=== PATIENT | male | born 1935 | race Caucasian/White ===

== ENCOUNTER 2018-04-25 16:15 | Inpatient (IN) | payer MEDICARE ==
--- NOTE | 2018-04-25 16:23 | C.PDOC ---
History Of Present Illness Patient is an 82 y/o male with unknown PMHx, who presents to the ED via EMS. As per EMS patient was found in a parking lot, minimally responsive, unknown down time. He was noted to have right side deficit, and brought to the ED for further evaluation. Finger stick was wnl. No family available at this time. Attempted to reach family via phone call, however no one picked up. Limited history provided secondary to patients clinical condition. Code Stroke called upon arrival. Time Seen by Provider: 04/25/18 16:19 Chief Complaint (Nursing): Weakness/Neurological Deficit History Per: Patient History/Exam Limitations: clinical condition Onset/Duration Of Symptoms: Unknown Current Symptoms Are (Timing): Still Present Additional History Per: EMS Past Medical History Reviewed: Historical Data, Nursing Documentation, Vital Signs Family History: States: No Known Family Hx Review Of Systems Review Of Systems: ROS cannot be obtained secondary to pt's inabilty to answer questions. ED Course And Treatment - Laboratory Results Result Diagrams: 04/27/18 05:59 04/27/18 12:55 O2 Sat by Pulse Oximetry: 98 (NC) Pulse Ox Interpretation: Normal - CT Scan/US CT Head Other Rad Studies (CT/US): Read By Radiologist CT/US Interpretation: Accession No. : [id number]. Patient Name / ID : DANIELA FLOYD / [id number]. Exam Date : 04/25/2018 16:29:33 ( Approved ). Study Comment : Sex / Age : M / 82Y. Creator : Izabel Mitchell. Dictator : Mitesh Aparicio MD. Resident Director : Nut Former : Mitesh Aparicio MD. Approver2 : Report Date : 04/25/2018 16:31:43. My Comment : . Date of service: 04/25/2018. PROCEDURE: CT HEAD WITHOUT CONTRAST. HISTORY: Code Stroke. COMPARISON: The. TECHNIQUE: Axial computed tomography images were obtained through the head/brain without intravenous contrast. Radiation dose: Total exam DLP = 1247.27 mGy-cm. This CT exam was performed using one or more of the following dose reduction techniques: Automated exposure control, adjustment of the mA and/or kV according to patient size, and/or use of iterative reconstruction technique. FINDINGS: HEMORRHAGE: No acute parenchymal, subarachnoid nor extra-axial hemorrhage.. BRAIN: Apparent hyperdense distal left MCA sign. 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 Minor diffuse/confluent chronic periventricular white matter ischemic changes seen extending peripherally into the deep and subcortical white matter both cerebral of hemispheres.. Note that the possibility of a small hyperacute infarct not excluded. No obvious parenchymal nor extra-axial mass or collection seen on this noncontrast study. Moderate volume loss slightly more central evidenced by slight disproportionate enlargement of the ventricles compared the sulci. Vascular calcifications both carotid siphons. VENTRICLES: No obstructive hydrocephalus. CALVARIUM: There are no acute calvarial fractures. PARANASAL SINUSES: Unremarkable as visualized. No significant inflammatory changes. MASTOID AIR CELLS: Unremarkable as visualized. No inflammatory changes. OTHER FINDINGS: Changes of bilateral cataract surgery. IMPRESSION: Apparent hyperdense distal left MCA sign. No acute intracranial hemorrhage. 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 Minor chronic periventricular white matter ischemic changes. NIHSS Stroke Scale 2 - Date/Time Evaluation Performed Date Performed: 04/25/18 Time Performed: 16:18 When Was NIHSS Performed: Code Stroke - How Severe is the Stroke Level of Consciousness: 2=Obtunded LOC to Questions: 2=Neither correct LOC to commands: 2=Neither correct Best Gaze: 1=Partial gaze palsy Visual: 0=No visual loss Facial: 1=Minor asymmetry Motor Arm - Left: 0=No drift Motor Arm - Right: 4=No movement Motor Leg - Left: 0=No drift Motor Leg - Right: 4=No movement Limb Ataxia: 2=Present both Sensory: 2=Severe to total loss Best Language: 3=Mute Dysarthia: 2=Severe, near unintelligible or worse Extinction & Inattention (Neglect): 0=Normal, no object Score: 25 Severity Of Stroke: 21-42 = Severe Stroke rTPA Inclusion/Exclusion - Inclusion Criteria for Altepase Patient is 18 years or Older: Yes The Clinical Diagnosis of Ischemic Stroke That is Causing a Potentially Disabling Neurological Deficit: Yes Time of Onset is Well Established to be Less Than 270 Minute Before Treatment Would Begin: No Risk/Benefit Discussed With Patient/Family Member Present: No Medical Decision Making Medical Decision Makin:18 Patient immediately seen upon arrival, Code Stroke initiated. Initial orders placed: --CT Head --CTA Head/Neck --CMP --Hb A1c --Lipid panel --Troponin I --CBC --PTT/PT --Chest x-ray --VBG panel --Blood type/screen --IVF hydration --Stroke Team Consult 16:[address] and CTA reviewed, + large vessel occlusion. Dr. Cheung and Dr. Anders notified via [facility] and are at bedside in the ED. Discussed case, patient to be taken immediately to the label paster. 16:[address] Brunner, patient accepted and is currently en route to label paster. 16:53 Discussed case with athletic turf worker, Dr. Pavithra Sykes, patient accepted to ICU. Disposition - Disposition Disposition: HOSPITALIZED Disposition Time: 16:49 Condition: SERIOUS - POA Core Measure Indicators: Code Stroke - Clinical Impression Clinical Impression: Stroke - Scribe Statement The provider has reviewed the documentation as recorded by the Scribe (Chastity Jean Baptiste) Provider Attestation: All medical record entries made by the Scribe were at my direction and personally dictated by me. I have reviewed the chart and agree that the record accurately reflects my personal performance of the history, physical exam, medical decision making, and the department course for this patient. I have also personally directed, reviewed, and agree with the discharge instructions and disposition. Decision To Admit - Pt Status Changed To: Hospital Disposition Of: Inpatient - Admit Certification Admit to Inpatient:: After my assessment, the patient will require hospitalization for at least two midnights. This is because of the severity of symptoms shown, intensity of services needed, and/or the medical risk in this patient being treated as an outpatient. - InPatient: Physician Admission Certification: I certify that this patient requires 2 or more midnights of care for the following reason:: Stroke - . Bed Request Type: ICU Admitting Physician: Harinder Brunner Patient Diagnosis: Stroke
[2018-04-25 16:24] VITALS: BMI 30.1
[2018-04-25] MEDS ORDERED: Iodixanol 320 MG/ML 100 ML BOTTLE IV ONE (16:26)
[2018-04-25 16:36] LABS: BASO # 0.1 K/uL (0.0-0.2); BASO % 0.8 % (0.0-2.0); EOS # 0.3 K/uL (0.0-0.7); EOS % 2.7 % (0.0-4.0); HEMOGLOBIN 14.4 g/dL (12.0-18.0); LYMPH # 4.2 K/uL (1.0-4.3); LYMPH % 43.1 % (20.0-40.0); MEAN CELL VOLUME 77.5 fL (80.0-94.0); MEAN CORPUSCULAR HEMOGLOBIN 26.3 pg (27.0-31.0); MEAN PLATELET VOLUME 9.1 fL (7.2-11.7); MONO # 0.7 K/uL (0.0-0.8); MONO % 6.9 % (0.0-10.0); NEUT # 4.5 K/uL (1.8-7.0); NEUT % 46.5 % (50.0-75.0); NRBC % 0.1 % (0.0-2.0); RBC 5.49 Mil/uL (4.40-5.90); RED CELL DISTRIBUTION WIDTH 18.3 % (11.5-14.5); WHITE BLOOD COUNT 9.7 K/uL (4.8-10.8)
[2018-04-25 16:44] LABS: INR 1.3; PROTHROMBIN TIME 13.8 SECONDS (9.7-12.2)
[2018-04-25] MEDS ORDERED: Sodium Chloride 0.9% 1,000 ML IV ONE ×2 (16:46→20:48)
[2018-04-25 16:52] LABS: ALB/GLOB RATIO 1.2 (1.0-2.1); ALBUMIN 4.4 g/dL (3.5-5.0); ALT/SGPT 29 U/L (21-72); AST/SGOT 25 U/L (17-59); BLOOD UREA NITROGEN 22 mg/dL (9-20); CALCIUM 9.5 mg/dl (8.6-10.4); GFR NON-AFRICAN AMERICAN > 60; HDL CHOLESTEROL 40 mg/dL (30-70)
[2018-04-25 16:59] LABS: VENOUS BLOOD GAS BASE EXCESS -1.4 mmol/L (0.0-2.0); VENOUS BLOOD GAS PCO2 49 mmHg (40-60); VENOUS BLOOD GAS PO2 23 mm/Hg (30-55); VENOUS BLOOD PH 7.32 (7.32-7.43)
[2018-04-25] MEDS ORDERED: Propofol 10 mg/ml Inj (20 ML) ONE (16:59)
[2018-04-25] MEDS ORDERED: Rocuronium 10 mg/ml (5 ml) ONE ×2 (17:00→18:25)
--- NOTE | 2018-04-25 17:00 | CT ---
Date of service: 04/25/2018 PROCEDURE: CT HEAD WITHOUT CONTRAST. HISTORY: Code Stroke COMPARISON: The TECHNIQUE: Axial computed tomography images were obtained through the head/brain without intravenous contrast. Radiation dose: Total exam DLP = 1247.27 mGy-cm. This CT exam was performed using one or more of the following dose reduction techniques: Automated exposure control, adjustment of the mA and/or kV according to patient size, and/or use of iterative reconstruction technique. FINDINGS: HEMORRHAGE: No acute parenchymal, subarachnoid nor extra-axial hemorrhage.. BRAIN: Apparent hyperdense distal left MCA sign. 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 Minor diffuse/confluent chronic periventricular white matter ischemic changes seen extending peripherally into the deep and subcortical white matter both cerebral of hemispheres.. Note that the possibility of a small hyperacute infarct not excluded. No obvious parenchymal nor extra-axial mass or collection seen on this noncontrast study. Moderate volume loss slightly more central evidenced by slight disproportionate enlargement of the ventricles compared the sulci. Vascular calcifications both carotid siphons. VENTRICLES: No obstructive hydrocephalus. CALVARIUM: There are no acute calvarial fractures. PARANASAL SINUSES: Unremarkable as visualized. No significant inflammatory changes. MASTOID AIR CELLS: Unremarkable as visualized. No inflammatory changes. OTHER FINDINGS: Changes of bilateral cataract surgery IMPRESSION: Apparent hyperdense distal left MCA sign. No acute intracranial hemorrhage. 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 Minor chronic periventricular white matter ischemic changes. Note these findings were discussed with Dr. Cheung at approximately 4:50 p.m. with written down and read back verification.
[2018-04-25 17:02] LABS: LDL CHOLESTEROL 118 mg/dL (0-129)
--- NOTE | 2018-04-25 17:13 | CP.PCM.CON ---
History of Present Illness - History of Present Illness History of Present Illness: Chief Concern: Obtunded with left sided weakness Buddy Hernandez is an 82 yo M with unknown past medical history who was found down earlier today. EMS was called and the patient was brought to the ED. On arrival patient was noted to be very drowsy and was oving only his left side spontaneously. A stroke was suspected and a CT and CTA was obtained and the stroke team was activated. All: Unknown Meds: Unknown PMH/PSH: Unknown FH/SH: Unknown On exam: Vitals: 194/114 tachycardic breathing spontaneously MSE: Drowsy, grimaces to noxious stimuli on left side, mute CN: left gaze preference, unable to test BTT, right facial droop, tongue midline Motor: moves left side spontaneously, right hemiplegia Sensory: grimaces to pain on left side Coord: No dysmetria Gait: Deferred CT head: No acute infarct or hemorrhage CTA: left MCA M1 occlusion with very very poor perfusion to the left hemisphere Imp: 1) Acute ischemic stroke with high severity on stroke scale Recs: 1) After a detailed discussion with the ED attending and the stroke team it was decided that the patient would need rapid recanalization of his MCA as his collateral status is very poor. A decision was made to transfer the patient to the laboratory veterinarian for endovascular mechanical thrombectomy 2) Attempts are being made to reach the family. In the interim there is cons ensus and consent between the ED physician, the neurology attending and the interventional team that the best treatment would be to rapid transfer to the laboratory veterinarian and attempt rapid recanalization given his poor left hemispheric collateral status 3) further management based on the results of the angiogram Past Patient History - Past Social History Smoking Status: unknown - PSYCHIATRIC Hx Substance Use: No (unknown) Meds Allergies/Adverse Reactions: Allergies Allergy/AdvReac Type Severity Reaction Status Date / Time No Known Allergies Allergy Unverified 04/25/18 16:19 - Medications Medications: Current Medications Sodium Chloride (Sodium Chloride 0.9%) 1,000 mls @ 100 mls/hr IV .Q10H DANIEL Sodium Chloride (Sodium Chloride 0.9%) 1,000 mls @ 1,000 mls/hr IV .Q1H ONE Stop: 04/25/18 17:45 Results - Vital Signs Recent Vital Signs: Last Vital Signs Temp Pulse 118 H 04/25/18 16:20 Resp 16 04/25/18 16:20 BP 194/114 H 04/25/18 16:20 Pulse Ox 98 04/25/18 16:20 - Labs Result Diagrams: 04/25/18 16:31 04/25/18 16:31 Labs: Laboratory Results - last 24 hr 04/25/18 04/25/18 04/25/18 16:17 16:31 16:31 WBC 9.7 RBC 5.49 Hgb 14.4 Hct 42.5 MCV 77.5 L MCH 26.3 L MCHC 34.0 RDW 18.3 H Plt Count 233 MPV 9.1 Neut % (Auto) 46.5 L Lymph % (Auto) 43.1 H [place] % (Auto) 6.9 Eos % (Auto) 2.7 Baso % (Auto) 0.8 Neut # (Auto) 4.5 Lymph # (Auto) 4.2 [place] # (Auto) 0.7 Eos # (Auto) 0.3 Baso # (Auto) 0.1 PT 13.8 H INR 1.3 APTT 33 pO2 VBG pH VBG pCO2 VBG HCO3 VBG Total CO2 VBG O2 Sat (Calc) VBG Base Excess VBG Potassium Glucose Lactate Crit Value Called To Crit Value Called By Crit Value Read Back Blood Gas Notified Time Sodium Potassium Chloride Carbon Dioxide Anion Gap BUN Creatinine Est GFR ( Amer) Est GFR (Non-Af Amer) POC Glucose (mg/dL) 121 H Random Glucose Hemoglobin A1c Calcium Total Bilirubin AST ALT Alkaline Phosphatase Troponin I Total Protein Albumin Globulin Albumin/Globulin Ratio Triglycerides Cholesterol LDL Cholesterol Direct HDL Cholesterol Venous Blood Potassium 04/25/18 04/25/18 04/25/18 16:31 16:31 16:55 WBC RBC Hgb Hct MCV MCH MCHC RDW Plt Count MPV Neut % (Auto) Lymph % (Auto) [place] % (Auto) Eos % (Auto) Baso % (Auto) Neut # (Auto) Lymph # (Auto) [place] # (Auto) Eos # (Auto) Baso # (Auto) PT INR APTT pO2 23 L VBG pH 7.32 VBG pCO2 49 VBG HCO3 22.1 VBG Total CO2 26.7 VBG O2 Sat (Calc) 42.5 VBG Base Excess -1.4 L VBG Potassium 2.5 L* Glucose 110 Lactate 1.3 Crit Value Called To do Mariela Crit Value Called By Phyllis rt Crit Value Read Back Y Blood Gas Notified Time 1659 Sodium 140 142.0 Potassium 3.6 Chloride 103 108.0 H Carbon Dioxide 30 Anion Gap 12 BUN 22 H Creatinine 1.1 Est GFR ( Amer) > 60 Est GFR (Non-Af Amer) > 60 POC Glucose (mg/dL) Random Glucose 139 H Hemoglobin A1c 5.9 Calcium 9.5 Total Bilirubin 0.7 AST 25 ALT 29 Alkaline Phosphatase 81 Troponin I 0.0200 Total Protein 8.2 Albumin 4.4 Globulin 3.8 Albumin/Globulin Ratio 1.2 Triglycerides 120 Cholesterol 181 LDL Cholesterol Direct 118 HDL Cholesterol 40 Venous Blood Potassium 2.5 L* Assessment & Plan - Assessment and Plan (Free Text) Assessment: acute ischemic stroke Plan: Imp: 1) Acute ischemic stroke with high severity on stroke scale Recs: 1) After a detailed discussion with the ED attending and the stroke team it was decided that the patient would need rapid recanalization of his MCA as his collateral status is very poor. A decision was made to transfer the patient to the laboratory veterinarian for endovascular mechanical thrombectomy 2) Attempts are being made to reach the family. In the interim there is consensus and consent between the ED physician, the neurology attending and the interventional team that the best treatment would be to rapid transfer to the laboratory veterinarian and attempt rapid recanalization given his poor left hemispheric collateral status 3) further management based on the results of the angiogram 4) Approximately 45 minutes of critical care time was spent in evaluation and management and documentation and coordination of care of this patient with acute ischemic stroke - Date & Time Date: 04/25/18 Time: 17:28
--- NOTE | 2018-04-25 17:13 | CT ---
Date of service: 2018-04-25 16:33:53 PROCEDURE: CT Angiography of the neck and brain. HISTORY: Code stroke. COMPARISON: None. TECHNIQUE: Contiguous axial images of the neck were obtained from the level of the vertex of skull to the superior mediastinum in the arteriographic phase of enhancement. Coronal and sagittal reformats or also generated. IV contrast dose: 100 cc Visipaque 320 Radiation dose: Total exam DLP = 662.55 mGy-cm. This CT exam was performed using one or more of the following dose reduction techniques: Automated exposure control, adjustment of the mA and/or kV according to patient size, and/or use of iterative reconstruction technique.. FINDINGS: The aortic arch is patent however there are mild partially calcified atherosclerotic plaque changes present with some extension into the origins of the great vessels. There is occlusion of the proximal left common carotid artery extending distally into the carotid bifurcation and left internal carotid artery including the left petrous and cavernous as well as supraclinoid segment.. There is also occlusion of the left distal middle cerebral artery and distal branches. There is also the right common carotid artery is patent with calcified plaque changes seen distally at the distal margin of the common carotid artery involving the carotid bifurcation and proximal internal carotid artery. There appears to be resulting in narrowing of the proximal internal carotid artery estimated at approximately % or so. There is some minor calcified plaque along the proximal and mid petrous segment with a calcified plaque right carotid siphon extending into the supraclinoid carotid artery. There is opacification of the right A1 as well and right A2 segments. There is also opacification of the left A1 and left A2 segment of secondary to cross filling predominately presumably across the posterior communicating artery and possibly some contribution across the anterior communicator. The middle cerebral artery is patent. Both vertebral arteries are patent right-sided which is slightly larger in caliber/more dominant than the left. Small calcified plaque seen along the distal of vertebral artery (proximal intradural segment). Basilar artery is patent. No definitive evidence of large aneurysm nor vascular malformation. 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 There is opacification of the left A1 and A2 segments which appears to be predominantly fed from the left posterior communicating artery and possibly some contribution via the the anterior communicator. Calcified atherosclerotic plaque seen along the distal right common carotid artery and carotid bifurcation extending into the proximal internal carotid artery. Note these findings discussed with Dr. Sierra at 4:50 p.m. with written down and read back verification.
[2018-04-25] MEDS ORDERED: Iodixanol 320 MG/ML 200 ML BOTTLE IV ONE ×2 (17:19→19:13)
--- NOTE | 2018-04-25 17:34 | CP.PCM.CON ---
<Wilma Oviedoandra - Last Filed: 04/25/18 20:20> History of Present Illness - History of Present Illness History of Present Illness: Patient is an 82 yo male who was found minimally responsive in a parking lot and brought to ED by EMS. He had R-sided deficit and code stroke was called. CT and CTA showed large ischemic CVA. Patient underwent mechanical thrombectomy. He remains intubated and sedated after the procedure. PMH, FH, SH: unknown Review of Systems - Review of Systems Systems not reviewed;Unavailable: Intubated Past Patient History - Past Social History Smoking Status: unknown - PSYCHIATRIC Hx Substance Use: No (unknown) Meds Allergies/Adverse Reactions: Allergies Allergy/AdvReac Type Severity Reaction Status Date / Time No Known Allergies Allergy Unverified 04/25/18 16:19 - Medications Medications: Current Medications Sodium Chloride (Sodium Chloride 0.9%) 1,000 mls @ 100 mls/hr IV .Q10H DANIEL Sodium Chloride (Sodium Chloride 0.9%) 1,000 mls @ 1,000 mls/hr IV .Q1H ONE Stop: 04/25/18 17:45 Nicardipine HCl 25 mg/ Sodium (Chloride) 250 mls @ 50 mls/hr IV .Q5H DANIEL Stop: 04/25/18 22:44 Physical Exam - Constitutional Additional comments: sedated, intubated - Head Exam Head Exam: ATRAUMATIC - Eye Exam Eye Exam: PERRL - ENT Exam ENT Exam: Mucous Membranes Moist - Respiratory Exam Additional comments: vent - Cardiovascular Exam Cardiovascular Exam: REGULAR RHYTHM - GI/Abdominal Exam GI & Abdominal Exam: Soft - Rectal Exam Rectal Exam: Deferred - Extremities Exam Extremities exam: Positive for: normal inspection - Psychiatric Exam Additional comments: sedated - Skin Skin Exam: Dry, Normal Color, Warm Results - Vital Signs Recent Vital Signs: Last Vital Signs Temp 97.9 F 04/25/18 16:20 Pulse 118 H 04/25/18 16:20 Resp 16 04/25/18 16:20 BP 194/114 H 04/25/18 16:20 Pulse Ox 98 04/25/18 16:20 - Labs Result Diagrams: 04/25/18 16:31 04/25/18 16:31 Labs: Laboratory Results - last 24 hr 04/25/18 04/25/18 04/25/18 16:17 16:31 16:31 WBC 9.7 RBC 5.49 Hgb 14.4 Hct 42.5 MCV 77.5 L MCH 26.3 L MCHC 34.0 RDW 18.3 H Plt Count 233 MPV 9.1 Neut % (Auto) 46.5 L Lymph % (Auto) 43.1 H Ada % (Auto) 6.9 Eos % (Auto) 2.7 Baso % (Auto) 0.8 Neut # (Auto) 4.5 Lymph # (Auto) 4.2 Ada # (Auto) 0.7 Eos # (Auto) 0.3 Baso # (Auto) 0.1 PT 13.8 H INR 1.3 APTT 33 pO2 VBG pH VBG pCO2 VBG HCO3 VBG Total CO2 VBG O2 Sat (Calc) VBG Base Excess VBG Potassium Glucose Lactate Crit Value Called To Crit Value Called By Crit Value Read Back Blood Gas Notified Time Sodium Potassium Chloride Carbon Dioxide Anion Gap BUN Creatinine Est GFR ( Amer) Est GFR (Non-Af Amer) POC Glucose (mg/dL) 121 H Random Glucose Hemoglobin A1c Calcium Total Bilirubin AST ALT Alkaline Phosphatase Troponin I Total Protein Albumin Globulin Albumin/Globulin Ratio Triglycerides Cholesterol LDL Cholesterol Direct HDL Cholesterol Venous Blood Potassium Blood Type Antibody Screen 04/25/18 04/25/18 04/25/18 16:31 16:31 16:31 WBC RBC Hgb Hct MCV MCH MCHC RDW Plt Count MPV Neut % (Auto) Lymph % (Auto) Ada % (Auto) Eos % (Auto) Baso % (Auto) Neut # (Auto) Lymph # (Auto) Ada # (Auto) Eos # (Auto) Baso # (Auto) PT INR APTT pO2 VBG pH VBG pCO2 VBG HCO3 VBG Total CO2 VBG O2 Sat (Calc) VBG Base Excess VBG Potassium Glucose Lactate Crit Value Called To Crit Value Called By Crit Value Read Back Blood Gas Notified Time Sodium 140 Potassium 3.6 Chloride 103 Carbon Dioxide 30 Anion Gap 12 BUN 22 H Creatinine 1.1 Est GFR ( Amer) > 60 Est GFR (Non-Af Amer) > 60 POC Glucose (mg/dL) Random Glucose 139 H Hemoglobin A1c 5.9 Calcium 9.5 Total Bilirubin 0.7 AST 25 ALT 29 Alkaline Phosphatase 81 Troponin I 0.0200 Total Protein 8.2 Albumin 4.4 Globulin 3.8 Albumin/Globulin Ratio 1.2 Triglycerides 120 Cholesterol 181 LDL Cholesterol Direct 118 HDL Cholesterol 40 Venous Blood Potassium Blood Type A POSITIVE Antibody Screen Negative 04/25/18 16:55 WBC RBC Hgb Hct MCV MCH MCHC RDW Plt Count MPV Neut % (Auto) Lymph % (Auto) Ada % (Auto) Eos % (Auto) Baso % (Auto) Neut # (Auto) Lymph # (Auto) Ada # (Auto) Eos # (Auto) Baso # (Auto) PT INR APTT pO2 23 L VBG pH 7.32 VBG pCO2 49 VBG HCO3 22.1 VBG Total CO2 26.7 VBG O2 Sat (Calc) 42.5 VBG Base Excess -1.4 L VBG Potassium 2.5 L* Glucose 110 Lactate 1.3 Crit Value Called To Mariela, do Crit Value Called By Phyllis rt Crit Value Read Back Y Blood Gas Notified Time 1659 Sodium 142.0 Potassium Chloride 108.0 H Carbon Dioxide Anion Gap BUN Creatinine Est GFR ( Amer) Est GFR (Non-Af Amer) POC Glucose (mg/dL) Random Glucose Hemoglobin A1c Calcium Total Bilirubin AST ALT Alkaline Phosphatase Troponin I Total Protein Albumin Globulin Albumin/Globulin Ratio Triglycerides Cholesterol LDL Cholesterol Direct HDL Cholesterol Venous Blood Potassium 2.5 L* Blood Type Antibody Screen Assessment & Plan - Assessment and Plan (Free Text) Assessment: Patient is 82 yo male who underwent 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 He remains intubated and sedated. 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, occlusion of L MCA - Neurovascular checks Q1H- if any changes, repeat CT head STAT - Propofol drip- maintain RASS -2 - Neurology consulted (Ann) - Neurointervention consulted (Arcot) CV: - Mechanical thrombectomy today 04/25 - Lipid panel wnl - Stop Integrilin - ASA 325 mg PO loading dose then ASA 81 mg PO daily - Plavix 300 mg PO loading dose then Plavix 75 mg PO daily - NS @ 100 mL/hr - Monitor vitals- maintain SBP Pulm: - ETT- titrate vent to maintain spO2>92% - CXR pending - ABG pending GI: - NGT - NPO : - I's & O's- Bhatt - Replete electrolytes PRN - UA pending Endo: - A1c 5.9 - Maintain euglycemia - Hypoglycemia protocol - Accuchecks Q6H with ISS Heme: - Monitor H&H - Monitor coags ID: - Afebrile - No leukocytosis - Lactate pending PPx: VTE: heparin 5000 units SC Q8H GI: Pepcid 20 mg IV daily Code status: full code Case discussed with attending, Dr. Shannon Sykes. PGY-1 Katelyn Oviedo D.O. <Román Sykes - Last Filed: 04/26/18 19:14> Meds - Medications Medications: Current Medications Albuterol/Ipratropium (Duoneb 3 Mg/0.5 Mg (3 Ml) Ud) 3 ml INH RQ4 [facility] Last Admin: 04/26/18 16:39 Dose: 3 ml Aspirin (Ecotrin) 81 mg PO DAILY DANIEL Last Admin: 04/26/18 09:14 Dose: 81 mg Clopidogrel Bisulfate (Plavix) 75 mg PO DAILY [facility] Last Admin: 04/26/18 09:14 Dose: 75 mg Famotidine (Pepcid) 20 mg IVP DAILY [facility] Last Admin: 04/26/18 09:14 Dose: 20 mg Heparin Sodium (Porcine) (Heparin) 5,000 units SC Q8 DANIEL Last Admin: 04/26/18 15:00 Dose: 5,000 units Propofol (Diprivan) 1,000 mg in 100 mls @ 2.773 mls/hr IV .Q24H PRN; Protocol PRN Reason: TITRATE PER MD ORDER Last Titration: 04/26/18 17:15 Dose: 24.88 mcg/kg/min, 13.8 mls/hr Piperacillin Sod/Tazobactam (Sod 3.375 gm/ Sodium Chloride) 100 mls @ 200 mls/hr IVPB Q6H DANIEL; Protocol Last Admin: 04/26/18 15:23 Dose: 200 mls/hr Vancomycin/Sodium Chloride (Vancomycin 1 Gm/Ns 200 Ml) 1 gm in 200 mls @ 133.333 mls/hr IVPB Q24H DANIEL; Protocol Stop: 05/01/18 09:16 Last Admin: 04/26/18 11:14 Dose: 133.333 mls/hr Nicardipine HCl 25 mg/ Sodium (Chloride) 250 mls @ 50 mls/hr IV .Q5H DANIEL; Protocol Last Titration: 04/26/18 18:26 Dose: 0 mg/hr, 0 mls/hr Sodium Chloride (Sodium Chloride 0.9%) 1,000 mls @ 42 mls/hr IV .[id number] DANIEL Insulin Aspart (Novolog) 0 unit SC Q6H DANIEL; Protocol Last Admin: 04/26/18 17:46 Dose: Not Given Propofol (Diprivan) 100 mg IV TITR DANIEL Rosuvastatin Calcium (Crestor) 10 mg PO HS DANIEL Results - Vital Signs Recent Vital Signs: Last Vital Signs Temp 99 F 04/26/18 16:00 Pulse 69 04/26/18 19:00 Resp 22 04/26/18 19:00 BP 117/37 L 04/26/18 19:00 Pulse Ox 100 04/26/18 19:00 - Labs Result Diagrams: 04/26/18 06:09 04/26/18 06:09 Labs: Laboratory Results - last 24 hr 04/25/18 04/25/18 04/25/18 21:44 21:47 21:47 WBC 9.3 RBC 4.10 L Hgb 10.8 L D Hct 32.1 L MCV 78.2 L MCH 26.4 L MCHC 33.7 RDW 18.2 H Plt Count 180 MPV 8.7 Neut % (Auto) 80.4 H Lymph % (Auto) 14.8 L Ada % (Auto) 4.1 Eos % (Auto) 0.2 Baso % (Auto) 0.5 Neut # (Auto) 7.5 H Lymph # (Auto) 1.4 Ada # (Auto) 0.4 Eos # (Auto) 0.0 Baso # (Auto) 0.1 Puncture Site [place] pCO2 43 pO2 126 H HCO3 22.5 ABG pH 7.33 L ABG Total CO2 24.0 ABG O2 Saturation 98.5 H ABG Base Excess -3.2 L ABG Hemoglobin ABG Carboxyhemoglobin POC ABG HHb (Measured) ABG Methemoglobin Jose D Test Na ABG Potassium 3.7 A-a O2 Difference 177.0 Respiratory Index 1.4 Hgb O2 Saturation Sodium 139.0 138 Chloride 114.0 H 109 H Glucose 134 H Lactate 0.8 Vent Mode Prvc Mechanical Rate 20 FiO2 50.0 Tidal Volume 450 PEEP 5 Potassium 4.1 Carbon Dioxide 22 Anion Gap 12 BUN 21 H Creatinine 0.9 Est GFR ( Amer) > 60 Est GFR (Non-Af Amer) > 60 POC Glucose (mg/dL) Random Glucose 138 H Lactic Acid Calcium 7.5 L Phosphorus 3.0 Magnesium 1.8 Total Bilirubin 0.6 AST 18 ALT 33 Alkaline Phosphatase 48 Total Creatine Kinase CK-MB (Mass) Troponin I NT-Pro-B Natriuret Pep Total Protein 5.6 L Albumin 2.7 L D Globulin 2.8 Albumin/Globulin Ratio 1.0 Arterial Blood Potassium 3.7 Urine Color Urine Clarity Urine pH Ur Specific Cameron Urine Protein Urine Glucose (UA) Urine Ketones Urine Blood Urine Nitrate Urine Bilirubin Urine Urobilinogen Ur Leukocyte Esterase Urine WBC (Auto) Urine RBC (Auto) Ur Squamous Epith Cells Urine Bacteria 04/25/18 04/25/18 04/25/18 21:47 22:33 23:54 WBC RBC Hgb Hct MCV MCH MCHC RDW Plt Count MPV Neut % (Auto) Lymph % (Auto) Ada % (Auto) Eos % (Auto) Baso % (Auto) Neut # (Auto) Lymph # (Auto) Ada # (Auto) Eos # (Auto) Baso # (Auto) Puncture Site pCO2 pO2 HCO3 ABG pH ABG Total CO2 ABG O2 Saturation ABG Base Excess ABG Hemoglobin ABG Carboxyhemoglobin POC ABG HHb (Measured) ABG Methemoglobin Jose D Test ABG Potassium A-a O2 Difference Respiratory Index Hgb O2 Saturation Sodium Chloride Glucose Lactate Vent Mode Mechanical Rate FiO2 Tidal Volume PEEP Potassium Carbon Dioxide Anion Gap BUN Creatinine Est GFR ( Amer) Est GFR (Non-Af Amer) POC Glucose (mg/dL) 119 H 117 H Random Glucose Lactic Acid 0.8 Calcium Phosphorus Magnesium Total Bilirubin AST ALT Alkaline Phosphatase Total Creatine Kinase CK-MB (Mass) Troponin I NT-Pro-B Natriuret Pep Total Protein Albumin Globulin Albumin/Globulin Ratio Arterial Blood Potassium Urine Color Urine Clarity Urine pH Ur Specific Cameron Urine Protein Urine Glucose (UA) Urine Ketones Urine Blood Urine Nitrate Urine Bilirubin Urine Urobilinogen Ur Leukocyte Esterase Urine WBC (Auto) Urine RBC (Auto) Ur Squamous Epith Cells Urine Bacteria 11/09/18 11/09/18 11/09/18 00:24 05:16 05:43 WBC RBC Hgb Hct MCV MCH MCHC RDW Plt Count MPV Neut % (Auto) Lymph % (Auto) Ada % (Auto) Eos % (Auto) Baso % (Auto) Neut # (Auto) Lymph # (Auto) Ada # (Auto) Eos # (Auto) Baso # (Auto) Puncture Site A-line pCO2 36 pO2 139 H HCO3 21.8 ABG pH 7.37 ABG Total CO2 21.9 L ABG O2 Saturation 98.6 H ABG Base Excess -4.0 L ABG Hemoglobin 9.2 L ABG Carboxyhemoglobin 1.2 POC ABG HHb (Measured) 1.4 ABG Methemoglobin 0.9 Jose D Test Na ABG Potassium A-a O2 Difference 173.0 Respiratory Index 1.2 Hgb O2 Saturation 96.4 Sodium Chloride Glucose Lactate Vent Mode Prvc Mechanical Rate 20 FiO2 50.0 Tidal Volume 450 PEEP 5 Potassium Carbon Dioxide Anion Gap BUN Creatinine Est GFR ( Amer) Est GFR (Non-Af Amer) POC Glucose (mg/dL) 101 Random Glucose Lactic Acid Calcium Phosphorus Magnesium Total Bilirubin AST ALT Alkaline Phosphatase Total Creatine Kinase CK-MB (Mass) Troponin I NT-Pro-B Natriuret Pep Total Protein Albumin Globulin Albumin/Globulin Ratio Arterial Blood Potassium Urine Color Yellow Urine Clarity Clear Urine pH 7.0 Ur Specific Cameron > 1.060 H Urine Protein 1+ H Urine Glucose (UA) Normal Urine Ketones Negative Urine Blood Negative Urine Nitrate Negative Urine Bilirubin Negative Urine Urobilinogen Normal Ur Leukocyte Esterase Neg Urine WBC (Auto) 2 Urine RBC (Auto) 4 H Ur Squamous Epith Cells < 1 Urine Bacteria Rare 04/26/18 04/26/18 04/26/18 06:09 06:09 06:09 WBC 7.5 RBC 3.49 L Hgb 9.0 L Hct 27.3 L MCV 78.3 L MCH 25.9 L MCHC 33.1 RDW 17.4 H Plt Count 152 MPV 9.3 Neut % (Auto) 77.8 H Lymph % (Auto) 14.6 L Ada % (Auto) 6.5 Eos % (Auto) 0.3 Baso % (Auto) 0.8 Neut # (Auto) 5.9 Lymph # (Auto) 1.1 Ada # (Auto) 0.5 Eos # (Auto) 0.0 Baso # (Auto) 0.1 Puncture Site pCO2 pO2 HCO3 ABG pH ABG Total CO2 ABG O2 Saturation ABG Base Excess ABG Hemoglobin ABG Carboxyhemoglobin POC ABG HHb (Measured) ABG Methemoglobin Jose D Test ABG Potassium A-a O2 Difference Respiratory Index Hgb O2 Saturation Sodium 140 Chloride 115 H Glucose Lactate Vent Mode Mechanical Rate FiO2 Tidal Volume PEEP Potassium 4.0 Carbon Dioxide 21 L Anion Gap 8 L BUN 18 Creatinine 0.8 Est GFR ( Amer) > 60 Est GFR (Non-Af Amer) > 60 POC Glucose (mg/dL) Random Glucose 100 Lactic Acid 0.8 Calcium 6.7 L Phosphorus 2.3 L Magnesium 1.7 Total Bilirubin 0.4 AST 18 ALT 27 Alkaline Phosphatase 52 Total Creatine Kinase CK-MB (Mass) Troponin I NT-Pro-B Natriuret Pep Total Protein 4.9 L Albumin 2.4 L Globulin 2.5 Albumin/Globulin Ratio 1.0 Arterial Blood Potassium Urine Color Urine Clarity Urine pH Ur Specific Cameron Urine Protein Urine Glucose (UA) Urine Ketones Urine Blood Urine Nitrate Urine Bilirubin Urine Urobilinogen Ur Leukocyte Esterase Urine WBC (Auto) Urine RBC (Auto) Ur Squamous Epith Cells Urine Bacteria 04/26/18 04/26/18 04/26/18 09:24 11:43 17:45 WBC RBC Hgb Hct MCV MCH MCHC RDW Plt Count MPV Neut % (Auto) Lymph % (Auto) Ada % (Auto) Eos % (Auto) Baso % (Auto) Neut # (Auto) Lymph # (Auto) Ada # (Auto) Eos # (Auto) Baso # (Auto) Puncture Site pCO2 pO2 HCO3 ABG pH ABG Total CO2 ABG O2 Saturation ABG Base Excess ABG Hemoglobin ABG Carboxyhemoglobin POC ABG HHb (Measured) ABG Methemoglobin Jose D Test ABG Potassium A-a O2 Difference Respiratory Index Hgb O2 Saturation Sodium Chloride Glucose Lactate Vent Mode Mechanical Rate FiO2 Tidal Volume PEEP Potassium Carbon Dioxide Anion Gap BUN Creatinine Est GFR ( Amer) Est GFR (Non-Af Amer) POC Glucose (mg/dL) 122 H 114 H Random Glucose Lactic Acid Calcium Phosphorus Magnesium Total Bilirubin AST ALT Alkaline Phosphatase Total Creatine Kinase 61 CK-MB (Mass) 1.16 Troponin I 0.0380 NT-Pro-B Natriuret Pep 1790 H Total Protein Albumin Globulin Albumin/Globulin Ratio Arterial Blood Potassium Urine Color Urine Clarity Urine pH Ur Specific Cameron Urine Protein Urine Glucose (UA) Urine Ketones Urine Blood Urine Nitrate Urine Bilirubin Urine Urobilinogen Ur Leukocyte Esterase Urine WBC (Auto) Urine RBC (Auto) Ur Squamous Epith Cells Urine Bacteria Assessment & Plan - Assessment and Plan (Free Text) Plan: Patient seen and examined at bedside. Patient with h/o A-fib presents to [facility] with stuperous and right sided motor weakenss. Patient immediately taken to neuro interventional -Acute MCA stroke:L suspect 2nd A-fib not on anticoagulation, s/p neurointernventional -neuro/vascular exam q1hrs -intubated for airway protection -RLL aspiration PNA: palacios culture, sputum culture, serial lactic, start broad spectrum abx, vanco/zosyn -Heart failure: obtain echo, bnp and trops -continue antiplatelets as per neurointernventional -patient was on integrilin post procedure - stopped -Repeat CT ehad at 7AM -f/u post intubation, AbG and CXR -continue dvt/pud ppx -avoid hypotonic fluids -BGM q6hrs, ISS aspart -post procedure, continue ventilation, BP measurement and serial neruro exam -if change in neuro exam obtain CT head prognosis guarded cc time 45 minutes - Date & Time Date: 04/25/18 Time: 22:30
[2018-04-25] MEDS ORDERED: Eptifibatide 0.75 mg/ml 75 MG/100 ML BOTTLE IV ONE (17:41)
[2018-04-25] MEDS ORDERED: niCARdipine IV 25 MG in Sodium Chloride 0.9% 240 ML IV SCH (17:45)
[2018-04-25] MEDS ORDERED: Eptifibatide 20 mg/10mL Inj IVP ONE (17:52)
--- NOTE | 2018-04-25 17:54 | CP.PCM.CON ---
History of Present Illness - History of Present Illness History of Present Illness: 82 yr old male who was found down on the ground in front of a restaurant an unknown time ago, not a TPA candidate due to the uncertain time of fall. Patient's history is not known. I examined the patient and he is plegic right arm and right leg, with aphasia, and right facial droop. There was no seizure at onset of event, and patient has stable vital signs. His NIH stroke scale is more than 20. There is no history of stroke, afib. ROS: not able to obtain from patient. PMH/PSH: not known Fh/SH: not known All: nkda On exam: Lethargic, not arouseable. Pupils 4mm-3mm with light bl. Patient appears to have a gaze preference. Right facial droop. Not withdrawing to painful stimuli, no grimace. +corneals, no dolls eyes, weak gag. Rigth side strength is 0/0 upper and lower limb Sensory: not able to determine due to patients mental status. +3 dtr ul and ll bl. Toes upgoing bl. No clonus Past Patient History - Past Social History Smoking Status: unknown - PSYCHIATRIC Hx Substance Use: No (unknown) Meds Allergies/Adverse Reactions: Allergies Allergy/AdvReac Type Severity Reaction Status Date / Time No Known Allergies Allergy Unverified 04/25/18 16:19 - Medications Medications: Current Medications Sodium Chloride (Sodium Chloride 0.9%) 1,000 mls @ 100 mls/hr IV .Q10H DANIEL Sodium Chloride (Sodium Chloride 0.9%) 1,000 mls @ 1,000 mls/hr IV .Q1H ONE Stop: 04/25/18 17:45 Nicardipine HCl 25 mg/ Sodium (Chloride) 250 mls @ 50 mls/hr IV .Q5H DANIEL Stop: 04/25/18 22:44 Results - Vital Signs Recent Vital Signs: Last Vital Signs Temp 97.9 F 04/25/18 16:20 Pulse 118 H 04/25/18 16:20 Resp 16 04/25/18 16:20 BP 194/114 H 04/25/18 16:20 Pulse Ox 98 04/25/18 16:20 - Labs Result Diagrams: 04/25/18 16:31 04/25/18 16:31 Labs: Laboratory Results - last 24 hr 04/25/18 04/25/18 04/25/18 16:17 16:31 16:31 WBC 9.7 RBC 5.49 Hgb 14.4 Hct 42.5 MCV 77.5 L MCH 26.3 L MCHC 34.0 RDW 18.3 H Plt Count 233 MPV 9.1 Neut % (Auto) 46.5 L Lymph % (Auto) 43.1 H [place] % (Auto) 6.9 Eos % (Auto) 2.7 Baso % (Auto) 0.8 Neut # (Auto) 4.5 Lymph # (Auto) 4.2 [place] # (Auto) 0.7 Eos # (Auto) 0.3 Baso # (Auto) 0.1 PT 13.8 H INR 1.3 APTT 33 pO2 VBG pH VBG pCO2 VBG HCO3 VBG Total CO2 VBG O2 Sat (Calc) VBG Base Excess VBG Potassium Glucose Lactate Crit Value Called To Crit Value Called By Crit Value Read Back Blood Gas Notified Time Sodium Potassium Chloride Carbon Dioxide Anion Gap BUN Creatinine Est GFR ( Amer) Est GFR (Non-Af Amer) POC Glucose (mg/dL) 121 H Random Glucose Hemoglobin A1c Calcium Total Bilirubin AST ALT Alkaline Phosphatase Troponin I Total Protein Albumin Globulin Albumin/Globulin Ratio Triglycerides Cholesterol LDL Cholesterol Direct HDL Cholesterol Venous Blood Potassium Blood Type Antibody Screen 04/25/18 04/25/18 04/25/18 16:31 16:31 16:31 WBC RBC Hgb Hct MCV MCH MCHC RDW Plt Count MPV Neut % (Auto) Lymph % (Auto) [place] % (Auto) Eos % (Auto) Baso % (Auto) Neut # (Auto) Lymph # (Auto) [place] # (Auto) Eos # (Auto) Baso # (Auto) PT INR APTT pO2 VBG pH VBG pCO2 VBG HCO3 VBG Total CO2 VBG O2 Sat (Calc) VBG Base Excess VBG Potassium Glucose Lactate Crit Value Called To Crit Value Called By Crit Value Read Back Blood Gas Notified Time Sodium 140 Potassium 3.6 Chloride 103 Carbon Dioxide 30 Anion Gap 12 BUN 22 H Creatinine 1.1 Est GFR ( Amer) > 60 Est GFR (Non-Af Amer) > 60 POC Glucose (mg/dL) Random Glucose 139 H Hemoglobin A1c 5.9 Calcium 9.5 Total Bilirubin 0.7 AST 25 ALT 29 Alkaline Phosphatase 81 Troponin I 0.0200 Total Protein 8.2 Albumin 4.4 Globulin 3.8 Albumin/Globulin Ratio 1.2 Triglycerides 120 Cholesterol 181 LDL Cholesterol Direct 118 HDL Cholesterol 40 Venous Blood Potassium Blood Type A POSITIVE Antibody Screen Negative 04/25/18 16:55 WBC RBC Hgb Hct MCV MCH MCHC RDW Plt Count MPV Neut % (Auto) Lymph % (Auto) [place] % (Auto) Eos % (Auto) Baso % (Auto) Neut # (Auto) Lymph # (Auto) [place] # (Auto) Eos # (Auto) Baso # (Auto) PT INR APTT pO2 23 L VBG pH 7.32 VBG pCO2 49 VBG HCO3 22.1 VBG Total CO2 26.7 VBG O2 Sat (Calc) 42.5 VBG Base Excess -1.4 L VBG Potassium 2.5 L* Glucose 110 Lactate 1.3 Crit Value Called To Mariela, do Crit Value Called By Phyllis rt Crit Value Read Back Y Blood Gas Notified Time 1659 Sodium 142.0 Potassium Chloride 108.0 H Carbon Dioxide Anion Gap BUN Creatinine Est GFR ( Amer) Est GFR (Non-Af Amer) POC Glucose (mg/dL) Random Glucose Hemoglobin A1c Calcium Total Bilirubin AST ALT Alkaline Phosphatase Troponin I Total Protein Albumin Globulin Albumin/Globulin Ratio Triglycerides Cholesterol LDL Cholesterol Direct HDL Cholesterol Venous Blood Potassium 2.5 L* Blood Type Antibody Screen Assessment & Plan - Assessment and Plan (Free Text) Assessment: CTA head and neck: shows completed occluded left ICA throughout its course to the Left MCA and through the supraclinoid segment. Right ICA and vasculature appears patent. MRI Brain: pending. A/P: 82 yr old male who was found down for unknown period of time, not a TPA candidate due to unclear time of onset, and now with completed occluded Left ICA to LEft MCA thrombus. Neurointerventional team in garden labou[employer] now to perform thrombectomy. Plan: 1. Thrombectomy 2. Transfer to ICU post op 3. DVT prophylaxis with venodynes. 4. ECHO 5. PT ST OT 6. Lipid profile. 7. please allow permissive htn for 24 hours after surgery. 8. Repeat CT head in am. Thank you Dr. Ann Neurology
[2018-04-25] MEDS ORDERED: VERAPAMIL ONE (18:30)
--- NOTE | 2018-04-25 20:03 | PCM.SURG1 ---
Surgeon's Initial Post Op Note - Surgeon's Notes Surgeon: Dr. Cheung Server Assistant: Mr. Santos Almanza Type of Anesthesia: General Endo Pre-Operative Diagnosis: Acute ischemic stroke with high severity on the stroke scale with Left ICA occlusion and left mca occlusion Operative Findings: Left ICA and Left MCA occlusion Post-Operative Diagnosis: Successful endovascular mechanical thrombectomy with recanalization of the left ica and left MCA from tici 0 to tici 3 with stenting and angioplasty of the left cervical ica Operation Performed: Successful endovascular mechanical thrombectomy with recanalization of the left ica and left MCA from tici 0 to tici 3 with stenting and angioplasty of the left cervical ica Specimen/Specimens Removed: None Estimated Blood Loss: EBL {In ML}: 400 Blood Products Given: N/A Drains Used: No Drains Post-Op Condition: Critical Date of Surgery/Procedure: 04/25/18 Time of Surgery/Procedure: 20:07
[2018-04-25] MEDS ORDERED: Aspirin 325 mg EC Tablets PO STA ×2 (20:10→21:56)
--- NOTE | 2018-04-25 20:12 | CP.PCM.PN ---
Subjective - Date & Time of Evaluation Date of Evaluation: 04/25/18 Time of Evaluation: 20:09 - Subjective Subjective: Pt is post procedure Objective - Vital Signs/Intake and Output Vital Signs (last 24 hours): Temp Pulse Resp BP Pulse Ox 97.9 F 118 H 16 194/114 H 98 04/25/18 16:20 04/25/18 16:20 04/25/18 16:20 04/25/18 16:20 04/25/18 17:50 - Medications Medications: Current Medications Sodium Chloride (Sodium Chloride 0.9%) 1,000 mls @ 100 mls/hr IV .Q10H DANIEL Nicardipine HCl 25 mg/ Sodium (Chloride) 250 mls @ 50 mls/hr IV .Q5H DANIEL Stop: 04/25/18 22:44 - Labs Labs: 04/25/18 16:31 04/25/18 16:31 PT 13.8 SECONDS (9.7-12.2) H 04/25/18 16:31 INR 1.3 04/25/18 16:31 APTT 33 SECONDS (21-34) 04/25/18 16:31 Assessment and Plan - Assessment and Plan (Free Text) Assessment: Acute ischemic stroke Plan: Post Op recommendations: 1) NG or OG tube placement 2) Discontinue Integrilin 3) Start Asa 325 and Plavix 300 mg immediately after stopping integrilin 4) Target SBP 100 to 140 mm HG 5) Please do not hesitate to contact me for any further questions or clarifications 6) Discussed with critical care team
[2018-04-25] MEDS ORDERED: Propofol 10 mg/ml Inj (100 ml) IV SCH ×2 (20:15→20:19)
[2018-04-25] MEDS ORDERED: Glucagon Recombinant 1 mg Inj IM PRN (20:17)
[2018-04-25] MEDS ORDERED: Dextrose 50% SYRINGE Inj (50 ml) IV PRN (20:17)
--- NOTE | 2018-04-25 20:43 | CP.PCM.HP ---
History of Present Illness - History of Present Illness History of Present Illness: H&P dictated # [id number] Past Patient History - Past Social History Smoking Status: unknown - PSYCHIATRIC Hx Substance Use: No (unknown) Meds Allergies/Adverse Reactions: Allergies Allergy/AdvReac Type Severity Reaction Status Date / Time No Known Allergies Allergy Unverified 04/25/18 16:19 Results - Vital Signs Recent Vital Signs: Last Vital Signs Temp 97.9 F 04/25/18 16:20 Pulse 118 H 04/25/18 16:20 Resp 16 04/25/18 16:20 BP 194/114 H 04/25/18 16:20 Pulse Ox 98 04/25/18 17:50 - Labs Result Diagrams: 04/25/18 21:47 04/25/18 21:47 Labs: Laboratory Results - last 24 hr 04/25/18 04/25/18 04/25/18 16:17 16:31 16:31 WBC 9.7 RBC 5.49 Hgb 14.4 Hct 42.5 MCV 77.5 L MCH 26.3 L MCHC 34.0 RDW 18.3 H Plt Count 233 MPV 9.1 Neut % (Auto) 46.5 L Lymph % (Auto) 43.1 H Floyd % (Auto) 6.9 Eos % (Auto) 2.7 Baso % (Auto) 0.8 Neut # (Auto) 4.5 Lymph # (Auto) 4.2 Floyd # (Auto) 0.7 Eos # (Auto) 0.3 Baso # (Auto) 0.1 PT 13.8 H INR 1.3 APTT 33 pO2 VBG pH VBG pCO2 VBG HCO3 VBG Total CO2 VBG O2 Sat (Calc) VBG Base Excess VBG Potassium Glucose Lactate Crit Value Called To Crit Value Called By Crit Value Read Back Blood Gas Notified Time Sodium Potassium Chloride Carbon Dioxide Anion Gap BUN Creatinine Est GFR ( Amer) Est GFR (Non-Af Amer) POC Glucose (mg/dL) 121 H Random Glucose Hemoglobin A1c Calcium Total Bilirubin AST ALT Alkaline Phosphatase Troponin I Total Protein Albumin Globulin Albumin/Globulin Ratio Triglycerides Cholesterol LDL Cholesterol Direct HDL Cholesterol Venous Blood Potassium Blood Type Antibody Screen 04/25/18 04/25/18 04/25/18 16:31 16:31 16:31 WBC RBC Hgb Hct MCV MCH MCHC RDW Plt Count MPV Neut % (Auto) Lymph % (Auto) Floyd % (Auto) Eos % (Auto) Baso % (Auto) Neut # (Auto) Lymph # (Auto) Floyd # (Auto) Eos # (Auto) Baso # (Auto) PT INR APTT pO2 VBG pH VBG pCO2 VBG HCO3 VBG Total CO2 VBG O2 Sat (Calc) VBG Base Excess VBG Potassium Glucose Lactate Crit Value Called To Crit Value Called By Crit Value Read Back Blood Gas Notified Time Sodium 140 Potassium 3.6 Chloride 103 Carbon Dioxide 30 Anion Gap 12 BUN 22 H Creatinine 1.1 Est GFR ( Amer) > 60 Est GFR (Non-Af Amer) > 60 POC Glucose (mg/dL) Random Glucose 139 H Hemoglobin A1c 5.9 Calcium 9.5 Total Bilirubin 0.7 AST 25 ALT 29 Alkaline Phosphatase 81 Troponin I 0.0200 Total Protein 8.2 Albumin 4.4 Globulin 3.8 Albumin/Globulin Ratio 1.2 Triglycerides 120 Cholesterol 181 LDL Cholesterol Direct 118 HDL Cholesterol 40 Venous Blood Potassium Blood Type A POSITIVE Antibody Screen Negative 04/25/18 16:55 WBC RBC Hgb Hct MCV MCH MCHC RDW Plt Count MPV Neut % (Auto) Lymph % (Auto) Floyd % (Auto) Eos % (Auto) Baso % (Auto) Neut # (Auto) Lymph # (Auto) Floyd # (Auto) Eos # (Auto) Baso # (Auto) PT INR APTT pO2 23 L VBG pH 7.32 VBG pCO2 49 VBG HCO3 22.1 VBG Total CO2 26.7 VBG O2 Sat (Calc) 42.5 VBG Base Excess -1.4 L VBG Potassium 2.5 L* Glucose 110 Lactate 1.3 Crit Value Called To do Mariela Crit Value Called By Phyllis rodriguez Crit Value Read Back Y Blood Gas Notified Time 1659 Sodium 142.0 Potassium Chloride 108.0 H Carbon Dioxide Anion Gap BUN Creatinine Est GFR ( Amer) Est GFR (Non-Af Amer) POC Glucose (mg/dL) Random Glucose Hemoglobin A1c Calcium Total Bilirubin AST ALT Alkaline Phosphatase Troponin I Total Protein Albumin Globulin Albumin/Globulin Ratio Triglycerides Cholesterol LDL Cholesterol Direct HDL Cholesterol Venous Blood Potassium 2.5 L* Blood Type Antibody Screen
[2018-04-25 21:47] LABS: ARTERIAL BLOOD GAS HCO3 22.5 mmol/L (21-28); ARTERIAL BLOOD GAS O2 SAT 98.5 % (95-98); ARTERIAL BLOOD GAS PCO2 43 mm/Hg (35-45); ARTERIAL BLOOD GAS PH 7.33 (7.35-7.45); ARTERIAL BLOOD GAS PO2 126 mm/Hg (80-100)
[2018-04-25] MEDS: Piperacillin/Tazobact 3.375 GM in Sodium Chloride 100 ML IVPB SCH (21:50)
[2018-04-25 21:51] LABS: BASO # 0.1 K/uL (0.0-0.2); BASO % 0.5 % (0.0-2.0); EOS % 0.2 % (0.0-4.0); HEMOGLOBIN 10.8 g/dL (12.0-18.0); LYMPH # 1.4 K/uL (1.0-4.3); LYMPH % 14.8 % (20.0-40.0); MEAN CELL VOLUME 78.2 fL (80.0-94.0); MEAN CORPUSCULAR HEMOGLOBIN 26.4 pg (27.0-31.0); MEAN CORPUSCULAR HGB CONC 33.7 g/dL (33.0-37.0); MEAN PLATELET VOLUME 8.7 fL (7.2-11.7); MONO # 0.4 K/uL (0.0-0.8); MONO % 4.1 % (0.0-10.0); NEUT # 7.5 K/uL (1.8-7.0); NEUT % 80.4 % (50.0-75.0); RBC 4.1 Mil/uL (4.40-5.90); RED CELL DISTRIBUTION WIDTH 18.2 % (11.5-14.5); WHITE BLOOD COUNT 9.3 K/uL (4.8-10.8)
[2018-04-25] MEDS: Sodium Chloride 0.9% 1,000 ML IV SCH (21:52)
[2018-04-25] MEDS: Propofol 10 mg/ml 1,000 MG/100 ML VIAL IV PRN (21:53)
[2018-04-25 22:05] LABS: ALBUMIN 2.7 g/dL (3.5-5.0); ALT/SGPT 33 U/L (21-72); AST/SGOT 18 U/L (17-59); BLOOD UREA NITROGEN 21 mg/dL (9-20); CALCIUM 7.5 mg/dl (8.6-10.4); GFR NON-AFRICAN AMERICAN > 60
[2018-04-26 00:41] LABS: SQUAMOUS EPITHIAL < 1 /hpf (0-5); URINE BACTERIA RARE (<OCC); URINE BILIRUBIN NEGATIVE (NEGATIVE); URINE BLOOD NEGATIVE (NEGATIVE); URINE CLARITY Clear (Clear); URINE COLOR Yellow (YELLOW); URINE GLUCOSE (UA) NORMAL (Normal); URINE LEUKOCYTE ESTERASE NEG Leu/uL (Negative); URINE PROTEIN 1+ mg/dL (NEGATIVE); URINE UROBILINOGEN NORMAL mg/dL (0.2-1.0)
[2018-04-26] MEDS: Sodium Chloride 0.9% 1,000 ML IV SCH ×2 (02:30→18:50)
[2018-04-26] MEDS: Propofol 10 mg/ml 1,000 MG/100 ML VIAL IV PRN ×3 (03:52→21:55)
--- NOTE | 2018-04-26 05:13 | HP ---
CHIEF COMPLAINT: The patient was found minimally responsive in the parking lot for unknown length of time. HISTORY OF PRESENT ILLNESS: Mr. Goodwin is an 82-year-old male with unknown past medical history, who was found in the parking lot, in front of a restaurant, for unknown length of time. He was brought in by the EMS. All the history obtained only by view of ER physician and other consultants' notes. As no family member is available, I tried contacting the telephone numbers available in the chart, left message, awaiting for them to call back. With the limited information available, the patient was found minimally responsive in the parking lot in front of a restaurant, and the patient was brought by EMS. Code stroke was called. The patient underwent a CT angiogram which showed large ischemic stroke, and the patient was evaluated by Neurology and Neurointerventional Radiology. Emergent procedure was done. The patient underwent emergent endovascular mechanical thrombectomy with recanalization of the left ICA and left MCA with stenting and angioplasty of the left cervical ICA, and the patient is being brought to ICU. The patient remains intubated, moving right upper extremity less than the other extremity, remains sedated, unable to obtain any further detailed history. PAST MEDICAL HISTORY: Unknown at this time. FAMILY HISTORY: Unknown. SURGICAL HISTORY: Unknown. PERSONAL HISTORY: Unknown. SOCIAL HISTORY: Unknown. ALLERGIES: DOCUMENTED. NO KNOWN DRUG ALLERGIES. MEDICATIONS: Unable to obtain medication list. REVIEW OF SYSTEMS: Unobtainable. PHYSICAL EXAMINATION: GENERAL: An elderly male, lying in bed, intubated, sedated. VITAL SIGNS: Blood pressure 194/114, pulse 118, respirations 16, temperature 97.9 degrees Fahrenheit, and O2 saturations 98% on 50% FiO2. HEENT: Pupils reacting to light. No icterus. No pallor. NECK: Supple. LUNGS: Bilateral fair air entry. No wheezing. No rhonchi. CARDIOVASCULAR SYSTEM: S1 and S2 present, regular. ABDOMEN: Soft. Bowel sounds present. No guarding. No rigidity. CENTRAL NERVOUS SYSTEM: Sedated, intubated. Decreased right-sided movement. EXTREMITIES: No edema. LABORATORY DATA: Labs done from the emergency room: WBC 9.7, hemoglobin 14.4, hematocrit 42.5, platelets 233. Repeat hemoglobin 10.8, hematocrit 32.1, platelets 180. INR 1.3, PTT 33, PT 13.8. ABG on 50% FiO2, tidal volume 450, PEEP 5, respiratory rate 20, pH is 7.32, pCO2 49. Sodium 140, potassium 3.6, chloride 103, bicarbonate 30, BUN 22, creatinine 1.1, glucose 121, hemoglobin A1c 5.9, calcium 9.5. Total bilirubin 0.7, AST 25, ALT 29, alkaline phosphatase 81, , total protein 8.2, albumin 4.4, triglycerides 120, cholesterol 181, LDL 118, HDL 40, arterial potassium 3.7. 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 There is occlusion of the left middle cerebral artery. Opacification of the left A1 and A2 segments which appear to be predominantly from the left posterior communicating artery. Calcified atherosclerotic plaque, senile on the distal right common carotid artery, carotid bifurcation extending into the proximal carotid artery. 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 The patient underwent successful thrombectomy and stenting done by Neurointerventional Radiology team, and the patient is being admitted to intensive care unit. PLAN: The patient is being monitored in the ICU, status post intubation. We will continue with vent support. Watch neurological status. We will keep the SBP below 140 as recommended. We will give aspirin. Repeat labs in a.m. Repeat chest x-ray. We will continue with DVT and GI prophylaxis. The patient received Zosyn and vancomycin. We will follow up with blood cultures and sputum cultures. Monitor H and H. Follow up with Neurology. We will try to contact the patient's family for further information. We will add further recommendation as his clinical course progresses. His prognosis is guarded. Harinder Brunner MD JOHAN
[2018-04-26] MEDS: Piperacillin/Tazobact 3.375 GM in Sodium Chloride 100 ML IVPB SCH ×4 (05:22→21:50)
[2018-04-26 05:55] LABS: ARTERIAL BLOOD GAS HCO3 21.8 mmol/L (21-28); ARTERIAL BLOOD GAS HEMOGLOBIN 9.2 g/dL (11.7-17.4); ARTERIAL BLOOD GAS O2 SAT 98.6 % (95-98); ARTERIAL BLOOD GAS PCO2 36 mm/Hg (35-45); ARTERIAL BLOOD GAS PH 7.37 (7.35-7.45); ARTERIAL BLOOD GAS PO2 139 mm/Hg (80-100); ARTERIAL BLOOD GAS TCO2 21.9 mmol/L (22-28)
[2018-04-26 06:33] LABS: ALBUMIN 2.4 g/dL (3.5-5.0); ALT/SGPT 27 U/L (21-72); AST/SGOT 18 U/L (17-59); BLOOD UREA NITROGEN 18 mg/dL (9-20); CALCIUM 6.7 mg/dl (8.6-10.4); GFR NON-AFRICAN AMERICAN > 60
[2018-04-26 06:37] LABS: BASO # 0.1 K/uL (0.0-0.2); BASO % 0.8 % (0.0-2.0); EOS % 0.3 % (0.0-4.0); LYMPH # 1.1 K/uL (1.0-4.3); LYMPH % 14.6 % (20.0-40.0); MEAN CELL VOLUME 78.3 fL (80.0-94.0); MEAN CORPUSCULAR HEMOGLOBIN 25.9 pg (27.0-31.0); MEAN CORPUSCULAR HGB CONC 33.1 g/dL (33.0-37.0); MEAN PLATELET VOLUME 9.3 fL (7.2-11.7); MONO # 0.5 K/uL (0.0-0.8); MONO % 6.5 % (0.0-10.0); NEUT # 5.9 K/uL (1.8-7.0); NEUT % 77.8 % (50.0-75.0); NRBC % 0.1 % (0.0-2.0); RBC 3.49 Mil/uL (4.40-5.90); RED CELL DISTRIBUTION WIDTH 17.4 % (11.5-14.5); WHITE BLOOD COUNT 7.5 K/uL (4.8-10.8)
--- NOTE | 2018-04-26 07:01 | OP ---
PROCEDURE DATE: 04/25/2018 PREPROCEDURE DIAGNOSIS: Left middle cerebral artery stroke. 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 PROCEDURES: Cerebral angiogram, mechanical thrombectomy of left internal carotid artery and middle cerebral artery and stent placement with embolic protection of left internal carotid artery. SURGEON: Alonzo Cheung MD ANESTHESIA: General with radial arterial line. CLINICAL HISTORY: This is an 82-year-old man who presented to the emergency room with acute ischemic stroke symptoms, underwent stroke code evaluation including CT and CT angiogram. The CT angiogram demonstrates the left ICA and middle cerebral artery occlusion with collaterals; however, the CT did not show any definitive changes with ischemia at that time. The patient had an NIH stroke score of over 22 with right hemiplegia, left gaze preference and aphasia. Decision was made to perform thrombectomy rather than transfer the patient because of time considerations. At the time of the initial part of the procedure, there was no family available, and the decision was made to provide the patient in the ED by himself that this is a critical standard of care and need to be provided in this patient in order to try to obtain the best possible outcome based on the available literature and data. After getting the patient upstairs and the family did arrive, I had discussion with the family and got consent from them as well. The patient was brought to the interventional suite, placed on the table in supine position. General anesthesia was induced by pantry steward/stewardess with careful attention with blood pressure maintained in the elevated 180 to 200 range. After the patient was under general anesthesia, both groins were prepped and draped in the usual sterile fashion. Time-out procedure was called documenting the procedures to be performed and after everyone in the room agreed, the procedure continued. The right common femoral artery was punctured using micropuncture system and then subsequently advanced to a 6-Grenadian sheath. Via the sheath, the diagnostic catheter was advanced into the abdominal aorta, and subsequently the left common carotid artery was selected. Injection of the left common carotid artery with cervical and intracranial views demonstrates complete occlusion with no antegrade flow in the distal left common carotid artery. The external and internal carotid arteries were not visualized. Based on the previous CTA, we note that there was a collateral flow from other sources, so rather than waste time, the decision was made to intervene. The patient was started on Integrilin drip assuming that this was going to be an atherosclerotic occlusion. The initial dose of Integrilin was 90 mcg/kg bolus followed by 0.5 mcg/kg infusion which was then increased to 1 mcg/kg infusion during the initial portions of the procedure. Once the patient was heparinized with approximately 2000 units of intravenous heparin, the diagnostic catheter with the wire was advanced into the internal carotid artery through this stenosis. Once in the internal carotid artery aspiration of the internal carotid artery, the diagnostic catheters demonstrated multiple clots within the internal carotid artery. Gentle injection of the internal carotid artery was performed demonstrating thrombus within the internal carotid artery. At this point, the decision was made to switch diagnostic catheter as per the interventional sheath. A Murphy wire was in the internal carotid artery, and the diagnostic catheter was backed out. Subsequently, the Neuron max 0.88 was advanced into distal common carotid artery but would not in spite the fact that the sheath was able to go into the internal carotid artery, the actual catheter was not going into the internal carotid artery probably because of a high-grade stenosis. At this point, the only option was to perform angioplasty. A 5 x 30 angioplasty balloon was advanced through the sheath into the internal carotid artery, and angioplasty of the internal carotid artery and common carotid artery were performed. Actually, that was a 5 x 40 angioplasty balloon with atmospheres of 8. At this point during the portion of the placement of balloon, the sheath was advanced into the internal carotid artery as the stenosis that was angioplastied at this point with a catheter. Attention was made to reopen the distal vasculature. Aspiration of the internal carotid artery contents using the sheath was performed, and no significant thrombus was obtained. Gentle injection of the internal carotid artery with intracranial views demonstrates absence of flow beyond the petrous portion of the internal carotid artery. A 0.068 aspiration catheter together with a velocity microcatheter and single tooth standard wire was advanced into the internal carotid artery and then subsequently manipulated into the middle cerebral artery and 1 and 2 bifurcations at this point through the velocity microcatheter, a 6 x 30 stent retriever/solitary device was advanced into the middle cerebral and internal carotid artery. The 0.068 aspiration catheter was then brought up into the petrous and then subsequently into the proximal M1 segment of the middle cerebral artery using aspiration thrombectomy. At this point, the solitary device was pulled back into the aspiration catheter, and then subsequently the aspiration catheter was pulled back. Repeat angiogram now demonstrates flow up to the level of the ophthalmic segment. The ophthalmic is now antegrade in flow but distal to the ophthalmic with still residual thrombus. The entire system was re-repaired and re-advanced back into the middle cerebral artery. Again, aspiration thrombectomy and solitary retrieval of the thrombus in the supraclinoid and middle cerebral artery was performed. Repeat angiogram after the second performance of thrombectomy demonstrates slight improvement without visualization of the proximal posterior communicating artery, significant amount of thrombus in the supraclinoid internal carotid. The entire system was re-prepared and re-advanced back into the middle cerebral artery. At this point, a 4 x 40 mm solitary device was used. The aspiration catheter was then brought up into the middle cerebral artery. The entire system was removed as a unit. Repeat angiogram now demonstrates that there is no significant interval change and there is no residual occlusion of the middle cerebral artery and its branches. There is also noted that the device/aspiration catheter was torn, but was completely removed from the system and could not be utilized again at this point. A 0.064 aspiration catheter together with a 4 x 40 and the velocity microcatheter were re-advanced into the middle cerebral artery. At this point, direct aspiration of the middle cerebral artery and supraclinoid internal carotid artery was performed. At this point, the entire system was removed. This was used the Adapt technique. Repeat angiogram now demonstrates antegrade flow with filling of the supraclinoid internal carotid artery and middle cerebral artery and its branches and the anterior cerebral artery; however, there is severe stagnation of contrast in the left middle cerebral artery due to lack of the inflow from the internal carotid artery. At this point, 0.14 wire was advanced into the internal carotid artery, and the sheath was then backed out into the common carotid artery. Repeat angiogram at this point demonstrates that there is slow antegrade flow, but there is a lot of residual thrombus in the common carotid artery and proximal internal carotid artery occluding significant portion of the internal carotid artery lumen. At this point, the Integrilin was increased to 1 mcg/kg/minute. A decision was made to perform stenting of the internal carotid artery and hopefully trapped the clot against the sidewall of the common and internal carotid. The 0.14 wire was exchanged for a spider embolic protection device which was placed in the distal internal carotid artery. At this point, the spider was now deployed successfully distal to the occlusion/stenosis. A 6 x 40 Cordis RX stent was brought up into the internal carotid artery and deployed. After deployment, still a significant stenosis within the cervical internal carotid artery origin as seen by the stent. A 6 x 30 balloon was brought up into the stent and inflated to 8 atmospheres gently opening the stent. The balloon was then removed, and then the embolic protection device was successfully re-captured. Repeat angiogram after capturing the embolic protection device now demonstrates that there is almost complete occlusion of the internal carotid artery due to what looks like thrombus which must have moved from the common carotid artery into the internal carotid artery into the stent. At this point, aspiration using the Neuron max 0.088 was tried, but this did not re-open the stent. An 0.064 catheter was then advanced over the velocity microcatheter back into the stent, and aspiration of the stent contents was then performed. Repeat angiogram now demonstrates that there is flow within the stent but occlusion at the petrous internal carotid artery. This clot must be migrated. At this point, velocity microcatheter was re-repaired and re-advanced over the central wire. The central wire was then positioned back into the middle cerebral artery. The velocity microcatheter was then re-advanced into the middle cerebral artery. The wire was removed and injection of the intracranial contents with the intracranial views demonstrates the stagnation of the M2 branches of the internal cerebral artery. At this point, the 4 x 40 solitary device was placed in the M1 segment of the internal carotid artery into the supraclinoid portion of the internal carotid. At this point, the ASHISH 0.064 was then brought up into the supraclinoid and aspiration of the distal supraclinoid internal carotid artery and middle cerebral artery was performed. Prior to performing stent retriever, the Neuron max was brought through the stent into the internal carotid artery distally to ensure that we had access to the distal internal carotid artery. At this point, the stent retriever was removed fully, but there was still occlusion of the ASHISH device. As pulling back the ASHISH device, we got some clots to be pulled back but seemed to be still residual. So, ASHISH was then re-advanced used Adapt technique into the MCA. At this point, the entire ASHISH was removed. A nice firm clot was identified at the tip of the ASHISH and successful retrieval of clot was identified. Repeat angiogram at this point now demonstrates excellent antegrade flow to the left middle cerebral and anterior cerebral artery. of vessels. The superior portion of the posterior cerebral artery was characterized by branch, which may be secondary to slow flow and/or distal embolic debris. In order to ensure there are no other embolic phenomena, the carotid catheter was then brought back. Angiography of the stent and the common carotid artery then demonstrates no significant residual stenosis or thrombus formation. The Neuron Max was removed from the body. Diagnostic catheter was then advanced over an 0.035 guidewire into the aorta and then subsequently the following vessels were selected and injected with cervical and intracranial views. The right common carotid artery was selected. The cervical and intracranial views demonstrate antegrade flow with filling of the intracranial circulation. There is a moderate stenosis to the cavernous internal carotid artery with no significant hemodynamic visualized effects, the filling of the JENNIFER and MCA territory. Injection of the right vertebral artery with cervical views demonstrate that there is a small right vertebral artery which is patent and the basilar arteries filling up to the level of the superior cerebellar. Both posterior cerebral arteries appeared to be filling antegrade from the anterior circulation. At this point, the catheter was removed. The angiography in the right external iliac was performed demonstrating moderate atherosclerosis, but due to the nature of the procedure, an 8-Grenadian AngioSeal was used to obtain hemostasis. The patient remained intubated throughout the procedure. was not identifiable at the time because of the general anesthesia. IMPRESSION: Successful thrombectomy and stenting of the left internal carotid and middle cerebral artery with re-perfusion thrombolysis in cerebral infarction 3 grade. If you have any questions regarding this patient, please do not hesitate to call at [phone]. Alonzo Cheung MD
[2018-04-26] MEDS ORDERED: Magnesium Sulfate 1 gm in D5W 1 GM/100 ML BAG IVPB ONE (08:18)
--- NOTE | 2018-04-26 08:23 | RAD ---
Date of service: 04/25/2018 HISTORY: Evaluate COMPARISON: None. FINDINGS: Endotracheal tube terminates 1.5 cm proximal to the pro. The nasogastric tube terminates in the stomach. LUNGS: The lungs are well inflated. There is airspace disease in both lower lobes. There is mild pulmonary venous congestion. PLEURA: Suspect small effusions. No pneumothorax. CARDIOVASCULAR: There is moderate cardiomegaly. Atherosclerotic aortic arch calcifications are present. Status post CABG. OSSEOUS STRUCTURES: Within normal limits for the patient's age. VISUALIZED UPPER ABDOMEN: Normal. OTHER FINDINGS: None. IMPRESSION: Endotracheal tube terminates 1.5 cm proximal to the pro. Airspace disease in the lower lobes may represent compressive atelectasis or pneumonia. Suspect small effusions.
--- NOTE | 2018-04-26 08:27 | RAD ---
Date of service: 04/26/2018 HISTORY: ETT COMPARISON: 04/25/2018. FINDINGS: Endotracheal tube terminates at the pro. LUNGS: There are low lung volumes. There is moderate pulmonary venous congestion. There is airspace disease in both lower lobes. PLEURA: No pleural effusions or pneumothorax. CARDIOVASCULAR: There is severe cardiomegaly. Atherosclerotic aortic arch calcifications are present. Status post CABG. OSSEOUS STRUCTURES: Within normal limits for the patient's age. VISUALIZED UPPER ABDOMEN: Normal. OTHER FINDINGS: None. IMPRESSION: Endotracheal tube terminates at the pro. Low lung volumes. Severe cardiomegaly and moderate pulmonary venous congestion. Airspace disease in both lower lobes which may represent atelectasis/pneumonia. Follow-up is advised.
[2018-04-26] MEDS ORDERED: Vancomycin 1 gm/NS 200 ml 1 GM/200 ML BAG IVPB SCH (09:15)
[2018-04-26] MEDS ORDERED: (Novolog) Insulin Aspart, Recombinant 100 u/ml 10 ml vial SC SCH (09:15)
[2018-04-26] MEDS ORDERED: Iodixanol 320 MG/ML 100 ML BOTTLE IV ONE (09:59)
[2018-04-26 10:00] LABS: CK-MB 1.16 ng/mL (0.0-3.38); TROPONIN I 0.038 ng/mL (0.00-0.120)
--- NOTE | 2018-04-26 10:30 | CP.CCUPN ---
<Katelyn Oviedo - Last Filed: 04/26/18 18:04> CCU Subjective - Physician Review Events Since Last Encounter (Free Text): 04/26/18 12:54 no over night events Subjective (Free Text): 04/26/18 12:54 Patient was seen and examined this morning. He is intubated on a vent. Sedated on propofol drip. Critical Care Time Spent (in minutes): 35 CCU Objective - Vital Signs / Intake & Output Vital Signs (Last 4 hours): Vital Signs Temp Pulse Resp BP Pulse Ox 04/26/18 09:00 76 20 108/4 L 99 04/26/18 08:00 99.9 F H 79 21 101/36 L 99 04/26/18 07:00 83 21 112/45 L 99 Intake and Output (Last 8hrs): Intake & Output 04/25/18 04/26/18 04/26/18 22:59 06:59 14:59 Intake Total 776.4 1219.5 420.4 Output Total 275 435 95 Balance 501.4 784.5 325.4 Weight 203 lb 182 lb 2 oz Intake: IV 25 20 Intake, IV Amount 701.4 1199.5 420.4 Left Forearm 10 Right Forearm 141.4 199.5 120.4 right arm piggyback 550 1000 300 Other 50 Output: Urine 275 435 95 Urethral (Bhatt) 275 435 95 Other: # Bowel Movements 0 0 - Physical Exam Head: Positive for: Atraumatic, Normocephalic Pupils: Positive for: PERRL, Sluggish Mouth: Positive for: Dry Respiratory/Chest: Positive for: Rhonchi, Other (vent) Cardiovascular: Positive for: Regular Rate and Rhythm, Normal S1, S2. Negative for: Murmurs Abdomen: Negative for: Distention Upper Extremity: Positive for: Normal Inspection Lower Extremity: Positive for: Normal Inspection Neurological: Positive for: Other (intubated, sedated, responsive to pain, gag relfex intact) Skin: Positive for: Warm, Dry Psychiatric: Negative for: Alert - Medications Active Medications: Active Medications Generic Name Dose Route Start Last Admin Trade Name Freq PRN Reason Stop Dose Admin Albuterol/Ipratropium 3 ml 04/26/18 12:00 Duoneb 3 Mg/0.5 Mg (3 Ml) Ud INH RQ4 DANIEL Aspirin 81 mg 04/26/18 10:00 04/26/18 09:14 Ecotrin PO 81 mg DAILY DANIEL Administration Clopidogrel Bisulfate 75 mg 04/26/18 10:00 04/26/18 09:14 Plavix PO 75 mg DAILY DANIEL Administration Dextrose 0 ml 04/25/18 20:17 Dextrose 50% Inj IV STAT PRN Hypoglycemia Protocol Protocol Dextrose 0 gm 04/25/18 20:17 Glutose 15 PO ONCE PRN Hypoglycemia Protocol Protocol Famotidine 20 mg 04/26/18 10:00 04/26/18 09:14 Pepcid IVP 20 mg DAILY DANIEL Administration Glucagon 0 mg 04/25/18 20:17 Glucagen Diagnostic Kit IM STAT PRN Hypoglycemia Protocol Protocol Heparin Sodium (Porcine) 5,000 units 04/25/18 22:00 04/26/18 05:21 Heparin SC 5,000 units Q8 DANIEL Administration Dextrose 1,000 mls @ 0 mls/hr 04/25/18 20:17 Dextrose 5% In Water 1000 Ml IV .Q0M PRN Hypoglycemia Protocol Protocol Per Protocol Propofol 1,000 mg in 100 mls @ 2.773 mls/hr 04/25/18 21:29 04/26/18 06:00 Diprivan IV 14.96 mcg/kg/min .Q24H PRN 8.3 mls/hr TITRATE PER MD ORDER Titration Protocol 5 MCG/KG/MIN Piperacillin Sod/Tazobactam 100 mls @ 200 mls/hr 04/26/18 09:15 Sod 3.375 gm/ Sodium Chloride IVPB Q6H DANIEL Protocol Vancomycin/Sodium Chloride 1 gm in 200 mls @ 133.333 mls/hr 04/26/18 09:15 Vancomycin 1 Gm/Ns 200 Ml IVPB 05/01/18 09:16 Q24H DANIEL Protocol Insulin Aspart 0 unit 04/26/18 09:15 Novolog SC Q6H DANIEL Protocol Propofol 100 mg 04/25/18 20:19 Diprivan IV TITR DANIEL Rosuvastatin Calcium 10 mg 04/26/18 22:00 Crestor PO HS [facility] - Patient Studies Lab Studies: Lab Studies 04/26/18 04/26/18 04/26/18 Range/Units 09:24 06:09 06:09 WBC (4.8-10.8) K/uL RBC (4.40-5.90) Mil/uL Hgb (12.0-18.0) g/dL Hct (35.0-51.0) % MCV (80.0-94.0) fL MCH (27.0-31.0) pg MCHC (33.0-37.0) g/dL RDW (11.5-14.5) % Plt Count (130-400) K/uL MPV (7.2-11.7) fL Neut % (Auto) (50.0-75.0) % Lymph % (Auto) (20.0-40.0) % [place] % (Auto) (0.0-10.0) % Eos % (Auto) (0.0-4.0) % Baso % (Auto) (0.0-2.0) % Neut # (Auto) (1.8-7.0) K/uL Lymph # (Auto) (1.0-4.3) K/uL [place] # (Auto) (0.0-0.8) K/uL Eos # (Auto) (0.0-0.7) K/uL Baso # (Auto) (0.0-0.2) K/uL PT (9.7-12.2) SECONDS INR APTT (21-34) SECONDS Puncture Site pCO2 (35-45) mm/Hg pO2 (30-55) mm/Hg HCO3 (21-28) mmol/L ABG pH (7.35-7.45) ABG Total CO2 (22-28) mmol/L ABG O2 Saturation (95-98) % ABG Base Excess (-2.0-3.0) mmol/L ABG Hemoglobin (11.7-17.4) g/dL ABG Carboxyhemoglobin (0.5-1.5) % POC ABG HHb (Measured) (0.0-5.0) % ABG Methemoglobin (0.0-3.0) % Jose D Test ABG Potassium (3.6-5.2) mmol/L VBG pH (7.32-7.43) VBG pCO2 (40-60) mmHg VBG HCO3 mmol/L VBG Total CO2 (22-28) mmol/L VBG O2 Sat (Calc) (40-65) % VBG Base Excess (0.0-2.0) mmol/L VBG Potassium (3.6-5.2) mmol/L A-a O2 Difference mm/Hg Respiratory Index Hgb O2 Saturation (95.0-98.0) % Glucose (75-110) mg/dl Lactate (0.7-2.1) mmol/L Vent Mode Mechanical Rate FiO2 % Tidal Volume PEEP Crit Value Called To Crit Value Called By Crit Value Read Back Blood Gas Notified Time Sodium 140 (132-148) mmol/L Potassium 4.0 (3.6-5.2) mmol/L Chloride 115 H (98-107) mmol/L Carbon Dioxide 21 L (22-30) mmol/L Anion Gap 8 L (10-20) BUN 18 (9-20) mg/dL Creatinine 0.8 (0.8-1.5) mg/dL Est GFR ( Amer) > 60 Est GFR (Non-Af Amer) > 60 POC Glucose (mg/dL) (65-110) mg/dL Random Glucose 100 (75-110) mg/dL Hemoglobin A1c (4.2-6.5) % Lactic Acid 0.8 (0.7-2.1) mmol/L Calcium 6.7 L (8.6-10.4) mg/dl Phosphorus 2.3 L (2.5-4.5) mg/dL Magnesium 1.7 (1.6-2.3) mg/dL Total Bilirubin 0.4 (0.2-1.3) mg/dL AST 18 (17-59) U/L ALT 27 (21-72) U/L Alkaline Phosphatase 52 (38-126) U/L Total Creatine Kinase 61 (55-170) U/L CK-MB (Mass) 1.16 (0.0-3.38) ng/mL Troponin I 0.0380 (0.00-0.120) ng/mL NT-Pro-B Natriuret Pep 1790 H (0-900) pg/mL Total Protein 4.9 L (6.3-8.3) g/dL Albumin 2.4 L (3.5-5.0) g/dL Globulin 2.5 (2.2-3.9) gm/dL Albumin/Globulin Ratio 1.0 (1.0-2.1) Triglycerides (0-149) mg/dL Cholesterol (0-199) mg/dL LDL Cholesterol Direct (0-129) mg/dL HDL Cholesterol (30-70) mg/dL Arterial Blood Potassium (3.6-5.2) mmol/L Venous Blood Potassium (3.6-5.2) mmol/L Urine Color (YELLOW) Urine Clarity (Clear) Urine pH (5.0-8.0) Ur Specific [place] (1.003-1.030) Urine Protein (NEGATIVE) mg/dL Urine Glucose (UA) (Normal) mg/dL Urine Ketones (NEGATIVE) mg/dL Urine Blood (NEGATIVE) Urine Nitrate (NEGATIVE) Urine Bilirubin (NEGATIVE) Urine Urobilinogen (0.2-1.0) mg/dL Ur Leukocyte Esterase (Negative) Brooke/uL Urine WBC (Auto) (0-5) /hpf Urine RBC (Auto) (0-3) /hpf Ur Squamous Epith Cells (0-5) /hpf Urine Bacteria (<OCC) Blood Type Antibody Screen 04/26/18 04/26/18 04/26/18 Range/Units 06:09 05:43 05:16 WBC 7.5 (4.8-10.8) K/uL RBC 3.49 L (4.40-5.90) Mil/uL Hgb 9.0 L (12.0-18.0) g/dL Hct 27.3 L (35.0-51.0) % MCV 78.3 L (80.0-94.0) fL MCH 25.9 L (27.0-31.0) pg MCHC 33.1 (33.0-37.0) g/dL RDW 17.4 H (11.5-14.5) % Plt Count 152 (130-400) K/uL MPV 9.3 (7.2-11.7) fL Neut % (Auto) 77.8 H (50.0-75.0) % Lymph % (Auto) 14.6 L (20.0-40.0) % [place] % (Auto) 6.5 (0.0-10.0) % Eos % (Auto) 0.3 (0.0-4.0) % Baso % (Auto) 0.8 (0.0-2.0) % Neut # (Auto) 5.9 (1.8-7.0) K/uL Lymph # (Auto) 1.1 (1.0-4.3) K/uL [place] # (Auto) 0.5 (0.0-0.8) K/uL Eos # (Auto) 0.0 (0.0-0.7) K/uL Baso # (Auto) 0.1 (0.0-0.2) K/uL PT (9.7-12.2) SECONDS INR APTT (21-34) SECONDS Puncture Site A-line pCO2 36 (35-45) mm/Hg pO2 139 H (30-55) mm/Hg HCO3 21.8 (21-28) mmol/L ABG pH 7.37 (7.35-7.45) ABG Total CO2 21.9 L (22-28) mmol/L ABG O2 Saturation 98.6 H (95-98) % ABG Base Excess -4.0 L (-2.0-3.0) mmol/L ABG Hemoglobin 9.2 L (11.7-17.4) g/dL ABG Carboxyhemoglobin 1.2 (0.5-1.5) % POC ABG HHb (Measured) 1.4 (0.0-5.0) % ABG Methemoglobin 0.9 (0.0-3.0) % Jose D Test Na ABG Potassium (3.6-5.2) mmol/L VBG pH (7.32-7.43) VBG pCO2 (40-60) mmHg VBG HCO3 mmol/L VBG Total CO2 (22-28) mmol/L VBG O2 Sat (Calc) (40-65) % VBG Base Excess (0.0-2.0) mmol/L VBG Potassium (3.6-5.2) mmol/L A-a O2 Difference 173.0 mm/Hg Respiratory Index 1.2 Hgb O2 Saturation 96.4 (95.0-98.0) % Glucose (75-110) mg/dl Lactate (0.7-2.1) mmol/L Vent Mode Prvc Mechanical Rate 20 FiO2 50.0 % Tidal Volume 450 PEEP 5 Crit Value Called To Crit Value Called By Crit Value Read Back Blood Gas Notified Time Sodium (132-148) mmol/L Potassium (3.6-5.2) mmol/L Chloride (98-107) mmol/L Carbon Dioxide (22-30) mmol/L Anion Gap (10-20) BUN (9-20) mg/dL Creatinine (0.8-1.5) mg/dL Est GFR ( Amer) Est GFR (Non-Af Amer) POC Glucose (mg/dL) 101 (65-110) mg/dL Random Glucose (75-110) mg/dL Hemoglobin A1c (4.2-6.5) % Lactic Acid (0.7-2.1) mmol/L Calcium (8.6-10.4) mg/dl Phosphorus (2.5-4.5) mg/dL Magnesium (1.6-2.3) mg/dL Total Bilirubin (0.2-1.3) mg/dL AST (17-59) U/L ALT (21-72) U/L Alkaline Phosphatase (38-126) U/L Total Creatine Kinase (55-170) U/L CK-MB (Mass) (0.0-3.38) ng/mL Troponin I (0.00-0.120) ng/mL NT-Pro-B Natriuret Pep (0-900) pg/mL Total Protein (6.3-8.3) g/dL Albumin (3.5-5.0) g/dL Globulin (2.2-3.9) gm/dL Albumin/Globulin Ratio (1.0-2.1) Triglycerides (0-149) mg/dL Cholesterol (0-199) mg/dL LDL Cholesterol Direct (0-129) mg/dL HDL Cholesterol (30-70) mg/dL Arterial Blood Potassium (3.6-5.2) mmol/L Venous Blood Potassium (3.6-5.2) mmol/L Urine Color (YELLOW) Urine Clarity (Clear) Urine pH (5.0-8.0) Ur Specific [place] (1.003-1.030) Urine Protein (NEGATIVE) mg/dL Urine Glucose (UA) (Normal) mg/dL Urine Ketones (NEGATIVE) mg/dL Urine Blood (NEGATIVE) Urine Nitrate (NEGATIVE) Urine Bilirubin (NEGATIVE) Urine Urobilinogen (0.2-1.0) mg/dL Ur Leukocyte Esterase (Negative) Brooke/uL Urine WBC (Auto) (0-5) /hpf Urine RBC (Auto) (0-3) /hpf Ur Squamous Epith Cells (0-5) /hpf Urine Bacteria (<OCC) Blood Type Antibody Screen 04/26/18 04/25/18 04/25/18 Range/Units 00:24 23:54 22:33 WBC (4.8-10.8) K/uL RBC (4.40-5.90) Mil/uL Hgb (12.0-18.0) g/dL Hct (35.0-51.0) % MCV (80.0-94.0) fL MCH (27.0-31.0) pg MCHC (33.0-37.0) g/dL RDW (11.5-14.5) % Plt Count (130-400) K/uL MPV (7.2-11.7) fL Neut % (Auto) (50.0-75.0) % Lymph % (Auto) (20.0-40.0) % [place] % (Auto) (0.0-10.0) % Eos % (Auto) (0.0-4.0) % Baso % (Auto) (0.0-2.0) % Neut # (Auto) (1.8-7.0) K/uL Lymph # (Auto) (1.0-4.3) K/uL [place] # (Auto) (0.0-0.8) K/uL Eos # (Auto) (0.0-0.7) K/uL Baso # (Auto) (0.0-0.2) K/uL PT (9.7-12.2) SECONDS INR APTT (21-34) SECONDS Puncture Site pCO2 (35-45) mm/Hg pO2 (30-55) mm/Hg HCO3 (21-28) mmol/L ABG pH (7.35-7.45) ABG Total CO2 (22-28) mmol/L ABG O2 Saturation (95-98) % ABG Base Excess (-2.0-3.0) mmol/L ABG Hemoglobin (11.7-17.4) g/dL ABG Carboxyhemoglobin (0.5-1.5) % POC ABG HHb (Measured) (0.0-5.0) % ABG Methemoglobin (0.0-3.0) % Jose D Test ABG Potassium (3.6-5.2) mmol/L VBG pH (7.32-7.43) VBG pCO2 (40-60) mmHg VBG HCO3 mmol/L VBG Total CO2 (22-28) mmol/L VBG O2 Sat (Calc) (40-65) % VBG Base Excess (0.0-2.0) mmol/L VBG Potassium (3.6-5.2) mmol/L A-a O2 Difference mm/Hg Respiratory Index Hgb O2 Saturation (95.0-98.0) % Glucose (75-110) mg/dl Lactate (0.7-2.1) mmol/L Vent Mode Mechanical Rate FiO2 % Tidal Volume PEEP Crit Value Called To Crit Value Called By Crit Value Read Back Blood Gas Notified Time Sodium (132-148) mmol/L Potassium (3.6-5.2) mmol/L Chloride (98-107) mmol/L Carbon Dioxide (22-30) mmol/L Anion Gap (10-20) BUN (9-20) mg/dL Creatinine (0.8-1.5) mg/dL Est GFR ( Amer) Est GFR (Non-Af Amer) POC Glucose (mg/dL) 117 H 119 H (65-110) mg/dL Random Glucose (75-110) mg/dL Hemoglobin A1c (4.2-6.5) % Lactic Acid (0.7-2.1) mmol/L Calcium (8.6-10.4) mg/dl Phosphorus (2.5-4.5) mg/dL Magnesium (1.6-2.3) mg/dL Total Bilirubin (0.2-1.3) mg/dL AST (17-59) U/L ALT (21-72) U/L Alkaline Phosphatase (38-126) U/L Total Creatine Kinase (55-170) U/L CK-MB (Mass) (0.0-3.38) ng/mL Troponin I (0.00-0.120) ng/mL NT-Pro-B Natriuret Pep (0-900) pg/mL Total Protein (6.3-8.3) g/dL Albumin (3.5-5.0) g/dL Globulin (2.2-3.9) gm/dL Albumin/Globulin Ratio (1.0-2.1) Triglycerides (0-149) mg/dL Cholesterol (0-199) mg/dL LDL Cholesterol Direct (0-129) mg/dL HDL Cholesterol (30-70) mg/dL Arterial Blood Potassium (3.6-5.2) mmol/L Venous Blood Potassium (3.6-5.2) mmol/L Urine Color Yellow (YELLOW) Urine Clarity Clear (Clear) Urine pH 7.0 (5.0-8.0) Ur Specific [place] > 1.060 H (1.003-1.030) Urine Protein 1+ H (NEGATIVE) mg/dL Urine Glucose (UA) Normal (Normal) mg/dL Urine Ketones Negative (NEGATIVE) mg/dL Urine Blood Negative (NEGATIVE) Urine Nitrate Negative (NEGATIVE) Urine Bilirubin Negative (NEGATIVE) Urine Urobilinogen Normal (0.2-1.0) mg/dL Ur Leukocyte Esterase Neg (Negative) Brooke/uL Urine WBC (Auto) 2 (0-5) /hpf Urine RBC (Auto) 4 H (0-3) /hpf Ur Squamous Epith Cells < 1 (0-5) /hpf Urine Bacteria Rare (<OCC) Blood Type Antibody Screen 04/25/18 04/25/18 04/25/18 Range/Units 21:47 21:47 21:47 WBC 9.3 (4.8-10.8) K/uL RBC 4.10 L (4.40-5.90) Mil/uL Hgb 10.8 L D (12.0-18.0) g/dL Hct 32.1 L (35.0-51.0) % MCV 78.2 L (80.0-94.0) fL MCH 26.4 L (27.0-31.0) pg MCHC 33.7 (33.0-37.0) g/dL RDW 18.2 H (11.5-14.5) % Plt Count 180 (130-400) K/uL MPV 8.7 (7.2-11.7) fL Neut % (Auto) 80.4 H (50.0-75.0) % Lymph % (Auto) 14.8 L (20.0-40.0) % [place] % (Auto) 4.1 (0.0-10.0) % Eos % (Auto) 0.2 (0.0-4.0) % Baso % (Auto) 0.5 (0.0-2.0) % Neut # (Auto) 7.5 H (1.8-7.0) K/uL Lymph # (Auto) 1.4 (1.0-4.3) K/uL [place] # (Auto) 0.4 (0.0-0.8) K/uL Eos # (Auto) 0.0 (0.0-0.7) K/uL Baso # (Auto) 0.1 (0.0-0.2) K/uL PT (9.7-12.2) SECONDS INR APTT (21-34) SECONDS Puncture Site pCO2 (35-45) mm/Hg pO2 (30-55) mm/Hg HCO3 (21-28) mmol/L ABG pH (7.35-7.45) ABG Total CO2 (22-28) mmol/L ABG O2 Saturation (95-98) % ABG Base Excess (-2.0-3.0) mmol/L ABG Hemoglobin (11.7-17.4) g/dL ABG Carboxyhemoglobin (0.5-1.5) % POC ABG HHb (Measured) (0.0-5.0) % ABG Methemoglobin (0.0-3.0) % Jose D Test ABG Potassium (3.6-5.2) mmol/L VBG pH (7.32-7.43) VBG pCO2 (40-60) mmHg VBG HCO3 mmol/L VBG Total CO2 (22-28) mmol/L VBG O2 Sat (Calc) (40-65) % VBG Base Excess (0.0-2.0) mmol/L VBG Potassium (3.6-5.2) mmol/L A-a O2 Difference mm/Hg Respiratory Index Hgb O2 Saturation (95.0-98.0) % Glucose (75-110) mg/dl Lactate (0.7-2.1) mmol/L Vent Mode Mechanical Rate FiO2 % Tidal Volume PEEP Crit Value Called To Crit Value Called By Crit Value Read Back Blood Gas Notified Time Sodium 138 (132-148) mmol/L Potassium 4.1 (3.6-5.2) mmol/L Chloride 109 H (98-107) mmol/L Carbon Dioxide 22 (22-30) mmol/L Anion Gap 12 (10-20) BUN 21 H (9-20) mg/dL Creatinine 0.9 (0.8-1.5) mg/dL Est GFR ( Amer) > 60 Est GFR (Non-Af Amer) > 60 POC Glucose (mg/dL) (65-110) mg/dL Random Glucose 138 H (75-110) mg/dL Hemoglobin A1c (4.2-6.5) % Lactic Acid 0.8 (0.7-2.1) mmol/L Calcium 7.5 L (8.6-10.4) mg/dl Phosphorus 3.0 (2.5-4.5) mg/dL Magnesium 1.8 (1.6-2.3) mg/dL Total Bilirubin 0.6 (0.2-1.3) mg/dL AST 18 (17-59) U/L ALT 33 (21-72) U/L Alkaline Phosphatase 48 (38-126) U/L Total Creatine Kinase (55-170) U/L CK-MB (Mass) (0.0-3.38) ng/mL Troponin I (0.00-0.120) ng/mL NT-Pro-B Natriuret Pep (0-900) pg/mL Total Protein 5.6 L (6.3-8.3) g/dL Albumin 2.7 L D (3.5-5.0) g/dL Globulin 2.8 (2.2-3.9) gm/dL Albumin/Globulin Ratio 1.0 (1.0-2.1) Triglycerides (0-149) mg/dL Cholesterol (0-199) mg/dL LDL Cholesterol Direct (0-129) mg/dL HDL Cholesterol (30-70) mg/dL Arterial Blood Potassium (3.6-5.2) mmol/L Venous Blood Potassium (3.6-5.2) mmol/L Urine Color (YELLOW) Urine Clarity (Clear) Urine pH (5.0-8.0) Ur Specific [place] (1.003-1.030) Urine Protein (NEGATIVE) mg/dL Urine Glucose (UA) (Normal) mg/dL Urine Ketones (NEGATIVE) mg/dL Urine Blood (NEGATIVE) Urine Nitrate (NEGATIVE) Urine Bilirubin (NEGATIVE) Urine Urobilinogen (0.2-1.0) mg/dL Ur Leukocyte Esterase (Negative) Brooke/uL Urine WBC (Auto) (0-5) /hpf Urine RBC (Auto) (0-3) /hpf Ur Squamous Epith Cells (0-5) /hpf Urine Bacteria (<OCC) Blood Type Antibody Screen 04/25/18 04/25/18 04/25/18 Range/Units 21:44 16:55 16:31 WBC (4.8-10.8) K/uL RBC (4.40-5.90) Mil/uL Hgb (12.0-18.0) g/dL Hct (35.0-51.0) % MCV (80.0-94.0) fL MCH (27.0-31.0) pg MCHC (33.0-37.0) g/dL RDW (11.5-14.5) % Plt Count (130-400) K/uL MPV (7.2-11.7) fL Neut % (Auto) (50.0-75.0) % Lymph % (Auto) (20.0-40.0) % [place] % (Auto) (0.0-10.0) % Eos % (Auto) (0.0-4.0) % Baso % (Auto) (0.0-2.0) % Neut # (Auto) (1.8-7.0) K/uL Lymph # (Auto) (1.0-4.3) K/uL [place] # (Auto) (0.0-0.8) K/uL Eos # (Auto) (0.0-0.7) K/uL Baso # (Auto) (0.0-0.2) K/uL PT (9.7-12.2) SECONDS INR APTT (21-34) SECONDS Puncture Site [place] pCO2 43 (35-45) mm/Hg pO2 126 H 23 L (30-55) mm/Hg HCO3 22.5 (21-28) mmol/L ABG pH 7.33 L (7.35-7.45) ABG Total CO2 24.0 (22-28) mmol/L ABG O2 Saturation 98.5 H (95-98) % ABG Base Excess -3.2 L (-2.0-3.0) mmol/L ABG Hemoglobin (11.7-17.4) g/dL ABG Carboxyhemoglobin (0.5-1.5) % POC ABG HHb (Measured) (0.0-5.0) % ABG Methemoglobin (0.0-3.0) % Jose D Test Na ABG Potassium 3.7 (3.6-5.2) mmol/L VBG pH 7.32 (7.32-7.43) VBG pCO2 49 (40-60) mmHg VBG HCO3 22.1 mmol/L VBG Total CO2 26.7 (22-28) mmol/L VBG O2 Sat (Calc) 42.5 (40-65) % VBG Base Excess -1.4 L (0.0-2.0) mmol/L VBG Potassium 2.5 L* (3.6-5.2) mmol/L A-a O2 Difference 177.0 mm/Hg Respiratory Index 1.4 Hgb O2 Saturation (95.0-98.0) % Glucose 134 H 110 (75-110) mg/dl Lactate 0.8 1.3 (0.7-2.1) mmol/L Vent Mode Prvc Mechanical Rate 20 FiO2 50.0 % Tidal Volume 450 PEEP 5 Crit Value Called To do Mariela Crit Value Called By Phyllis rt Crit Value Read Back Y Blood Gas Notified Time 1657 Sodium 139.0 142.0 (132-148) mmol/L Potassium (3.6-5.2) mmol/L Chloride 114.0 H 108.0 H (98-107) mmol/L Carbon Dioxide (22-30) mmol/L Anion Gap (10-20) BUN (9-20) mg/dL Creatinine (0.8-1.5) mg/dL Est GFR ( Amer) Est GFR (Non-Af Amer) POC Glucose (mg/dL) (65-110) mg/dL Random Glucose (75-110) mg/dL Hemoglobin A1c (4.2-6.5) % Lactic Acid (0.7-2.1) mmol/L Calcium (8.6-10.4) mg/dl Phosphorus (2.5-4.5) mg/dL Magnesium (1.6-2.3) mg/dL Total Bilirubin (0.2-1.3) mg/dL AST (17-59) U/L ALT (21-72) U/L Alkaline Phosphatase (38-126) U/L Total Creatine Kinase (55-170) U/L CK-MB (Mass) (0.0-3.38) ng/mL Troponin I (0.00-0.120) ng/mL NT-Pro-B Natriuret Pep (0-900) pg/mL Total Protein (6.3-8.3) g/dL Albumin (3.5-5.0) g/dL Globulin (2.2-3.9) gm/dL Albumin/Globulin Ratio (1.0-2.1) Triglycerides (0-149) mg/dL Cholesterol (0-199) mg/dL LDL Cholesterol Direct (0-129) mg/dL HDL Cholesterol (30-70) mg/dL Arterial Blood Potassium 3.7 (3.6-5.2) mmol/L Venous Blood Potassium 2.5 L* (3.6-5.2) mmol/L Urine Color (YELLOW) Urine Clarity (Clear) Urine pH (5.0-8.0) Ur Specific [place] (1.003-1.030) Urine Protein (NEGATIVE) mg/dL Urine Glucose (UA) (Normal) mg/dL Urine Ketones (NEGATIVE) mg/dL Urine Blood (NEGATIVE) Urine Nitrate (NEGATIVE) Urine Bilirubin (NEGATIVE) Urine Urobilinogen (0.2-1.0) mg/dL Ur Leukocyte Esterase (Negative) Brooke/uL Urine WBC (Auto) (0-5) /hpf Urine RBC (Auto) (0-3) /hpf Ur Squamous Epith Cells (0-5) /hpf Urine Bacteria (<OCC) Blood Type A POSITIVE Antibody Screen Negative 04/25/18 04/25/18 04/25/18 Range/Units 16:31 16:31 16:31 WBC (4.8-10.8) K/uL RBC (4.40-5.90) Mil/uL Hgb (12.0-18.0) g/dL Hct (35.0-51.0) % MCV (80.0-94.0) fL MCH (27.0-31.0) pg MCHC (33.0-37.0) g/dL RDW (11.5-14.5) % Plt Count (130-400) K/uL MPV (7.2-11.7) fL Neut % (Auto) (50.0-75.0) % Lymph % (Auto) (20.0-40.0) % [place] % (Auto) (0.0-10.0) % Eos % (Auto) (0.0-4.0) % Baso % (Auto) (0.0-2.0) % Neut # (Auto) (1.8-7.0) K/uL Lymph # (Auto) (1.0-4.3) K/uL [place] # (Auto) (0.0-0.8) K/uL Eos # (Auto) (0.0-0.7) K/uL Baso # (Auto) (0.0-0.2) K/uL PT 13.8 H (9.7-12.2) SECONDS INR 1.3 APTT 33 (21-34) SECONDS Puncture Site pCO2 (35-45) mm/Hg pO2 (30-55) mm/Hg HCO3 (21-28) mmol/L ABG pH (7.35-7.45) ABG Total CO2 (22-28) mmol/L ABG O2 Saturation (95-98) % ABG Base Excess (-2.0-3.0) mmol/L ABG Hemoglobin (11.7-17.4) g/dL ABG Carboxyhemoglobin (0.5-1.5) % POC ABG HHb (Measured) (0.0-5.0) % ABG Methemoglobin (0.0-3.0) % Jose D Test ABG Potassium (3.6-5.2) mmol/L VBG pH (7.32-7.43) VBG pCO2 (40-60) mmHg VBG HCO3 mmol/L VBG Total CO2 (22-28) mmol/L VBG O2 Sat (Calc) (40-65) % VBG Base Excess (0.0-2.0) mmol/L VBG Potassium (3.6-5.2) mmol/L A-a O2 Difference mm/Hg Respiratory Index Hgb O2 Saturation (95.0-98.0) % Glucose (75-110) mg/dl Lactate (0.7-2.1) mmol/L Vent Mode Mechanical Rate FiO2 % Tidal Volume PEEP Crit Value Called To Crit Value Called By Crit Value Read Back Blood Gas Notified Time Sodium 140 (132-148) mmol/L Potassium 3.6 (3.6-5.2) mmol/L Chloride 103 (98-107) mmol/L Carbon Dioxide 30 (22-30) mmol/L Anion Gap 12 (10-20) BUN 22 H (9-20) mg/dL Creatinine 1.1 (0.8-1.5) mg/dL Est GFR ( Amer) > 60 Est GFR (Non-Af Amer) > 60 POC Glucose (mg/dL) (65-110) mg/dL Random Glucose 139 H (75-110) mg/dL Hemoglobin A1c 5.9 (4.2-6.5) % Lactic Acid (0.7-2.1) mmol/L Calcium 9.5 (8.6-10.4) mg/dl Phosphorus (2.5-4.5) mg/dL Magnesium (1.6-2.3) mg/dL Total Bilirubin 0.7 (0.2-1.3) mg/dL AST 25 (17-59) U/L ALT 29 (21-72) U/L Alkaline Phosphatase 81 (38-126) U/L Total Creatine Kinase (55-170) U/L CK-MB (Mass) (0.0-3.38) ng/mL Troponin I 0.0200 (0.00-0.120) ng/mL NT-Pro-B Natriuret Pep (0-900) pg/mL Total Protein 8.2 (6.3-8.3) g/dL Albumin 4.4 (3.5-5.0) g/dL Globulin 3.8 (2.2-3.9) gm/dL Albumin/Globulin Ratio 1.2 (1.0-2.1) Triglycerides 120 (0-149) mg/dL Cholesterol 181 (0-199) mg/dL LDL Cholesterol Direct 118 (0-129) mg/dL HDL Cholesterol 40 (30-70) mg/dL Arterial Blood Potassium (3.6-5.2) mmol/L Venous Blood Potassium (3.6-5.2) mmol/L Urine Color (YELLOW) Urine Clarity (Clear) Urine pH (5.0-8.0) Ur Specific [place] (1.003-1.030) Urine Protein (NEGATIVE) mg/dL Urine Glucose (UA) (Normal) mg/dL Urine Ketones (NEGATIVE) mg/dL Urine Blood (NEGATIVE) Urine Nitrate (NEGATIVE) Urine Bilirubin (NEGATIVE) Urine Urobilinogen (0.2-1.0) mg/dL Ur Leukocyte Esterase (Negative) Brooke/uL Urine WBC (Auto) (0-5) /hpf Urine RBC (Auto) (0-3) /hpf Ur Squamous Epith Cells (0-5) /hpf Urine Bacteria (<OCC) Blood Type Antibody Screen 04/25/18 04/25/18 Range/Units 16:31 16:17 WBC 9.7 (4.8-10.8) K/uL RBC 5.49 (4.40-5.90) Mil/uL Hgb 14.4 (12.0-18.0) g/dL Hct 42.5 (35.0-51.0) % MCV 77.5 L (80.0-94.0) fL MCH 26.3 L (27.0-31.0) pg MCHC 34.0 (33.0-37.0) g/dL RDW 18.3 H (11.5-14.5) % Plt Count 233 (130-400) K/uL MPV 9.1 (7.2-11.7) fL Neut % (Auto) 46.5 L (50.0-75.0) % Lymph % (Auto) 43.1 H (20.0-40.0) % [place] % (Auto) 6.9 (0.0-10.0) % Eos % (Auto) 2.7 (0.0-4.0) % Baso % (Auto) 0.8 (0.0-2.0) % Neut # (Auto) 4.5 (1.8-7.0) K/uL Lymph # (Auto) 4.2 (1.0-4.3) K/uL [place] # (Auto) 0.7 (0.0-0.8) K/uL Eos # (Auto) 0.3 (0.0-0.7) K/uL Baso # (Auto) 0.1 (0.0-0.2) K/uL PT (9.7-12.2) SECONDS INR APTT (21-34) SECONDS Puncture Site pCO2 (35-45) mm/Hg pO2 (30-55) mm/Hg HCO3 (21-28) mmol/L ABG pH (7.35-7.45) ABG Total CO2 (22-28) mmol/L ABG O2 Saturation (95-98) % ABG Base Excess (-2.0-3.0) mmol/L ABG Hemoglobin (11.7-17.4) g/dL ABG Carboxyhemoglobin (0.5-1.5) % POC ABG HHb (Measured) (0.0-5.0) % ABG Methemoglobin (0.0-3.0) % Jose D Test ABG Potassium (3.6-5.2) mmol/L VBG pH (7.32-7.43) VBG pCO2 (40-60) mmHg VBG HCO3 mmol/L VBG Total CO2 (22-28) mmol/L VBG O2 Sat (Calc) (40-65) % VBG Base Excess (0.0-2.0) mmol/L VBG Potassium (3.6-5.2) mmol/L A-a O2 Difference mm/Hg Respiratory Index Hgb O2 Saturation (95.0-98.0) % Glucose (75-110) mg/dl Lactate (0.7-2.1) mmol/L Vent Mode Mechanical Rate FiO2 % Tidal Volume PEEP Crit Value Called To Crit Value Called By Crit Value Read Back Blood Gas Notified Time Sodium (132-148) mmol/L Potassium (3.6-5.2) mmol/L Chloride (98-107) mmol/L Carbon Dioxide (22-30) mmol/L Anion Gap (10-20) BUN (9-20) mg/dL Creatinine (0.8-1.5) mg/dL Est GFR ( Amer) Est GFR (Non-Af Amer) POC Glucose (mg/dL) 121 H (65-110) mg/dL Random Glucose (75-110) mg/dL Hemoglobin A1c (4.2-6.5) % Lactic Acid (0.7-2.1) mmol/L Calcium (8.6-10.4) mg/dl Phosphorus (2.5-4.5) mg/dL Magnesium (1.6-2.3) mg/dL Total Bilirubin (0.2-1.3) mg/dL AST (17-59) U/L ALT (21-72) U/L Alkaline Phosphatase (38-126) U/L Total Creatine Kinase (55-170) U/L CK-MB (Mass) (0.0-3.38) ng/mL Troponin I (0.00-0.120) ng/mL NT-Pro-B Natriuret Pep (0-900) pg/mL Total Protein (6.3-8.3) g/dL Albumin (3.5-5.0) g/dL Globulin (2.2-3.9) gm/dL Albumin/Globulin Ratio (1.0-2.1) Triglycerides (0-149) mg/dL Cholesterol (0-199) mg/dL LDL Cholesterol Direct (0-129) mg/dL HDL Cholesterol (30-70) mg/dL Arterial Blood Potassium (3.6-5.2) mmol/L Venous Blood Potassium (3.6-5.2) mmol/L Urine Color (YELLOW) Urine Clarity (Clear) Urine pH (5.0-8.0) Ur Specific [place] (1.003-1.030) Urine Protein (NEGATIVE) mg/dL Urine Glucose (UA) (Normal) mg/dL Urine Ketones (NEGATIVE) mg/dL Urine Blood (NEGATIVE) Urine Nitrate (NEGATIVE) Urine Bilirubin (NEGATIVE) Urine Urobilinogen (0.2-1.0) mg/dL Ur Leukocyte Esterase (Negative) [place]/uL Urine WBC (Auto) (0-5) /hpf Urine RBC (Auto) (0-3) /hpf Ur Squamous Epith Cells (0-5) /hpf Urine Bacteria (<OCC) Blood Type Antibody Screen Laboratory Results - last 24 hr 04/25/18 04/25/18 04/25/18 16:17 16:31 16:31 WBC 9.7 RBC 5.49 Hgb 14.4 Hct 42.5 MCV 77.5 L MCH 26.3 L MCHC 34.0 RDW 18.3 H Plt Count 233 MPV 9.1 Neut % (Auto) 46.5 L Lymph % (Auto) 43.1 H [place] % (Auto) 6.9 Eos % (Auto) 2.7 Baso % (Auto) 0.8 Neut # (Auto) 4.5 Lymph # (Auto) 4.2 [place]kin # (Auto) 0.7 Eos # (Auto) 0.3 Baso # (Auto) 0.1 PT 13.8 H INR 1.3 APTT 33 Puncture Site pCO2 pO2 HCO3 ABG pH ABG Total CO2 ABG O2 Saturation ABG Base Excess ABG Hemoglobin ABG Carboxyhemoglobin POC ABG HHb (Measured) ABG Methemoglobin Jose D Test ABG Potassium VBG pH VBG pCO2 VBG HCO3 VBG Total CO2 VBG O2 Sat (Calc) VBG Base Excess VBG Potassium A-a O2 Difference Respiratory Index Hgb O2 Saturation Glucose Lactate Vent Mode Mechanical Rate FiO2 Tidal Volume PEEP Crit Value Called To Crit Value Called By Crit Value Read Back Blood Gas Notified Time Sodium Potassium Chloride Carbon Dioxide Anion Gap BUN Creatinine Est GFR ( Amer) Est GFR (Non-Af Amer) POC Glucose (mg/dL) 121 H Random Glucose Hemoglobin A1c Lactic Acid Calcium Phosphorus Magnesium Total Bilirubin AST ALT Alkaline Phosphatase Total Creatine Kinase CK-MB (Mass) Troponin I NT-Pro-B Natriuret Pep Total Protein Albumin Globulin Albumin/Globulin Ratio Triglycerides Cholesterol LDL Cholesterol Direct HDL Cholesterol Arterial Blood Potassium Venous Blood Potassium Urine Color Urine Clarity Urine pH Ur Specific [place] Urine Protein Urine Glucose (UA) Urine Ketones Urine Blood Urine Nitrate Urine Bilirubin Urine Urobilinogen Ur Leukocyte Esterase Urine WBC (Auto) Urine RBC (Auto) Ur Squamous Epith Cells Urine Bacteria Blood Type Antibody Screen 04/25/18 04/25/18 04/25/18 16:31 16:31 16:31 WBC RBC Hgb Hct MCV MCH MCHC RDW Plt Count MPV Neut % (Auto) Lymph % (Auto) [place] % (Auto) Eos % (Auto) Baso % (Auto) Neut # (Auto) Lymph # (Auto) [place] # (Auto) Eos # (Auto) Baso # (Auto) PT INR APTT Puncture Site pCO2 pO2 HCO3 ABG pH ABG Total CO2 ABG O2 Saturation ABG Base Excess ABG Hemoglobin ABG Carboxyhemoglobin POC ABG HHb (Measured) ABG Methemoglobin Jose D Test ABG Potassium VBG pH VBG pCO2 VBG HCO3 VBG Total CO2 VBG O2 Sat (Calc) VBG Base Excess VBG Potassium A-a O2 Difference Respiratory Index Hgb O2 Saturation Glucose Lactate Vent Mode Mechanical Rate FiO2 Tidal Volume PEEP Crit Value Called To Crit Value Called By Crit Value Read Back Blood Gas Notified Time Sodium 140 Potassium 3.6 Chloride 103 Carbon Dioxide 30 Anion Gap 12 BUN 22 H Creatinine 1.1 Est GFR ( Amer) > 60 Est GFR (Non-Af Amer) > 60 POC Glucose (mg/dL) Random Glucose 139 H Hemoglobin A1c 5.9 Lactic Acid Calcium 9.5 Phosphorus Magnesium Total Bilirubin 0.7 AST 25 ALT 29 Alkaline Phosphatase 81 Total Creatine Kinase CK-MB (Mass) Troponin I 0.0200 NT-Pro-B Natriuret Pep Total Protein 8.2 Albumin 4.4 Globulin 3.8 Albumin/Globulin Ratio 1.2 Triglycerides 120 Cholesterol 181 LDL Cholesterol Direct 118 HDL Cholesterol 40 Arterial Blood Potassium Venous Blood Potassium Urine Color Urine Clarity Urine pH Ur Specific [place] Urine Protein Urine Glucose (UA) Urine Ketones Urine Blood Urine Nitrate Urine Bilirubin Urine Urobilinogen Ur Leukocyte Esterase Urine WBC (Auto) Urine RBC (Auto) Ur Squamous Epith Cells Urine Bacteria Blood Type A POSITIVE Antibody Screen Negative 04/25/18 04/25/18 04/25/18 16:55 21:44 21:47 WBC 9.3 RBC 4.10 L Hgb 10.8 L D Hct 32.1 L MCV 78.2 L MCH 26.4 L MCHC 33.7 RDW 18.2 H Plt Count 180 MPV 8.7 Neut % (Auto) 80.4 H Lymph % (Auto) 14.8 L [place] % (Auto) 4.1 Eos % (Auto) 0.2 Baso % (Auto) 0.5 Neut # (Auto) 7.5 H Lymph # (Auto) 1.4 [place] # (Auto) 0.4 Eos # (Auto) 0.0 Baso # (Auto) 0.1 PT INR APTT Puncture Site Malaika pCO2 43 pO2 23 L 126 H HCO3 22.5 ABG pH 7.33 L ABG Total CO2 24.0 ABG O2 Saturation 98.5 H ABG Base Excess -3.2 L ABG Hemoglobin ABG Carboxyhemoglobin POC ABG HHb (Measured) ABG Methemoglobin Jose D Test Na ABG Potassium 3.7 VBG pH 7.32 VBG pCO2 49 VBG HCO3 22.1 VBG Total CO2 26.7 VBG O2 Sat (Calc) 42.5 VBG Base Excess -1.4 L VBG Potassium 2.5 L* A-a O2 Difference 177.0 Respiratory Index 1.4 Hgb O2 Saturation Glucose 110 134 H Lactate 1.3 0.8 Vent Mode Prvc Mechanical Rate 20 FiO2 50.0 Tidal Volume 450 PEEP 5 Crit Value Called To Mariela do Crit Value Called By Phyllis rt Crit Value Read Back Y Blood Gas Notified Time 1659 Sodium 142.0 139.0 Potassium Chloride 108.0 H 114.0 H Carbon Dioxide Anion Gap BUN Creatinine Est GFR ( Amer) Est GFR (Non-Af Amer) POC Glucose (mg/dL) Random Glucose Hemoglobin A1c Lactic Acid Calcium Phosphorus Magnesium Total Bilirubin AST ALT Alkaline Phosphatase Total Creatine Kinase CK-MB (Mass) Troponin I NT-Pro-B Natriuret Pep Total Protein Albumin Globulin Albumin/Globulin Ratio Triglycerides Cholesterol LDL Cholesterol Direct HDL Cholesterol Arterial Blood Potassium 3.7 Venous Blood Potassium 2.5 L* Urine Color Urine Clarity Urine pH Ur Specific [place] Urine Protein Urine Glucose (UA) Urine Ketones Urine Blood Urine Nitrate Urine Bilirubin Urine Urobilinogen Ur Leukocyte Esterase Urine WBC (Auto) Urine RBC (Auto) Ur Squamous Epith Cells Urine Bacteria Blood Type Antibody Screen 04/25/18 04/25/18 04/25/18 21:47 21:47 22:33 WBC RBC Hgb Hct MCV MCH MCHC RDW Plt Count MPV Neut % (Auto) Lymph % (Auto) [place] % (Auto) Eos % (Auto) Baso % (Auto) Neut # (Auto) Lymph # (Auto) [place] # (Auto) Eos # (Auto) Baso # (Auto) PT INR APTT Puncture Site pCO2 pO2 HCO3 ABG pH ABG Total CO2 ABG O2 Saturation ABG Base Excess ABG Hemoglobin ABG Carboxyhemoglobin POC ABG HHb (Measured) ABG Methemoglobin Jose D Test ABG Potassium VBG pH VBG pCO2 VBG HCO3 VBG Total CO2 VBG O2 Sat (Calc) VBG Base Excess VBG Potassium A-a O2 Difference Respiratory Index Hgb O2 Saturation Glucose Lactate Vent Mode Mechanical Rate FiO2 Tidal Volume PEEP Crit Value Called To Crit Value Called By Crit Value Read Back Blood Gas Notified Time Sodium 138 Potassium 4.1 Chloride 109 H Carbon Dioxide 22 Anion Gap 12 BUN 21 H Creatinine 0.9 Est GFR ( Amer) > 60 Est GFR (Non-Af Amer) > 60 POC Glucose (mg/dL) 119 H Random Glucose 138 H Hemoglobin A1c Lactic Acid 0.8 Calcium 7.5 L Phosphorus 3.0 Magnesium 1.8 Total Bilirubin 0.6 AST 18 ALT 33 Alkaline Phosphatase 48 Total Creatine Kinase CK-MB (Mass) Troponin I NT-Pro-B Natriuret Pep Total Protein 5.6 L Albumin 2.7 L D Globulin 2.8 Albumin/Globulin Ratio 1.0 Triglycerides Cholesterol LDL Cholesterol Direct HDL Cholesterol Arterial Blood Potassium Venous Blood Potassium Urine Color Urine Clarity Urine pH Ur Specific [place] Urine Protein Urine Glucose (UA) Urine Ketones Urine Blood Urine Nitrate Urine Bilirubin Urine Urobilinogen Ur Leukocyte Esterase Urine WBC (Auto) Urine RBC (Auto) Ur Squamous Epith Cells Urine Bacteria Blood Type Antibody Screen 04/25/18 04/26/18 04/26/18 23:54 00:24 05:16 WBC RBC Hgb Hct MCV MCH MCHC RDW Plt Count MPV Neut % (Auto) Lymph % (Auto) [place] % (Auto) Eos % (Auto) Baso % (Auto) Neut # (Auto) Lymph # (Auto) [place] # (Auto) Eos # (Auto) Baso # (Auto) PT INR APTT Puncture Site pCO2 pO2 HCO3 ABG pH ABG Total CO2 ABG O2 Saturation ABG Base Excess ABG Hemoglobin ABG Carboxyhemoglobin POC ABG HHb (Measured) ABG Methemoglobin Jose D Test ABG Potassium VBG pH VBG pCO2 VBG HCO3 VBG Total CO2 VBG O2 Sat (Calc) VBG Base Excess VBG Potassium A-a O2 Difference Respiratory Index Hgb O2 Saturation Glucose Lactate Vent Mode Mechanical Rate FiO2 Tidal Volume PEEP Crit Value Called To Crit Value Called By Crit Value Read Back Blood Gas Notified Time Sodium Potassium Chloride Carbon Dioxide Anion Gap BUN Creatinine Est GFR ( Amer) Est GFR (Non-Af Amer) POC Glucose (mg/dL) 117 H 101 Random Glucose Hemoglobin A1c Lactic Acid Calcium Phosphorus Magnesium Total Bilirubin AST ALT Alkaline Phosphatase Total Creatine Kinase CK-MB (Mass) Troponin I NT-Pro-B Natriuret Pep Total Protein Albumin Globulin Albumin/Globulin Ratio Triglycerides Cholesterol LDL Cholesterol Direct HDL Cholesterol Arterial Blood Potassium Venous Blood Potassium Urine Color Yellow Urine Clarity Clear Urine pH 7.0 Ur Specific [place] > 1.060 H Urine Protein 1+ H Urine Glucose (UA) Normal Urine Ketones Negative Urine Blood Negative Urine Nitrate Negative Urine Bilirubin Negative Urine Urobilinogen Normal Ur Leukocyte Esterase Neg Urine WBC (Auto) 2 Urine RBC (Auto) 4 H Ur Squamous Epith Cells < 1 Urine Bacteria Rare Blood Type Antibody Screen 04/26/18 04/26/18 04/26/18 05:43 06:09 06:09 WBC 7.5 RBC 3.49 L Hgb 9.0 L Hct 27.3 L MCV 78.3 L MCH 25.9 L MCHC 33.1 RDW 17.4 H Plt Count 152 MPV 9.3 Neut % (Auto) 77.8 H Lymph % (Auto) 14.6 L [place] % (Auto) 6.5 Eos % (Auto) 0.3 Baso % (Auto) 0.8 Neut # (Auto) 5.9 Lymph # (Auto) 1.1 [place] # (Auto) 0.5 Eos # (Auto) 0.0 Baso # (Auto) 0.1 PT INR APTT Puncture Site A-line pCO2 36 pO2 139 H HCO3 21.8 ABG pH 7.37 ABG Total CO2 21.9 L ABG O2 Saturation 98.6 H ABG Base Excess -4.0 L ABG Hemoglobin 9.2 L ABG Carboxyhemoglobin 1.2 POC ABG HHb (Measured) 1.4 ABG Methemoglobin 0.9 Jose D Test Na ABG Potassium VBG pH VBG pCO2 VBG HCO3 VBG Total CO2 VBG O2 Sat (Calc) VBG Base Excess VBG Potassium A-a O2 Difference 173.0 Respiratory Index 1.2 Hgb O2 Saturation 96.4 Glucose Lactate Vent Mode Prvc Mechanical Rate 20 FiO2 50.0 Tidal Volume 450 PEEP 5 Crit Value Called To Crit Value Called By Crit Value Read Back Blood Gas Notified Time Sodium 140 Potassium 4.0 Chloride 115 H Carbon Dioxide 21 L Anion Gap 8 L BUN 18 Creatinine 0.8 Est GFR ( Amer) > 60 Est GFR (Non-Af Amer) > 60 POC Glucose (mg/dL) Random Glucose 100 Hemoglobin A1c Lactic Acid Calcium 6.7 L Phosphorus 2.3 L Magnesium 1.7 Total Bilirubin 0.4 AST 18 ALT 27 Alkaline Phosphatase 52 Total Creatine Kinase CK-MB (Mass) Troponin I NT-Pro-B Natriuret Pep Total Protein 4.9 L Albumin 2.4 L Globulin 2.5 Albumin/Globulin Ratio 1.0 Triglycerides Cholesterol LDL Cholesterol Direct HDL Cholesterol Arterial Blood Potassium Venous Blood Potassium Urine Color Urine Clarity Urine pH Ur Specific [place] Urine Protein Urine Glucose (UA) Urine Ketones Urine Blood Urine Nitrate Urine Bilirubin Urine Urobilinogen Ur Leukocyte Esterase Urine WBC (Auto) Urine RBC (Auto) Ur Squamous Epith Cells Urine Bacteria Blood Type Antibody Screen 04/26/18 04/26/18 06:09 09:24 WBC RBC Hgb Hct MCV MCH MCHC RDW Plt Count MPV Neut % (Auto) Lymph % (Auto) [place] % (Auto) Eos % (Auto) Baso % (Auto) Neut # (Auto) Lymph # (Auto) [place] # (Auto) Eos # (Auto) Baso # (Auto) PT INR APTT Puncture Site pCO2 pO2 HCO3 ABG pH ABG Total CO2 ABG O2 Saturation ABG Base Excess ABG Hemoglobin ABG Carboxyhemoglobin POC ABG HHb (Measured) ABG Methemoglobin Jose D Test ABG Potassium VBG pH VBG pCO2 VBG HCO3 VBG Total CO2 VBG O2 Sat (Calc) VBG Base Excess VBG Potassium A-a O2 Difference Respiratory Index Hgb O2 Saturation Glucose Lactate Vent Mode Mechanical Rate FiO2 Tidal Volume PEEP Crit Value Called To Crit Value Called By Crit Value Read Back Blood Gas Notified Time Sodium Potassium Chloride Carbon Dioxide Anion Gap BUN Creatinine Est GFR ( Amer) Est GFR (Non-Af Amer) POC Glucose (mg/dL) Random Glucose Hemoglobin A1c Lactic Acid 0.8 Calcium Phosphorus Magnesium Total Bilirubin AST ALT Alkaline Phosphatase Total Creatine Kinase 61 CK-MB (Mass) 1.16 Troponin I 0.0380 NT-Pro-B Natriuret Pep 1790 H Total Protein Albumin Globulin Albumin/Globulin Ratio Triglycerides Cholesterol LDL Cholesterol Direct HDL Cholesterol Arterial Blood Potassium Venous Blood Potassium Urine Color Urine Clarity Urine pH Ur Specific [place] Urine Protein Urine Glucose (UA) Urine Ketones Urine Blood Urine Nitrate Urine Bilirubin Urine Urobilinogen Ur Leukocyte Esterase Urine WBC (Auto) Urine RBC (Auto) Ur Squamous Epith Cells Urine Bacteria Blood Type Antibody Screen EKG/Cardiology Studies: Cardiology / EKG Studies 04/25/18 16:20 ELECTROCARDIOGRAM Stat Comment: Mode Of Transportation: Reason For Exam: code stroke Fingerstick Blood Sugar Results: 101 Results Reviewed to Date: Yes Review of Systems - Review of Systems Systems not reviewed;Unavailable: Intubated Critical Care Progress Note - Ventilator Checklist Head of Bed 30 Degrees: Yes Daily Sedation Vacation: Yes Daily Assessment of Readiness to Wean: Yes Daily Spontaneous Breathing Trial: Yes PUD Prophalyxis: Yes DVT Prophylaxis: Yes Oral Care with Chlorhexidine Gluconate {CHG}: Yes - Vent Settings MODE:: PRVC - Extremities/Vascular Does the Patient have a Central Venous Catheter?: No Does the Patient need a Central Venous Catheter?: No Does the Patient have a Bhatt Catheter?: Yes Does the Patient need a Bhatt Catheter?: Yes Catheter Insertion Criteria: Patient requires prolonged immobilization - Prophylaxis GI Prophylaxis GI: Pepsid - Prophylaxis DVT Prophylaxis DVT: SCDs Assessment/Plan - Assessment and Plan (Free Text) Assessment: Patient is 82 yo male who underwent 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 He remains intubated and sedated. 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, occlusion of L MCA - Post-op CTA: no occlusion/thrombus/stenosis visualized, patent stent graft in L ICA - Repeat CT head pending - Neurovascular checks Q1H- if any changes, repeat CT head STAT - Propofol drip- maintain RASS -2 - Neurology consulted (Ann) - Neurointervention consulted (Arcot) CV: - Mechanical thrombectomy 04/25 - Trop negative x2 - pro-BNP 1790 - Lipid panel wnl - ASA 325 mg PO loading dose then ASA 81 mg PO daily - Plavix 300 mg PO loading dose then Plavix 75 mg PO daily - Crestor 10 mg PO QHS - NS @ 100 mL/hr - Monitor vitals- maintain SBP 100-140 Pulm: - ETT- titrate vent to maintain spO2>92%, CPAP trial - CXR: severe cardiomegaly, mod venous congestion, b/l airspace disease (atelectasis vs PNA) - ABG on PRVC, FiO2 50: pH 7.37, pCO2 36, pO2 139 - Duoneb Q4H GI: - NGT- Glucerna : - I's & O's- Bhatt - Replete electrolytes PRN Endo: - A1c 5.9 - Maintain euglycemia - Accuchecks Q6H with ISS Heme: - Monitor H&H ID: - Afebrile - No leukocytosis - Blood Cx pending - Sputum Cx negative - Lactate 0.8 - Vancomycin 1 g IV daily - Zosyn 3.375 g IV Q6H PPx: VTE: heparin 5000 units SC Q8H GI: Pepcid 20 mg IV daily Code status: full code Case discussed with attending, Dr. Shannon Sykes. PGY-1 Katelyn Oviedo D.O. <Román Sykes - Last Filed: 04/26/18 19:28> CCU Objective - Vital Signs / Intake & Output Vital Signs (Last 4 hours): Vital Signs Temp Pulse Resp BP BP Pulse Ox 04/26/18 19:00 69 22 117/37 L 100 04/26/18 18:00 75 24 131/41 L 99 04/26/18 17:00 80 22 138/54 L 100 04/26/18 16:00 99 F 71 24 138/51 L 138/51 L 99 Intake and Output (Last 8hrs): Intake & Output 04/26/18 04/26/18 04/26/18 06:59 14:59 22:59 Intake Total 1219.5 965.7 682.1 Output Total 435 275 220 Balance 784.5 690.7 462.1 Weight 182 lb 2 oz 182 lb 2 oz 182 lb 2 oz Intake: IV 20 80 90 Intake, IV Amount 1199.5 850.7 492.1 Left AC 50 R FA 100 384 Right Forearm 199.5 150.7 58.1 right arm piggyback 1000 600 Oral 35 100 Output: Urine 435 275 220 Urethral (Bhatt) 435 275 220 Other: # Bowel Movements 0 - Medications Active Medications: Active Medications Generic Name Dose Route Start Last Admin Trade Name Freq PRN Reason Stop Dose Admin Albuterol/Ipratropium 3 ml 04/26/18 12:00 04/26/18 16:39 Duoneb 3 Mg/0.5 Mg (3 Ml) Ud INH 3 ml RQ4 DANIEL Administration Aspirin 81 mg 04/26/18 10:00 04/26/18 09:14 Ecotrin PO 81 mg DAILY DANIEL Administration Clopidogrel Bisulfate 75 mg 04/26/18 10:00 04/26/18 09:14 Plavix PO 75 mg DAILY DANIEL Administration Famotidine 20 mg 04/26/18 10:00 04/26/18 09:14 Pepcid IVP 20 mg DAILY DANIEL Administration Heparin Sodium (Porcine) 5,000 units 04/25/18 22:00 04/26/18 15:00 Heparin SC 5,000 units Q8 DANIEL Administration Propofol 1,000 mg in 100 mls @ 2.773 mls/hr 04/25/18 21:29 04/26/18 17:15 Diprivan IV 24.88 mcg/kg/min .Q24H PRN 13.8 mls/hr TITRATE PER MD ORDER Titration Protocol 5 MCG/KG/MIN Piperacillin Sod/Tazobactam 100 mls @ 200 mls/hr 04/26/18 09:15 04/26/18 15:23 Sod 3.375 gm/ Sodium Chloride IVPB 200 mls/hr Q6H DANIEL Administration Protocol Vancomycin/Sodium Chloride 1 gm in 200 mls @ 133.333 mls/hr 04/26/18 09:15 04/26/18 11:14 Vancomycin 1 Gm/Ns 200 Ml IVPB 05/01/18 09:16 133.333 mls/hr Q24H DANIEL Administration Protocol Nicardipine HCl 25 mg/ Sodium 250 mls @ 50 mls/hr 04/26/18 17:15 04/26/18 18:26 Chloride IV 0 mg/hr .Q5H DANIEL 0 mls/hr Titration Protocol 5 MG/HR Sodium Chloride 1,000 mls @ 42 mls/hr 04/26/18 18:48 Sodium Chloride 0.9% IV .[id number] DANEIL Insulin Aspart 0 unit 04/26/18 12:00 04/26/18 17:46 Novolog SC Not Given Q6H DANIEL Protocol Propofol 100 mg 04/25/18 20:19 Diprivan IV TITR DANIEL Rosuvastatin Calcium 10 mg 04/26/18 22:00 Crestor PO HS DANIEL - Patient Studies Lab Studies: Microbiology Studies 04/25/18 13:05 Gram Stain - Final Trachasp Lab Studies 04/26/18 04/26/18 04/26/18 Range/Units 17:45 11:43 09:24 WBC (4.8-10.8) K/uL RBC (4.40-5.90) Mil/uL Hgb (12.0-18.0) g/dL Hct (35.0-51.0) % MCV (80.0-94.0) fL MCH (27.0-31.0) pg MCHC (33.0-37.0) g/dL RDW (11.5-14.5) % Plt Count (130-400) K/uL MPV (7.2-11.7) fL Neut % (Auto) (50.0-75.0) % Lymph % (Auto) (20.0-40.0) % [place] % (Auto) (0.0-10.0) % Eos % (Auto) (0.0-4.0) % Baso % (Auto) (0.0-2.0) % Neut # (Auto) (1.8-7.0) K/uL Lymph # (Auto) (1.0-4.3) K/uL [place] # (Auto) (0.0-0.8) K/uL Eos # (Auto) (0.0-0.7) K/uL Baso # (Auto) (0.0-0.2) K/uL Puncture Site pCO2 (35-45) mm/Hg pO2 (80-100) mm/Hg HCO3 (21-28) mmol/L ABG pH (7.35-7.45) ABG Total CO2 (22-28) mmol/L ABG O2 Saturation (95-98) % ABG Base Excess (-2.0-3.0) mmol/L ABG Hemoglobin (11.7-17.4) g/dL ABG Carboxyhemoglobin (0.5-1.5) % POC ABG HHb (Measured) (0.0-5.0) % ABG Methemoglobin (0.0-3.0) % Jose D Test ABG Potassium (3.6-5.2) mmol/L A-a O2 Difference mm/Hg Respiratory Index Hgb O2 Saturation (95.0-98.0) % Sodium (132-148) mmol/l Chloride (98-107) mmol/L Glucose (75-110) mg/dl Lactate (0.7-2.1) mmol/L Vent Mode Mechanical Rate FiO2 % Tidal Volume PEEP Potassium (3.6-5.2) mmol/L Carbon Dioxide (22-30) mmol/L Anion Gap (10-20) BUN (9-20) mg/dL Creatinine (0.8-1.5) mg/dL Est GFR ( Amer) Est GFR (Non-Af Amer) POC Glucose (mg/dL) 114 H 122 H (65-110) mg/dL Random Glucose (75-110) mg/dL Lactic Acid (0.7-2.1) mmol/L Calcium (8.6-10.4) mg/dl Phosphorus (2.5-4.5) mg/dL Magnesium (1.6-2.3) mg/dL Total Bilirubin (0.2-1.3) mg/dL AST (17-59) U/L ALT (21-72) U/L Alkaline Phosphatase (38-126) U/L Total Creatine Kinase 61 (55-170) U/L CK-MB (Mass) 1.16 (0.0-3.38) ng/mL Troponin I 0.0380 (0.00-0.120) ng/mL NT-Pro-B Natriuret Pep 1790 H (0-900) pg/mL Total Protein (6.3-8.3) g/dL Albumin (3.5-5.0) g/dL Globulin (2.2-3.9) gm/dL Albumin/Globulin Ratio (1.0-2.1) Arterial Blood Potassium (3.6-5.2) mmol/L Urine Color (YELLOW) Urine Clarity (Clear) Urine pH (5.0-8.0) Ur Specific [place] (1.003-1.030) Urine Protein (NEGATIVE) mg/dL Urine Glucose (UA) (Normal) mg/dL Urine Ketones (NEGATIVE) mg/dL Urine Blood (NEGATIVE) Urine Nitrate (NEGATIVE) Urine Bilirubin (NEGATIVE) Urine Urobilinogen (0.2-1.0) mg/dL Ur Leukocyte Esterase (Negative) Brooke/uL Urine WBC (Auto) (0-5) /hpf Urine RBC (Auto) (0-3) /hpf Ur Squamous Epith Cells (0-5) /hpf Urine Bacteria (<OCC) 04/26/18 04/26/18 04/26/18 Range/Units 06:09 06:09 06:09 WBC 7.5 (4.8-10.8) K/uL RBC 3.49 L (4.40-5.90) Mil/uL Hgb 9.0 L (12.0-18.0) g/dL Hct 27.3 L (35.0-51.0) % MCV 78.3 L (80.0-94.0) fL MCH 25.9 L (27.0-31.0) pg MCHC 33.1 (33.0-37.0) g/dL RDW 17.4 H (11.5-14.5) % Plt Count 152 (130-400) K/uL MPV 9.3 (7.2-11.7) fL Neut % (Auto) 77.8 H (50.0-75.0) % Lymph % (Auto) 14.6 L (20.0-40.0) % [place] % (Auto) 6.5 (0.0-10.0) % Eos % (Auto) 0.3 (0.0-4.0) % Baso % (Auto) 0.8 (0.0-2.0) % Neut # (Auto) 5.9 (1.8-7.0) K/uL Lymph # (Auto) 1.1 (1.0-4.3) K/uL [place] # (Auto) 0.5 (0.0-0.8) K/uL Eos # (Auto) 0.0 (0.0-0.7) K/uL Baso # (Auto) 0.1 (0.0-0.2) K/uL Puncture Site pCO2 (35-45) mm/Hg pO2 (80-100) mm/Hg HCO3 (21-28) mmol/L ABG pH (7.35-7.45) ABG Total CO2 (22-28) mmol/L ABG O2 Saturation (95-98) % ABG Base Excess (-2.0-3.0) mmol/L ABG Hemoglobin (11.7-17.4) g/dL ABG Carboxyhemoglobin (0.5-1.5) % POC ABG HHb (Measured) (0.0-5.0) % ABG Methemoglobin (0.0-3.0) % Jose D Test ABG Potassium (3.6-5.2) mmol/L A-a O2 Difference mm/Hg Respiratory Index Hgb O2 Saturation (95.0-98.0) % Sodium 140 (132-148) mmol/l Chloride 115 H (98-107) mmol/L Glucose (75-110) mg/dl Lactate (0.7-2.1) mmol/L Vent Mode Mechanical Rate FiO2 % Tidal Volume PEEP Potassium 4.0 (3.6-5.2) mmol/L Carbon Dioxide 21 L (22-30) mmol/L Anion Gap 8 L (10-20) BUN 18 (9-20) mg/dL Creatinine 0.8 (0.8-1.5) mg/dL Est GFR ( Amer) > 60 Est GFR (Non-Af Amer) > 60 POC Glucose (mg/dL) (65-110) mg/dL Random Glucose 100 (75-110) mg/dL Lactic Acid 0.8 (0.7-2.1) mmol/L Calcium 6.7 L (8.6-10.4) mg/dl Phosphorus 2.3 L (2.5-4.5) mg/dL Magnesium 1.7 (1.6-2.3) mg/dL Total Bilirubin 0.4 (0.2-1.3) mg/dL AST 18 (17-59) U/L ALT 27 (21-72) U/L Alkaline Phosphatase 52 (38-126) U/L Total Creatine Kinase (55-170) U/L CK-MB (Mass) (0.0-3.38) ng/mL Troponin I (0.00-0.120) ng/mL NT-Pro-B Natriuret Pep (0-900) pg/mL Total Protein 4.9 L (6.3-8.3) g/dL Albumin 2.4 L (3.5-5.0) g/dL Globulin 2.5 (2.2-3.9) gm/dL Albumin/Globulin Ratio 1.0 (1.0-2.1) Arterial Blood Potassium (3.6-5.2) mmol/L Urine Color (YELLOW) Urine Clarity (Clear) Urine pH (5.0-8.0) Ur Specific [place] (1.003-1.030) Urine Protein (NEGATIVE) mg/dL Urine Glucose (UA) (Normal) mg/dL Urine Ketones (NEGATIVE) mg/dL Urine Blood (NEGATIVE) Urine Nitrate (NEGATIVE) Urine Bilirubin (NEGATIVE) Urine Urobilinogen (0.2-1.0) mg/dL Ur Leukocyte Esterase (Negative) Brooke/uL Urine WBC (Auto) (0-5) /hpf Urine RBC (Auto) (0-3) /hpf Ur Squamous Epith Cells (0-5) /hpf Urine Bacteria (<OCC) 04/26/18 04/26/18 04/26/18 Range/Units 05:43 05:16 00:24 WBC (4.8-10.8) K/uL RBC (4.40-5.90) Mil/uL Hgb (12.0-18.0) g/dL Hct (35.0-51.0) % MCV (80.0-94.0) fL MCH (27.0-31.0) pg MCHC (33.0-37.0) g/dL RDW (11.5-14.5) % Plt Count (130-400) K/uL MPV (7.2-11.7) fL Neut % (Auto) (50.0-75.0) % Lymph % (Auto) (20.0-40.0) % [place] % (Auto) (0.0-10.0) % Eos % (Auto) (0.0-4.0) % Baso % (Auto) (0.0-2.0) % Neut # (Auto) (1.8-7.0) K/uL Lymph # (Auto) (1.0-4.3) K/uL [place] # (Auto) (0.0-0.8) K/uL Eos # (Auto) (0.0-0.7) K/uL Baso # (Auto) (0.0-0.2) K/uL Puncture Site A-line pCO2 36 (35-45) mm/Hg pO2 139 H (80-100) mm/Hg HCO3 21.8 (21-28) mmol/L ABG pH 7.37 (7.35-7.45) ABG Total CO2 21.9 L (22-28) mmol/L ABG O2 Saturation 98.6 H (95-98) % ABG Base Excess -4.0 L (-2.0-3.0) mmol/L ABG Hemoglobin 9.2 L (11.7-17.4) g/dL ABG Carboxyhemoglobin 1.2 (0.5-1.5) % POC ABG HHb (Measured) 1.4 (0.0-5.0) % ABG Methemoglobin 0.9 (0.0-3.0) % Jose D Test Na ABG Potassium (3.6-5.2) mmol/L A-a O2 Difference 173.0 mm/Hg Respiratory Index 1.2 Hgb O2 Saturation 96.4 (95.0-98.0) % Sodium (132-148) mmol/l Chloride (98-107) mmol/L Glucose (75-110) mg/dl Lactate (0.7-2.1) mmol/L Vent Mode Prvc Mechanical Rate 20 FiO2 50.0 % Tidal Volume 450 PEEP 5 Potassium (3.6-5.2) mmol/L Carbon Dioxide (22-30) mmol/L Anion Gap (10-20) BUN (9-20) mg/dL Creatinine (0.8-1.5) mg/dL Est GFR ( Amer) Est GFR (Non-Af Amer) POC Glucose (mg/dL) 101 (65-110) mg/dL Random Glucose (75-110) mg/dL Lactic Acid (0.7-2.1) mmol/L Calcium (8.6-10.4) mg/dl Phosphorus (2.5-4.5) mg/dL Magnesium (1.6-2.3) mg/dL Total Bilirubin (0.2-1.3) mg/dL AST (17-59) U/L ALT (21-72) U/L Alkaline Phosphatase (38-126) U/L Total Creatine Kinase (55-170) U/L CK-MB (Mass) (0.0-3.38) ng/mL Troponin I (0.00-0.120) ng/mL NT-Pro-B Natriuret Pep (0-900) pg/mL Total Protein (6.3-8.3) g/dL Albumin (3.5-5.0) g/dL Globulin (2.2-3.9) gm/dL Albumin/Globulin Ratio (1.0-2.1) Arterial Blood Potassium (3.6-5.2) mmol/L Urine Color Yellow (YELLOW) Urine Clarity Clear (Clear) Urine pH 7.0 (5.0-8.0) Ur Specific [place] > 1.060 H (1.003-1.030) Urine Protein 1+ H (NEGATIVE) mg/dL Urine Glucose (UA) Normal (Normal) mg/dL Urine Ketones Negative (NEGATIVE) mg/dL Urine Blood Negative (NEGATIVE) Urine Nitrate Negative (NEGATIVE) Urine Bilirubin Negative (NEGATIVE) Urine Urobilinogen Normal (0.2-1.0) mg/dL Ur Leukocyte Esterase Neg (Negative) [place]/uL Urine WBC (Auto) 2 (0-5) /hpf Urine RBC (Auto) 4 H (0-3) /hpf Ur Squamous Epith Cells < 1 (0-5) /hpf Urine Bacteria Rare (<OCC) 04/25/18 04/25/18 04/25/18 Range/Units 23:54 22:33 21:47 WBC (4.8-10.8) K/uL RBC (4.40-5.90) Mil/uL Hgb (12.0-18.0) g/dL Hct (35.0-51.0) % MCV (80.0-94.0) fL MCH (27.0-31.0) pg MCHC (33.0-37.0) g/dL RDW (11.5-14.5) % Plt Count (130-400) K/uL MPV (7.2-11.7) fL Neut % (Auto) (50.0-75.0) % Lymph % (Auto) (20.0-40.0) % [place] % (Auto) (0.0-10.0) % Eos % (Auto) (0.0-4.0) % Baso % (Auto) (0.0-2.0) % Neut # (Auto) (1.8-7.0) K/uL Lymph # (Auto) (1.0-4.3) K/uL [place] # (Auto) (0.0-0.8) K/uL Eos # (Auto) (0.0-0.7) K/uL Baso # (Auto) (0.0-0.2) K/uL Puncture Site pCO2 (35-45) mm/Hg pO2 (80-100) mm/Hg HCO3 (21-28) mmol/L ABG pH (7.35-7.45) ABG Total CO2 (22-28) mmol/L ABG O2 Saturation (95-98) % ABG Base Excess (-2.0-3.0) mmol/L ABG Hemoglobin (11.7-17.4) g/dL ABG Carboxyhemoglobin (0.5-1.5) % POC ABG HHb (Measured) (0.0-5.0) % ABG Methemoglobin (0.0-3.0) % Jose D Test ABG Potassium (3.6-5.2) mmol/L A-a O2 Difference mm/Hg Respiratory Index Hgb O2 Saturation (95.0-98.0) % Sodium (132-148) mmol/l Chloride (98-107) mmol/L Glucose (75-110) mg/dl Lactate (0.7-2.1) mmol/L Vent Mode Mechanical Rate FiO2 % Tidal Volume PEEP Potassium (3.6-5.2) mmol/L Carbon Dioxide (22-30) mmol/L Anion Gap (10-20) BUN (9-20) mg/dL Creatinine (0.8-1.5) mg/dL Est GFR ( Amer) Est GFR (Non-Af Amer) POC Glucose (mg/dL) 117 H 119 H (65-110) mg/dL Random Glucose (75-110) mg/dL Lactic Acid 0.8 (0.7-2.1) mmol/L Calcium (8.6-10.4) mg/dl Phosphorus (2.5-4.5) mg/dL Magnesium (1.6-2.3) mg/dL Total Bilirubin (0.2-1.3) mg/dL AST (17-59) U/L ALT (21-72) U/L Alkaline Phosphatase (38-126) U/L Total Creatine Kinase (55-170) U/L CK-MB (Mass) (0.0-3.38) ng/mL Troponin I (0.00-0.120) ng/mL NT-Pro-B Natriuret Pep (0-900) pg/mL Total Protein (6.3-8.3) g/dL Albumin (3.5-5.0) g/dL Globulin (2.2-3.9) gm/dL Albumin/Globulin Ratio (1.0-2.1) Arterial Blood Potassium (3.6-5.2) mmol/L Urine Color (YELLOW) Urine Clarity (Clear) Urine pH (5.0-8.0) Ur Specific [place] (1.003-1.030) Urine Protein (NEGATIVE) mg/dL Urine Glucose (UA) (Normal) mg/dL Urine Ketones (NEGATIVE) mg/dL Urine Blood (NEGATIVE) Urine Nitrate (NEGATIVE) Urine Bilirubin (NEGATIVE) Urine Urobilinogen (0.2-1.0) mg/dL Ur Leukocyte Esterase (Negative) Brooke/uL Urine WBC (Auto) (0-5) /hpf Urine RBC (Auto) (0-3) /hpf Ur Squamous Epith Cells (0-5) /hpf Urine Bacteria (<OCC) 04/25/18 04/25/18 04/25/18 Range/Units 21:47 21:47 21:44 WBC 9.3 (4.8-10.8) K/uL RBC 4.10 L (4.40-5.90) Mil/uL Hgb 10.8 L D (12.0-18.0) g/dL Hct 32.1 L (35.0-51.0) % MCV 78.2 L (80.0-94.0) fL MCH 26.4 L (27.0-31.0) pg MCHC 33.7 (33.0-37.0) g/dL RDW 18.2 H (11.5-14.5) % Plt Count 180 (130-400) K/uL MPV 8.7 (7.2-11.7) fL Neut % (Auto) 80.4 H (50.0-75.0) % Lymph % (Auto) 14.8 L (20.0-40.0) % [place] % (Auto) 4.1 (0.0-10.0) % Eos % (Auto) 0.2 (0.0-4.0) % Baso % (Auto) 0.5 (0.0-2.0) % Neut # (Auto) 7.5 H (1.8-7.0) K/uL Lymph # (Auto) 1.4 (1.0-4.3) K/uL [place] # (Auto) 0.4 (0.0-0.8) K/uL Eos # (Auto) 0.0 (0.0-0.7) K/uL Baso # (Auto) 0.1 (0.0-0.2) K/uL Puncture Site Malaika pCO2 43 (35-45) mm/Hg pO2 126 H (80-100) mm/Hg HCO3 22.5 (21-28) mmol/L ABG pH 7.33 L (7.35-7.45) ABG Total CO2 24.0 (22-28) mmol/L ABG O2 Saturation 98.5 H (95-98) % ABG Base Excess -3.2 L (-2.0-3.0) mmol/L ABG Hemoglobin (11.7-17.4) g/dL ABG Carboxyhemoglobin (0.5-1.5) % POC ABG HHb (Measured) (0.0-5.0) % ABG Methemoglobin (0.0-3.0) % Jose D Test Na ABG Potassium 3.7 (3.6-5.2) mmol/L A-a O2 Difference 177.0 mm/Hg Respiratory Index 1.4 Hgb O2 Saturation (95.0-98.0) % Sodium 138 139.0 (132-148) mmol/l Chloride 109 H 114.0 H (98-107) mmol/L Glucose 134 H (75-110) mg/dl Lactate 0.8 (0.7-2.1) mmol/L Vent Mode Prvc Mechanical Rate 20 FiO2 50.0 % Tidal Volume 450 PEEP 5 Potassium 4.1 (3.6-5.2) mmol/L Carbon Dioxide 22 (22-30) mmol/L Anion Gap 12 (10-20) BUN 21 H (9-20) mg/dL Creatinine 0.9 (0.8-1.5) mg/dL Est GFR ( Amer) > 60 Est GFR (Non-Af Amer) > 60 POC Glucose (mg/dL) (65-110) mg/dL Random Glucose 138 H (75-110) mg/dL Lactic Acid (0.7-2.1) mmol/L Calcium 7.5 L (8.6-10.4) mg/dl Phosphorus 3.0 (2.5-4.5) mg/dL Magnesium 1.8 (1.6-2.3) mg/dL Total Bilirubin 0.6 (0.2-1.3) mg/dL AST 18 (17-59) U/L ALT 33 (21-72) U/L Alkaline Phosphatase 48 (38-126) U/L Total Creatine Kinase (55-170) U/L CK-MB (Mass) (0.0-3.38) ng/mL Troponin I (0.00-0.120) ng/mL NT-Pro-B Natriuret Pep (0-900) pg/mL Total Protein 5.6 L (6.3-8.3) g/dL Albumin 2.7 L D (3.5-5.0) g/dL Globulin 2.8 (2.2-3.9) gm/dL Albumin/Globulin Ratio 1.0 (1.0-2.1) Arterial Blood Potassium 3.7 (3.6-5.2) mmol/L Urine Color (YELLOW) Urine Clarity (Clear) Urine pH (5.0-8.0) Ur Specific [place] (1.003-1.030) Urine Protein (NEGATIVE) mg/dL Urine Glucose (UA) (Normal) mg/dL Urine Ketones (NEGATIVE) mg/dL Urine Blood (NEGATIVE) Urine Nitrate (NEGATIVE) Urine Bilirubin (NEGATIVE) Urine Urobilinogen (0.2-1.0) mg/dL Ur Leukocyte Esterase (Negative) Brooke/uL Urine WBC (Auto) (0-5) /hpf Urine RBC (Auto) (0-3) /hpf Ur Squamous Epith Cells (0-5) /hpf Urine Bacteria (<OCC) Laboratory Results - last 24 hr 04/25/18 04/25/18 04/25/18 21:44 21:47 21:47 WBC 9.3 RBC 4.10 L Hgb 10.8 L D Hct 32.1 L MCV 78.2 L MCH 26.4 L MCHC 33.7 RDW 18.2 H Plt Count 180 MPV 8.7 Neut % (Auto) 80.4 H Lymph % (Auto) 14.8 L [place] % (Auto) 4.1 Eos % (Auto) 0.2 Baso % (Auto) 0.5 Neut # (Auto) 7.5 H Lymph # (Auto) 1.4 [place]kin # (Auto) 0.4 Eos # (Auto) 0.0 Baso # (Auto) 0.1 Puncture Site Malaika pCO2 43 pO2 126 H HCO3 22.5 ABG pH 7.33 L ABG Total CO2 24.0 ABG O2 Saturation 98.5 H ABG Base Excess -3.2 L ABG Hemoglobin ABG Carboxyhemoglobin POC ABG HHb (Measured) ABG Methemoglobin Jose D Test Na ABG Potassium 3.7 A-a O2 Difference 177.0 Respiratory Index 1.4 Hgb O2 Saturation Sodium 139.0 138 Chloride 114.0 H 109 H Glucose 134 H Lactate 0.8 Vent Mode Prvc Mechanical Rate 20 FiO2 50.0 Tidal Volume 450 PEEP 5 Potassium 4.1 Carbon Dioxide 22 Anion Gap 12 BUN 21 H Creatinine 0.9 Est GFR ( Amer) > 60 Est GFR (Non-Af Amer) > 60 POC Glucose (mg/dL) Random Glucose 138 H Lactic Acid Calcium 7.5 L Phosphorus 3.0 Magnesium 1.8 Total Bilirubin 0.6 AST 18 ALT 33 Alkaline Phosphatase 48 Total Creatine Kinase CK-MB (Mass) Troponin I NT-Pro-B Natriuret Pep Total Protein 5.6 L Albumin 2.7 L D Globulin 2.8 Albumin/Globulin Ratio 1.0 Arterial Blood Potassium 3.7 Urine Color Urine Clarity Urine pH Ur Specific [place] Urine Protein Urine Glucose (UA) Urine Ketones Urine Blood Urine Nitrate Urine Bilirubin Urine Urobilinogen Ur Leukocyte Esterase Urine WBC (Auto) Urine RBC (Auto) Ur Squamous Epith Cells Urine Bacteria 04/25/18 04/25/18 04/25/18 21:47 22:33 23:54 WBC RBC Hgb Hct MCV MCH MCHC RDW Plt Count MPV Neut % (Auto) Lymph % (Auto) [place] % (Auto) Eos % (Auto) Baso % (Auto) Neut # (Auto) Lymph # (Auto) [place] # (Auto) Eos # (Auto) Baso # (Auto) Puncture Site pCO2 pO2 HCO3 ABG pH ABG Total CO2 ABG O2 Saturation ABG Base Excess ABG Hemoglobin ABG Carboxyhemoglobin POC ABG HHb (Measured) ABG Methemoglobin Jose D Test ABG Potassium A-a O2 Difference Respiratory Index Hgb O2 Saturation Sodium Chloride Glucose Lactate Vent Mode Mechanical Rate FiO2 Tidal Volume PEEP Potassium Carbon Dioxide Anion Gap BUN Creatinine Est GFR ( Amer) Est GFR (Non-Af Amer) POC Glucose (mg/dL) 119 H 117 H Random Glucose Lactic Acid 0.8 Calcium Phosphorus Magnesium Total Bilirubin AST ALT Alkaline Phosphatase Total Creatine Kinase CK-MB (Mass) Troponin I NT-Pro-B Natriuret Pep Total Protein Albumin Globulin Albumin/Globulin Ratio Arterial Blood Potassium Urine Color Urine Clarity Urine pH Ur Specific [place] Urine Protein Urine Glucose (UA) Urine Ketones Urine Blood Urine Nitrate Urine Bilirubin Urine Urobilinogen Ur Leukocyte Esterase Urine WBC (Auto) Urine RBC (Auto) Ur Squamous Epith Cells Urine Bacteria 04/26/18 04/26/18 04/26/18 00:24 05:16 05:43 WBC RBC Hgb Hct MCV MCH MCHC RDW Plt Count MPV Neut % (Auto) Lymph % (Auto) [place] % (Auto) Eos % (Auto) Baso % (Auto) Neut # (Auto) Lymph # (Auto) [place] # (Auto) Eos # (Auto) Baso # (Auto) Puncture Site A-line pCO2 36 pO2 139 H HCO3 21.8 ABG pH 7.37 ABG Total CO2 21.9 L ABG O2 Saturation 98.6 H ABG Base Excess -4.0 L ABG Hemoglobin 9.2 L ABG Carboxyhemoglobin 1.2 POC ABG HHb (Measured) 1.4 ABG Methemoglobin 0.9 Jose D Test Na ABG Potassium A-a O2 Difference 173.0 Respiratory Index 1.2 Hgb O2 Saturation 96.4 Sodium Chloride Glucose Lactate Vent Mode Prvc Mechanical Rate 20 FiO2 50.0 Tidal Volume 450 PEEP 5 Potassium Carbon Dioxide Anion Gap BUN Creatinine Est GFR ( Amer) Est GFR (Non-Af Amer) POC Glucose (mg/dL) 101 Random Glucose Lactic Acid Calcium Phosphorus Magnesium Total Bilirubin AST ALT Alkaline Phosphatase Total Creatine Kinase CK-MB (Mass) Troponin I NT-Pro-B Natriuret Pep Total Protein Albumin Globulin Albumin/Globulin Ratio Arterial Blood Potassium Urine Color Yellow Urine Clarity Clear Urine pH 7.0 Ur Specific [place] > 1.060 H Urine Protein 1+ H Urine Glucose (UA) Normal Urine Ketones Negative Urine Blood Negative Urine Nitrate Negative Urine Bilirubin Negative Urine Urobilinogen Normal Ur Leukocyte Esterase Neg Urine WBC (Auto) 2 Urine RBC (Auto) 4 H Ur Squamous Epith Cells < 1 Urine Bacteria Rare 04/26/18 04/26/18 04/26/18 06:09 06:09 06:09 WBC 7.5 RBC 3.49 L Hgb 9.0 L Hct 27.3 L MCV 78.3 L MCH 25.9 L MCHC 33.1 RDW 17.4 H Plt Count 152 MPV 9.3 Neut % (Auto) 77.8 H Lymph % (Auto) 14.6 L [place] % (Auto) 6.5 Eos % (Auto) 0.3 Baso % (Auto) 0.8 Neut # (Auto) 5.9 Lymph # (Auto) 1.1 [place] # (Auto) 0.5 Eos # (Auto) 0.0 Baso # (Auto) 0.1 Puncture Site pCO2 pO2 HCO3 ABG pH ABG Total CO2 ABG O2 Saturation ABG Base Excess ABG Hemoglobin ABG Carboxyhemoglobin POC ABG HHb (Measured) ABG Methemoglobin Jose D Test ABG Potassium A-a O2 Difference Respiratory Index Hgb O2 Saturation Sodium 140 Chloride 115 H Glucose Lactate Vent Mode Mechanical Rate FiO2 Tidal Volume PEEP Potassium 4.0 Carbon Dioxide 21 L Anion Gap 8 L BUN 18 Creatinine 0.8 Est GFR ( Amer) > 60 Est GFR (Non-Af Amer) > 60 POC Glucose (mg/dL) Random Glucose 100 Lactic Acid 0.8 Calcium 6.7 L Phosphorus 2.3 L Magnesium 1.7 Total Bilirubin 0.4 AST 18 ALT 27 Alkaline Phosphatase 52 Total Creatine Kinase CK-MB (Mass) Troponin I NT-Pro-B Natriuret Pep Total Protein 4.9 L Albumin 2.4 L Globulin 2.5 Albumin/Globulin Ratio 1.0 Arterial Blood Potassium Urine Color Urine Clarity Urine pH Ur Specific [place] Urine Protein Urine Glucose (UA) Urine Ketones Urine Blood Urine Nitrate Urine Bilirubin Urine Urobilinogen Ur Leukocyte Esterase Urine WBC (Auto) Urine RBC (Auto) Ur Squamous Epith Cells Urine Bacteria 04/26/18 04/26/18 04/26/18 09:24 11:43 17:45 WBC RBC Hgb Hct MCV MCH MCHC RDW Plt Count MPV Neut % (Auto) Lymph % (Auto) [place] % (Auto) Eos % (Auto) Baso % (Auto) Neut # (Auto) Lymph # (Auto) [place] # (Auto) Eos # (Auto) Baso # (Auto) Puncture Site pCO2 pO2 HCO3 ABG pH ABG Total CO2 ABG O2 Saturation ABG Base Excess ABG Hemoglobin ABG Carboxyhemoglobin POC ABG HHb (Measured) ABG Methemoglobin Jose D Test ABG Potassium A-a O2 Difference Respiratory Index Hgb O2 Saturation Sodium Chloride Glucose Lactate Vent Mode Mechanical Rate FiO2 Tidal Volume PEEP Potassium Carbon Dioxide Anion Gap BUN Creatinine Est GFR ( Amer) Est GFR (Non-Af Amer) POC Glucose (mg/dL) 122 H 114 H Random Glucose Lactic Acid Calcium Phosphorus Magnesium Total Bilirubin AST ALT Alkaline Phosphatase Total Creatine Kinase 61 CK-MB (Mass) 1.16 Troponin I 0.0380 NT-Pro-B Natriuret Pep 1790 H Total Protein Albumin Globulin Albumin/Globulin Ratio Arterial Blood Potassium Urine Color Urine Clarity Urine pH Ur Specific [place] Urine Protein Urine Glucose (UA) Urine Ketones Urine Blood Urine Nitrate Urine Bilirubin Urine Urobilinogen Ur Leukocyte Esterase Urine WBC (Auto) Urine RBC (Auto) Ur Squamous Epith Cells Urine Bacteria Assessment/Plan - Assessment and Plan (Free Text) Plan: Patient seen and examined at bedside. Patient with h/o A-fib presents to [facility] with stuperous and right sided motor weakenss. Patient immediately taken to neuro interventional, continue antiplatelets as per neurointernventional + statin -Acute MCA stroke:L suspect 2nd A-fib not on anticoagulation, s/p neurointernventional, repeat CT head as per neuro-interventional, continue neuro/vascular exam q1hrs -Hypoxic and hypercapneic respiratory failure: continue ventilation, CPAP trials, FiO2 decresed,neurologically unstable for extubation -RLL aspiration PNA/sepsis:f/u cultures, lactic normalized, continue broad spectrum vanco/zosyn, f/u culture results, f/u vanco level in AM -Chornic Heart failure:penidng echo, bnp high, CXR reveals congestion, decrease IVF -maintain BP a per neuro -OG tube feeds -BGM q6hrs, ISS aspart -continue dvt/pud ppx -post procedure:patient moving left arm(5+) and leg (5+), right lower leg (4+), right upperarm still flacid 0+ -repeat CT head, avoid hypotonic fluid, consider manitol if neurogenic edema (+/-3% saline) -prognosis guarded cc time 40 minutes -appreciate neuro and neurointenventional input -monitor for ICH/reperfusion injury cc time 45 minutes - Date & Time Date: 04/26/18 Time: 19:28
--- NOTE | 2018-04-26 11:07 | CP.PCM.PN ---
Subjective - Date & Time of Evaluation Date of Evaluation: 04/26/18 Time of Evaluation: 11:07 - Subjective Subjective: Progress note dictated #[id number] Objective - Vital Signs/Intake and Output Vital Signs (last 24 hours): Temp Pulse Resp BP Pulse Ox 99.9 F H 76 20 108/4 L 99 04/26/18 08:00 04/26/18 09:00 04/26/18 09:00 04/26/18 09:00 04/26/18 09:00 Intake and Output: 04/26/18 04/26/18 06:59 18:59 Intake Total 1995.9 420.4 Output Total 710 95 Balance 1285.9 325.4 - Medications Medications: Current Medications Albuterol/Ipratropium (Duoneb 3 Mg/0.5 Mg (3 Ml) Ud) 3 ml INH RQ4 [facility]ANIEL Aspirin (Ecotrin) 81 mg PO DAILY [facility] Last Admin: 04/26/18 09:14 Dose: 81 mg Clopidogrel Bisulfate (Plavix) 75 mg PO DAILY [facility] Last Admin: 04/26/18 09:14 Dose: 75 mg Dextrose (Dextrose 50% Inj) 0 ml IV STAT PRN; Protocol PRN Reason: Hypoglycemia Protocol Dextrose (Glutose 15) 0 gm PO ONCE PRN; Protocol PRN Reason: Hypoglycemia Protocol Famotidine (Pepcid) 20 mg IVP DAILY [facility] Last Admin: 04/26/18 09:14 Dose: 20 mg Glucagon (Glucagen Diagnostic Kit) 0 mg IM STAT PRN; Protocol PRN Reason: Hypoglycemia Protocol Heparin Sodium (Porcine) (Heparin) 5,000 units SC Q8 [facility] Last Admin: 04/26/18 05:21 Dose: 5,000 units Dextrose (Dextrose 5% In Water 1000 Ml) 1,000 mls @ 0 mls/hr IV .Q0M PRN; Protocol PRN Reason: Hypoglycemia Protocol Propofol (Diprivan) 1,000 mg in 100 mls @ 2.773 mls/hr IV .Q24H PRN; Protocol PRN Reason: TITRATE PER MD ORDER Last Titration: 04/26/18 06:00 Dose: 14.96 mcg/kg/min, 8.3 mls/hr Piperacillin Sod/Tazobactam (Sod 3.375 gm/ Sodium Chloride) 100 mls @ 200 mls/hr IVPB Q6H DANIEL; Protocol Vancomycin/Sodium Chloride (Vancomycin 1 Gm/Ns 200 Ml) 1 gm in 200 mls @ 133.333 mls/hr IVPB Q24H DANIEL; Protocol Stop: 05/01/18 09:16 Insulin Aspart (Novolog) 0 unit SC Q6H DANIEL; Protocol Propofol (Diprivan) 100 mg IV TITR DANIEL Rosuvastatin Calcium (Crestor) 10 mg PO HS DANIEL - Labs Labs: 04/26/18 06:09 04/26/18 06:09 PT 13.8 SECONDS (9.7-12.2) H 04/25/18 16:31 INR 1.3 04/25/18 16:31 APTT 33 SECONDS (21-34) 04/25/18 16:31
--- NOTE | 2018-04-26 11:39 | CT ---
Date of service: 04/26/2018 PROCEDURE: CTA HEAD AND NECK WITH CONTRAST HISTORY: post neuro interventional COMPARISON: 04/25/2018. TECHNIQUE: Initial noncontrast head CT was performed. Subsequently, CT angiogram of the head and neck were performed after the intravenous administration of 80 mL of Omnipaque 350. Contiguous 1.5mm thick images were obtained in the axial plane of the neck. 2-D coronal and sagittal MPR images were obtained. Imaging postprocessing was performed with 3-D images also obtained. A delayed contrast head CT was also obtained. This CT exam was performed using one or more of the following dose reduction techniques: Automated exposure control, adjustment of the mA and/or kV according to patient size, and/or use of iterative reconstruction technique. Contrast dose: 100 mL Visipaque 320 Radiation dose: Total exam DLP = 714.00 mGy-cm. FINDINGS: HEAD: There are coarse atherosclerotic calcifications in the cavernous carotid and supraclinoid segments of the internal carotid arteries. Right: The intracranial internal carotid artery, and anterior and middle cerebral arteries are widely patent. Left: The intracranial internal carotid artery, and anterior and middle cerebral arteries are widely patent. Posterior circulation: The visualized intracranial vertebral arteries, basilar artery and posterior cerebral arteries are widely patent. There is no endoluminal filling defect to suggest thrombus. There is no intracranial saccular aneurysm. NECK: There is a three vessel aortic arch. There is no stenosis at the origins of the great vessels at the level of the aortic arch. There are coarse atherosclerotic calcifications in the right carotid bulb and proximal internal carotid artery without significant stenosis.. Right Carotid: On the right, the common carotid, internal carotid and external carotid arteries are widely patent. There is no hemodynamically significant stenosis in the internal carotid artery by NASCET criteria. Left Carotid: On the left, the common carotid, internal carotid and external carotid arteries are widely patent. There is a patent endovascular stent graft in the left carotid bulb and proximal internal carotid artery. There is no hemodynamically significant stenosis in the internal carotid artery by NASCET criteria. The vertebral arteries are widely patent. The left vertebral artery is hypoplastic, an anatomic variant. The visualized soft tissues of the neck are normal. The visualized brain and cervical spine are within normal limits. Bilateral pleural effusions and dependent atelectasis in the visualized lungs. Endotracheal tube terminates at the pro. IMPRESSION: 1. No evidence of endoluminal thrombus,occlusion or definite significant stenosis in the intracranial arteries. 2. No evidence of hemodynamically significant stenosis in the right internal carotid artery. 3. Status post neuro intervention, patent left common carotid artery and patent endovascular stent graft in the left internal carotid artery. 3. Patent bilateral vertebral arteries.
[2018-04-26] MEDS: (Novolog) Insulin Aspart, Recombinant 100 u/ml 10 ml vial SC SCH ×2 (12:07→17:46)
[2018-04-26] MEDS: Albuterol-Ipratrop 3 mg / 0.5 (3 ml) UD INH SCH ×3 (12:48→20:10)
--- NOTE | 2018-04-26 13:11 | CP.PCM.PN ---
Subjective - Date & Time of Evaluation Date of Evaluation: 04/26/18 Time of Evaluation: 11:00 - Subjective Subjective: is an 82 year old male with unknown PmHx. was found down 04/25/18 EMS was called and on arrival to the ER pt was noted to be very drowsy, moving the left side only spontaneously. A stroke suspected and stroke code called. Objective - Vital Signs/Intake and Output Vital Signs (last 24 hours): Temp Pulse Resp BP Pulse Ox 98.5 F 69 23 114/43 L 100 04/26/18 12:00 04/26/18 13:00 04/26/18 13:00 04/26/18 13:00 04/26/18 13:00 Intake and Output: 04/26/18 04/26/18 06:59 18:59 Intake Total 1995.9 830.2 Output Total 710 230 Balance 1285.9 600.2 - Medications Medications: Current Medications Albuterol/Ipratropium (Duoneb 3 Mg/0.5 Mg (3 Ml) Ud) 3 ml INH RQ4 [facility] Aspirin (Ecotrin) 81 mg PO DAILY [facility] Last Admin: 04/26/18 09:14 Dose: 81 mg Clopidogrel Bisulfate (Plavix) 75 mg PO DAILY [facility] Last Admin: 04/26/18 09:14 Dose: 75 mg Dextrose (Dextrose 50% Inj) 0 ml IV STAT PRN; Protocol PRN Reason: Hypoglycemia Protocol Dextrose (Glutose 15) 0 gm PO ONCE PRN; Protocol PRN Reason: Hypoglycemia Protocol Famotidine (Pepcid) 20 mg IVP DAILY [facility] Last Admin: 04/26/18 09:14 Dose: 20 mg Glucagon (Glucagen Diagnostic Kit) 0 mg IM STAT PRN; Protocol PRN Reason: Hypoglycemia Protocol Heparin Sodium (Porcine) (Heparin) 5,000 units SC Q8 [facility] Last Admin: 04/26/18 05:21 Dose: 5,000 units Dextrose (Dextrose 5% In Water 1000 Ml) 1,000 mls @ 0 mls/hr IV .Q0M PRN; Protocol PRN Reason: Hypoglycemia Protocol Propofol (Diprivan) 1,000 mg in 100 mls @ 2.773 mls/hr IV .Q24H PRN; Protocol PRN Reason: TITRATE PER MD ORDER Last Titration: 04/26/18 11:00 Dose: 9.91 mcg/kg/min, 5.5 mls/hr Piperacillin Sod/Tazobactam (Sod 3.375 gm/ Sodium Chloride) 100 mls @ 200 mls/hr IVPB Q6H [facility]ANIEL; Protocol Last Admin: 04/26/18 11:00 Dose: 200 mls/hr Vancomycin/Sodium Chloride (Vancomycin 1 Gm/Ns 200 Ml) 1 gm in 200 mls @ 133.333 mls/hr IVPB Q24H [facility]ANIEL; Protocol Stop: 05/01/18 09:16 Last Admin: 04/26/18 11:14 Dose: 133.333 mls/hr Insulin Aspart (Novolog) 0 unit SC Q6H [facility]ANIEL; Protocol Last Admin: 04/26/18 12:07 Dose: Not Given Propofol (Diprivan) 100 mg IV TITR [facility] Rosuvastatin Calcium (Crestor) 10 mg PO HS DANIEL - Labs Labs: 04/26/18 06:09 04/26/18 06:09 PT 13.8 SECONDS (9.7-12.2) H 04/25/18 16:31 INR 1.3 04/25/18 16:31 APTT 33 SECONDS (21-34) 04/25/18 16:31 - Constitutional Appears: No Acute Distress - Eye Exam Additional comments: pupil sluggish right - Respiratory Exam Additional comments: intubated on ventilator - Cardiovascular Exam Cardiovascular Exam: Irregular Rhythm Assessment and Plan - Assessment and Plan (Free Text) Assessment: NEUROLOGICAL EXAM: MSE: sedated, grimaces to noxious stimuli on the left side, intubated CN: left gaze preference, right pupil sluggish,dolls eye reflex on right side, right facial droop Motor: moves left side spontaneously, right hemiplegia Sensory: grimaces to pain on the left side Coordination: unable to assess is status post acute ischemic stroke left ica and left mca M1 occlusion with very poor perfusion to the left hemisphere high severity on the stroke scale. He underwent a successful endovascular mechanical thrombectomy from tici 0 to tici 3 with stenting and angioplasty of the left MCA occlusion. Pt examined and remains intubated and sedated on a propofol drip. Plan: Recommendations: 1- target SBP 100-140 mmHg 2- non contrast CT 8pm tonight (04/26/18) 3- discussed with critical care team 4- Please do not hesitate to contact us for any further questions [phone] 5-approximately 45 minutes of critical care time was spent in evaluation and management and documentation
[2018-04-26] MEDS ORDERED: Sodium Chloride 0.9% 1,000 ML IV SCH (13:45)
[2018-04-26] MEDS: niCARdipine IV 25 MG in Sodium Chloride 0.9% 240 ML IV SCH ×2 (17:39→22:15)
[2018-04-26 22:03] LABS: BASO % 0.4 % (0.0-2.0); EOS # 0.1 K/uL (0.0-0.7); HEMOGLOBIN 9.2 g/dL (12.0-18.0); LYMPH # 1.4 K/uL (1.0-4.3); LYMPH % 15.1 % (20.0-40.0); MEAN CELL VOLUME 77.8 fL (80.0-94.0); MEAN CORPUSCULAR HGB CONC 33.5 g/dL (33.0-37.0); MONO # 0.7 K/uL (0.0-0.8); MONO % 7.6 % (0.0-10.0); NEUT # 7.2 K/uL (1.8-7.0); NEUT % 75.9 % (50.0-75.0); RBC 3.53 Mil/uL (4.40-5.90); RED CELL DISTRIBUTION WIDTH 18.2 % (11.5-14.5); WHITE BLOOD COUNT 9.5 K/uL (4.8-10.8)
--- NOTE | 2018-04-26 22:05 | PN ---
DATE: 04/26/2018 SUBJECTIVE: The patient was seen and examined at bedside this morning. Events from overnight noted. The patient remains intubated, unresponsive, moving less on the right side. I was able to talk to the patient's son, Eloy Goodwin, who was patient's next of kin. As per the patient's son, Mr. Goodwin lives alone. He was last seen by his other son about 3 days ago. The patient was not seen in the last 3 days or was in touch with any other family members in the past 3 days. PAST MEDICAL HISTORY: He has past medical history of hypertension, coronary artery disease, and diabetes mellitus as per this son. PAST SURGICAL HISTORY: He underwent coronary artery bypass grafting about 18 years ago at [facility] and his hot blaster is Dr. Raya who he saw about 2 years ago. The patient's primary care physician is Dr. Abena Sylvester from [place]. As per the patient's son, the patient is very noncompliant with his medications and does not follow with the doctors and does not take his medications regularly. The patient also underwent right knee surgery about 5 years ago. Denies any family history of coronary artery disease. PERSONAL HISTORY: He is a . He is retired, living alone. Having 5 children, 2 sons live in [place] and 1 daughter live in [place] and the other 2 sons live in [place]. SOCIAL HISTORY: He quit smoking about 30 years ago, smoked 2 packs per day for many years, and he smoked cigar. Denied any alcohol or drug abuse. ALLERGIES: NO KNOWN DRUG ALLERGIES. MEDICATIONS: His medications list obtained from [facility], at [phone] which include Coreg 12.5 mg daily, Plavix 75 mg daily, lisinopril/hydrochlorothiazide 20/25 once tablet daily, finasteride given by Dr. Agee, refilled on 11/26/2017. Medications include DuoNeb, aspirin 81 mg daily, Plavix 75 mg daily, Pepcid 20 mg daily, heparin 5000 units subcu every 8 hours, Zosyn 3.375 g IV every 6, Propofol for conscious sedation, Crestor 10 mg p.o. at bedtime, normal saline at 100 mL an hour, vancomycin 1 g IV every 24 hours, and tube feeds started. REVIEW OF SYSTEM: Unable to obtain the review of systems. Spoke to Dr. Sylvester's associate who is covering for Dr. Sylvester. She is not completely aware of the patient and advised that Dr. Sylvester will call us back on Sunday once she comes back from vacation. PHYSICAL EXAMINATION: GENERAL: Elderly male, lying in bed, in no acute distress, intubated on Propofol. VITAL SIGNS: Blood pressure 121/47, pulse 80, respirations 24, temperature 98.5 degrees Fahrenheit, O2 saturation is 99% on 30% FiO2. Intake is 1995 and output is 710 mL. HEENT: Pupils equal and sluggishly reacting to light. No icterus. No pallor. ET tube in the oral cavity. Dry mucous membranes. NECK: Supple. No JVD. LUNGS: Bilateral fair air entry. CARDIOVASCULAR SYSTEM: S1 and S2 present, irregular. ABDOMEN: Soft. Bowel sounds present. No guarding. No rigidity. CENTRAL NERVOUS SYSTEM: Intubated, sedated, moving left side of the body more. Right side lower extremity, he is withdrawing. Right upper extremity limited movements. EXTREMITIES: No edema. LABORATORY DATA: Labs from this morning: WBC 7.5, hemoglobin 9, hematocrit 27.3, and platelets 152. ABG, on 50% of FiO2, pO2 of 139, and O2 sat 98. Sodium 140, potassium 4, chloride 115, bicarbonate 21, BUN 18, creatinine 0.8, glucose 100. Calcium 6.7, phosphorus 2.3, magnesium 1.7, proBNP 1790, total protein 4.9, and albumin 2.4. UA specific gravity 1.060, pH of 7, and protein 1+. Repeat CT angio of the head and neck consistent with no evidence of intraluminal thrombus, occlusion, or definite significant stenosis in the intracranial arteries. No evidence of hemodynamically significant stenosis in the right internal carotid artery, status post neuro intervention, patent left common carotid artery, patent endovascular stent graft in the left internal carotid artery. Patent bilateral vertebral arteries. 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 Status post successful endovascular thrombectomy and stenting and angioplasty of the left middle cerebral artery occlusion, status post intubation for airway protection with right-sided hemiparesis, anemia, status post procedure, hypophosphatemia. We will monitor his neurological status, unclear if the patient has any anoxic or hypoxic encephalopathy from unknown period of unresponsive state. We will continue with aspirin and Plavix. Continue with current antibiotics. Continue with lipid lowering agents. Follow up with Neurology and neuroradiology team with tube feed started in the ICU. Continue with IV fluids, gastrointestinal prophylaxis, Pepcid, and deep venous thrombosis prophylaxis with heparin. We will replace phosphorus. Monitor electrolytes. Continue with vent support and plans to extubate as patient tolerates and nebulizer treatment as needed. Overall, prognosis is guarded. Discussed with the patient's son, Eloy Goodwin, at length via a Uzbek speaking bead wire taper. He understands the patient's critical condition, and he will be the next of kin and making decisions on his father's behalf. We will add further recommendation as his clinical course progresses. Haridner Brunner MD JOHAN
[2018-04-26] MEDS: Acetaminophen 650mg/20.3ml solution UD NG PRN (22:10)
--- NOTE | 2018-04-26 22:10 | CP.PCM.PN ---
Subjective - Date & Time of Evaluation Date of Evaluation: 04/25/18 Time of Evaluation: 21:45 - Subjective Subjective: Patient is now intubated, and not sedated, s/p thrombectomy yesterday. He is able to move his left arm and leg against gravity, and has left sided neglect. Pupils are right sided sluggish, left side 3mm-2mm with light. +dolls eyes, +corneals, and very weak gag reflex. He has some movement in his right foot. ROS: not able to obtain ON exam: as above. Objective - Vital Signs/Intake and Output Vital Signs (last 24 hours): Temp Pulse Resp BP Pulse Ox 99.9 F H 73 20 120/50 L 100 04/26/18 20:00 04/26/18 21:03 04/26/18 21:03 04/26/18 21:03 04/26/18 21:03 Intake and Output: 04/26/18 04/27/18 18:59 06:59 Intake Total 1567.0 370.4 Output Total 445 95 Balance 1122.0 275.4 - Medications Medications: Current Medications Acetaminophen (Tylenol 650mg/20.3ml Solution Ud) 650 mg NG Q4 PRN PRN Reason: Temperature Albuterol/Ipratropium (Duoneb 3 Mg/0.5 Mg (3 Ml) Ud) 3 ml INH RQ4 [facility] Last Admin: 04/26/18 20:10 Dose: 3 ml Aspirin (Ecotrin) 81 mg PO DAILY [facility] Last Admin: 04/26/18 09:14 Dose: 81 mg Clopidogrel Bisulfate (Plavix) 75 mg PO DAILY [facility] Last Admin: 04/26/18 09:14 Dose: 75 mg Famotidine (Pepcid) 20 mg IVP DAILY [facility] Last Admin: 04/26/18 09:14 Dose: 20 mg Heparin Sodium (Porcine) (Heparin) 5,000 units SC Q8 [facility] Last Admin: 04/26/18 15:00 Dose: 5,000 units Propofol (Diprivan) 1,000 mg in 100 mls @ 2.773 mls/hr IV .Q24H PRN; Protocol PRN Reason: TITRATE PER MD ORDER Last Titration: 04/26/18 17:15 Dose: 24.88 mcg/kg/min, 13.8 mls/hr Piperacillin Sod/Tazobactam (Sod 3.375 gm/ Sodium Chloride) 100 mls @ 200 mls/hr IVPB Q6H DANIEL; Protocol Last Admin: 04/26/18 15:23 Dose: 200 mls/hr Vancomycin/Sodium Chloride (Vancomycin 1 Gm/Ns 200 Ml) 1 gm in 200 mls @ 133.333 mls/hr IVPB Q24H DANILE; Protocol Stop: 05/01/18 09:16 Last Admin: 04/26/18 11:14 Dose: 133.333 mls/hr Nicardipine HCl 25 mg/ Sodium (Chloride) 250 mls @ 50 mls/hr IV .Q5H DANIEL; Protocol Last Titration: 04/26/18 18:26 Dose: 0 mg/hr, 0 mls/hr Sodium Chloride (Sodium Chloride 0.9%) 1,000 mls @ 42 mls/hr IV .[id number] DANIEL Last Admin: 04/26/18 18:50 Dose: Not Given Insulin Aspart (Novolog) 0 unit SC Q6H DANIEL; Protocol Last Admin: 04/26/18 17:46 Dose: Not Given Propofol (Diprivan) 100 mg IV TITR DANIEL Rosuvastatin Calcium (Crestor) 10 mg PO HS DANIEL - Labs Labs: 04/26/18 06:09 04/26/18 06:09 PT 13.8 SECONDS (9.7-12.2) H 04/25/18 16:31 INR 1.3 04/25/18 16:31 APTT 33 SECONDS (21-34) 04/25/18 16:31 Assessment and Plan - Assessment and Plan (Free Text) Assessment: Repeat CT Head: shows 4 mm midline shift, with left mca 3 territory infarction, and no hemorrhage. It appears that the 4th and 3rd ventricle are open at this time. Plan: PLan: 1. Consider mannitol IV for edema reduction. 2. aspirin and plavix 3. Maintain normotensive blood pressure. Guarded/possibly poor prognosis if patient's cerebral edema increases at peak of 3 days. Thank you for critical care team assistance and for neurointerventional team. Dr. pleitez Neurology
[2018-04-26 22:11] LABS: INR 1.3; PROTHROMBIN TIME 14.5 SECONDS (9.7-12.2)
[2018-04-26 22:29] LABS: ALBUMIN 2.7 g/dL (3.5-5.0); ALT/SGPT 27 U/L (21-72); AST/SGOT 30 U/L (17-59); BLOOD UREA NITROGEN 17 mg/dL (9-20); CALCIUM 7.5 mg/dl (8.6-10.4); GFR NON-AFRICAN AMERICAN > 60
[2018-04-26 23:43] LABS: ARTERIAL BLOOD GAS HCO3 22.1 mmol/L (21-28); ARTERIAL BLOOD GAS HEMOGLOBIN 9.2 g/dL (11.7-17.4); ARTERIAL BLOOD GAS O2 SAT 98.6 % (95-98); ARTERIAL BLOOD GAS PCO2 32 mm/Hg (35-45); ARTERIAL BLOOD GAS PH 7.41 (7.35-7.45); ARTERIAL BLOOD GAS PO2 158 mm/Hg (80-100); ARTERIAL BLOOD GAS TCO2 21.3 mmol/L (22-28)
[2018-04-27] MEDS ORDERED: Potassium Chloride 20 mEq/15 ml LIQ UD NG ONE (00:11)
[2018-04-27] MEDS: Piperacillin/Tazobact 3.375 GM in Sodium Chloride 100 ML IVPB SCH ×4 (02:35→21:13)
[2018-04-27] MEDS: niCARdipine IV 25 MG in Sodium Chloride 0.9% 240 ML IV SCH (03:15)
[2018-04-27] MEDS: Albuterol-Ipratrop 3 mg / 0.5 (3 ml) UD INH SCH ×6 (03:17→20:48)
[2018-04-27 04:45] LABS: ARTERIAL BLOOD GAS HEMOGLOBIN 10.7 g/dL (11.7-17.4); ARTERIAL BLOOD GAS O2 SAT 98.5 % (95-98); ARTERIAL BLOOD GAS PCO2 25 mm/Hg (35-45); ARTERIAL BLOOD GAS PH 7.48 (7.35-7.45); ARTERIAL BLOOD GAS PO2 193 mm/Hg (80-100); ARTERIAL BLOOD GAS TCO2 19.4 mmol/L (22-28)
[2018-04-27] MEDS: (Novolog) Insulin Aspart, Recombinant 100 u/ml 10 ml vial SC SCH ×4 (06:00→18:08)
[2018-04-27 06:11] LABS: BASO # 0.1 K/uL (0.0-0.2); BASO % 0.5 % (0.0-2.0); EOS # 0.1 K/uL (0.0-0.7); EOS % 1.4 % (0.0-4.0); HEMOGLOBIN 9.8 g/dL (12.0-18.0); LYMPH # 1.6 K/uL (1.0-4.3); LYMPH % 16.7 % (20.0-40.0); MEAN CELL VOLUME 77.1 fL (80.0-94.0); MEAN CORPUSCULAR HEMOGLOBIN 26.8 pg (27.0-31.0); MEAN CORPUSCULAR HGB CONC 34.7 g/dL (33.0-37.0); MEAN PLATELET VOLUME 9.3 fL (7.2-11.7); MONO # 0.7 K/uL (0.0-0.8); NEUT # 7.2 K/uL (1.8-7.0); NEUT % 74.4 % (50.0-75.0); RBC 3.66 Mil/uL (4.40-5.90); RED CELL DISTRIBUTION WIDTH 18.3 % (11.5-14.5); WHITE BLOOD COUNT 9.6 K/uL (4.8-10.8)
[2018-04-27 06:33] LABS: ALBUMIN 2.8 g/dL (3.5-5.0); ALT/SGPT 32 U/L (21-72); AST/SGOT 37 U/L (17-59); BLOOD UREA NITROGEN 17 mg/dL (9-20); CALCIUM 7.9 mg/dl (8.6-10.4); GFR NON-AFRICAN AMERICAN > 60
[2018-04-27] MEDS: Propofol 10 mg/ml 1,000 MG/100 ML VIAL IV PRN ×2 (06:55→19:14)
[2018-04-27] MEDS: Sodium Chloride 0.9% 1,000 ML IV SCH (08:28)
--- NOTE | 2018-04-27 09:52 | CP.CCUPN ---
CCU Subjective - Physician Review Events Since Last Encounter (Free Text): 04/27/18 09:50 Patient is 82-year-old male with a history of looks like atrial fibrillation admitted to the hospital following a large ischemic stroke involving the left hemisphere. Patient underwent thrombectomy with recanalization of left ICA on the left MCA on 04/25/2018 Following that patient is intubated and he is currently in the intensive care unit. Patient is currently on sedation. He is responding well. He is moving the left side better. But the right-sided weakness noted. On sedation at this time, and if propofol is off patient is extremely restless. On examination: Vital signs are stable. Patient has atrial fibrillation Chest good air entry regular heart sound abdomen nontender. Edema 1+ noted. Chest x-ray ET tube in good position, mild vascular congestion noted Patient received mannitol last night and this morning. Patient had a CAT scan of the head repeated last night showing evidence of increasing edema, midline changes noted Labs reviewed Assessment: 82-year-old male with a history of suspected atrial fibrillation chronic and now had large ischemic CVA left side. Status post evacuation of thrombus and a stent. Currently on ventilator, respiratory failure. We will continue to monitor. Not a candidate to wean yet. Associated with the brain edema we'll monitor the osmolality and mannitol. Neurological follow-up evaluation. GI and DVT prophylaxis and will follow the patient 04/27/18 09:50 CCU Objective - Vital Signs / Intake & Output Vital Signs (Last 4 hours): Vital Signs Temp Pulse Resp BP BP Pulse Ox 04/27/18 09:02 72 18 139/62 100 04/27/18 09:00 82 18 154/55 H 100 04/27/18 08:02 81 21 139/52 L 99 04/27/18 08:00 99.4 F 80 20 100 04/27/18 07:41 159/58 H 04/27/18 07:02 74 20 135/51 L 99 04/27/18 07:00 163/62 H 04/27/18 06:20 74 20 128/56 L 100 04/27/18 06:00 150/53 L Intake and Output (Last 8hrs): Intake & Output 04/26/18 04/27/18 04/27/18 22:59 06:59 14:59 Intake Total 1212.1 1363.6 270.9 Output Total 335 570 225 Balance 877.1 793.6 45.9 Weight 182 lb 2 oz 179 lb 14.355 oz Intake: IV 150 100 Intake, IV Amount 712.1 873.6 150.9 Left AC 50 R FA 384 Right Forearm 94.1 63.6 24.9 Right Forearm Y-site 184 810 126 Oral 260 100 Tube Feeding 90 290 120 Output: Urine 335 570 225 Urethral (Bhatt) 335 570 225 - Physical Exam Head: Positive for: Atraumatic, Normocephalic Pupils: Positive for: PERRL, Sluggish Mouth: Positive for: Dry Respiratory/Chest: Positive for: Rhonchi, Other (vent) Cardiovascular: Positive for: Regular Rate and Rhythm, Normal S1, S2. Negative for: Murmurs Abdomen: Negative for: Distention Upper Extremity: Positive for: Normal Inspection Lower Extremity: Positive for: Normal Inspection Neurological: Positive for: Other (intubated, sedated, responsive to pain, gag relfex intact) Skin: Positive for: Warm, Dry Psychiatric: Negative for: Alert - Medications Active Medications: Active Medications Generic Name Dose Route Start Last Admin Trade Name Freq PRN Reason Stop Dose Admin Acetaminophen 650 mg 04/26/18 20:59 04/26/18 22:10 Tylenol 650mg/20.3ml Solution Ud NG 650 mg Q4 PRN Administration Temperature Albuterol/Ipratropium 3 ml 04/26/18 12:00 04/27/18 08:23 Duoneb 3 Mg/0.5 Mg (3 Ml) Ud INH 3 ml RQ4 DANIEL Administration Aspirin 81 mg 04/26/18 10:00 04/26/18 09:14 Ecotrin PO 81 mg DAILY DANIEL Administration Clopidogrel Bisulfate 75 mg 04/26/18 10:00 04/26/18 09:14 Plavix PO 75 mg DAILY DANIEL Administration Famotidine 20 mg 04/26/18 10:00 04/26/18 09:14 Pepcid IVP 20 mg DAILY DANIEL Administration Heparin Sodium (Porcine) 5,000 units 04/25/18 22:00 04/27/18 07:00 Heparin SC 5,000 units Q8 DANIEL Administration Propofol 1,000 mg in 100 mls @ 2.773 mls/hr 04/25/18 21:29 04/27/18 06:55 Diprivan IV 15 mcg/kg/min .Q24H PRN 8.32 mls/hr TITRATE PER MD ORDER Administration Protocol 5 MCG/KG/MIN Piperacillin Sod/Tazobactam 100 mls @ 200 mls/hr 04/26/18 09:15 04/27/18 08:26 Sod 3.375 gm/ Sodium Chloride IVPB 200 mls/hr Q6H DANIEL Administration Protocol Potassium Phosphate 15 mmole/ 255 mls @ 42.5 mls/hr 04/27/18 10:00 Sodium Chloride IVPB 04/27/18 15:59 ONCE ONE Insulin Aspart 0 unit 04/26/18 12:00 04/27/18 06:00 Novolog SC Not Given Q6H DANIEL Protocol Propofol 100 mg 04/25/18 20:19 Diprivan IV TITR DANIEL Rosuvastatin Calcium 10 mg 04/26/18 22:00 04/26/18 22:10 Crestor PO 10 mg HS DANIEL Administration - Patient Studies Lab Studies: Microbiology Studies 04/25/18 08:28 Blood Culture - Preliminary Blood NO GROWTH AFTER 24 HOURS 04/26/18 08:28 Blood Culture - Preliminary Blood NO GROWTH AFTER 24 HOURS 04/25/18 13:05 Gram Stain - Final Trachasp Lab Studies 04/27/18 04/27/18 04/27/18 Range/Units 05:59 05:59 05:59 WBC 9.6 (4.8-10.8) K/uL RBC 3.66 L (4.40-5.90) Mil/uL Hgb 9.8 L (12.0-18.0) g/dL Hct 28.2 L (35.0-51.0) % MCV 77.1 L (80.0-94.0) fL MCH 26.8 L (27.0-31.0) pg MCHC 34.7 (33.0-37.0) g/dL RDW 18.3 H (11.5-14.5) % Plt Count 142 (130-400) K/uL MPV 9.3 (7.2-11.7) fL Neut % (Auto) 74.4 (50.0-75.0) % Lymph % (Auto) 16.7 L (20.0-40.0) % [place] % (Auto) 7.0 (0.0-10.0) % Eos % (Auto) 1.4 (0.0-4.0) % Baso % (Auto) 0.5 (0.0-2.0) % Neut # (Auto) 7.2 H (1.8-7.0) K/uL Lymph # (Auto) 1.6 (1.0-4.3) K/uL [place] # (Auto) 0.7 (0.0-0.8) K/uL Eos # (Auto) 0.1 (0.0-0.7) K/uL Baso # (Auto) 0.1 (0.0-0.2) K/uL PT (9.7-12.2) SECONDS INR APTT (21-34) SECONDS Puncture Site pCO2 (35-45) mm/Hg pO2 (80-100) mm/Hg HCO3 (21-28) mmol/L ABG pH (7.35-7.45) ABG Total CO2 (22-28) mmol/L ABG O2 Saturation (95-98) % ABG Base Excess (-2.0-3.0) mmol/L ABG Hemoglobin (11.7-17.4) g/dL ABG Carboxyhemoglobin (0.5-1.5) % POC ABG HHb (Measured) (0.0-5.0) % ABG Methemoglobin (0.0-3.0) % Jose D Test A-a O2 Difference mm/Hg Respiratory Index Hgb O2 Saturation (95.0-98.0) % Vent Mode Mechanical Rate FiO2 % Tidal Volume PEEP Sodium 142 (132-148) mmol/L Potassium 3.9 (3.6-5.2) mmol/L Chloride 115 H (98-107) mmol/L Carbon Dioxide 20 L (22-30) mmol/L Anion Gap 10 (10-20) BUN 17 (9-20) mg/dL Creatinine 1.0 (0.8-1.5) mg/dL Est GFR ( Amer) > 60 Est GFR (Non-Af Amer) > 60 POC Glucose (mg/dL) (65-110) mg/dL Random Glucose 135 H (75-110) mg/dL Serum Osmolality 307 H (272-300) mosm/kg Calcium 7.9 L (8.6-10.4) mg/dl Phosphorus 1.1 L (2.5-4.5) mg/dL Magnesium 2.4 H (1.6-2.3) mg/dL Total Bilirubin 0.5 (0.2-1.3) mg/dL AST 37 (17-59) U/L ALT 32 (21-72) U/L Alkaline Phosphatase 56 (38-126) U/L CK-MB (Mass) (0.0-3.38) ng/mL Troponin I (0.00-0.120) ng/mL NT-Pro-B Natriuret Pep (0-900) pg/mL Total Protein 5.7 L (6.3-8.3) g/dL Albumin 2.8 L (3.5-5.0) g/dL Globulin 2.9 (2.2-3.9) gm/dL Albumin/Globulin Ratio 1.0 (1.0-2.1) 04/27/18 04/27/18 04/27/18 Range/Units 05:03 04:35 00:38 WBC (4.8-10.8) K/uL RBC (4.40-5.90) Mil/uL Hgb (12.0-18.0) g/dL Hct (35.0-51.0) % MCV (80.0-94.0) fL MCH (27.0-31.0) pg MCHC (33.0-37.0) g/dL RDW (11.5-14.5) % Plt Count (130-400) K/uL MPV (7.2-11.7) fL Neut % (Auto) (50.0-75.0) % Lymph % (Auto) (20.0-40.0) % [place] % (Auto) (0.0-10.0) % Eos % (Auto) (0.0-4.0) % Baso % (Auto) (0.0-2.0) % Neut # (Auto) (1.8-7.0) K/uL Lymph # (Auto) (1.0-4.3) K/uL [place] # (Auto) (0.0-0.8) K/uL Eos # (Auto) (0.0-0.7) K/uL Baso # (Auto) (0.0-0.2) K/uL PT (9.7-12.2) SECONDS INR APTT (21-34) SECONDS Puncture Site [place] pCO2 25 L (35-45) mm/Hg pO2 193 H (80-100) mm/Hg HCO3 22.0 (21-28) mmol/L ABG pH 7.48 H (7.35-7.45) ABG Total CO2 19.4 L (22-28) mmol/L ABG O2 Saturation 98.5 H (95-98) % ABG Base Excess -3.7 L (-2.0-3.0) mmol/L ABG Hemoglobin 10.7 L (11.7-17.4) g/dL ABG Carboxyhemoglobin 0.8 (0.5-1.5) % POC ABG HHb (Measured) 1.5 (0.0-5.0) % ABG Methemoglobin 0.9 (0.0-3.0) % Jose D Test Na A-a O2 Difference 61.0 mm/Hg Respiratory Index 0.3 Hgb O2 Saturation 96.9 (95.0-98.0) % Vent Mode Prvc Mechanical Rate 20 FiO2 40.0 % Tidal Volume 500 PEEP 5 Sodium (132-148) mmol/L Potassium (3.6-5.2) mmol/L Chloride (98-107) mmol/L Carbon Dioxide (22-30) mmol/L Anion Gap (10-20) BUN (9-20) mg/dL Creatinine (0.8-1.5) mg/dL Est GFR ( Amer) Est GFR (Non-Af Amer) POC Glucose (mg/dL) 126 H 127 H (65-110) mg/dL Random Glucose (75-110) mg/dL Serum Osmolality (272-300) mosm/kg Calcium (8.6-10.4) mg/dl Phosphorus (2.5-4.5) mg/dL Magnesium (1.6-2.3) mg/dL Total Bilirubin (0.2-1.3) mg/dL AST (17-59) U/L ALT (21-72) U/L Alkaline Phosphatase (38-126) U/L CK-MB (Mass) (0.0-3.38) ng/mL Troponin I (0.00-0.120) ng/mL NT-Pro-B Natriuret Pep (0-900) pg/mL Total Protein (6.3-8.3) g/dL Albumin (3.5-5.0) g/dL Globulin (2.2-3.9) gm/dL Albumin/Globulin Ratio (1.0-2.1) 04/26/18 04/26/18 04/26/18 Range/Units 23:35 21:58 21:58 WBC (4.8-10.8) K/uL RBC (4.40-5.90) Mil/uL Hgb (12.0-18.0) g/dL Hct (35.0-51.0) % MCV (80.0-94.0) fL MCH (27.0-31.0) pg MCHC (33.0-37.0) g/dL RDW (11.5-14.5) % Plt Count (130-400) K/uL MPV (7.2-11.7) fL Neut % (Auto) (50.0-75.0) % Lymph % (Auto) (20.0-40.0) % [place] % (Auto) (0.0-10.0) % Eos % (Auto) (0.0-4.0) % Baso % (Auto) (0.0-2.0) % Neut # (Auto) (1.8-7.0) K/uL Lymph # (Auto) (1.0-4.3) K/uL [place] # (Auto) (0.0-0.8) K/uL Eos # (Auto) (0.0-0.7) K/uL Baso # (Auto) (0.0-0.2) K/uL PT 14.5 H (9.7-12.2) SECONDS INR 1.3 APTT 32 (21-34) SECONDS Puncture Site [place] pCO2 32 L (35-45) mm/Hg pO2 158 H (80-100) mm/Hg HCO3 22.1 (21-28) mmol/L ABG pH 7.41 (7.35-7.45) ABG Total CO2 21.3 L (22-28) mmol/L ABG O2 Saturation 98.6 H (95-98) % ABG Base Excess -3.7 L (-2.0-3.0) mmol/L ABG Hemoglobin 9.2 L (11.7-17.4) g/dL ABG Carboxyhemoglobin 0.5 (0.5-1.5) % POC ABG HHb (Measured) 1.4 (0.0-5.0) % ABG Methemoglobin 0.5 (0.0-3.0) % Jose D Test Na A-a O2 Difference 159.0 mm/Hg Respiratory Index 1.0 Hgb O2 Saturation 97.6 (95.0-98.0) % Vent Mode Prvc Mechanical Rate 20 FiO2 50.0 % Tidal Volume 450 PEEP 5 Sodium (132-148) mmol/L Potassium (3.6-5.2) mmol/L Chloride (98-107) mmol/L Carbon Dioxide (22-30) mmol/L Anion Gap (10-20) BUN (9-20) mg/dL Creatinine (0.8-1.5) mg/dL Est GFR ( Amer) Est GFR (Non-Af Amer) POC Glucose (mg/dL) (65-110) mg/dL Random Glucose (75-110) mg/dL Serum Osmolality 302 H (272-300) mosm/kg Calcium (8.6-10.4) mg/dl Phosphorus (2.5-4.5) mg/dL Magnesium (1.6-2.3) mg/dL Total Bilirubin (0.2-1.3) mg/dL AST (17-59) U/L ALT (21-72) U/L Alkaline Phosphatase (38-126) U/L CK-MB (Mass) (0.0-3.38) ng/mL Troponin I (0.00-0.120) ng/mL NT-Pro-B Natriuret Pep (0-900) pg/mL Total Protein (6.3-8.3) g/dL Albumin (3.5-5.0) g/dL Globulin (2.2-3.9) gm/dL Albumin/Globulin Ratio (1.0-2.1) 04/26/18 04/26/18 04/26/18 Range/Units 21:58 21:58 17:45 WBC 9.5 (4.8-10.8) K/uL RBC 3.53 L (4.40-5.90) Mil/uL Hgb 9.2 L (12.0-18.0) g/dL Hct 27.5 L (35.0-51.0) % MCV 77.8 L (80.0-94.0) fL MCH 26.0 L (27.0-31.0) pg MCHC 33.5 (33.0-37.0) g/dL RDW 18.2 H (11.5-14.5) % Plt Count 144 (130-400) K/uL MPV 9.0 (7.2-11.7) fL Neut % (Auto) 75.9 H (50.0-75.0) % Lymph % (Auto) 15.1 L (20.0-40.0) % [place] % (Auto) 7.6 (0.0-10.0) % Eos % (Auto) 1.0 (0.0-4.0) % Baso % (Auto) 0.4 (0.0-2.0) % Neut # (Auto) 7.2 H (1.8-7.0) K/uL Lymph # (Auto) 1.4 (1.0-4.3) K/uL [place] # (Auto) 0.7 (0.0-0.8) K/uL Eos # (Auto) 0.1 (0.0-0.7) K/uL Baso # (Auto) 0.0 (0.0-0.2) K/uL PT (9.7-12.2) SECONDS INR APTT (21-34) SECONDS Puncture Site pCO2 (35-45) mm/Hg pO2 (80-100) mm/Hg HCO3 (21-28) mmol/L ABG pH (7.35-7.45) ABG Total CO2 (22-28) mmol/L ABG O2 Saturation (95-98) % ABG Base Excess (-2.0-3.0) mmol/L ABG Hemoglobin (11.7-17.4) g/dL ABG Carboxyhemoglobin (0.5-1.5) % POC ABG HHb (Measured) (0.0-5.0) % ABG Methemoglobin (0.0-3.0) % Jose D Test A-a O2 Difference mm/Hg Respiratory Index Hgb O2 Saturation (95.0-98.0) % Vent Mode Mechanical Rate FiO2 % Tidal Volume PEEP Sodium 141 (132-148) mmol/L Potassium 3.4 L (3.6-5.2) mmol/L Chloride 114 H (98-107) mmol/L Carbon Dioxide 22 (22-30) mmol/L Anion Gap 9 L (10-20) BUN 17 (9-20) mg/dL Creatinine 1.0 (0.8-1.5) mg/dL Est GFR ( Amer) > 60 Est GFR (Non-Af Amer) > 60 POC Glucose (mg/dL) 114 H (65-110) mg/dL Random Glucose 126 H (75-110) mg/dL Serum Osmolality (272-300) mosm/kg Calcium 7.5 L (8.6-10.4) mg/dl Phosphorus 2.1 L (2.5-4.5) mg/dL Magnesium 2.2 (1.6-2.3) mg/dL Total Bilirubin 0.4 (0.2-1.3) mg/dL AST 30 (17-59) U/L ALT 27 (21-72) U/L Alkaline Phosphatase 47 (38-126) U/L CK-MB (Mass) (0.0-3.38) ng/mL Troponin I 0.0710 (0.00-0.120) ng/mL NT-Pro-B Natriuret Pep (0-900) pg/mL Total Protein 5.4 L (6.3-8.3) g/dL Albumin 2.7 L (3.5-5.0) g/dL Globulin 2.8 (2.2-3.9) gm/dL Albumin/Globulin Ratio 1.0 (1.0-2.1) 04/26/18 04/26/18 Range/Units 11:43 09:24 WBC (4.8-10.8) K/uL RBC (4.40-5.90) Mil/uL Hgb (12.0-18.0) g/dL Hct (35.0-51.0) % MCV (80.0-94.0) fL MCH (27.0-31.0) pg MCHC (33.0-37.0) g/dL RDW (11.5-14.5) % Plt Count (130-400) K/uL MPV (7.2-11.7) fL Neut % (Auto) (50.0-75.0) % Lymph % (Auto) (20.0-40.0) % [place] % (Auto) (0.0-10.0) % Eos % (Auto) (0.0-4.0) % Baso % (Auto) (0.0-2.0) % Neut # (Auto) (1.8-7.0) K/uL Lymph # (Auto) (1.0-4.3) K/uL [place] # (Auto) (0.0-0.8) K/uL Eos # (Auto) (0.0-0.7) K/uL Baso # (Auto) (0.0-0.2) K/uL PT (9.7-12.2) SECONDS INR APTT (21-34) SECONDS Puncture Site pCO2 (35-45) mm/Hg pO2 (80-100) mm/Hg HCO3 (21-28) mmol/L ABG pH (7.35-7.45) ABG Total CO2 (22-28) mmol/L ABG O2 Saturation (95-98) % ABG Base Excess (-2.0-3.0) mmol/L ABG Hemoglobin (11.7-17.4) g/dL ABG Carboxyhemoglobin (0.5-1.5) % POC ABG HHb (Measured) (0.0-5.0) % ABG Methemoglobin (0.0-3.0) % Jose D Test A-a O2 Difference mm/Hg Respiratory Index Hgb O2 Saturation (95.0-98.0) % Vent Mode Mechanical Rate FiO2 % Tidal Volume PEEP Sodium (132-148) mmol/L Potassium (3.6-5.2) mmol/L Chloride (98-107) mmol/L Carbon Dioxide (22-30) mmol/L Anion Gap (10-20) BUN (9-20) mg/dL Creatinine (0.8-1.5) mg/dL Est GFR ( Amer) Est GFR (Non-Af Amer) POC Glucose (mg/dL) 122 H (65-110) mg/dL Random Glucose (75-110) mg/dL Serum Osmolality (272-300) mosm/kg Calcium (8.6-10.4) mg/dl Phosphorus (2.5-4.5) mg/dL Magnesium (1.6-2.3) mg/dL Total Bilirubin (0.2-1.3) mg/dL AST (17-59) U/L ALT (21-72) U/L Alkaline Phosphatase (38-126) U/L CK-MB (Mass) 1.16 (0.0-3.38) ng/mL Troponin I 0.0380 (0.00-0.120) ng/mL NT-Pro-B Natriuret Pep 1790 H (0-900) pg/mL Total Protein (6.3-8.3) g/dL Albumin (3.5-5.0) g/dL Globulin (2.2-3.9) gm/dL Albumin/Globulin Ratio (1.0-2.1) Laboratory Results - last 24 hr 04/26/18 04/26/18 04/26/18 09:24 11:43 17:45 WBC RBC Hgb Hct MCV MCH MCHC RDW Plt Count MPV Neut % (Auto) Lymph % (Auto) [place] % (Auto) Eos % (Auto) Baso % (Auto) Neut # (Auto) Lymph # (Auto) [place] # (Auto) Eos # (Auto) Baso # (Auto) PT INR APTT Puncture Site pCO2 pO2 HCO3 ABG pH ABG Total CO2 ABG O2 Saturation ABG Base Excess ABG Hemoglobin ABG Carboxyhemoglobin POC ABG HHb (Measured) ABG Methemoglobin Jose D Test A-a O2 Difference Respiratory Index Hgb O2 Saturation Vent Mode Mechanical Rate FiO2 Tidal Volume PEEP Sodium Potassium Chloride Carbon Dioxide Anion Gap BUN Creatinine Est GFR ( Amer) Est GFR (Non-Af Amer) POC Glucose (mg/dL) 122 H 114 H Random Glucose Serum Osmolality Calcium Phosphorus Magnesium Total Bilirubin AST ALT Alkaline Phosphatase CK-MB (Mass) 1.16 Troponin I 0.0380 NT-Pro-B Natriuret Pep 1790 H Total Protein Albumin Globulin Albumin/Globulin Ratio 04/26/18 04/26/18 04/26/18 21:58 21:58 21:58 WBC 9.5 RBC 3.53 L Hgb 9.2 L Hct 27.5 L MCV 77.8 L MCH 26.0 L MCHC 33.5 RDW 18.2 H Plt Count 144 MPV 9.0 Neut % (Auto) 75.9 H Lymph % (Auto) 15.1 L [place] % (Auto) 7.6 Eos % (Auto) 1.0 Baso % (Auto) 0.4 Neut # (Auto) 7.2 H Lymph # (Auto) 1.4 [place] # (Auto) 0.7 Eos # (Auto) 0.1 Baso # (Auto) 0.0 PT INR APTT Puncture Site pCO2 pO2 HCO3 ABG pH ABG Total CO2 ABG O2 Saturation ABG Base Excess ABG Hemoglobin ABG Carboxyhemoglobin POC ABG HHb (Measured) ABG Methemoglobin Jose D Test A-a O2 Difference Respiratory Index Hgb O2 Saturation Vent Mode Mechanical Rate FiO2 Tidal Volume PEEP Sodium 141 Potassium 3.4 L Chloride 114 H Carbon Dioxide 22 Anion Gap 9 L BUN 17 Creatinine 1.0 Est GFR ( Amer) > 60 Est GFR (Non-Af Amer) > 60 POC Glucose (mg/dL) Random Glucose 126 H Serum Osmolality 302 H Calcium 7.5 L Phosphorus 2.1 L Magnesium 2.2 Total Bilirubin 0.4 AST 30 ALT 27 Alkaline Phosphatase 47 CK-MB (Mass) Troponin I 0.0710 NT-Pro-B Natriuret Pep Total Protein 5.4 L Albumin 2.7 L Globulin 2.8 Albumin/Globulin Ratio 1.0 04/26/18 04/26/18 04/27/18 21:58 23:35 00:38 WBC RBC Hgb Hct MCV MCH MCHC RDW Plt Count MPV Neut % (Auto) Lymph % (Auto) [place] % (Auto) Eos % (Auto) Baso % (Auto) Neut # (Auto) Lymph # (Auto) [place] # (Auto) Eos # (Auto) Baso # (Auto) PT 14.5 H INR 1.3 APTT 32 Puncture Site [place] pCO2 32 L pO2 158 H HCO3 22.1 ABG pH 7.41 ABG Total CO2 21.3 L ABG O2 Saturation 98.6 H ABG Base Excess -3.7 L ABG Hemoglobin 9.2 L ABG Carboxyhemoglobin 0.5 POC ABG HHb (Measured) 1.4 ABG Methemoglobin 0.5 Jose D Test Na A-a O2 Difference 159.0 Respiratory Index 1.0 Hgb O2 Saturation 97.6 Vent Mode Prvc Mechanical Rate 20 FiO2 50.0 Tidal Volume 450 PEEP 5 Sodium Potassium Chloride Carbon Dioxide Anion Gap BUN Creatinine Est GFR ( Amer) Est GFR (Non-Af Amer) POC Glucose (mg/dL) 127 H Random Glucose Serum Osmolality Calcium Phosphorus Magnesium Total Bilirubin AST ALT Alkaline Phosphatase CK-MB (Mass) Troponin I NT-Pro-B Natriuret Pep Total Protein Albumin Globulin Albumin/Globulin Ratio 04/27/18 04/27/18 04/27/18 04:35 05:03 05:59 WBC RBC Hgb Hct MCV MCH MCHC RDW Plt Count MPV Neut % (Auto) Lymph % (Auto) [place] % (Auto) Eos % (Auto) Baso % (Auto) Neut # (Auto) Lymph # (Auto) [place] # (Auto) Eos # (Auto) Baso # (Auto) PT INR APTT Puncture Site [place] pCO2 25 L pO2 193 H HCO3 22.0 ABG pH 7.48 H ABG Total CO2 19.4 L ABG O2 Saturation 98.5 H ABG Base Excess -3.7 L ABG Hemoglobin 10.7 L ABG Carboxyhemoglobin 0.8 POC ABG HHb (Measured) 1.5 ABG Methemoglobin 0.9 Jose D Test Na A-a O2 Difference 61.0 Respiratory Index 0.3 Hgb O2 Saturation 96.9 Vent Mode Prvc Mechanical Rate 20 FiO2 40.0 Tidal Volume 500 PEEP 5 Sodium Potassium Chloride Carbon Dioxide Anion Gap BUN Creatinine Est GFR ( Amer) Est GFR (Non-Af Amer) POC Glucose (mg/dL) 126 H Random Glucose Serum Osmolality 307 H Calcium Phosphorus Magnesium Total Bilirubin AST ALT Alkaline Phosphatase CK-MB (Mass) Troponin I NT-Pro-B Natriuret Pep Total Protein Albumin Globulin Albumin/Globulin Ratio 04/27/18 04/27/18 05:59 05:59 WBC 9.6 RBC 3.66 L Hgb 9.8 L Hct 28.2 L MCV 77.1 L MCH 26.8 L MCHC 34.7 RDW 18.3 H Plt Count 142 MPV 9.3 Neut % (Auto) 74.4 Lymph % (Auto) 16.7 L [place] % (Auto) 7.0 Eos % (Auto) 1.4 Baso % (Auto) 0.5 Neut # (Auto) 7.2 H Lymph # (Auto) 1.6 [place] # (Auto) 0.7 Eos # (Auto) 0.1 Baso # (Auto) 0.1 PT INR APTT Puncture Site pCO2 pO2 HCO3 ABG pH ABG Total CO2 ABG O2 Saturation ABG Base Excess ABG Hemoglobin ABG Carboxyhemoglobin POC ABG HHb (Measured) ABG Methemoglobin Jose D Test A-a O2 Difference Respiratory Index Hgb O2 Saturation Vent Mode Mechanical Rate FiO2 Tidal Volume PEEP Sodium 142 Potassium 3.9 Chloride 115 H Carbon Dioxide 20 L Anion Gap 10 BUN 17 Creatinine 1.0 Est GFR ( Amer) > 60 Est GFR (Non-Af Amer) > 60 POC Glucose (mg/dL) Random Glucose 135 H Serum Osmolality Calcium 7.9 L Phosphorus 1.1 L Magnesium 2.4 H Total Bilirubin 0.5 AST 37 ALT 32 Alkaline Phosphatase 56 CK-MB (Mass) Troponin I NT-Pro-B Natriuret Pep Total Protein 5.7 L Albumin 2.8 L Globulin 2.9 Albumin/Globulin Ratio 1.0 Fingerstick Blood Sugar Results: 126
--- NOTE | 2018-04-27 09:55 | CP.PCM.PN ---
Subjective - Date & Time of Evaluation Date of Evaluation: 04/27/18 Time of Evaluation: 09:10 - Subjective Subjective: [facility] is an 82 year old male with unknown PmHx. was found down 04/25/18 EMS was called and on arrival to the ER pt was noted to be very drowsy, moving the left side only spontaneously. A stroke suspected and stroke code called. Today is day 3 post endovascular mechanical thrombectomy. Pt remains sedated on propofol and intubated (PRVC). Objective - Vital Signs/Intake and Output Vital Signs (last 24 hours): Temp Pulse Resp BP Pulse Ox 99.4 F 72 18 139/62 100 04/27/18 08:00 04/27/18 09:02 04/27/18 09:02 04/27/18 09:02 04/27/18 09:02 Intake and Output: 04/27/18 04/27/18 06:59 18:59 Intake Total 1974.4 270.9 Output Total 735 225 Balance 1239.4 45.9 - Medications Medications: Current Medications Acetaminophen (Tylenol 650mg/20.3ml Solution Ud) 650 mg NG Q4 PRN PRN Reason: Temperature Last Admin: 04/26/18 22:10 Dose: 650 mg Albuterol/Ipratropium (Duoneb 3 Mg/0.5 Mg (3 Ml) Ud) 3 ml INH RQ4 [facility] Last Admin: 04/27/18 08:23 Dose: 3 ml Aspirin (Ecotrin) 81 mg PO DAILY [facility] Last Admin: 04/26/18 09:14 Dose: 81 mg Clopidogrel Bisulfate (Plavix) 75 mg PO DAILY [facility] Last Admin: 04/26/18 09:14 Dose: 75 mg Famotidine (Pepcid) 20 mg IVP DAILY [facility] Last Admin: 04/26/18 09:14 Dose: 20 mg Heparin Sodium (Porcine) (Heparin) 5,000 units SC Q8 [facility] Last Admin: 04/27/18 07:00 Dose: 5,000 units Propofol (Diprivan) 1,000 mg in 100 mls @ 2.773 mls/hr IV .Q24H PRN; Protocol PRN Reason: TITRATE PER MD ORDER Last Admin: 04/27/18 06:55 Dose: 15 mcg/kg/min, 8.32 mls/hr Piperacillin Sod/Tazobactam (Sod 3.375 gm/ Sodium Chloride) 100 mls @ 200 mls/hr IVPB Q6H DANIEL; Protocol Last Admin: 04/27/18 08:26 Dose: 200 mls/hr Potassium Phosphate 15 mmole/ (Sodium Chloride) 255 mls @ 42.5 mls/hr IVPB ONCE ONE Stop: 04/27/18 15:59 Insulin Aspart (Novolog) 0 unit SC Q6H DANIEL; Protocol Last Admin: 04/27/18 06:00 Dose: Not Given Propofol (Diprivan) 100 mg IV TITR DANIEL Rosuvastatin Calcium (Crestor) 10 mg PO HS DANIEL Last Admin: 04/26/18 22:10 Dose: 10 mg - Labs Labs: 04/27/18 05:59 04/27/18 05:59 PT 14.5 SECONDS (9.7-12.2) H 04/26/18 21:58 INR 1.3 04/26/18 21:58 APTT 32 SECONDS (21-34) 04/26/18 21:58 - Constitutional Appears: No Acute Distress - Respiratory Exam Respiratory Exam: Clear to Ausculation Bilateral Assessment and Plan - Assessment and Plan (Free Text) Assessment: NEUROLOGICAL EXAM: MSE: sedated, no response to noxious stimuli, intubated and sedated on propofol CN: right pupil sluggish left 3mm with light ,+ corneals, + dolls eye reflex, right facial droop, weak gag reflex. Motor: moves left side spontaneously, right hemiplegia Sensory: no response to pain Coordination: unable to assess is status post acute ischemic stroke left ica and left mca M1 occlusion with very poor perfusion to the left hemisphere high severity on the stroke scale. He underwent a successful endovascular mechanical thrombectomy from tici 0 to tici 3 with stenting and angioplasty of the left MCA occlusion. Pt examined and remains intubated and sedated on a propofol drip. CT head completed on 04/26/18 4 mm midline shift, left mca 3 territory infarction, and no hemorrhage. Plan: Recommendations: 1- maintain SBP 100-140 mmHg 2- continue supportive care 3- continue Plavix and ASA 4- discussed with critical care team 5- Please do not hesitate to contact us for any further questions [phone] 6-approximately 45 minutes of critical care time was spent in evaluation and management and documentation
[2018-04-27] MEDS ORDERED: Potassium Phosphate 15 MMOLE in Sodium Chloride 0.9% 250 ML IVPB ONE (10:00)
--- NOTE | 2018-04-27 11:05 | CT ---
Date of service: 04/26/2018 PROCEDURE: CT HEAD WITHOUT CONTRAST. HISTORY: acute CVA, post thrombectomy COMPARISON: Comparison made with prior CTA and CT scan of the brain dated 04/26/2018 and 04/25/2018 respectively. TECHNIQUE: Axial computed tomography images were obtained through the head/brain without intravenous contrast. Radiation dose: Total exam DLP = 1450.18 mGy-cm. This CT exam was performed using one or more of the following dose reduction techniques: Automated exposure control, adjustment of the mA and/or kV according to patient size, and/or use of iterative reconstruction technique. FINDINGS: HEMORRHAGE: No definitive evidence of acute intracranial hemorrhage.. BRAIN: There are significant ischemic changes involving most of the left cerebral hemisphere with diffuse cerebral edema and secondary mass effect that results in compression of the overlying sulci as well as left lateral ventricle and shift of the septum pellucidum from left to right estimated at approximately 4.5 cm. Chronic infarct changes both cerebellar hemispheres again noted. VENTRICLES: Minor dilatation of the right lateral ventricle felt be secondary to compressive effects at the level of the foramen of [place]. CALVARIUM: Unremarkable. PARANASAL SINUSES: Unremarkable as visualized. No significant inflammatory changes. MASTOID AIR CELLS: Unremarkable as visualized. No inflammatory changes. OTHER FINDINGS: None. IMPRESSION: Significant acute ischemic changes involving most of the left cerebral hemisphere with diffuse cerebral edema and secondary mass effect with [id number] midline shift estimated approximately 4.5 cm. Mild dilatation of the right lateral ventricle felt to be secondary to compressive effects at the level of the foramina Manning. Bilateral chronic cerebellar infarcts.
[2018-04-27] MEDS: Acetaminophen 650mg/20.3ml solution UD NG PRN (11:56)
[2018-04-27 13:15] LABS: ALBUMIN 2.9 g/dL (3.5-5.0); ALT/SGPT 35 U/L (21-72); AST/SGOT 40 U/L (17-59); BLOOD UREA NITROGEN 16 mg/dL (9-20); CALCIUM 7.8 mg/dl (8.6-10.4); GFR NON-AFRICAN AMERICAN > 60
--- NOTE | 2018-04-27 14:38 | RAD ---
Date of service: 04/27/2018 HISTORY: vent COMPARISON: None available. FINDINGS: In situ ETT, the tip of which lies approximately 16 mm above pro. LUNGS: Pulmonary venous congestion with by diffuse bilateral alveolar-type infiltrates. Bilateral effusions left larger than right PLEURA: . No pneumothorax apparent. CARDIOVASCULAR: Mild aortic atherosclerotic calcification present. Cardiomegaly.. No pulmonary vascular congestion. OSSEOUS STRUCTURES: No significant abnormalities. VISUALIZED UPPER ABDOMEN: Normal. OTHER FINDINGS: None. IMPRESSION: Pulmonary venous congestion with by diffuse bilateral alveolar-type infiltrates. Bilateral effusions left larger than right
--- NOTE | 2018-04-27 15:45 | CP.PCM.PN ---
Subjective - Date & Time of Evaluation Date of Evaluation: 04/27/18 Time of Evaluation: 15:45 - Subjective Subjective: Progress note dictated #[id number] Objective - Vital Signs/Intake and Output Vital Signs (last 24 hours): Temp Pulse Resp BP Pulse Ox 99 F 78 19 142/65 98 04/27/18 12:56 04/27/18 15:02 04/27/18 15:02 04/27/18 15:02 04/27/18 15:02 Intake and Output: 04/27/18 04/27/18 06:59 18:59 Intake Total 1974.4 1100.7 Output Total 735 550 Balance 1239.4 550.7 - Medications Medications: Current Medications Acetaminophen (Tylenol 650mg/20.3ml Solution Ud) 650 mg NG Q4 PRN PRN Reason: Temperature Last Admin: 04/27/18 11:56 Dose: 650 mg Albuterol/Ipratropium (Duoneb 3 Mg/0.5 Mg (3 Ml) Ud) 3 ml INH RQ4 DANIEL Last Admin: 04/27/18 11:11 Dose: 3 ml Aspirin (Ecotrin) 81 mg PO DAILY DANIEL Last Admin: 04/27/18 10:01 Dose: 81 mg Clopidogrel Bisulfate (Plavix) 75 mg PO DAILY [facility] Last Admin: 04/27/18 10:01 Dose: 75 mg Famotidine (Pepcid) 20 mg IVP DAILY [facility] Last Admin: 04/27/18 10:01 Dose: 20 mg Heparin Sodium (Porcine) (Heparin) 5,000 units SC Q8 DANIEL Last Admin: 04/27/18 13:47 Dose: 5,000 units Propofol (Diprivan) 1,000 mg in 100 mls @ 2.773 mls/hr IV .Q24H PRN; Protocol PRN Reason: TITRATE PER MD ORDER Last Admin: 04/27/18 06:55 Dose: 15 mcg/kg/min, 8.32 mls/hr Piperacillin Sod/Tazobactam (Sod 3.375 gm/ Sodium Chloride) 100 mls @ 200 mls/hr IVPB Q6H DANIEL; Protocol Last Admin: 04/27/18 15:04 Dose: 200 mls/hr Potassium Phosphate 15 mmole/ (Sodium Chloride) 255 mls @ 42.5 mls/hr IVPB ONCE ONE Stop: 04/27/18 15:59 Last Admin: 04/27/18 10:41 Dose: 42.5 mls/hr Insulin Aspart (Novolog) 0 unit SC Q6H DANIEL; Protocol Last Admin: 04/27/18 11:36 Dose: Not Given Propofol (Diprivan) 100 mg IV TITR DANIEL Rosuvastatin Calcium (Crestor) 10 mg PO HS DANIEL Last Admin: 04/26/18 22:10 Dose: 10 mg - Labs Labs: 04/27/18 05:59 04/27/18 12:55 PT 14.5 SECONDS (9.7-12.2) H 04/26/18 21:58 INR 1.3 04/26/18 21:58 APTT 32 SECONDS (21-34) 04/26/18 21:58
--- NOTE | 2018-04-27 16:02 | CP.PCM.PN ---
Subjective - Date & Time of Evaluation Date of Evaluation: 04/27/18 Time of Evaluation: 12:00 - Subjective Subjective: Patient is intubated and sedated on propofol, therefore his neurological exam is compromised. On exam; Intubated, and sedated. Pupils: right pupil is 2mm-1mm with light. left pupil is 3mm-2mm with light. +dolls eyes, +corneals not moving any extremities spontaneously. sensory: not accurate Gait not tested. repeat CT head from last night: shows 5 mm midline shift with progression of stroke with no hemorrhagic conversion noted. 4th and 3rd ventricle are open. Objective - Vital Signs/Intake and Output Vital Signs (last 24 hours): Temp Pulse Resp BP Pulse Ox 99 F 78 19 142/65 98 04/27/18 12:56 04/27/18 15:02 04/27/18 15:02 04/27/18 15:02 04/27/18 15:02 Intake and Output: 04/27/18 04/27/18 06:59 18:59 Intake Total 1974.4 1100.7 Output Total 735 550 Balance 1239.4 550.7 - Medications Medications: Current Medications Acetaminophen (Tylenol 650mg/20.3ml Solution Ud) 650 mg NG Q4 PRN PRN Reason: Temperature Last Admin: 04/27/18 11:56 Dose: 650 mg Albuterol/Ipratropium (Duoneb 3 Mg/0.5 Mg (3 Ml) Ud) 3 ml INH RQ4 [facility] Last Admin: 04/27/18 11:11 Dose: 3 ml Aspirin (Ecotrin) 81 mg PO DAILY [facility] Last Admin: 04/27/18 10:01 Dose: 81 mg Clopidogrel Bisulfate (Plavix) 75 mg PO DAILY [facility] Last Admin: 04/27/18 10:01 Dose: 75 mg Famotidine (Pepcid) 20 mg IVP DAILY [facility] Last Admin: 04/27/18 10:01 Dose: 20 mg Heparin Sodium (Porcine) (Heparin) 5,000 units SC Q8 [facility] Last Admin: 04/27/18 13:47 Dose: 5,000 units Propofol (Diprivan) 1,000 mg in 100 mls @ 2.773 mls/hr IV .Q24H PRN; Protocol PRN Reason: TITRATE PER MD ORDER Last Admin: 04/27/18 06:55 Dose: 15 mcg/kg/min, 8.32 mls/hr Piperacillin Sod/Tazobactam (Sod 3.375 gm/ Sodium Chloride) 100 mls @ 200 mls/hr IVPB Q6H DANIEL; Protocol Last Admin: 04/27/18 15:04 Dose: 200 mls/hr Potassium Phosphate 15 mmole/ (Sodium Chloride) 255 mls @ 42.5 mls/hr IVPB ONCE ONE Stop: 04/27/18 15:59 Last Admin: 04/27/18 10:41 Dose: 42.5 mls/hr Insulin Aspart (Novolog) 0 unit SC Q6H DANIEL; Protocol Last Admin: 04/27/18 11:36 Dose: Not Given Propofol (Diprivan) 100 mg IV TITR DANIEL Rosuvastatin Calcium (Crestor) 10 mg PO HS DANIEL Last Admin: 04/26/18 22:10 Dose: 10 mg - Labs Labs: 04/27/18 05:59 04/27/18 12:55 PT 14.5 SECONDS (9.7-12.2) H 04/26/18 21:58 INR 1.3 04/26/18 21:58 APTT 32 SECONDS (21-34) 04/26/18 21:58 Assessment and Plan - Assessment and Plan (Free Text) Assessment: 82 yr old male s/p intracranial stent placement on 04/25/18, now post op day 2, with evolving left mca stroke. He is in the peak period for edema and will need close monitoring. We have started mannitol to decrease intracranial pressure and will obtain daily ct scans. prognosis is guarded. Gail Ann
--- NOTE | 2018-04-27 19:10 | CP.PCM.CON ---
History of Present Illness - History of Present Illness History of Present Illness: Patient is an 82 yo male who was found minimally responsive in a parking lot and brought to ED by EMS. He had R-sided deficit and code stroke was called. CT and CTA showed large ischemic CVA. Patient underwent mechanical thrombectomy. He remains intubated and sedated after the procedure. PMH, FH, SH: unknown Review of Systems - Review of Systems Systems not reviewed;Unavailable: Intubated Past Patient History - Past Social History Smoking Status: unknown - PSYCHIATRIC Hx Substance Use: No (unknown) - Medications Medications: Current Medications Sodium Chloride (Sodium Chloride 0.9%) 1,000 mls @ 100 mls/hr IV .Q10H DANIEL Sodium Chloride (Sodium Chloride 0.9%) 1,000 mls @ 1,000 mls/hr IV .Q1H ONE Stop: 04/25/18 17:45 Nicardipine HCl 25 mg/ Sodium (Chloride) 250 mls @ 50 mls/hr IV .Q5H DANIEL Stop: 04/25/18 22:44 Physical Exam - Constitutional Additional comments: sedated, intubated - Head Exam Head Exam: ATRAUMATIC - Eye Exam Eye Exam: PERRL - ENT Exam ENT Exam: Mucous Membranes Moist - Respiratory Exam Additional comments: vent - Cardiovascular Exam Cardiovascular Exam: REGULAR RHYTHM - GI/Abdominal Exam GI & Abdominal Exam: Soft - Rectal Exam Rectal Exam: Deferred - Extremities Exam Extremities exam: Positive for: normal inspection - Psychiatric Exam Additional comments: sedated - Skin Skin Exam: Dry, Normal Color, Warm Assessment & Plan - Assessment and Plan (Free Text) Assessment: Patient is 82 yo male who underwent 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 He remains intubated and sedated. 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, occlusion of L MCA - Neurovascular checks Q1H- if any changes, repeat CT head STAT - Propofol drip- maintain RASS -2 - Neurology consulted (Ann) - Neurointervention consulted (Arcot) CV: - Mechanical thrombectomy today 04/25 - Lipid panel wnl - Stop Integrilin - ASA 325 mg PO loading dose then ASA 81 mg PO daily - Plavix 300 mg PO loading dose then Plavix 75 mg PO daily - NS @ 100 mL/hr - Monitor vitals- maintain SBP Pulm: - ETT- titrate vent to maintain spO2>92% - CXR pending - ABG pending GI: - NGT - NPO : - I's & O's- Bhatt - Replete electrolytes PRN - UA pending Endo: - A1c 5.9 - Maintain euglycemia - Hypoglycemia protocol - Accuchecks Q6H with ISS Heme: - Monitor H&H - Monitor coags ID: - Afebrile - No leukocytosis - Lactate pending PPx: VTE: heparin 5000 units SC Q8H GI: Pepcid 20 mg IV daily Code status: full code Past Patient History - Past Social History Smoking Status: unknown - CARDIAC Hx Cardiac Disorders: Yes Hx Hypercholesterolemia: Yes Hx Hypertension: Yes - PULMONARY Hx Respiratory Disorders: No - NEUROLOGICAL Hx Neurological Disorder: No - HEENT Hx HEENT Problems: No - RENAL Hx Chronic Kidney Disease: No - ENDOCRINE/METABOLIC Hx Endocrine Disorders: Yes Hx Diabetes Mellitus Type 2: Yes - HEMATOLOGICAL/ONCOLOGICAL Hx Blood Disorders: No - INTEGUMENTARY Hx Dermatological Problems: No - MUSCULOSKELETAL/RHEUMATOLOGICAL Hx Falls: No - GASTROINTESTINAL Hx Gastrointestinal Disorders: No - GENITOURINARY/GYNECOLOGICAL Hx Genitourinary Disorders: No - PSYCHIATRIC Hx Substance Use: No (unknown) - SURGICAL HISTORY Hx Surgeries: Yes Hx Coronary Artery Bypass Graft: Yes Other/Comment: knee SX- 5 years ago - ANESTHESIA Hx Anesthesia: Yes Hx Anesthesia Reactions: No Hx Malignant Hyperthermia: No Has any member of the family had a problem w/ anesthesia?: No Meds Allergies/Adverse Reactions: Allergies Allergy/AdvReac Type Severity Reaction Status Date / Time No Known Allergies Allergy Unverified 04/25/18 16:19 - Medications Medications: Current Medications Acetaminophen (Tylenol 650mg/20.3ml Solution Ud) 650 mg NG Q4 PRN PRN Reason: Temperature Last Admin: 04/27/18 11:56 Dose: 650 mg Albuterol/Ipratropium (Duoneb 3 Mg/0.5 Mg (3 Ml) Ud) 3 ml INH RQ4 DANIEL Last Admin: 04/27/18 16:32 Dose: 3 ml Aspirin (Ecotrin) 81 mg PO DAILY [facility] Last Admin: 04/27/18 10:01 Dose: 81 mg Clopidogrel Bisulfate (Plavix) 75 mg PO DAILY [facility] Last Admin: 04/27/18 10:01 Dose: 75 mg Famotidine (Pepcid) 20 mg IVP DAILY DANIEL Last Admin: 04/27/18 10:01 Dose: 20 mg Heparin Sodium (Porcine) (Heparin) 5,000 units SC Q8 DANIEL Last Admin: 04/27/18 13:47 Dose: 5,000 units Propofol (Diprivan) 1,000 mg in 100 mls @ 2.773 mls/hr IV .Q24H PRN; Protocol PRN Reason: TITRATE PER MD ORDER Last Admin: 04/27/18 06:55 Dose: 15 mcg/kg/min, 8.32 mls/hr Piperacillin Sod/Tazobactam (Sod 3.375 gm/ Sodium Chloride) 100 mls @ 200 mls/hr IVPB Q6H DANIEL; Protocol Last Admin: 04/27/18 15:04 Dose: 200 mls/hr Insulin Aspart (Novolog) 0 unit SC Q6H DANIEL; Protocol Last Admin: 04/27/18 18:08 Dose: Not Given Propofol (Diprivan) 100 mg IV TITR DANIEL Rosuvastatin Calcium (Crestor) 10 mg PO HS [facility] Last Admin: 04/26/18 22:10 Dose: 10 mg Results - Vital Signs Recent Vital Signs: Last Vital Signs Temp 98.3 F 04/27/18 16:00 Pulse 75 04/27/18 18:00 Resp 21 04/27/18 18:00 BP 157/52 H 04/27/18 18:57 Pulse Ox 100 04/27/18 18:00 - Labs Result Diagrams: 04/27/18 05:59 04/27/18 12:55 Labs: Laboratory Results - last 24 hr 04/26/18 04/26/18 04/26/18 21:58 21:58 21:58 WBC 9.5 RBC 3.53 L Hgb 9.2 L Hct 27.5 L MCV 77.8 L MCH 26.0 L MCHC 33.5 RDW 18.2 H Plt Count 144 MPV 9.0 Neut % (Auto) 75.9 H Lymph % (Auto) 15.1 L [place] % (Auto) 7.6 Eos % (Auto) 1.0 Baso % (Auto) 0.4 Neut # (Auto) 7.2 H Lymph # (Auto) 1.4 [place] # (Auto) 0.7 Eos # (Auto) 0.1 Baso # (Auto) 0.0 PT INR APTT Puncture Site pCO2 pO2 HCO3 ABG pH ABG Total CO2 ABG O2 Saturation ABG Base Excess ABG Hemoglobin ABG Carboxyhemoglobin POC ABG HHb (Measured) ABG Methemoglobin Jose D Test A-a O2 Difference Respiratory Index Hgb O2 Saturation Vent Mode Mechanical Rate FiO2 Tidal Volume PEEP Sodium 141 Potassium 3.4 L Chloride 114 H Carbon Dioxide 22 Anion Gap 9 L BUN 17 Creatinine 1.0 Est GFR ( Amer) > 60 Est GFR (Non-Af Amer) > 60 POC Glucose (mg/dL) Random Glucose 126 H Serum Osmolality 302 H Calcium 7.5 L Phosphorus 2.1 L Magnesium 2.2 Total Bilirubin 0.4 AST 30 ALT 27 Alkaline Phosphatase 47 Troponin I 0.0710 Total Protein 5.4 L Albumin 2.7 L Globulin 2.8 Albumin/Globulin Ratio 1.0 04/26/18 04/26/18 04/27/18 21:58 23:35 00:38 WBC RBC Hgb Hct MCV MCH MCHC RDW Plt Count MPV Neut % (Auto) Lymph % (Auto) [place] % (Auto) Eos % (Auto) Baso % (Auto) Neut # (Auto) Lymph # (Auto) [place] # (Auto) Eos # (Auto) Baso # (Auto) PT 14.5 H INR 1.3 APTT 32 Puncture Site Malaika pCO2 32 L pO2 158 H HCO3 22.1 ABG pH 7.41 ABG Total CO2 21.3 L ABG O2 Saturation 98.6 H ABG Base Excess -3.7 L ABG Hemoglobin 9.2 L ABG Carboxyhemoglobin 0.5 POC ABG HHb (Measured) 1.4 ABG Methemoglobin 0.5 Jose D Test Na A-a O2 Difference 159.0 Respiratory Index 1.0 Hgb O2 Saturation 97.6 Vent Mode Prvc Mechanical Rate 20 FiO2 50.0 Tidal Volume 450 PEEP 5 Sodium Potassium Chloride Carbon Dioxide Anion Gap BUN Creatinine Est GFR ( Amer) Est GFR (Non-Af Amer) POC Glucose (mg/dL) 127 H Random Glucose Serum Osmolality Calcium Phosphorus Magnesium Total Bilirubin AST ALT Alkaline Phosphatase Troponin I Total Protein Albumin Globulin Albumin/Globulin Ratio 04/27/18 04/27/18 04/27/18 04:35 05:03 05:59 WBC RBC Hgb Hct MCV MCH MCHC RDW Plt Count MPV Neut % (Auto) Lymph % (Auto) [place] % (Auto) Eos % (Auto) Baso % (Auto) Neut # (Auto) Lymph # (Auto) [place] # (Auto) Eos # (Auto) Baso # (Auto) PT INR APTT Puncture Site Malaika pCO2 25 L pO2 193 H HCO3 22.0 ABG pH 7.48 H ABG Total CO2 19.4 L ABG O2 Saturation 98.5 H ABG Base Excess -3.7 L ABG Hemoglobin 10.7 L ABG Carboxyhemoglobin 0.8 POC ABG HHb (Measured) 1.5 ABG Methemoglobin 0.9 Jose D Test Na A-a O2 Difference 61.0 Respiratory Index 0.3 Hgb O2 Saturation 96.9 Vent Mode Prvc Mechanical Rate 20 FiO2 40.0 Tidal Volume 500 PEEP 5 Sodium Potassium Chloride Carbon Dioxide Anion Gap BUN Creatinine Est GFR ( Amer) Est GFR (Non-Af Amer) POC Glucose (mg/dL) 126 H Random Glucose Serum Osmolality 307 H Calcium Phosphorus Magnesium Total Bilirubin AST ALT Alkaline Phosphatase Troponin I Total Protein Albumin Globulin Albumin/Globulin Ratio 04/27/18 04/27/18 04/27/18 05:59 05:59 12:55 WBC 9.6 RBC 3.66 L Hgb 9.8 L Hct 28.2 L MCV 77.1 L MCH 26.8 L MCHC 34.7 RDW 18.3 H Plt Count 142 MPV 9.3 Neut % (Auto) 74.4 Lymph % (Auto) 16.7 L [place] % (Auto) 7.0 Eos % (Auto) 1.4 Baso % (Auto) 0.5 Neut # (Auto) 7.2 H Lymph # (Auto) 1.6 [place] # (Auto) 0.7 Eos # (Auto) 0.1 Baso # (Auto) 0.1 PT INR APTT Puncture Site pCO2 pO2 HCO3 ABG pH ABG Total CO2 ABG O2 Saturation ABG Base Excess ABG Hemoglobin ABG Carboxyhemoglobin POC ABG HHb (Measured) ABG Methemoglobin Jose D Test A-a O2 Difference Respiratory Index Hgb O2 Saturation Vent Mode Mechanical Rate FiO2 Tidal Volume PEEP Sodium 142 142 Potassium 3.9 4.0 Chloride 115 H 116 H Carbon Dioxide 20 L 21 L Anion Gap 10 9 L BUN 17 16 Creatinine 1.0 0.9 Est GFR ( Amer) > 60 > 60 Est GFR (Non-Af Amer) > 60 > 60 POC Glucose (mg/dL) Random Glucose 135 H 140 H Serum Osmolality Calcium 7.9 L 7.8 L Phosphorus 1.1 L Magnesium 2.4 H Total Bilirubin 0.5 0.6 AST 37 40 ALT 32 35 Alkaline Phosphatase 56 65 Troponin I Total Protein 5.7 L 5.7 L Albumin 2.8 L 2.9 L Globulin 2.9 2.8 Albumin/Globulin Ratio 1.0 1.0 04/27/18 12:55 WBC RBC Hgb Hct MCV MCH MCHC RDW Plt Count MPV Neut % (Auto) Lymph % (Auto) [place] % (Auto) Eos % (Auto) Baso % (Auto) Neut # (Auto) Lymph # (Auto) [place] # (Auto) Eos # (Auto) Baso # (Auto) PT INR APTT Puncture Site pCO2 pO2 HCO3 ABG pH ABG Total CO2 ABG O2 Saturation ABG Base Excess ABG Hemoglobin ABG Carboxyhemoglobin POC ABG HHb (Measured) ABG Methemoglobin Jose D Test A-a O2 Difference Respiratory Index Hgb O2 Saturation Vent Mode Mechanical Rate FiO2 Tidal Volume PEEP Sodium Potassium Chloride Carbon Dioxide Anion Gap BUN Creatinine Est GFR ( Amer) Est GFR (Non-Af Amer) POC Glucose (mg/dL) Random Glucose Serum Osmolality 306 H Calcium Phosphorus Magnesium Total Bilirubin AST ALT Alkaline Phosphatase Troponin I Total Protein Albumin Globulin Albumin/Globulin Ratio
[2018-04-27 21:59] LABS: BASO % 0.3 % (0.0-2.0); EOS # 0.1 K/uL (0.0-0.7); EOS % 1.4 % (0.0-4.0); HEMOGLOBIN 9.5 g/dL (12.0-18.0); LYMPH % 20.6 % (20.0-40.0); MEAN CELL VOLUME 77.7 fL (80.0-94.0); MEAN CORPUSCULAR HEMOGLOBIN 26.6 pg (27.0-31.0); MEAN CORPUSCULAR HGB CONC 34.2 g/dL (33.0-37.0); MEAN PLATELET VOLUME 8.5 fL (7.2-11.7); MONO # 0.7 K/uL (0.0-0.8); MONO % 6.9 % (0.0-10.0); NEUT % 70.8 % (50.0-75.0); RBC 3.55 Mil/uL (4.40-5.90); RED CELL DISTRIBUTION WIDTH 18.1 % (11.5-14.5); WHITE BLOOD COUNT 9.8 K/uL (4.8-10.8)
[2018-04-27 22:21] LABS: ALT/SGPT 33 U/L (21-72); AST/SGOT 45 U/L (17-59); BLOOD UREA NITROGEN 16 mg/dL (9-20); CALCIUM 8.1 mg/dl (8.6-10.4); GFR NON-AFRICAN AMERICAN > 60
--- NOTE | 2018-04-27 22:35 | PN ---
DATE: 04/27/2018 SUBJECTIVE: The patient was seen and examined at bedside. The patient remains intubated, on sedation. Events from overnight noted. The patient had CT scan done consistent with cerebral edema with midline shift, received mannitol last night and this morning. PHYSICAL EXAMINATION: GENERAL: Elderly male, lying in bed, intubated and sedated. VITAL SIGNS: Blood pressure 136/61; pulse 79; respirations 22 on 40% FiO2; T-max is 100 degrees Fahrenheit, this afternoon 98.3. Intake is 3541 mL and output is 1180 mL. HEENT: Pupil sluggishly reacting to light. No icterus. ET tube in the oral cavity. NECK: Supple. No JVD. LUNGS: Bilateral fair air entry. CARDIOVASCULAR SYSTEM: S1 and S2 present, regular. ABDOMEN: Soft. Bowel sounds present. CENTRAL NERVOUS SYSTEM: Remains intubated and sedated. Moving left side of the upper and lower extremities, right lower extremity withdrawing to painful stimuli. MEDICATIONS: Tylenol 650 mg every 4 as needed, DuoNeb, aspirin 81 mg daily, Plavix 75 mg daily, Pepcid 20 mg IV push daily, heparin 5000 subcu every 8 hours, Zosyn 3.375 g IV every 6 hours, Diprivan, and Crestor 10 mg p.o. at bedtime. LABORATORY DATA: Labs from this morning: WBC 9.6, hemoglobin 9.8, hematocrit 28.2, and platelets 142. ABG, on 40% of FiO2, 500 tidal volume, PEEP of 5, rate of 20, pH is 7.48, pCO2 of 25, and pO2 of 193. Sodium 142, potassium 3.9, chloride 115, bicarbonate 20, BUN 17, creatinine 1, glucose 135, calcium 7.9, phosphorus 1.1, magnesium 2.4. All the cultures so far negative. Chest x-ray consistent with pulmonary venous congestion with diffuse bilateral alveolar type infiltrate, bilateral effusions, left larger than right. CT head from last night showed significant acute ischemic changes involving most of the left cerebral hemisphere with diffuse cerebral edema and secondary mass effect with left to right mid line shift, estimated approximately 4.5 cm, mild dilation of the right lateral ventricle, bilateral chronic cerebellar infarct. ASSESSMENT AND PLAN: Elderly male with history of coronary artery disease, status post coronary artery bypass grafting, atrial fibrillation, hypertension, admitted for acute ischemic stroke with left internal carotid artery and left middle cerebral artery occlusion, status post successful endovascular thrombectomy and stenting and angioplasty of the left middle cerebral artery occlusion, status post intubation for airway protection and requirement support, anemia post procedure, hypophosphatemia. The patient is neurologically unresponsive involving left middle cerebral artery stroke with midline shift, monitor neurologic status closely. Continue with vent support with the new development of midline shift, may not be able to extubate. The patient remains in rate control atrial fibrillation. We will obtain cardiology evaluation, on aspirin and Plavix. Continue with lipid lowering agents. Continue with Zosyn for possible aspiration pneumonia. Continue with nebulizer therapies. Pepcid for gastrointestinal prophylaxis and subcutaneous heparin for deep venous thrombosis prophylaxis. Potassium phosphate supplemented this morning. We will repeat labs in a.m. His prognosis is guarded. We will continue with supportive care. Harinder Brunner MD
[2018-04-28] MEDS: Albuterol-Ipratrop 3 mg / 0.5 (3 ml) UD INH SCH ×6 (00:34→19:19)
[2018-04-28] MEDS: Piperacillin/Tazobact 3.375 GM in Sodium Chloride 100 ML IVPB SCH ×4 (02:31→21:29)
[2018-04-28 05:47] LABS: ARTERIAL BLOOD GAS HCO3 23.5 mmol/L (21-28); ARTERIAL BLOOD GAS HEMOGLOBIN 9.6 g/dL (11.7-17.4); ARTERIAL BLOOD GAS PCO2 32 mm/Hg (35-45); ARTERIAL BLOOD GAS PH 7.44 (7.35-7.45); ARTERIAL BLOOD GAS PO2 141 mm/Hg (80-100); ARTERIAL BLOOD GAS TCO2 22.7 mmol/L (22-28)
[2018-04-28] MEDS: Propofol 10 mg/ml 1,000 MG/100 ML VIAL IV PRN ×2 (05:53→14:13)
[2018-04-28 06:25] LABS: BASO # 0.1 K/uL (0.0-0.2); BASO % 0.5 % (0.0-2.0); EOS # 0.1 K/uL (0.0-0.7); EOS % 1.1 % (0.0-4.0); HEMOGLOBIN 9.4 g/dL (12.0-18.0); LYMPH # 1.5 K/uL (1.0-4.3); LYMPH % 14.9 % (20.0-40.0); MEAN CELL VOLUME 77.7 fL (80.0-94.0); MEAN CORPUSCULAR HEMOGLOBIN 26.4 pg (27.0-31.0); MEAN PLATELET VOLUME 9.6 fL (7.2-11.7); MONO # 0.7 K/uL (0.0-0.8); MONO % 7.5 % (0.0-10.0); NEUT # 7.5 K/uL (1.8-7.0); RBC 3.58 Mil/uL (4.40-5.90); RED CELL DISTRIBUTION WIDTH 18.2 % (11.5-14.5); WHITE BLOOD COUNT 9.8 K/uL (4.8-10.8)
[2018-04-28] MEDS: (Novolog) Insulin Aspart, Recombinant 100 u/ml 10 ml vial SC SCH ×4 (06:33→18:52)
[2018-04-28 06:36] LABS: ALT/SGPT 33 U/L (21-72); AST/SGOT 50 U/L (17-59); BLOOD UREA NITROGEN 17 mg/dL (9-20); GFR NON-AFRICAN AMERICAN > 60
--- NOTE | 2018-04-28 07:58 | CP.CCUPN ---
CCU Subjective - Physician Review Events Since Last Encounter (Free Text): 04/28/18 07:57 Patient is 82-year-old male with a history of looks like atrial fibrillation admitted to the hospital following a large ischemic stroke involving the left hemisphere. Patient underwent thrombectomy with recanalization of left ICA on the left MCA on 04/25/2018 Following that patient is intubated and he is currently in the intensive care unit. Patient is currently on sedation. He is moving the left side better. But the right-sided weakness noted. On sedation at this time, and if propofol is off patient is extremely restless. Patient is currently receiving mannitol, his osmolality is around 310 On examination: Vital signs are stable. Patient has atrial fibrillation Chest good air entry regular heart sound abdomen nontender. Edema 1+ noted. Chest x-ray ET tube in good position, mild vascular congestion noted Labs reviewed Chest x-ray CHF pattern noted. Echocardiogram pending Labs reviewed Assessment: 82-year-old male with a history of suspected atrial fibrillation chronic and now had large ischemic CVA left side. Status post evacuation of thrombus and a stent. Currently on ventilator, respiratory failure. We will continue to monitor. We'll repeat the CT scan of the head today. Patient is at high risk for herniation. Monitor the midline shift. Neurological follow-up. Will continue the mannitol. Weaning as tolerated. Overall prognosis is very poor CCU Objective - Vital Signs / Intake & Output Vital Signs (Last 4 hours): Vital Signs Temp Pulse Resp BP BP Pulse Ox 04/28/18 06:35 144/53 L 04/28/18 06:01 133/61 04/28/18 06:00 76 20 141/52 L 100 04/28/18 05:02 124/61 04/28/18 05:00 83 14 144/51 L 100 04/28/18 04:02 135/63 04/28/18 04:00 98.5 F 73 22 158/53 H 100 Intake and Output (Last 8hrs): Intake & Output 04/27/18 04/28/18 04/28/18 22:59 06:59 14:59 Intake Total 852.4 719.1 Output Total 750 540 Balance 102.4 179.1 Weight 178 lb 9.6 oz Intake: IV 100 100 Intake, IV Amount 392.4 169.1 Right Forearm 66.4 69.1 Right Forearm Y-site 126 Right Hand 200 100 Tube Feeding 360 450 Output: Urine 750 540 Urethral (Bhatt) 750 540 - Physical Exam Head: Positive for: Atraumatic, Normocephalic Pupils: Positive for: PERRL, Sluggish Mouth: Positive for: Dry Respiratory/Chest: Positive for: Rhonchi, Other (vent) Cardiovascular: Positive for: Regular Rate and Rhythm, Normal S1, S2. Negative for: Murmurs Abdomen: Negative for: Distention Upper Extremity: Positive for: Normal Inspection Lower Extremity: Positive for: Normal Inspection Neurological: Positive for: Other (intubated, sedated, responsive to pain, gag relfex intact) Skin: Positive for: Warm, Dry Psychiatric: Negative for: Alert - Medications Active Medications: Active Medications Generic Name Dose Route Start Last Admin Trade Name Freq PRN Reason Stop Dose Admin Acetaminophen 650 mg 04/26/18 20:59 04/27/18 11:56 Tylenol 650mg/20.3ml Solution Ud NG 650 mg Q4 PRN Administration Temperature Albuterol/Ipratropium 3 ml 04/26/18 12:00 04/28/18 07:50 Duoneb 3 Mg/0.5 Mg (3 Ml) Ud INH 3 ml RQ4 DANIEL Administration Aspirin 81 mg 04/26/18 10:00 04/27/18 10:01 Ecotrin PO 81 mg DAILY DANIEL Administration Clopidogrel Bisulfate 75 mg 04/26/18 10:00 04/27/18 10:01 Plavix PO 75 mg DAILY DANIEL Administration Famotidine 20 mg 04/26/18 10:00 04/27/18 10:01 Pepcid IVP 20 mg DAILY DANIEL Administration Heparin Sodium (Porcine) 5,000 units 04/25/18 22:00 04/28/18 05:33 Heparin SC 5,000 units Q8 DANIEL Administration Propofol 1,000 mg in 100 mls @ 2.773 mls/hr 04/25/18 21:29 04/28/18 05:53 Diprivan IV 10 mcg/kg/min .Q24H PRN 5.547 mls/hr TITRATE PER MD ORDER Administration Protocol 5 MCG/KG/MIN Piperacillin Sod/Tazobactam 100 mls @ 200 mls/hr 04/26/18 09:15 04/28/18 02:31 Sod 3.375 gm/ Sodium Chloride IVPB 200 mls/hr Q6H DANIEL Administration Protocol Potassium Phosphate 15 mmole/ 255 mls @ 42.5 mls/hr 04/28/18 07:56 Sodium Chloride IVPB 04/28/18 13:55 ONCE ONE Insulin Aspart 0 unit 04/26/18 12:00 04/28/18 06:33 Novolog SC Not Given Q6H [facility] Protocol Propofol 100 mg 04/25/18 20:19 Diprivan IV TITR DANIEL Rosuvastatin Calcium 10 mg 04/26/18 22:00 04/27/18 21:14 Crestor PO 10 mg HS DANIEL Administration - Patient Studies Lab Studies: Microbiology Studies 04/26/18 00:54 MRSA Culture (Admit) - Final Nose MRSA NOT DETECTED 04/26/18 00:31 Urine Culture - Final Urine,Catheterized No Growth (<1,000 CFU/ML) 04/25/18 08:28 Blood Culture - Preliminary Blood NO GROWTH AFTER 24 HOURS 04/26/18 08:28 Blood Culture - Preliminary Blood NO GROWTH AFTER 24 HOURS Lab Studies 04/28/18 04/28/18 04/28/18 Range/Units 06:14 06:14 06:14 WBC 9.8 (4.8-10.8) K/uL RBC 3.58 L (4.40-5.90) Mil/uL Hgb 9.4 L (12.0-18.0) g/dL Hct 27.8 L (35.0-51.0) % MCV 77.7 L (80.0-94.0) fL MCH 26.4 L (27.0-31.0) pg MCHC 34.0 (33.0-37.0) g/dL RDW 18.2 H (11.5-14.5) % Plt Count 142 (130-400) K/uL MPV 9.6 (7.2-11.7) fL Neut % (Auto) 76.0 H (50.0-75.0) % Lymph % (Auto) 14.9 L (20.0-40.0) % [place] % (Auto) 7.5 (0.0-10.0) % Eos % (Auto) 1.1 (0.0-4.0) % Baso % (Auto) 0.5 (0.0-2.0) % Neut # (Auto) 7.5 H (1.8-7.0) K/uL Lymph # (Auto) 1.5 (1.0-4.3) K/uL [place] # (Auto) 0.7 (0.0-0.8) K/uL Eos # (Auto) 0.1 (0.0-0.7) K/uL Baso # (Auto) 0.1 (0.0-0.2) K/uL Puncture Site pCO2 (35-45) mm/Hg pO2 (80-100) mm/Hg HCO3 (21-28) mmol/L ABG pH (7.35-7.45) ABG Total CO2 (22-28) mmol/L ABG O2 Saturation (95-98) % ABG Base Excess (-2.0-3.0) mmol/L ABG Hemoglobin (11.7-17.4) g/dL ABG Carboxyhemoglobin (0.5-1.5) % POC ABG HHb (Measured) (0.0-5.0) % ABG Methemoglobin (0.0-3.0) % Jose D Test A-a O2 Difference mm/Hg Respiratory Index Hgb O2 Saturation (95.0-98.0) % Vent Mode Mechanical Rate FiO2 % Tidal Volume PEEP Sodium 143 (132-148) mmol/L Potassium 3.9 (3.6-5.2) mmol/L Chloride 115 H (98-107) mmol/L Carbon Dioxide 21 L (22-30) mmol/L Anion Gap 11 (10-20) BUN 17 (9-20) mg/dL Creatinine 1.0 (0.8-1.5) mg/dL Est GFR ( Amer) > 60 Est GFR (Non-Af Amer) > 60 Random Glucose 131 H (75-110) mg/dL Serum Osmolality 310 H (272-300) mosm/kg Calcium 8.0 L (8.6-10.4) mg/dl Phosphorus 2.3 L (2.5-4.5) mg/dL Magnesium 2.3 (1.6-2.3) mg/dL Total Bilirubin 0.7 (0.2-1.3) mg/dL AST 50 (17-59) U/L ALT 33 (21-72) U/L Alkaline Phosphatase 69 (38-126) U/L Total Protein 6.0 L (6.3-8.3) g/dL Albumin 3.0 L (3.5-5.0) g/dL Globulin 3.0 (2.2-3.9) gm/dL Albumin/Globulin Ratio 1.0 (1.0-2.1) 04/28/18 04/27/18 04/27/18 Range/Units 05:28 21:56 21:56 WBC (4.8-10.8) K/uL RBC (4.40-5.90) Mil/uL Hgb (12.0-18.0) g/dL Hct (35.0-51.0) % MCV (80.0-94.0) fL MCH (27.0-31.0) pg MCHC (33.0-37.0) g/dL RDW (11.5-14.5) % Plt Count (130-400) K/uL MPV (7.2-11.7) fL Neut % (Auto) (50.0-75.0) % Lymph % (Auto) (20.0-40.0) % [place] % (Auto) (0.0-10.0) % Eos % (Auto) (0.0-4.0) % Baso % (Auto) (0.0-2.0) % Neut # (Auto) (1.8-7.0) K/uL Lymph # (Auto) (1.0-4.3) K/uL [place] # (Auto) (0.0-0.8) K/uL Eos # (Auto) (0.0-0.7) K/uL Baso # (Auto) (0.0-0.2) K/uL Puncture Site A-line pCO2 32 L (35-45) mm/Hg pO2 141 H (80-100) mm/Hg HCO3 23.5 (21-28) mmol/L ABG pH 7.44 (7.35-7.45) ABG Total CO2 22.7 (22-28) mmol/L ABG O2 Saturation 99.0 H (95-98) % ABG Base Excess -1.9 (-2.0-3.0) mmol/L ABG Hemoglobin 9.6 L (11.7-17.4) g/dL ABG Carboxyhemoglobin 1.4 (0.5-1.5) % POC ABG HHb (Measured) 1.0 (0.0-5.0) % ABG Methemoglobin 0.7 (0.0-3.0) % Jose D Test Na A-a O2 Difference 104.0 mm/Hg Respiratory Index 0.7 Hgb O2 Saturation 96.9 (95.0-98.0) % Vent Mode Prvc Mechanical Rate 18 FiO2 40.0 % Tidal Volume 500 PEEP 5 Sodium 142 (132-148) mmol/L Potassium 4.1 (3.6-5.2) mmol/L Chloride 114 H (98-107) mmol/L Carbon Dioxide 22 (22-30) mmol/L Anion Gap 10 (10-20) BUN 16 (9-20) mg/dL Creatinine 1.0 (0.8-1.5) mg/dL Est GFR ( Amer) > 60 Est GFR (Non-Af Amer) > 60 Random Glucose 134 H (75-110) mg/dL Serum Osmolality 311 H (272-300) mosm/kg Calcium 8.1 L (8.6-10.4) mg/dl Phosphorus 1.9 L (2.5-4.5) mg/dL Magnesium 2.4 H (1.6-2.3) mg/dL Total Bilirubin 0.6 (0.2-1.3) mg/dL AST 45 (17-59) U/L ALT 33 (21-72) U/L Alkaline Phosphatase 61 (38-126) U/L Total Protein 5.9 L (6.3-8.3) g/dL Albumin 3.0 L (3.5-5.0) g/dL Globulin 3.0 (2.2-3.9) gm/dL Albumin/Globulin Ratio 1.0 (1.0-2.1) 04/27/18 04/27/18 04/27/18 Range/Units 21:56 12:55 12:55 WBC 9.8 (4.8-10.8) K/uL RBC 3.55 L (4.40-5.90) Mil/uL Hgb 9.5 L (12.0-18.0) g/dL Hct 27.6 L (35.0-51.0) % MCV 77.7 L (80.0-94.0) fL MCH 26.6 L (27.0-31.0) pg MCHC 34.2 (33.0-37.0) g/dL RDW 18.1 H (11.5-14.5) % Plt Count 138 (130-400) K/uL MPV 8.5 (7.2-11.7) fL Neut % (Auto) 70.8 (50.0-75.0) % Lymph % (Auto) 20.6 (20.0-40.0) % [place] % (Auto) 6.9 (0.0-10.0) % Eos % (Auto) 1.4 (0.0-4.0) % Baso % (Auto) 0.3 (0.0-2.0) % Neut # (Auto) 7.0 (1.8-7.0) K/uL Lymph # (Auto) 2.0 (1.0-4.3) K/uL [place] # (Auto) 0.7 (0.0-0.8) K/uL Eos # (Auto) 0.1 (0.0-0.7) K/uL Baso # (Auto) 0.0 (0.0-0.2) K/uL Puncture Site pCO2 (35-45) mm/Hg pO2 (80-100) mm/Hg HCO3 (21-28) mmol/L ABG pH (7.35-7.45) ABG Total CO2 (22-28) mmol/L ABG O2 Saturation (95-98) % ABG Base Excess (-2.0-3.0) mmol/L ABG Hemoglobin (11.7-17.4) g/dL ABG Carboxyhemoglobin (0.5-1.5) % POC ABG HHb (Measured) (0.0-5.0) % ABG Methemoglobin (0.0-3.0) % Jose D Test A-a O2 Difference mm/Hg Respiratory Index Hgb O2 Saturation (95.0-98.0) % Vent Mode Mechanical Rate FiO2 % Tidal Volume PEEP Sodium 142 (132-148) mmol/L Potassium 4.0 (3.6-5.2) mmol/L Chloride 116 H (98-107) mmol/L Carbon Dioxide 21 L (22-30) mmol/L Anion Gap 9 L (10-20) BUN 16 (9-20) mg/dL Creatinine 0.9 (0.8-1.5) mg/dL Est GFR ( Amer) > 60 Est GFR (Non-Af Amer) > 60 Random Glucose 140 H (75-110) mg/dL Serum Osmolality 306 H (272-300) mosm/kg Calcium 7.8 L (8.6-10.4) mg/dl Phosphorus (2.5-4.5) mg/dL Magnesium (1.6-2.3) mg/dL Total Bilirubin 0.6 (0.2-1.3) mg/dL AST 40 (17-59) U/L ALT 35 (21-72) U/L Alkaline Phosphatase 65 (38-126) U/L Total Protein 5.7 L (6.3-8.3) g/dL Albumin 2.9 L (3.5-5.0) g/dL Globulin 2.8 (2.2-3.9) gm/dL Albumin/Globulin Ratio 1.0 (1.0-2.1) Laboratory Results - last 24 hr 04/27/18 04/27/18 04/27/18 12:55 12:55 21:56 WBC 9.8 RBC 3.55 L Hgb 9.5 L Hct 27.6 L MCV 77.7 L MCH 26.6 L MCHC 34.2 RDW 18.1 H Plt Count 138 MPV 8.5 Neut % (Auto) 70.8 Lymph % (Auto) 20.6 [place] % (Auto) 6.9 Eos % (Auto) 1.4 Baso % (Auto) 0.3 Neut # (Auto) 7.0 Lymph # (Auto) 2.0 [place] # (Auto) 0.7 Eos # (Auto) 0.1 Baso # (Auto) 0.0 Puncture Site pCO2 pO2 HCO3 ABG pH ABG Total CO2 ABG O2 Saturation ABG Base Excess ABG Hemoglobin ABG Carboxyhemoglobin POC ABG HHb (Measured) ABG Methemoglobin Jose D Test A-a O2 Difference Respiratory Index Hgb O2 Saturation Vent Mode Mechanical Rate FiO2 Tidal Volume PEEP Sodium 142 Potassium 4.0 Chloride 116 H Carbon Dioxide 21 L Anion Gap 9 L BUN 16 Creatinine 0.9 Est GFR ( Amer) > 60 Est GFR (Non-Af Amer) > 60 Random Glucose 140 H Serum Osmolality 306 H Calcium 7.8 L Phosphorus Magnesium Total Bilirubin 0.6 AST 40 ALT 35 Alkaline Phosphatase 65 Total Protein 5.7 L Albumin 2.9 L Globulin 2.8 Albumin/Globulin Ratio 1.0 04/27/18 04/27/18 04/28/18 21:56 21:56 05:28 WBC RBC Hgb Hct MCV MCH MCHC RDW Plt Count MPV Neut % (Auto) Lymph % (Auto) [place] % (Auto) Eos % (Auto) Baso % (Auto) Neut # (Auto) Lymph # (Auto) [place] # (Auto) Eos # (Auto) Baso # (Auto) Puncture Site A-line pCO2 32 L pO2 141 H HCO3 23.5 ABG pH 7.44 ABG Total CO2 22.7 ABG O2 Saturation 99.0 H ABG Base Excess -1.9 ABG Hemoglobin 9.6 L ABG Carboxyhemoglobin 1.4 POC ABG HHb (Measured) 1.0 ABG Methemoglobin 0.7 Jose D Test Na A-a O2 Difference 104.0 Respiratory Index 0.7 Hgb O2 Saturation 96.9 Vent Mode Prvc Mechanical Rate 18 FiO2 40.0 Tidal Volume 500 PEEP 5 Sodium 142 Potassium 4.1 Chloride 114 H Carbon Dioxide 22 Anion Gap 10 BUN 16 Creatinine 1.0 Est GFR ( Amer) > 60 Est GFR (Non-Af Amer) > 60 Random Glucose 134 H Serum Osmolality 311 H Calcium 8.1 L Phosphorus 1.9 L Magnesium 2.4 H Total Bilirubin 0.6 AST 45 ALT 33 Alkaline Phosphatase 61 Total Protein 5.9 L Albumin 3.0 L Globulin 3.0 Albumin/Globulin Ratio 1.0 04/28/18 04/28/18 04/28/18 06:14 06:14 06:14 WBC 9.8 RBC 3.58 L Hgb 9.4 L Hct 27.8 L MCV 77.7 L MCH 26.4 L MCHC 34.0 RDW 18.2 H Plt Count 142 MPV 9.6 Neut % (Auto) 76.0 H Lymph % (Auto) 14.9 L [place] % (Auto) 7.5 Eos % (Auto) 1.1 Baso % (Auto) 0.5 Neut # (Auto) 7.5 H Lymph # (Auto) 1.5 [place] # (Auto) 0.7 Eos # (Auto) 0.1 Baso # (Auto) 0.1 Puncture Site pCO2 pO2 HCO3 ABG pH ABG Total CO2 ABG O2 Saturation ABG Base Excess ABG Hemoglobin ABG Carboxyhemoglobin POC ABG HHb (Measured) ABG Methemoglobin Jose D Test A-a O2 Difference Respiratory Index Hgb O2 Saturation Vent Mode Mechanical Rate FiO2 Tidal Volume PEEP Sodium 143 Potassium 3.9 Chloride 115 H Carbon Dioxide 21 L Anion Gap 11 BUN 17 Creatinine 1.0 Est GFR ( Amer) > 60 Est GFR (Non-Af Amer) > 60 Random Glucose 131 H Serum Osmolality 310 H Calcium 8.0 L Phosphorus 2.3 L Magnesium 2.3 Total Bilirubin 0.7 AST 50 ALT 33 Alkaline Phosphatase 69 Total Protein 6.0 L Albumin 3.0 L Globulin 3.0 Albumin/Globulin Ratio 1.0 Fingerstick Blood Sugar Results: 127
[2018-04-28] MEDS ORDERED: Potassium Phosphate 15 MMOLE in Sodium Chloride 0.9% 250 ML IVPB ONE (08:00)
[2018-04-28] MEDS: Acetaminophen 650mg/20.3ml solution UD NG PRN (09:33)
[2018-04-28] MEDS: Sodium Chloride 0.9% 1,000 ML IV SCH ×2 (09:44→19:46)
--- NOTE | 2018-04-28 10:28 | CT ---
Date of service: 04/28/2018 PROCEDURE: CT HEAD WITHOUT CONTRAST. HISTORY: S/P thrombectomy, stroke COMPARISON: Comparison made with CT scan brain 04/26/2018 TECHNIQUE: Axial computed tomography images were obtained through the head/brain without intravenous contrast. Radiation dose: Total exam DLP = 1164.58 mGy-cm. This CT exam was performed using one or more of the following dose reduction techniques: Automated exposure control, adjustment of the mA and/or kV according to patient size, and/or use of iterative reconstruction technique. FINDINGS: HEMORRHAGE: No definitive evidence of acute hemorrhage. Hemorrhage. BRAIN: Extensive acute ischemic changes involving most of the left cerebral hemisphere associated with diffuse cerebral edema and increased mass effect with overlying sulcal effacement and compression of the left lateral ventricle which is displaced across midline.. The septum pellucidum is displaced across midline by approximately 12 mm. There is dilatation of the right lateral ventricle due to compression of the right foramen of [place] Chronic bilateral cerebellar infarcts are present. VENTRICLES: As above. CALVARIUM: Unremarkable. PARANASAL SINUSES: Mild mucosal thickening present within all the paranasal sinuses MASTOID AIR CELLS: Moderate sclerosis-under pneumatization of the right mastoid air complex again noted.. Minor sclerosis and under pneumatization left air complex OTHER FINDINGS: Changes of bilateral cataract surgery again noted IMPRESSION: Extensive acute ischemic changes involving most of the left cerebral hemisphere associated with diffuse cerebral edema and mass effect with overlying sulcal effacement and compression of the left lateral ventricle which is displaced across midline which has increased.. The septum pellucidum is displaced across midline by approximately 12 mm. There is dilatation of the right lateral ventricle due to compression of the right foramen of [place] Chronic bilateral cerebellar infarcts are present. No definitive evidence of acute intracranial hemorrhage.
[2018-04-28] MEDS ORDERED: Sodium Chloride 3% 500 ML IV ONE (12:45)
--- NOTE | 2018-04-28 13:04 | PCM.SURG1 ---
Surgeon's Initial Post Op Note - Surgeon's Notes Surgeon: Taty Barley Steeper: none Pre-Operative Diagnosis: CVA Operative Findings: consent was obtained for TLC insertion. Right internal jugular vein verified with a sonogram, TLC was inserted without any complication. Chest x-ray ordered Post-Operative Diagnosis: stable Operation Performed: TLC Specimen/Specimens Removed: none Estimated Blood Loss: EBL {In ML}: 0 Date of Surgery/Procedure: 04/28/18 Time of Surgery/Procedure: 13:03
--- NOTE | 2018-04-28 13:34 | CP.PCM.PN ---
Subjective - Date & Time of Evaluation Date of Evaluation: 04/28/18 Time of Evaluation: 13:28 - Subjective Subjective: Mr. Goodwin was seen and evaluated today in the ICU. His family was at bedside. He continues to be intubated, off sedation with right side hemiplegia and aphasia. The repeat CT head showed increasing edema. I discussed new goals for serum sodium and osmolarity and we started continuous hypertonic 3% saline. Objective - Vital Signs/Intake and Output Vital Signs (last 24 hours): Temp Pulse Resp BP Pulse Ox 99.9 F H 91 H 24 151/49 H 99 04/28/18 11:53 04/28/18 12:00 04/28/18 12:00 04/28/18 12:00 04/28/18 12:00 Intake and Output: 04/28/18 04/28/18 06:59 18:59 Intake Total 989.0 634.8 Output Total 890 160 Balance 99.0 474.8 - Medications Medications: Current Medications Acetaminophen (Tylenol 650mg/20.3ml Solution Ud) 650 mg NG Q4 PRN PRN Reason: Temperature Last Admin: 04/28/18 09:33 Dose: 650 mg Albuterol/Ipratropium (Duoneb 3 Mg/0.5 Mg (3 Ml) Ud) 3 ml INH RQ4 [facility] Last Admin: 04/28/18 11:04 Dose: 3 ml Aspirin (Ecotrin) 81 mg PO DAILY [facility] Last Admin: 04/28/18 11:48 Dose: Not Given Clopidogrel Bisulfate (Plavix) 75 mg PO DAILY [facility] Last Admin: 04/28/18 11:48 Dose: Not Given Famotidine (Pepcid) 20 mg IVP DAILY [facility] Last Admin: 04/28/18 09:33 Dose: 20 mg Heparin Sodium (Porcine) (Heparin) 5,000 units SC Q8 [facility] Last Admin: 04/28/18 05:33 Dose: 5,000 units Propofol (Diprivan) 1,000 mg in 100 mls @ 2.773 mls/hr IV .Q24H PRN; Protocol PRN Reason: TITRATE PER MD ORDER Last Titration: 04/28/18 11:47 Dose: 14.96 mcg/kg/min, 8.3 mls/hr Piperacillin Sod/Tazobactam (Sod 3.375 gm/ Sodium Chloride) 100 mls @ 200 mls/hr IVPB Q6H DANIEL; Protocol Last Admin: 04/28/18 09:34 Dose: 200 mls/hr Potassium Phosphate 15 mmole/ (Sodium Chloride) 255 mls @ 42.5 mls/hr IVPB ONCE ONE Stop: 04/28/18 13:59 Last Admin: 04/28/18 09:33 Dose: 42.5 mls/hr Sodium Chloride (Sodium Chloride 0.9%) 1,000 mls @ 100 mls/hr IV .Q10H [facility]ANIEL Last Admin: 04/28/18 09:44 Dose: 100 mls/hr Sodium Chloride (Hypertonic Saline 3%) 500 mls @ 60 mls/hr IV .Q8H20M ONE Stop: 04/28/18 21:04 Insulin Aspart (Novolog) 0 unit SC Q6H DANIEL; Protocol Last Admin: 04/28/18 11:54 Dose: Not Given Lactulose (Enulose) 20 gm PO HS DANIEL Propofol (Diprivan) 100 mg IV TITR DANIEL Rosuvastatin Calcium (Crestor) 10 mg PO HS DANIEL Last Admin: 04/27/18 21:14 Dose: 10 mg - Labs Labs: 04/28/18 06:14 04/28/18 06:14 PT 14.5 SECONDS (9.7-12.2) H 04/26/18 21:58 INR 1.3 04/26/18 21:58 APTT 32 SECONDS (21-34) 04/26/18 21:58 - Neurological Exam Neuro motor strength exam: Left Upper Extremity: 4, Right Upper Extremity: 0, Left Lower Extremity: 4, Right Lower Extremity: 0 Additional comments: aphasic, does not follow commands. Moves left side spontaneously. Right side neglect, eye lid apraxia present. NIHSS = 22 Assessment and Plan (1) Stroke Assessment & Plan: s/p thrombectomy. Will continue aspirin/plavix. Repeat CT head in 12 hours. Repeat serum osm and sodium Q6. Titrate serum sodium to 150-155 and continue 3% at 60 mL/hr. Try to maintain serum osm below 320. Status: Acute
--- NOTE | 2018-04-28 13:44 | CP.PCM.PN ---
Subjective - Date & Time of Evaluation Date of Evaluation: 04/28/18 Time of Evaluation: 13:44 - Subjective Subjective: Progress note dictated #[id number] Objective - Vital Signs/Intake and Output Vital Signs (last 24 hours): Temp Pulse Resp BP Pulse Ox 99.9 F H 91 H 24 151/49 H 99 04/28/18 11:53 04/28/18 12:00 04/28/18 12:00 04/28/18 12:00 04/28/18 12:00 Intake and Output: 04/28/18 04/28/18 06:59 18:59 Intake Total 989.0 735.6 Output Total 890 160 Balance 99.0 575.6 - Medications Medications: Current Medications Acetaminophen (Tylenol 650mg/20.3ml Solution Ud) 650 mg NG Q4 PRN PRN Reason: Temperature Last Admin: 04/28/18 09:33 Dose: 650 mg Albuterol/Ipratropium (Duoneb 3 Mg/0.5 Mg (3 Ml) Ud) 3 ml INH RQ4 [facility]EL Last Admin: 04/28/18 11:04 Dose: 3 ml Aspirin (Ecotrin) 81 mg PO DAILY DANIEL Last Admin: 04/28/18 11:48 Dose: Not Given Clopidogrel Bisulfate (Plavix) 75 mg PO DAILY [facility] Last Admin: 04/28/18 11:48 Dose: Not Given Famotidine (Pepcid) 20 mg IVP DAILY [facility] Last Admin: 04/28/18 09:33 Dose: 20 mg Heparin Sodium (Porcine) (Heparin) 5,000 units SC Q8 [facility]EL Last Admin: 04/28/18 05:33 Dose: 5,000 units Propofol (Diprivan) 1,000 mg in 100 mls @ 2.773 mls/hr IV .Q24H PRN; Protocol PRN Reason: TITRATE PER MD ORDER Last Titration: 04/28/18 11:47 Dose: 14.96 mcg/kg/min, 8.3 mls/hr Piperacillin Sod/Tazobactam (Sod 3.375 gm/ Sodium Chloride) 100 mls @ 200 mls/hr IVPB Q6H DANIEL; Protocol Last Admin: 04/28/18 09:34 Dose: 200 mls/hr Potassium Phosphate 15 mmole/ (Sodium Chloride) 255 mls @ 42.5 mls/hr IVPB ONCE ONE Stop: 04/28/18 13:59 Last Admin: 04/28/18 09:33 Dose: 42.5 mls/hr Sodium Chloride (Sodium Chloride 0.9%) 1,000 mls @ 100 mls/hr IV .Q10H [facility]ANI[facility] Last Admin: 04/28/18 09:44 Dose: 100 mls/hr Sodium Chloride (Hypertonic Saline 3%) 500 mls @ 60 mls/hr IV .Q8H20M ONE Stop: 04/28/18 21:04 Insulin Aspart (Novolog) 0 unit SC Q6H DANIEL; Protocol Last Admin: 04/28/18 11:54 Dose: Not Given Lactulose (Enulose) 20 gm PO HS DANIEL Propofol (Diprivan) 100 mg IV TITR DANIEL Rosuvastatin Calcium (Crestor) 10 mg PO HS [facility]EL Last Admin: 04/27/18 21:14 Dose: 10 mg - Labs Labs: 04/28/18 06:14 04/28/18 06:14 PT 14.5 SECONDS (9.7-12.2) H 04/26/18 21:58 INR 1.3 04/26/18 21:58 APTT 32 SECONDS (21-34) 04/26/18 21:58
--- NOTE | 2018-04-28 13:59 | RAD ---
Date of service: 04/28/2018 HISTORY: vented COMPARISON: Comparison chest 04/27/2018 FINDINGS: LUNGS: In situ ETT, tip of which lies approximately 2.9 cm above pro. NGT is present, the tip of which overlies left lateral upper abdomen. Mild central pulmonary vascular congestive changes slightly improved from prior study. There are also mild bilateral lower lobe alveolar-type infiltrates and bilateral effusions left greater than right. PLEURA: No significant pleural effusion identified, no pneumothorax apparent. CARDIOVASCULAR: Mild aortic atherosclerotic calcification present. Sternotomy wires again noted. Cardiomegaly.. OSSEOUS STRUCTURES: No significant abnormalities. VISUALIZED UPPER ABDOMEN: Normal. OTHER FINDINGS: None. IMPRESSION: ETT and NGT as above. Mild central pulmonary vascular congestive changes slightly improved from prior study. There are also mild bilateral lower lobe alveolar-type infiltrates and bilateral effusions left greater than right.
--- NOTE | 2018-04-28 15:21 | RAD ---
Date of service: 04/28/2018 HISTORY: TLC COMPARISON: No prior. FINDINGS: Interval placement right IJ triple-lumen catheter with tip in the SVC in situ ETT, tip of which lies approximately 8.5 mm above the pro. This with should be withdrawn slightly.. NGT is present, the tip of which overlies left upper quadrant of the abdomen. LUNGS: Mild central pulmonary vascular congestive changes slightly improved from prior study. There are also mild bilateral lower lobe alveolar-type infiltrates and bilateral effusions left greater than right. PLEURA: No no definitive evidence of pneumothorax. The CARDIOVASCULAR: Mild aortic atherosclerotic calcification present. Sternotomy wires again noted. Cardiomegaly. No pulmonary vascular congestion. OSSEOUS STRUCTURES: No significant abnormalities. VISUALIZED UPPER ABDOMEN: Normal. OTHER FINDINGS: None. IMPRESSION: ETT tip lies approximately 8.5 mm above pro and could be withdrawn slightly. Right IJ triple-lumen catheter and the NGT as above. Mild central pulmonary vascular congestive changes slightly improved from prior study. There are also mild bilateral lower lobe alveolar-type infiltrates and bilateral effusions left greater than right.. No definitive pneumothorax.
[2018-04-28] MEDS: niCARdipine IV 25 MG in Sodium Chloride 0.9% 240 ML IV SCH (16:25)
[2018-04-28] MEDS ORDERED: Racepinephrine 2.25% Inhal Soln 0.5 ML UD INH ONE (18:51)
--- NOTE | 2018-04-28 20:49 | CP.PCM.PN ---
Subjective - Date & Time of Evaluation Date of Evaluation: 04/28/18 Time of Evaluation: 10:20 - Subjective Subjective: Patient seen and evaluated Intubated Review of Systems - Review of Systems Systems not reviewed;Unavailable: Intubated Past Patient History - Past Social History Smoking Status: unknown - PSYCHIATRIC Hx Substance Use: No (unknown) Physical Exam - Constitutional Additional comments: sedated, intubated - Head Exam Head Exam: ATRAUMATIC - Eye Exam Eye Exam: PERRL - ENT Exam ENT Exam: Mucous Membranes Moist - Respiratory Exam Additional comments: vent - Cardiovascular Exam Cardiovascular Exam: REGULAR RHYTHM - GI/Abdominal Exam GI & Abdominal Exam: Soft - Rectal Exam Rectal Exam: Deferred - Extremities Exam Extremities exam: Positive for: spontaneous left sided movements - Psychiatric Exam Additional comments: sedated - Skin Skin Exam: Dry, Normal Color, Warm Assessment & Plan - Assessment and Plan (Free Text) Assessment: Patient is 82 yo male who underwent 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 He remains intubated and sedated. 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, occlusion of L MCA - Neurovascular checks Q1H- if any changes, repeat CT head STAT - Propofol drip- maintain RASS -2 - Neurology consulted (Seth) - Neurointervention consulted (Chago) CV: - Mechanical thrombectomy today 04/25 - Lipid panel wnl - Stop Integrilin - ASA 325 mg PO loading dose then ASA 81 mg PO daily - Plavix 300 mg PO loading dose then Plavix 75 mg PO daily - NS @ 100 mL/hr - Monitor vitals- maintain SBP Pulm: - ETT- titrate vent to maintain spO2>92% - CXR pending - ABG pending GI: - NGT - NPO : - I's & O's- Bhatt - Replete electrolytes PRN - UA pending Endo: - A1c 5.9 - Maintain euglycemia - Hypoglycemia protocol - Accuchecks Q6H with ISS Heme: - Monitor H&H - Monitor coags ID: - Afebrile - No leukocytosis - Lactate pending PPx: VTE: heparin 5000 units SC Q8H GI: Pepcid 20 mg IV daily Code status: full code Objective - Vital Signs/Intake and Output Vital Signs (last 24 hours): Temp Pulse Resp BP Pulse Ox 97.9 F 85 18 134/69 98 04/28/18 16:00 04/28/18 19:25 04/28/18 19:25 04/28/18 19:25 04/28/18 19:25 Intake and Output: 04/28/18 04/29/18 18:59 06:59 Intake Total 1546.2 146 Output Total 357 Balance 1189.2 146 - Medications Medications: Current Medications Acetaminophen (Tylenol 650mg/20.3ml Solution Ud) 650 mg NG Q4 PRN PRN Reason: Temperature Last Admin: 04/28/18 09:33 Dose: 650 mg Albuterol/Ipratropium (Duoneb 3 Mg/0.5 Mg (3 Ml) Ud) 3 ml INH RQ4 [facility] Last Admin: 04/28/18 19:19 Dose: 3 ml Aspirin (Ecotrin) 81 mg PO DAILY [facility] Last Admin: 04/28/18 11:48 Dose: Not Given Clopidogrel Bisulfate (Plavix) 75 mg PO DAILY [facility] Last Admin: 04/28/18 11:48 Dose: Not Given Famotidine (Pepcid) 20 mg IVP DAILY [facility] Last Admin: 04/28/18 09:33 Dose: 20 mg Heparin Sodium (Porcine) (Heparin) 5,000 units SC Q8 [facility] Last Admin: 04/28/18 14:18 Dose: 5,000 units Propofol (Diprivan) 1,000 mg in 100 mls @ 2.773 mls/hr IV .Q24H PRN; Protocol PRN Reason: TITRATE PER MD ORDER Last Titration: 04/28/18 18:49 Dose: 20 mcg/kg/min, 11.093 mls/hr Piperacillin Sod/Tazobactam (Sod 3.375 gm/ Sodium Chloride) 100 mls @ 200 mls/hr IVPB Q6H [facility]; Protocol Last Admin: 04/28/18 14:58 Dose: 200 mls/hr Sodium Chloride (Sodium Chloride 0.9%) 1,000 mls @ 100 mls/hr IV .Q10H [facility] Last Admin: 04/28/18 19:46 Dose: Not Given Sodium Chloride (Hypertonic Saline 3%) 500 mls @ 60 mls/hr IV .Q8H20M ONE Stop: 04/28/18 21:04 Last Admin: 04/28/18 13:47 Dose: 60 mls/hr Nicardipine HCl 25 mg/ Sodium (Chloride) 250 mls @ 25 mls/hr IV .Q10H [facility]; Protocol Last Admin: 04/28/18 16:25 Dose: 2.5 mg/hr, 25 mls/hr Insulin Aspart (Novolog) 0 unit SC Q6H [facility]; Protocol Last Admin: 04/28/18 18:52 Dose: Not Given Lactulose (Enulose) 20 gm PO HS [facility] Propofol (Diprivan) 100 mg IV TITR [facility] Rosuvastatin Calcium (Crestor) 10 mg PO HS [facility] Last Admin: 04/27/18 21:14 Dose: 10 mg - Labs Labs: 04/28/18 06:14 04/28/18 06:14 PT 14.5 SECONDS (9.7-12.2) H 04/26/18 21:58 INR 1.3 04/26/18 21:58 APTT 32 SECONDS (21-34) 04/26/18 21:58
[2018-04-29] MEDS: Acetaminophen 650mg/20.3ml solution UD NG PRN ×2 (00:38→12:00)
[2018-04-29] MEDS: Albuterol-Ipratrop 3 mg / 0.5 (3 ml) UD INH SCH ×6 (01:04→19:43)
[2018-04-29] MEDS: (Novolog) Insulin Aspart, Recombinant 100 u/ml 10 ml vial SC SCH ×4 (01:24→18:00)
[2018-04-29] MEDS: niCARdipine IV 25 MG in Sodium Chloride 0.9% 240 ML IV SCH ×4 (02:09→22:00)
--- NOTE | 2018-04-29 04:20 | PN ---
DATE: 04/28/2018 SUBJECTIVE: The patient was seen and examined at bedside. The patient's mental status remains the same. Events from overnight noted. The patient remains intubated, sedated. PHYSICAL EXAMINATION: VITAL SIGNS: Blood pressure 134/69, pulse 85, respirations 18, temperature 97.9 degrees Fahrenheit, T-max is 99.9 degrees Fahrenheit, and O2 sat is 100% on FiO2 40%. Intake is 2481 mL. Output is 1940 mL. HEENT: Pupils are sluggishly reacting to light. No icterus. No pallor. ET tube in the oral cavity. NECK: Supple. LUNGS: Bilateral fair air entry. Basal rhonchi heard. CARDIOVASCULAR SYSTEM: S1 and S2 present, irregular. ABDOMEN: Soft. Bowel sounds present. CENTRAL NERVOUS SYSTEM: Sedated, intubated, moving left side of the body. EXTREMITIES: Right lower extremity with joint painful stimuli. Right upper extremity, no movement. MEDICATIONS: Include Tylenol, DuoNeb, aspirin 81 mg daily, Plavix 75 mg daily, Pepcid 20 mg IV push daily, heparin 5000 units subcutaneously every 8 hours, lactulose 20 g p.o. at bedtime, nicardipine 2.5 mg per hour, Zosyn 3.375 g IV every 6 hours, propofol drip, Crestor 10 mg at bedtime, normal saline at 100 mL/hour. LABORATORY DATA: Labs from this morning: WBC 9.8, hemoglobin 9.4, hematocrit 27.8, and platelets 142. Sodium 143, potassium 3.9, chloride 115, bicarbonate 21, BUN 17, creatinine 1, glucose 131, serum osmolality 310, calcium 8, phosphorus 2.3, magnesium 2.3. Total protein 6, albumin 3. All the cultures remained negative. Chest x-ray consistent with mild central pulmonary vascular congestive changes, mild bilateral lower lobe alveolar type infiltrates and bilateral effusions, left greater than the right. Head CT from this morning shows extensive acute ischemic changes involving most of the left cerebral hemisphere associated with diffuse cerebral edema and mass effect with overlying sulcal effacement and compression of the left lateral ventricular which is displaced across midline which has increased. The septum pellucidum is displaced across midline by approximately 12 mm, dilatation of the right lateral ventricle due to compression of the right foramina of [place], chronic bilateral cerebellar infarcts present. No evidence of acute intracranial hemorrhage. ASSESSMENT AND PLAN: Elderly male with history of coronary artery disease, status post coronary artery bypass grafting, hypertension, atrial fibrillation. Admitted for acute ischemic stroke, status post successful endovascular thrombectomy and stenting for left internal carotid artery and left middle cerebral artery occlusion, status post intubation, developed significant cerebral edema, postprocedure. Anemia, hypophosphatemia. Monitor his neurologic status closely. Remains intubated. On ventilator support. Keep oxygen saturation more than 90. Weaning trials as tolerated. The patient still remains in atrial fibrillation. Follow up with Cardiology. Continue with deep venous thrombosis and gastrointestinal prophylaxis. Continue with current antibiotics for possible aspiration pneumonia. Discussed with Neurology and intensive care unit attending. Prognosis is guarded. Continue with supportive care. Harinder Brunner MD [facility] # [id number]
[2018-04-29] MEDS: Propofol 10 mg/ml 1,000 MG/100 ML VIAL IV PRN (04:55)
[2018-04-29] MEDS: Piperacillin/Tazobact 3.375 GM in Sodium Chloride 100 ML IVPB SCH ×4 (05:00→20:36)
[2018-04-29] MEDS: Sodium Chloride 0.9% 1,000 ML IV SCH (05:01)
[2018-04-29 06:20] LABS: ARTERIAL BLOOD GAS HCO3 23.4 mmol/L (21-28); ARTERIAL BLOOD GAS HEMOGLOBIN 8.8 g/dL (11.7-17.4); ARTERIAL BLOOD GAS O2 SAT 98.7 % (95-98); ARTERIAL BLOOD GAS PCO2 32 mm/Hg (35-45); ARTERIAL BLOOD GAS PH 7.44 (7.35-7.45); ARTERIAL BLOOD GAS PO2 116 mm/Hg (80-100); ARTERIAL BLOOD GAS TCO2 22.7 mmol/L (22-28)
[2018-04-29 06:29] LABS: BASO % 0.4 % (0.0-2.0); EOS # 0.1 K/uL (0.0-0.7); EOS % 1.2 % (0.0-4.0); HEMOGLOBIN 9.1 g/dL (12.0-18.0); LYMPH % 18.5 % (20.0-40.0); MEAN CELL VOLUME 78.4 fL (80.0-94.0); MEAN CORPUSCULAR HGB CONC 33.2 g/dL (33.0-37.0); MEAN PLATELET VOLUME 9.8 fL (7.2-11.7); MONO # 0.7 K/uL (0.0-0.8); MONO % 6.4 % (0.0-10.0); NEUT # 8.1 K/uL (1.8-7.0); NEUT % 73.5 % (50.0-75.0); RBC 3.5 Mil/uL (4.40-5.90); RED CELL DISTRIBUTION WIDTH 18.2 % (11.5-14.5); WHITE BLOOD COUNT 10.9 K/uL (4.8-10.8)
[2018-04-29 06:45] LABS: ALT/SGPT 28 U/L (21-72); AST/SGOT 52 U/L (17-59); BLOOD UREA NITROGEN 20 mg/dL (9-20); CALCIUM 8.2 mg/dl (8.6-10.4); GFR NON-AFRICAN AMERICAN > 60
--- NOTE | 2018-04-29 09:27 | RAD ---
Date of service: 04/29/2018 HISTORY: vent COMPARISON: 04/28/2018 FINDINGS: LUNGS: Severe venous congestion. Confluent consolidative opacities at both lung bases. Moderate bilateral pleural effusions. Linear atelectasis in the right midlung zone. Lines and tubes in stable position. PLEURA: As above. CARDIOVASCULAR: Aortic atherosclerotic calcification present. Status post median sternotomy. Cardiomegaly. OSSEOUS STRUCTURES: Degenerative changes in the spine and shoulders. VISUALIZED UPPER ABDOMEN: Normal. OTHER FINDINGS: None. IMPRESSION: Severe venous congestion. Confluent consolidative opacities at both lung bases. Moderate bilateral pleural effusions. Linear atelectasis in the right midlung zone. Lines and tubes in stable position.
[2018-04-29] MEDS: Racepinephrine 2.25% Inhal Soln 0.5 ML UD INH SCH ×2 (10:10→11:01)
--- NOTE | 2018-04-29 10:38 | CP.PCM.PN ---
<Lucila Stewart - Last Filed: 04/29/18 15:35> Subjective - Date & Time of Evaluation Date of Evaluation: 04/29/18 Time of Evaluation: 09:00 - Subjective Subjective: Neurology Follow Up Note Patient was seen and examined at bedside. Patient is intubated and sedated with propofol. Patient is not arousable to sternal rub, painful stimuli. ROS unattainable due to sedation. Objective - Vital Signs/Intake and Output Vital Signs (last 24 hours): Temp Pulse Resp BP Pulse Ox 100.1 F H 83 22 124/64 98 04/29/18 08:00 04/29/18 10:00 04/29/18 10:00 04/29/18 09:59 04/29/18 10:00 Intake and Output: 04/29/18 04/29/18 06:59 18:59 Intake Total 2538.8 10 Output Total 580 Balance 1958.8 10 - Medications Medications: Current Medications Acetaminophen (Tylenol 650mg/20.3ml Solution Ud) 650 mg NG Q4 PRN PRN Reason: Temperature Last Admin: 04/29/18 00:38 Dose: 650 mg Albuterol/Ipratropium (Duoneb 3 Mg/0.5 Mg (3 Ml) Ud) 3 ml INH RQ4 [facility] Last Admin: 04/29/18 07:51 Dose: 3 ml Aspirin (Ecotrin) 81 mg PO DAILY [facility] Last Admin: 04/29/18 09:52 Dose: Not Given Clopidogrel Bisulfate (Plavix) 75 mg PO DAILY [facility] Last Admin: 04/28/18 11:48 Dose: Not Given Famotidine (Pepcid) 20 mg IVP DAILY [facility] Last Admin: 04/29/18 10:25 Dose: 20 mg Propofol (Diprivan) 1,000 mg in 100 mls @ 2.773 mls/hr IV .Q24H PRN; Protocol PRN Reason: TITRATE PER MD ORDER Last Titration: 04/29/18 07:00 Dose: 10 mcg/kg/min, 5.547 mls/hr Sodium Chloride (Sodium Chloride 0.9%) 1,000 mls @ 100 mls/hr IV .Q10H [facility] Last Admin: 04/29/18 05:01 Dose: 100 mls/hr Nicardipine HCl 25 mg/ Sodium (Chloride) 250 mls @ 25 mls/hr IV .Q10H [facility]; Protocol Last Admin: 04/29/18 02:09 Dose: 2.5 mg/hr, 25 mls/hr Insulin Aspart (Novolog) 0 unit SC Q6H [facility]; Protocol Last Admin: 04/29/18 06:20 Dose: Not Given Lactulose (Enulose) 20 gm PO HS [facility] Last Admin: 04/28/18 22:00 Dose: Not Given Propofol (Diprivan) 100 mg IV TITR [facility] Racepinephrine (Racepinephrine 2.25% Inhl Soln) 0.5 ml INH Q1H [facility] Stop: 04/29/18 12:01 Rosuvastatin Calcium (Crestor) 10 mg PO HS [facility] Last Admin: 04/28/18 21:29 Dose: 10 mg - Labs Labs: 04/29/18 06:24 04/29/18 06:24 PT 14.5 SECONDS (9.7-12.2) H 04/26/18 21:58 INR 1.3 04/26/18 21:58 APTT 32 SECONDS (21-34) 04/26/18 21:58 - Constitutional Appears: No Acute Distress - Head Exam Head Exam: NORMAL INSPECTION, NORMOCEPHALIC - Eye Exam Eye Exam: PERRL (small diameter, react to light bilaterally ) - ENT Exam ENT Exam: Mucous Membranes Dry Additional comments: right TLC NGT in place - Respiratory Exam Respiratory Exam: Clear to Ausculation Bilateral - Cardiovascular Exam Cardiovascular Exam: +S1, +S2 - GI/Abdominal Exam GI & Abdominal Exam: Soft, Normal Bowel Sounds. 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 There is opacification of the left A1 and A2 segments which appears to be predominantly fed from the left posterior communicating artery and possibly some contribution via the the anterior communicator. Calcified atherosclerotic plaque seen along the distal right common carotid artery and carotid bifurcation extending into the proximal internal carotid artery. - Head/ Neck CTA after thrombectomy: 1. No evidence of endoluminal thrombus,occlusion or definite significant stenosis in the intracranial mariana billy. 2. No evidence of hemodynamically significant stenosis in the right internal carotid artery. 3. Status post neuro intervention, patent left common carotid artery and patent endovascular stent graft in the left internal carotid artery. 4. Patent bilateral vertebral arteries. - Head CT 04/26: Significant acute ischemic changes involving most of the left cerebral hemisphere with diffuse cerebral edema and secondary mass effect with [id number] midline shift estimated approximately 4.5 cm. Mild dilatation of the right lateral ventricle felt to be secondary to compressive effects at the level of the foramina Manning. - Head CT 04/28: Extensive acute ischemic changes involving most of the left cerebral hemisphere associated with diffuse cerebral edema and mass effect with overlying sulcal effacement and compression of the left lateral ventricle which is displaced across midline which has increased.. The septum pellucidum is displaced across midline by approximately 12 mm. There is dilatation of the right lateral ventricle due to compression of the right foramen of Manning. - Repeat Head CT: ordered, pending results - Head CT ordered for tomorrow to evaluate progression Management: - ICU Management - Continue Aspirin, Plavix - Serial Head CTs - Continue with NS 3% @ 30ml/hrs for a goal serum sodium of 145-150 and serum osm of less than 320. Case discussed with Lucila Guo DO, PGY2 <Nikolai Buchanan - Last Filed: 04/30/18 17:52> Objective - Vital Signs/Intake and Output Vital Signs (last 24 hours): Temp Pulse Resp BP Pulse Ox 98.0 F 142 H 47 H 138/52 L 94 L 04/30/18 15:00 04/30/18 17:00 04/30/18 17:00 04/30/18 17:00 04/30/18 17:00 Intake and Output: 04/30/18 04/30/18 06:59 18:59 Intake Total 2223 2150 Output Total 790 480 Balance 1433 1670 - Medications Medications: Current Medications Acetaminophen (Tylenol 650mg/20.3ml Solution Ud) 650 mg NG Q4 PRN PRN Reason: Temperature Last Admin: 04/30/18 08:00 Dose: 650 mg Albuterol/Ipratropium (Duoneb 3 Mg/0.5 Mg (3 Ml) Ud) 3 ml INH RQ4 [facility] Last Admin: 04/30/18 16:57 Dose: Not Given Aspirin (Ecotrin) 81 mg PO DAILY [facility] Last Admin: 04/29/18 09:52 Dose: Not Given Clopidogrel Bisulfate (Plavix) 75 mg PO DAILY [facility] Last Admin: 04/30/18 09:57 Dose: Not Given Famotidine (Pepcid) 20 mg IVP DAILY [facility] Last Admin: 04/30/18 09:57 Dose: 20 mg Nicardipine HCl 25 mg/ Sodium (Chloride) 250 mls @ 25 mls/hr IV .Q10H [facility]; Protocol Last Admin: 04/30/18 15:09 Dose: 6 mg/hr, 60 mls/hr Piperacillin Sod/Tazobactam (Sod 3.375 gm/ Sodium Chloride) 100 mls @ 200 mls/hr IVPB Q6H [facility]; Protocol Last Admin: 04/30/18 15:08 Dose: 200 mls/hr Sodium Chloride (Hypertonic Saline 3%) 500 mls @ 30 mls/hr IV .[id number] ONE Stop: 05/01/18 02:09 Last Admin: 04/30/18 10:05 Dose: 30 mls/hr Propofol (Diprivan) 1,000 mg in 100 mls @ 10.41 mls/hr IV .Q9H37M PRN; Protocol PRN Reason: TITRATE PER MD ORDER Last Admin: 04/30/18 17:43 Dose: 20 mcg/kg/min, 10.41 mls/hr Insulin Aspart (Novolog) 0 unit SC Q6H [facility]; Protocol Last Admin: 04/30/18 13:32 Dose: 2 unit Lactulose (Enulose) 20 gm PO HS [facility] Last Admin: 04/29/18 21:37 Dose: 20 gm Rosuvastatin Calcium (Crestor) 10 mg PO HS [facility] Last Admin: 04/29/18 21:37 Dose: 10 mg - Labs Labs: 04/30/18 04:36 04/30/18 10:18 PT 14.5 SECONDS (9.7-12.2) H 04/26/18 21:58 INR 1.3 04/26/18 21:58 APTT 32 SECONDS (21-34) 04/26/18 21:58 Assessment and Plan (1) Stroke Status: Acute Attending/Attestation - Attestation I have personally seen and examined this patient.: Yes I have fully participated in the care of the patient.: Yes I have reviewed all pertinent clinical information, including history, physical exam and plan: Yes Notes (Text): 04/30/18 17:52 I agree with the assessment and plan. The patient has a large left MCA ischemic stroke and has a poor prognosis. However, we will continue current management. - Continue Aspirin, Plavix - Serial Head CTs - Continue with NS 3% @ 30ml/hrs for a goal serum sodium of 145-150 and serum osm of less than 320.
--- NOTE | 2018-04-29 12:28 | CP.PCM.PN ---
Subjective - Date & Time of Evaluation Date of Evaluation: 04/29/18 Time of Evaluation: 12:28 - Subjective Subjective: Progress note dictated #[id number] Objective - Vital Signs/Intake and Output Vital Signs (last 24 hours): Temp Pulse Resp BP Pulse Ox 100.1 F H 80 18 138/49 L 98 04/29/18 08:00 04/29/18 11:00 04/29/18 11:00 04/29/18 10:00 04/29/18 10:00 Intake and Output: 04/29/18 04/29/18 06:59 18:59 Intake Total 2538.8 996.0 Output Total 580 110 Balance 1958.8 886.0 - Medications Medications: Current Medications Acetaminophen (Tylenol 650mg/20.3ml Solution Ud) 650 mg NG Q4 PRN PRN Reason: Temperature Last Admin: 04/29/18 12:00 Dose: 650 mg Albuterol/Ipratropium (Duoneb 3 Mg/0.5 Mg (3 Ml) Ud) 3 ml INH RQ4 [facility] Last Admin: 04/29/18 11:03 Dose: 3 ml Aspirin (Ecotrin) 81 mg PO DAILY [facility] Last Admin: 04/29/18 09:52 Dose: Not Given Clopidogrel Bisulfate (Plavix) 75 mg PO DAILY [facility] Last Admin: 04/28/18 11:48 Dose: Not Given Famotidine (Pepcid) 20 mg IVP DAILY [facility] Last Admin: 04/29/18 10:25 Dose: 20 mg Propofol (Diprivan) 1,000 mg in 100 mls @ 2.773 mls/hr IV .Q24H PRN; Protocol PRN Reason: TITRATE PER MD ORDER Last Titration: 04/29/18 07:00 Dose: 10 mcg/kg/min, 5.547 mls/hr Sodium Chloride (Sodium Chloride 0.9%) 1,000 mls @ 100 mls/hr IV .Q10H [facility] Last Admin: 04/29/18 05:01 Dose: 100 mls/hr Nicardipine HCl 25 mg/ Sodium (Chloride) 250 mls @ 25 mls/hr IV .Q10H [facility]; Protocol Last Titration: 04/29/18 12:02 Dose: 3 mg/hr, 30 mls/hr Insulin Aspart (Novolog) 0 unit SC Q6H [facility]; Protocol Last Admin: 04/29/18 11:45 Dose: 2 units Lactulose (Enulose) 20 gm PO HS [facility] Last Admin: 04/28/18 22:00 Dose: Not Given Propofol (Diprivan) 100 mg IV TITR [facility] Rosuvastatin Calcium (Crestor) 10 mg PO HS [facility] Last Admin: 04/28/18 21:29 Dose: 10 mg - Labs Labs: 04/29/18 06:24 04/29/18 06:24 PT 14.5 SECONDS (9.7-12.2) H 04/26/18 21:58 INR 1.3 04/26/18 21:58 APTT 32 SECONDS (21-34) 04/26/18 21:58
--- NOTE | 2018-04-29 13:30 | CP.CCUPN ---
CCU Subjective - Physician Review Subjective (Free Text): 04/29/18 13:13 Pt seen and examined at bedside. Pt unable to provide a 12 point ROS CCU Objective - Vital Signs / Intake & Output Vital Signs (Last 4 hours): Vital Signs Pulse Resp BP BP Pulse Ox 04/29/18 11:00 80 18 04/29/18 10:00 83 22 138/49 L 98 04/29/18 09:59 83 24 124/64 96 Intake and Output (Last 8hrs): Intake & Output 04/28/18 04/29/18 04/29/18 22:59 06:59 14:59 Intake Total 1235.8 1929.8 1012.0 Output Total 302 400 110 Balance 933.8 1529.8 902.0 Weight 179 lb Intake: IV 27 323 260 Intake, IV Amount 808.8 1156.8 522.0 Right Forearm 35.8 Right Forearm Y-site 85.0 Right Hand 100 Right Internal Jugular 480 860 400 Right Medial Port 33 71.8 22.0 Internal Jugular Right Proximal Port 75 225 100 Internal Jugular Tube Feeding 400 450 200 Other 30 Output: Urine 302 400 110 Urethral (Bhatt) 302 400 110 Other: # Bowel Movements 1 0 - Physical Exam Head: Positive for: Atraumatic, Normocephalic Pupils: Positive for: PERRL, Sluggish Mouth: Positive for: Dry Respiratory/Chest: Positive for: Rhonchi, Other (vent) Cardiovascular: Positive for: Regular Rate and Rhythm, Normal S1, S2. Negative for: Murmurs Abdomen: Negative for: Distention Upper Extremity: Positive for: Normal Inspection Lower Extremity: Positive for: Normal Inspection Neurological: Positive for: Other (intubated, sedated, responsive to pain, gag relfex intact) Skin: Positive for: Warm, Dry Psychiatric: Negative for: Alert - Medications Active Medications: Active Medications Generic Name Dose Route Start Last Admin Trade Name Freq PRN Reason Stop Dose Admin Acetaminophen 650 mg 04/26/18 20:59 04/29/18 12:00 Tylenol 650mg/20.3ml Solution Ud NG 650 mg Q4 PRN Administration Temperature Albuterol/Ipratropium 3 ml 04/26/18 12:00 04/29/18 11:03 Duoneb 3 Mg/0.5 Mg (3 Ml) Ud INH 3 ml RQ4 DANIEL Administration Aspirin 81 mg 04/26/18 10:00 04/29/18 09:52 Ecotrin PO Not Given DAILY DANIEL Clopidogrel Bisulfate 75 mg 04/26/18 10:00 04/28/18 11:48 Plavix PO Not Given DAILY DANIEL Famotidine 20 mg 04/26/18 10:00 04/29/18 10:25 Pepcid IVP 20 mg DAILY DANIEL Administration Propofol 1,000 mg in 100 mls @ 2.773 mls/hr 04/25/18 21:29 04/29/18 07:00 Diprivan IV 10 mcg/kg/min .Q24H PRN 5.547 mls/hr TITRATE PER MD ORDER Titration Protocol 5 MCG/KG/MIN Sodium Chloride 1,000 mls @ 100 mls/hr 04/28/18 09:00 04/29/18 05:01 Sodium Chloride 0.9% IV 100 mls/hr .Q10H DANIEL Administration Nicardipine HCl 25 mg/ Sodium 250 mls @ 25 mls/hr 04/28/18 16:00 04/29/18 12:29 Chloride IV 3 mg/hr .Q10H DANIEL 30 mls/hr Administration Protocol 2.5 MG/HR Insulin Aspart 0 unit 04/26/18 12:00 04/29/18 11:45 Novolog SC 2 units Q6H DANIEL Administration Protocol Lactulose 20 gm 04/28/18 22:00 04/28/18 22:00 Enulose PO Not Given HS DANIEL Propofol 100 mg 04/25/18 20:19 Diprivan IV TITR DANIEL Rosuvastatin Calcium 10 mg 04/26/18 22:00 04/28/18 21:29 Crestor PO 10 mg HS DANIEL Administration - Patient Studies Lab Studies: Microbiology Studies 04/25/18 08:28 Blood Culture - Preliminary Blood NO GROWTH AFTER 3 DAYS 04/26/18 08:28 Blood Culture - Preliminary Blood NO GROWTH AFTER 3 DAYS 04/25/18 13:05 Gram Stain - Final Trachasp Sputum Culture - Final NORMAL ORAL CELINA Lab Studies 04/29/18 04/29/18 04/29/18 Range/Units 06:24 06:24 06:16 WBC 10.9 H (4.8-10.8) K/uL RBC 3.50 L (4.40-5.90) Mil/uL Hgb 9.1 L (12.0-18.0) g/dL Hct 27.5 L (35.0-51.0) % MCV 78.4 L (80.0-94.0) fL MCH 26.0 L (27.0-31.0) pg MCHC 33.2 (33.0-37.0) g/dL RDW 18.2 H (11.5-14.5) % Plt Count 143 (130-400) K/uL MPV 9.8 (7.2-11.7) fL Neut % (Auto) 73.5 (50.0-75.0) % Lymph % (Auto) 18.5 L (20.0-40.0) % [place] % (Auto) 6.4 (0.0-10.0) % Eos % (Auto) 1.2 (0.0-4.0) % Baso % (Auto) 0.4 (0.0-2.0) % Neut # (Auto) 8.1 H (1.8-7.0) K/uL Lymph # (Auto) 2.0 (1.0-4.3) K/uL [place] # (Auto) 0.7 (0.0-0.8) K/uL Eos # (Auto) 0.1 (0.0-0.7) K/uL Baso # (Auto) 0.0 (0.0-0.2) K/uL Puncture Site A-line pCO2 32 L pO2 116 H HCO3 23.4 ABG pH 7.44 ABG Total CO2 22.7 ABG O2 Saturation 98.7 H ABG O2 Content ABG Base Excess -2.0 ABG Hemoglobin 8.8 L ABG Carboxyhemoglobin 1.5 POC ABG HHb (Measured) 1.3 ABG Methemoglobin 0.9 ABG O2 Capacity Jose D Test Na A-a O2 Difference 129.0 Respiratory Index 1.1 Hgb O2 Saturation 96.3 Liter Flow Vent Mode Prvc Mechanical Rate 18 Spontaneous Rate FiO2 40.0 Tidal Volume 500 PEEP 5 Pressure Support CPAP Inspiratory BiPAP Expiratory BiPAP Blood Gas Comments Crit Value Called To Crit Value Called By Crit Value Read Back Blood Gas Notified Time Sodium 147 (132-148) mmol/L Potassium 4.0 (3.6-5.2) mmol/L Chloride 120 H (98-107) mmol/L Carbon Dioxide 23 (22-30) mmol/L Anion Gap 8 L (10-20) BUN 20 (9-20) mg/dL Creatinine 0.9 (0.8-1.5) mg/dL Est GFR ( Amer) > 60 Est GFR (Non-Af Amer) > 60 POC Glucose (mg/dL) (65-110) mg/dL Random Glucose 125 H (75-110) mg/dL Calcium 8.2 L (8.6-10.4) mg/dl Phosphorus 2.2 L (2.5-4.5) mg/dL Magnesium 2.3 (1.6-2.3) mg/dL Total Bilirubin 0.5 (0.2-1.3) mg/dL AST 52 (17-59) U/L ALT 28 (21-72) U/L Alkaline Phosphatase 71 (38-126) U/L Total Protein 6.0 L (6.3-8.3) g/dL Albumin 3.0 L (3.5-5.0) g/dL Globulin 2.9 (2.2-3.9) gm/dL Albumin/Globulin Ratio 1.0 (1.0-2.1) 04/29/18 04/29/18 04/28/18 Range/Units 05:37 05:26 23:39 WBC (4.8-10.8) K/uL RBC (4.40-5.90) Mil/uL Hgb (12.0-18.0) g/dL Hct (35.0-51.0) % MCV (80.0-94.0) fL MCH (27.0-31.0) pg MCHC (33.0-37.0) g/dL RDW (11.5-14.5) % Plt Count (130-400) K/uL MPV (7.2-11.7) fL Neut % (Auto) (50.0-75.0) % Lymph % (Auto) (20.0-40.0) % [place] % (Auto) (0.0-10.0) % Eos % (Auto) (0.0-4.0) % Baso % (Auto) (0.0-2.0) % Neut # (Auto) (1.8-7.0) K/uL Lymph # (Auto) (1.0-4.3) K/uL [place] # (Auto) (0.0-0.8) K/uL Eos # (Auto) (0.0-0.7) K/uL Baso # (Auto) (0.0-0.2) K/uL Puncture Site Cancelled pCO2 Cancelled pO2 Cancelled HCO3 Cancelled ABG pH Cancelled ABG Total CO2 Cancelled ABG O2 Saturation Cancelled ABG O2 Content Cancelled ABG Base Excess Cancelled ABG Hemoglobin Cancelled ABG Carboxyhemoglobin Cancelled POC ABG HHb (Measured) Cancelled ABG Methemoglobin Cancelled ABG O2 Capacity Cancelled Jose D Test Cancelled A-a O2 Difference Cancelled Respiratory Index Cancelled Hgb O2 Saturation Cancelled Liter Flow Cancelled Vent Mode Cancelled Mechanical Rate Cancelled Spontaneous Rate Cancelled FiO2 Cancelled Tidal Volume Cancelled PEEP Cancelled Pressure Support Cancelled CPAP Cancelled Inspiratory BiPAP Cancelled Expiratory BiPAP Cancelled Blood Gas Comments Cancelled Crit Value Called To Cancelled Crit Value Called By Cancelled Crit Value Read Back Cancelled Blood Gas Notified Time Cancelled Sodium (132-148) mmol/L Potassium (3.6-5.2) mmol/L Chloride (98-107) mmol/L Carbon Dioxide (22-30) mmol/L Anion Gap (10-20) BUN (9-20) mg/dL Creatinine (0.8-1.5) mg/dL Est GFR ( Amer) Est GFR (Non-Af Amer) POC Glucose (mg/dL) 137 H 118 H (65-110) mg/dL Random Glucose (75-110) mg/dL Calcium (8.6-10.4) mg/dl Phosphorus (2.5-4.5) mg/dL Magnesium (1.6-2.3) mg/dL Total Bilirubin (0.2-1.3) mg/dL AST (17-59) U/L ALT (21-72) U/L Alkaline Phosphatase (38-126) U/L Total Protein (6.3-8.3) g/dL Albumin (3.5-5.0) g/dL Globulin (2.2-3.9) gm/dL Albumin/Globulin Ratio (1.0-2.1) 04/28/18 04/28/18 04/28/18 Range/Units 17:51 11:12 05:20 WBC (4.8-10.8) K/uL RBC (4.40-5.90) Mil/uL Hgb (12.0-18.0) g/dL Hct (35.0-51.0) % MCV (80.0-94.0) fL MCH (27.0-31.0) pg MCHC (33.0-37.0) g/dL RDW (11.5-14.5) % Plt Count (130-400) K/uL MPV (7.2-11.7) fL Neut % (Auto) (50.0-75.0) % Lymph % (Auto) (20.0-40.0) % [place] % (Auto) (0.0-10.0) % Eos % (Auto) (0.0-4.0) % Baso % (Auto) (0.0-2.0) % Neut # (Auto) (1.8-7.0) K/uL Lymph # (Auto) (1.0-4.3) K/uL [place] # (Auto) (0.0-0.8) K/uL Eos # (Auto) (0.0-0.7) K/uL Baso # (Auto) (0.0-0.2) K/uL Puncture Site pCO2 pO2 HCO3 ABG pH ABG Total CO2 ABG O2 Saturation ABG O2 Content ABG Base Excess ABG Hemoglobin ABG Carboxyhemoglobin POC ABG HHb (Measured) ABG Methemoglobin ABG O2 Capacity Jose D Test A-a O2 Difference Respiratory Index Hgb O2 Saturation Liter Flow Vent Mode Mechanical Rate Spontaneous Rate FiO2 Tidal Volume PEEP Pressure Support CPAP Inspiratory BiPAP Expiratory BiPAP Blood Gas Comments Crit Value Called To Crit Value Called By Crit Value Read Back Blood Gas Notified Time Sodium (132-148) mmol/L Potassium (3.6-5.2) mmol/L Chloride (98-107) mmol/L Carbon Dioxide (22-30) mmol/L Anion Gap (10-20) BUN (9-20) mg/dL Creatinine (0.8-1.5) mg/dL Est GFR ( Amer) Est GFR (Non-Af Amer) POC Glucose (mg/dL) 148 H 147 H 127 H (65-110) mg/dL Random Glucose (75-110) mg/dL Calcium (8.6-10.4) mg/dl Phosphorus (2.5-4.5) mg/dL Magnesium (1.6-2.3) mg/dL Total Bilirubin (0.2-1.3) mg/dL AST (17-59) U/L ALT (21-72) U/L Alkaline Phosphatase (38-126) U/L Total Protein (6.3-8.3) g/dL Albumin (3.5-5.0) g/dL Globulin (2.2-3.9) gm/dL Albumin/Globulin Ratio (1.0-2.1) 04/27/18 04/27/18 04/27/18 Range/Units 23:55 17:51 11:15 WBC (4.8-10.8) K/uL RBC (4.40-5.90) Mil/uL Hgb (12.0-18.0) g/dL Hct (35.0-51.0) % MCV (80.0-94.0) fL MCH (27.0-31.0) pg MCHC (33.0-37.0) g/dL RDW (11.5-14.5) % Plt Count (130-400) K/uL MPV (7.2-11.7) fL Neut % (Auto) (50.0-75.0) % Lymph % (Auto) (20.0-40.0) % [place] % (Auto) (0.0-10.0) % Eos % (Auto) (0.0-4.0) % Baso % (Auto) (0.0-2.0) % Neut # (Auto) (1.8-7.0) K/uL Lymph # (Auto) (1.0-4.3) K/uL [place] # (Auto) (0.0-0.8) K/uL Eos # (Auto) (0.0-0.7) K/uL Baso # (Auto) (0.0-0.2) K/uL Puncture Site pCO2 pO2 HCO3 ABG pH ABG Total CO2 ABG O2 Saturation ABG O2 Content ABG Base Excess ABG Hemoglobin ABG Carboxyhemoglobin POC ABG HHb (Measured) ABG Methemoglobin ABG O2 Capacity Jose D Test A-a O2 Difference Respiratory Index Hgb O2 Saturation Liter Flow Vent Mode Mechanical Rate Spontaneous Rate FiO2 Tidal Volume PEEP Pressure Support CPAP Inspiratory BiPAP Expiratory BiPAP Blood Gas Comments Crit Value Called To Crit Value Called By Crit Value Read Back Blood Gas Notified Time Sodium (132-148) mmol/L Potassium (3.6-5.2) mmol/L Chloride (98-107) mmol/L Carbon Dioxide (22-30) mmol/L Anion Gap (10-20) BUN (9-20) mg/dL Creatinine (0.8-1.5) mg/dL Est GFR ( Amer) Est GFR (Non-Af Amer) POC Glucose (mg/dL) 115 H 124 H 139 H (65-110) mg/dL Random Glucose (75-110) mg/dL Calcium (8.6-10.4) mg/dl Phosphorus (2.5-4.5) mg/dL Magnesium (1.6-2.3) mg/dL Total Bilirubin (0.2-1.3) mg/dL AST (17-59) U/L ALT (21-72) U/L Alkaline Phosphatase (38-126) U/L Total Protein (6.3-8.3) g/dL Albumin (3.5-5.0) g/dL Globulin (2.2-3.9) gm/dL Albumin/Globulin Ratio (1.0-2.1) Laboratory Results - last 24 hr 04/27/18 04/27/18 04/27/18 11:15 17:51 23:55 WBC RBC Hgb Hct MCV MCH MCHC RDW Plt Count MPV Neut % (Auto) Lymph % (Auto) [place] % (Auto) Eos % (Auto) Baso % (Auto) Neut # (Auto) Lymph # (Auto) [place] # (Auto) Eos # (Auto) Baso # (Auto) Puncture Site pCO2 pO2 HCO3 ABG pH ABG Total CO2 ABG O2 Saturation ABG O2 Content ABG Base Excess ABG Hemoglobin ABG Carboxyhemoglobin POC ABG HHb (Measured) ABG Methemoglobin ABG O2 Capacity Jose D Test A-a O2 Difference Respiratory Index Hgb O2 Saturation Liter Flow Vent Mode Mechanical Rate Spontaneous Rate FiO2 Tidal Volume PEEP Pressure Support CPAP Inspiratory BiPAP Expiratory BiPAP Blood Gas Comments Crit Value Called To Crit Value Called By Crit Value Read Back Blood Gas Notified Time Sodium Potassium Chloride Carbon Dioxide Anion Gap BUN Creatinine Est GFR ( Amer) Est GFR (Non-Af Amer) POC Glucose (mg/dL) 139 H 124 H 115 H Random Glucose Calcium Phosphorus Magnesium Total Bilirubin AST ALT Alkaline Phosphatase Total Protein Albumin Globulin Albumin/Globulin Ratio 04/28/18 04/28/18 04/28/18 05:20 11:12 17:51 WBC RBC Hgb Hct MCV MCH MCHC RDW Plt Count MPV Neut % (Auto) Lymph % (Auto) [place] % (Auto) Eos % (Auto) Baso % (Auto) Neut # (Auto) Lymph # (Auto) [place] # (Auto) Eos # (Auto) Baso # (Auto) Puncture Site pCO2 pO2 HCO3 ABG pH ABG Total CO2 ABG O2 Saturation ABG O2 Content ABG Base Excess ABG Hemoglobin ABG Carboxyhemoglobin POC ABG HHb (Measured) ABG Methemoglobin ABG O2 Capacity Jose D Test A-a O2 Difference Respiratory Index Hgb O2 Saturation Liter Flow Vent Mode Mechanical Rate Spontaneous Rate FiO2 Tidal Volume PEEP Pressure Support CPAP Inspiratory BiPAP Expiratory BiPAP Blood Gas Comments Crit Value Called To Crit Value Called By Crit Value Read Back Blood Gas Notified Time Sodium Potassium Chloride Carbon Dioxide Anion Gap BUN Creatinine Est GFR ( Amer) Est GFR (Non-Af Amer) POC Glucose (mg/dL) 127 H 147 H 148 H Random Glucose Calcium Phosphorus Magnesium Total Bilirubin AST ALT Alkaline Phosphatase Total Protein Albumin Globulin Albumin/Globulin Ratio 04/28/18 04/29/18 04/29/18 23:39 05:26 05:37 WBC RBC Hgb Hct MCV MCH MCHC RDW Plt Count MPV Neut % (Auto) Lymph % (Auto) [place] % (Auto) Eos % (Auto) Baso % (Auto) Neut # (Auto) Lymph # (Auto) [place] # (Auto) Eos # (Auto) Baso # (Auto) Puncture Site Cancelled pCO2 Cancelled pO2 Cancelled HCO3 Cancelled ABG pH Cancelled ABG Total CO2 Cancelled ABG O2 Saturation Cancelled ABG O2 Content Cancelled ABG Base Excess Cancelled ABG Hemoglobin Cancelled ABG Carboxyhemoglobin Cancelled POC ABG HHb (Measured) Cancelled ABG Methemoglobin Cancelled ABG O2 Capacity Cancelled Jose D Test Cancelled A-a O2 Difference Cancelled Respiratory Index Cancelled Hgb O2 Saturation Cancelled Liter Flow Cancelled Vent Mode Cancelled Mechanical Rate Cancelled Spontaneous Rate Cancelled FiO2 Cancelled Tidal Volume Cancelled PEEP Cancelled Pressure Support Cancelled CPAP Cancelled Inspiratory BiPAP Cancelled Expiratory BiPAP Cancelled Blood Gas Comments Cancelled Crit Value Called To Cancelled Crit Value Called By Cancelled Crit Value Read Back Cancelled Blood Gas Notified Time Cancelled Sodium Potassium Chloride Carbon Dioxide Anion Gap BUN Creatinine Est GFR ( Amer) Est GFR (Non-Af Amer) POC Glucose (mg/dL) 118 H 137 H Random Glucose Calcium Phosphorus Magnesium Total Bilirubin AST ALT Alkaline Phosphatase Total Protein Albumin Globulin Albumin/Globulin Ratio 04/29/18 04/29/18 04/29/18 06:16 06:24 06:24 WBC 10.9 H RBC 3.50 L Hgb 9.1 L Hct 27.5 L MCV 78.4 L MCH 26.0 L MCHC 33.2 RDW 18.2 H Plt Count 143 MPV 9.8 Neut % (Auto) 73.5 Lymph % (Auto) 18.5 L [place] % (Auto) 6.4 Eos % (Auto) 1.2 Baso % (Auto) 0.4 Neut # (Auto) 8.1 H Lymph # (Auto) 2.0 [place] # (Auto) 0.7 Eos # (Auto) 0.1 Baso # (Auto) 0.0 Puncture Site A-line pCO2 32 L pO2 116 H HCO3 23.4 ABG pH 7.44 ABG Total CO2 22.7 ABG O2 Saturation 98.7 H ABG O2 Content ABG Base Excess -2.0 ABG Hemoglobin 8.8 L ABG Carboxyhemoglobin 1.5 POC ABG HHb (Measured) 1.3 ABG Methemoglobin 0.9 ABG O2 Capacity Jose D Test Na A-a O2 Difference 129.0 Respiratory Index 1.1 Hgb O2 Saturation 96.3 Liter Flow Vent Mode Prvc Mechanical Rate 18 Spontaneous Rate FiO2 40.0 Tidal Volume 500 PEEP 5 Pressure Support CPAP Inspiratory BiPAP Expiratory BiPAP Blood Gas Comments Crit Value Called To Crit Value Called By Crit Value Read Back Blood Gas Notified Time Sodium 147 Potassium 4.0 Chloride 120 H Carbon Dioxide 23 Anion Gap 8 L BUN 20 Creatinine 0.9 Est GFR ( Amer) > 60 Est GFR (Non-Af Amer) > 60 POC Glucose (mg/dL) Random Glucose 125 H Calcium 8.2 L Phosphorus 2.2 L Magnesium 2.3 Total Bilirubin 0.5 AST 52 ALT 28 Alkaline Phosphatase 71 Total Protein 6.0 L Albumin 3.0 L Globulin 2.9 Albumin/Globulin Ratio 1.0 Fingerstick Blood Sugar Results: 151 Review of Systems - Review of Systems Systems not reviewed;Unavailable: Acuity of Condition Assessment/Plan - Assessment and Plan (Free Text) Assessment: Patient is 82 yo male who underwent 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 He remains intubated and sedated. 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, occlusion of L MCA - Post-op CTA: no occlusion/thrombus/stenosis visualized, patent stent graft in L ICA - Repeat CT head pending - Neurovascular checks Q1H- if any changes, repeat CT head STAT - Propofol drip5@ 5 - Neurology consulted (Ann) - Neurointervention consulted (Arcot) CV: - Mechanical thrombectomy 04/25 - Trop negative x3 - ASA 81 mg PO daily - Plavix 75 mg PO daily - Nicardipine @ 2.5 - NS @ 100 mL/hr - Monitor vitals- maintain SBP 100-140 Pulm: - ETT- titrate vent to maintain spO2>92%, CPAP trial - CXR: severe cardiomegaly, mod venous congestion, b/l airspace disease (atelectasis vs PNA) - ABG on PRVC, FiO2 50: pH 7.37, pCO2 36, pO2 139 - Duoneb Q4H GI: - NGT- Glucerna : - I's & O's- Bhatt - Replete electrolytes PRN Endo: - A1c 5.9 - Maintain euglycemia - Accuchecks Q6H with ISS Heme: - Monitor H&H ID: - Afebrile - No leukocytosis - Blood Cx Neg 48hrs PPx: VTE: heparin 5000 units SC Q8H GI: Pepcid 20 mg IV daily
--- NOTE | 2018-04-29 16:50 | CT ---
Date of service: 04/29/2018 PROCEDURE: CT HEAD WITHOUT CONTRAST. HISTORY: s/p L MCA cva COMPARISON: 04/28/2018 TECHNIQUE: Axial computed tomography images were obtained through the head/brain without intravenous contrast. Radiation dose: Total exam DLP = 1520.18 mGy-cm. This CT exam was performed using one or more of the following dose reduction techniques: Automated exposure control, adjustment of the mA and/or kV according to patient size, and/or use of iterative reconstruction technique. FINDINGS: HEMORRHAGE: No intracranial hemorrhage. BRAIN: There is interval evaluation of large left MCA territory infarction involving the frontal parietal temporal lobes basal ganglia and internal capsule with significant edema and near complete effacement of the left cortical sulci. There is interval increase in midline shift, complete effacement of the left lateral ventricle and mass effect on the right cerebral hemisphere with effacement of the cortical sulci and loss of fried-white matter differentiation consistent with right cerebral edema. The midline shift now measures 1.7 cm. There is also left uncal herniation. There is also effacement of the suprasellar and interpeduncular cistern with impending uncal herniation. There is redemonstration of chronic bilateral cerebellar are hemisphere infarctions. VENTRICLES: The left-sided shunt catheter likely terminates in the left lateral ventricle. Worsening obstructive hydrocephalus. CALVARIUM: There is no calvarial fracture or extracranial soft tissue swelling. PARANASAL SINUSES: Predominantly clear. MASTOID AIR CELLS: Predominantly clear. OTHER FINDINGS: None. IMPRESSION: Interval evolution of known large left MCA territory infarction with worsening cerebral edema, mass effect and midline shift. Impending uncal herniation and interval development of obstructive hydrocephalus. No evidence of intra cerebral hemorrhage.
[2018-04-29] MEDS: Lidocaine 2% MPF (5 ml) Inj ONE ×2 (17:11→17:45)
[2018-04-29] MEDS: EPINEPHrine 1 mg/ml (1:1000) Inj ONE ×2 (17:11→17:45)
[2018-04-29] MEDS: Sodium Chloride 3% 500 ML IV SCH ×2 (17:45→18:03)
[2018-04-29 18:13] LABS: BLOOD UREA NITROGEN 21 mg/dL (9-20); CALCIUM 7.9 mg/dl (8.6-10.4); GFR NON-AFRICAN AMERICAN > 60
--- NOTE | 2018-04-29 19:38 | CP.PCM.PN ---
Subjective - Date & Time of Evaluation Date of Evaluation: 04/29/18 Time of Evaluation: 17:52 - Subjective Subjective: The patient is an 82-year-old male who was found unresponsive in the parking lot is noted to have right hemiplegia and the right gaze preference CT CT angiogram demonstrated the left middle cerebral artery ischemic stroke the patient underwent emergency Thrombectomy the left internal carotid and left middle cerebral artery with placement of the left carotid artery stent using embolic protection. The procedure was performed on 04/[address] scans demonstrates left middle cerebral artery ischemic stroke with trans falcine shift and swelling related to th eischemic stroke. The patient remains intubated and unresponsive on sedation propofol. The patient today underwent bronchoscopy for bleeding from the endotracheal tube which was successfully managed. The patient remains of 3% saline for treatment of intracra nial hypertension/elevated increased pressure and swelling related to ischemic stroke. Objective - Vital Signs/Intake and Output Vital Signs (last 24 hours): Temp Pulse Resp BP Pulse Ox 98.4 F 78 19 155/57 H 99 04/29/18 16:00 04/29/18 18:00 04/29/18 18:00 04/29/18 18:00 04/29/18 17:00 Intake and Output: 04/29/18 04/29/18 06:59 18:59 Intake Total 2538.8 2143.1 Output Total 580 495 Balance 1958.8 1648.1 - Medications Medications: Current Medications Acetaminophen (Tylenol 650mg/20.3ml Solution Ud) 650 mg NG Q4 PRN PRN Reason: Temperature Last Admin: 04/29/18 12:00 Dose: 650 mg Albuterol/Ipratropium (Duoneb 3 Mg/0.5 Mg (3 Ml) Ud) 3 ml INH RQ4 [facility] Last Admin: 04/29/18 11:03 Dose: 3 ml Aspirin (Ecotrin) 81 mg PO DAILY [facility] Last Admin: 04/29/18 09:52 Dose: Not Given Clopidogrel Bisulfate (Plavix) 75 mg PO DAILY [facility] Last Admin: 04/28/18 11:48 Dose: Not Given Famotidine (Pepcid) 20 mg IVP DAILY [facility] Last Admin: 04/29/18 10:25 Dose: 20 mg Propofol (Diprivan) 1,000 mg in 100 mls @ 2.773 mls/hr IV .Q24H PRN; Protocol PRN Reason: TITRATE PER MD ORDER Last Titration: 04/29/18 17:53 Dose: 0 mcg/kg/min, 0 mls/hr Nicardipine HCl 25 mg/ Sodium (Chloride) 250 mls @ 25 mls/hr IV .Q10H DANIEL; Protocol Last Titration: 04/29/18 18:30 Dose: 4 mg/hr, 40 mls/hr Piperacillin Sod/Tazobactam (Sod 3.375 gm/ Sodium Chloride) 100 mls @ 200 mls/hr IVPB Q6H DANIEL; Protocol Last Admin: 04/29/18 15:38 Dose: 200 mls/hr Sodium Chloride (Hypertonic Saline 3%) 500 mls @ 30 mls/hr IV .[id number] DANIEL Stop: 04/30/18 08:39 Last Admin: 04/29/18 18:03 Dose: Not Given Insulin Aspart (Novolog) 0 unit SC Q6H DANIEL; Protocol Last Admin: 04/29/18 18:00 Dose: Not Given Lactulose (Enulose) 20 gm PO HS DANIEL Last Admin: 04/28/18 22:00 Dose: Not Given Rosuvastatin Calcium (Crestor) 10 mg PO HS DANIEL Last Admin: 04/28/18 21:29 Dose: 10 mg - Labs Labs: 04/29/18 06:24 04/29/18 17:46 PT 14.5 SECONDS (9.7-12.2) H 04/26/18 21:58 INR 1.3 04/26/18 21:58 APTT 32 SECONDS (21-34) 04/26/18 21:58 - Head Exam Additional comments: The patient is intubated on propofol sedation - Eye Exam Additional comments: The pupils are 2 mm and are responsive to light bilaterally. Positive corneal. - ENT Exam Additional comments: Positive gag reflex - Respiratory Exam Additional comments: on ventilator - Neurological Exam Neuro motor strength exam: Left Upper Extremity: 4 (extensor posture ), Right Upper Extremity: 0, Left Lower Extremity: 4, Right Lower Extremity: 0 Assessment and Plan - Assessment and Plan (Free Text) Assessment: 82-year-old man status post large left MCA and ICA stroke status post revascularization despite revascularization the CT shows large territory of the left middle cerebral artery infarction with no evidence of hemorrhagic conversion but with significant cytotoxic edema and transfalcine shift. The patient is being medically maximized with hypertonic saline and continued intubation. Plan: Increasing Edema secondary to large left MCA ischemic stroke Elevate HOB to 45-60 degrees to improve venous drainage Continue osmotic therapy with 3% saline to maintain Na around 150 with osmolarity goal [phone] Based on age and degree of Territorial infarct hemicranectomy is not likely to improve functional outcome and this was discussed with the son n Left MCA stroke status post mechanical thrombectomy Large Ischemic stroke with swelling despite tici 3 recanilization likely due to poor collaterals Goals of care discussed with son, realistic outcome discueed with son Consider DNR and Palliative care evaluation May alternate aspirin qod with plavix qod to reduce recurrence of pulmonary hemmorhage Care discussed with ICU team
[2018-04-29 22:27] LABS: BLOOD UREA NITROGEN 22 mg/dL (9-20); CALCIUM 8.3 mg/dl (8.6-10.4); GFR NON-AFRICAN AMERICAN > 60
--- NOTE | 2018-04-30 01:30 | PN ---
DATE: 04/29/2018 SUBJECTIVE: The patient was seen and examined at bedside. The patient's mental status remains the same, unresponsive, intubated, on sedation. Events from overnight noted. PHYSICAL EXAMINATION GENERAL: Elderly male, lying in bed, intubated and sedated, with fresh blood in the ET tube. VITAL SIGNS: Blood pressure 163/58, pulse 94, respirations 22, temperature 98.4, and O2 sat is 100% on 40% FiO2. Intake is 2143, output is 495. HEENT: Pupils are sluggishly reacting to light. No icterus. No pallor. ET tube in the oral cavity with fresh blood in the ET tube. NECK: Supple. LUNGS: Bilateral fair air entry. CARDIOVASCULAR SYSTEM: S1 and S2 present, irregular. ABDOMEN: Soft. Bowel sounds present. No guarding. CENTRAL NERVOUS SYSTEM: Sedated, intubated. Moving left side of the body and withdrawing right lower extremity. Upper extremity, no movements noted. EXTREMITIES: No edema in lower extremities. Right upper extremity is slightly edematous. MEDICATIONS: Include Tylenol, DuoNeb, Pepcid 20 mg IV daily, nicardipine 2.5 mg/hour, Zosyn 3.375 g IV every 6 hours, Diprivan, Crestor 10 mg p.o. at bedtime, hypertonic saline 30 mL/hour. LABORATORY DATA: Labs from today: WBC 10.9, hemoglobin 9.1, hematocrit 27.5, platelets 143. Sodium 147, potassium 4, chloride 120, bicarbonate 23, BUN 20, creatinine 0.9, glucose 137, calcium 8.2, phosphorus 2.2, magnesium 2.3. AST 51, ALT 28, alkaline phosphatase 71, total protein 6, albumin 3. All the cultures remained negative so far. Repeat head CT from this morning shows central evolution of known large left MCA territory infraction with worsening cerebral edema, mass effect and midline shift, impending uncal herniation and interval development of obstructive hydrocephalus. No evidence of intracerebral hemorrhage. 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 Continue with supportive care. The patient received mannitol on hypertonic saline. Monitor mental status closely. Follow up with Neurology. The patient remains in atrial fibrillation. Continue with Zosyn for possible aspiration pneumonia. Antiplatelet therapy is discontinued secondary to bleeding. Blood pressure is controlled on nicardipine drip. Continue with deep venous thrombosis and gastrointestinal prophylaxis. Discussed with intensive care unit attending. Prognosis is guarded. The patient's condition is critical. Harinder Brunner MD
[2018-04-30] MEDS: niCARdipine IV 25 MG in Sodium Chloride 0.9% 240 ML IV SCH ×7 (02:00→19:30)
[2018-04-30] MEDS: Albuterol-Ipratrop 3 mg / 0.5 (3 ml) UD INH SCH ×5 (03:27→16:57)
[2018-04-30] MEDS: Piperacillin/Tazobact 3.375 GM in Sodium Chloride 100 ML IVPB SCH ×4 (03:30→21:30)
[2018-04-30 04:39] LABS: BASO # 0.1 K/uL (0.0-0.2); BASO % 0.5 % (0.0-2.0); EOS % 0.4 % (0.0-4.0); HEMOGLOBIN 9.3 g/dL (12.0-18.0); LYMPH # 1.1 K/uL (1.0-4.3); LYMPH % 10.8 % (20.0-40.0); MEAN CELL VOLUME 77.7 fL (80.0-94.0); MEAN CORPUSCULAR HEMOGLOBIN 26.6 pg (27.0-31.0); MEAN CORPUSCULAR HGB CONC 34.2 g/dL (33.0-37.0); MEAN PLATELET VOLUME 9.2 fL (7.2-11.7); MONO # 0.6 K/uL (0.0-0.8); MONO % 6.2 % (0.0-10.0); NEUT # 8.3 K/uL (1.8-7.0); NEUT % 82.1 % (50.0-75.0); NRBC % 0.1 % (0.0-2.0); RBC 3.49 Mil/uL (4.40-5.90); RED CELL DISTRIBUTION WIDTH 17.9 % (11.5-14.5); WHITE BLOOD COUNT 10.1 K/uL (4.8-10.8)
[2018-04-30 04:58] LABS: BLOOD UREA NITROGEN 25 mg/dL (9-20); CALCIUM 8.4 mg/dl (8.6-10.4); GFR NON-AFRICAN AMERICAN > 60
--- NOTE | 2018-04-30 05:54 | CP.PCM.PN ---
Subjective - Date & Time of Evaluation Date of Evaluation: 04/29/18 Time of Evaluation: 16:15 - Subjective Subjective: Patient seen and evaluated Intubated No cardiac events noted Patient seen and evaluated Intubated Review of Systems - Review of Systems Systems not reviewed;Unavailable: Intubated Past Patient History - Past Social History Smoking Status: unknown - PSYCHIATRIC Hx Substance Use: No (unknown) Physical Exam - Constitutional Additional comments: sedated, intubated - Head Exam Head Exam: ATRAUMATIC - Eye Exam Eye Exam: PERRL - ENT Exam ENT Exam: Mucous Membranes Moist - Respiratory Exam Additional comments: vent - Cardiovascular Exam Cardiovascular Exam: REGULAR RHYTHM - GI/Abdominal Exam GI & Abdominal Exam: Soft - Rectal Exam Rectal Exam: Deferred - Extremities Exam Extremities exam: Positive for: spontaneous left sided movements - Psychiatric Exam Additional comments: sedated - Skin Skin Exam: Dry, Normal Color, Warm Assessment & Plan - Assessment and Plan (Free Text) Assessment: Patient is 82 yo male who underwent 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 He remains intubated and sedated. 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, occlusion of L MCA - Neurovascular checks Q1H- if any changes, repeat CT head STAT - Propofol drip- maintain RASS -2 - Neurology consulted (Ann) - Neurointervention consulted (Arcot) CV: - Mechanical thrombectomy today 04/25 - Lipid panel wnl - Stop Integrilin - ASA 325 mg PO loading dose then ASA 81 mg PO daily - Plavix 300 mg PO loading dose then Plavix 75 mg PO daily - NS @ 100 mL/hr - Monitor vitals- maintain SBP Pulm: - ETT- titrate vent to maintain spO2>92% - CXR pending - ABG pending GI: - NGT - NPO : - I's & O's- Bhatt - Replete electrolytes PRN - UA pending Endo: - A1c 5.9 - Maintain euglycemia - Hypoglycemia protocol - Accuchecks Q6H with ISS Heme: - Monitor H&H - Monitor coags ID: - Afebrile - No leukocytosis - Lactate pending PPx: VTE: heparin 5000 units SC Q8H GI: Pepcid 20 mg IV daily Code status: full code Objective - Vital Signs/Intake and Output Vital Signs (last 24 hours): Temp Pulse Resp BP Pulse Ox 98.7 F 97 H 18 143/59 L 96 04/30/18 04:00 04/30/18 05:00 04/30/18 05:00 04/30/18 05:00 04/30/18 05:00 Intake and Output: 04/29/18 04/30/18 18:59 06:59 Intake Total 2143.1 1828 Output Total 495 740 Balance 1648.1 1088 - Medications Medications: Current Medications Acetaminophen (Tylenol 650mg/20.3ml Solution Ud) 650 mg NG Q4 PRN PRN Reason: Temperature Last Admin: 04/29/18 12:00 Dose: 650 mg Albuterol/Ipratropium (Duoneb 3 Mg/0.5 Mg (3 Ml) Ud) 3 ml INH RQ4 DANIEL Last Admin: 04/30/18 03:27 Dose: 3 ml Aspirin (Ecotrin) 81 mg PO DAILY [facility] Last Admin: 04/29/18 09:52 Dose: Not Given Clopidogrel Bisulfate (Plavix) 75 mg PO DAILY [facility] Last Admin: 04/28/18 11:48 Dose: Not Given Famotidine (Pepcid) 20 mg IVP DAILY [facility] Last Admin: 04/29/18 10:25 Dose: 20 mg Propofol (Diprivan) 1,000 mg in 100 mls @ 2.773 mls/hr IV .Q24H PRN; Protocol PRN Reason: TITRATE PER MD ORDER Last Titration: 04/29/18 17:53 Dose: 0 mcg/kg/min, 0 mls/hr Nicardipine HCl 25 mg/ Sodium (Chloride) 250 mls @ 25 mls/hr IV .Q10H DANIEL; Protocol Last Admin: 04/30/18 02:00 Dose: 6 mg/hr, 60 mls/hr Piperacillin Sod/Tazobactam (Sod 3.375 gm/ Sodium Chloride) 100 mls @ 200 mls/hr IVPB Q6H DANIEL; Protocol Last Admin: 04/30/18 03:30 Dose: 200 mls/hr Sodium Chloride (Hypertonic Saline 3%) 500 mls @ 30 mls/hr IV .[id number] DANIEL Stop: 04/30/18 08:39 Last Admin: 04/29/18 18:03 Dose: Not Given Insulin Aspart (Novolog) 0 unit SC Q6H DANIEL; Protocol Last Admin: 04/30/18 00:00 Dose: Not Given Lactulose (Enulose) 20 gm PO HS DANIEL Last Admin: 04/29/18 21:37 Dose: 20 gm Rosuvastatin Calcium (Crestor) 10 mg PO HS DANIEL Last Admin: 04/29/18 21:37 Dose: 10 mg - Labs Labs: 04/30/18 04:36 04/30/18 04:36 PT 14.5 SECONDS (9.7-12.2) H 04/26/18 21:58 INR 1.3 04/26/18 21:58 APTT 32 SECONDS (21-34) 04/26/18 21:58
[2018-04-30] MEDS: (Novolog) Insulin Aspart, Recombinant 100 u/ml 10 ml vial SC SCH ×4 (06:00→18:25)
[2018-04-30 06:29] LABS: ARTERIAL BLOOD GAS HCO3 22.8 mmol/L (21-28); ARTERIAL BLOOD GAS HEMOGLOBIN 9.7 g/dL (11.7-17.4); ARTERIAL BLOOD GAS O2 SAT 94.6 % (95-98); ARTERIAL BLOOD GAS PCO2 27 mm/Hg (35-45); ARTERIAL BLOOD GAS PH 7.48 (7.35-7.45); ARTERIAL BLOOD GAS PO2 59 mm/Hg (80-100); ARTERIAL BLOOD GAS TCO2 20.9 mmol/L (22-28)
[2018-04-30] MEDS: Acetaminophen 650mg/20.3ml solution UD NG PRN (08:00)
--- NOTE | 2018-04-30 09:26 | CP.PCM.PN ---
Subjective - Date & Time of Evaluation Date of Evaluation: 04/30/18 Time of Evaluation: 09:26 - Subjective Subjective: Progress note dictated #[id number] Objective - Vital Signs/Intake and Output Vital Signs (last 24 hours): Temp Pulse Resp BP Pulse Ox 100.4 F H 114 H 35 H 129/63 93 L 04/30/18 09:00 04/30/18 09:01 04/30/18 09:01 04/30/18 09:01 04/30/18 09:01 Intake and Output: 04/30/18 04/30/18 06:59 18:59 Intake Total 2223 435 Output Total 790 140 Balance 1433 295 - Medications Medications: Current Medications Acetaminophen (Tylenol 650mg/20.3ml Solution Ud) 650 mg NG Q4 PRN PRN Reason: Temperature Last Admin: 04/30/18 08:00 Dose: 650 mg Albuterol/Ipratropium (Duoneb 3 Mg/0.5 Mg (3 Ml) Ud) 3 ml INH RQ4 DANIEL Last Admin: 04/30/18 08:17 Dose: 3 ml Aspirin (Ecotrin) 81 mg PO DAILY DANIEL Last Admin: 04/29/18 09:52 Dose: Not Given Clopidogrel Bisulfate (Plavix) 75 mg PO DAILY DANIEL Last Admin: 04/28/18 11:48 Dose: Not Given Famotidine (Pepcid) 20 mg IVP DAILY [facility] Last Admin: 04/29/18 10:25 Dose: 20 mg Propofol (Diprivan) 1,000 mg in 100 mls @ 2.773 mls/hr IV .Q24H PRN; Protocol PRN Reason: TITRATE PER MD ORDER Last Titration: 04/29/18 17:53 Dose: 0 mcg/kg/min, 0 mls/hr Nicardipine HCl 25 mg/ Sodium (Chloride) 250 mls @ 25 mls/hr IV .Q10H DANIEL; Protocol Last Admin: 04/30/18 07:59 Dose: Not Given Piperacillin Sod/Tazobactam (Sod 3.375 gm/ Sodium Chloride) 100 mls @ 200 mls/hr IVPB Q6H DANIEL; Protocol Last Admin: 04/30/18 09:15 Dose: 200 mls/hr Sodium Chloride (Hypertonic Saline 3%) 1,000 mls @ 30 mls/hr IV .Q24H DANIEL Insulin Aspart (Novolog) 0 unit SC Q6H DANIEL; Protocol Last Admin: 04/30/18 06:00 Dose: Not Given Lactulose (Enulose) 20 gm PO HS DANIEL Last Admin: 04/29/18 21:37 Dose: 20 gm Rosuvastatin Calcium (Crestor) 10 mg PO HS DANIEL Last Admin: 04/29/18 21:37 Dose: 10 mg - Labs Labs: 04/30/18 04:36 04/30/18 04:36 PT 14.5 SECONDS (9.7-12.2) H 04/26/18 21:58 INR 1.3 04/26/18 21:58 APTT 32 SECONDS (21-34) 04/26/18 21:58
[2018-04-30] MEDS ORDERED: Sodium Chloride 3% 500 ML IV ONE (09:30)
--- NOTE | 2018-04-30 10:23 | CP.CCUPN ---
<Sherice Jordan - Last Filed: 04/30/18 10:19> CCU Subjective - Physician Review Events Since Last Encounter (Free Text): 04/30/18 10:19 No acute events overnight. Subjective (Free Text): 04/30/18 10:19 Patient seen an examined at bedside. Patient unable to provide a 12 point ROS due to clinical condition. Critical Care Time Spent (in minutes): 35 CCU Objective - Vital Signs / Intake & Output Vital Signs (Last 4 hours): Vital Signs Temp Pulse Resp BP BP Pulse Ox 04/30/18 09:01 114 H 35 H 129/63 93 L 04/30/18 09:00 100.4 F H 112 H 34 H 135/57 L 95 04/30/18 08:00 101.0 F H 98 H 31 H 135/55 L 96 04/30/18 07:59 103 H 31 H 138/67 94 L 04/30/18 07:13 100 F H 04/30/18 07:00 93 H 27 H 141/56 L 96 04/30/18 06:59 99 H 26 H 139/71 93 L Intake and Output (Last 8hrs): Intake & Output 04/29/18 04/30/18 04/30/18 22:59 06:59 14:59 Intake Total 1161.1 1635 435 Output Total 545 530 140 Balance 616.1 1105 295 Weight 191 lb 4 oz Intake: IV 255 490 Intake, IV Amount 606.1 710 270 Right Internal Jugular 280 240 90 Right Medial Port 11.1 Internal Jugular Right Proximal Port 315 470 180 Internal Jugular Tube Feeding 300 435 165 Output: Urine 545 530 140 Urethral (Bhatt) 545 530 140 Other: # Bowel Movements 0 0 0 - Physical Exam Head: Positive for: Atraumatic, Normocephalic Pupils: Positive for: PERRL, Sluggish Mouth: Positive for: Dry Respiratory/Chest: Positive for: Rhonchi, Other (vent) Cardiovascular: Positive for: Regular Rate and Rhythm, Normal S1, S2. Negative for: Murmurs Abdomen: Negative for: Distention Upper Extremity: Positive for: Normal Inspection Lower Extremity: Positive for: Normal Inspection Neurological: Positive for: Other (intubated, sedated, responsive to pain, gag relfex intact) Skin: Positive for: Warm, Dry Psychiatric: Negative for: Alert - Medications Active Medications: Active Medications Generic Name Dose Route Start Last Admin Trade Name Freq PRN Reason Stop Dose Admin Acetaminophen 650 mg 04/26/18 20:59 04/30/18 08:00 Tylenol 650mg/20.3ml Solution Ud NG 650 mg Q4 PRN Administration Temperature Albuterol/Ipratropium 3 ml 04/26/18 12:00 04/30/18 08:17 Duoneb 3 Mg/0.5 Mg (3 Ml) Ud INH 3 ml RQ4 DANIEL Administration Aspirin 81 mg 04/26/18 10:00 04/29/18 09:52 Ecotrin PO Not Given DAILY DANIEL Clopidogrel Bisulfate 75 mg 04/26/18 10:00 04/30/18 09:57 Plavix PO Not Given DAILY DANIEL Famotidine 20 mg 04/26/18 10:00 04/30/18 09:57 Pepcid IVP 20 mg DAILY DANIEL Administration Propofol 1,000 mg in 100 mls @ 2.773 mls/hr 04/25/18 21:29 04/29/18 17:53 Diprivan IV 0 mcg/kg/min .Q24H PRN 0 mls/hr TITRATE PER MD ORDER Titration Protocol 5 MCG/KG/MIN Nicardipine HCl 25 mg/ Sodium 250 mls @ 25 mls/hr 04/28/18 16:00 04/30/18 07:59 Chloride IV Not Given .Q10H DANIEL Protocol 2.5 MG/HR Piperacillin Sod/Tazobactam 100 mls @ 200 mls/hr 04/29/18 15:30 04/30/18 09:15 Sod 3.375 gm/ Sodium Chloride IVPB 200 mls/hr Q6H DANIEL Administration Protocol Sodium Chloride 500 mls @ 30 mls/hr 04/30/18 09:30 04/30/18 10:05 Hypertonic Saline 3% IV 05/01/18 02:09 30 mls/hr .[id number] Administration Insulin Aspart 0 unit 04/26/18 12:00 04/30/18 06:00 Novolog SC Not Given Q6H DANIEL Protocol Lactulose 20 gm 04/28/18 22:00 04/29/18 21:37 Enulose PO 20 gm HS DANIEL Administration Rosuvastatin Calcium 10 mg 04/26/18 22:00 04/29/18 21:37 Crestor PO 10 mg HS DANIEL Administration - Patient Studies Lab Studies: Microbiology Studies 04/25/18 08:28 Blood Culture - Preliminary Blood NO GROWTH AFTER 4 DAYS 04/26/18 08:28 Blood Culture - Preliminary Blood NO GROWTH AFTER 4 DAYS 04/29/18 18:18 Gram Stain - Final Body Fluid - Bronchial Washing 04/29/18 18:18 Gram Stain - Final Bronchial Washings Lab Studies 04/30/18 04/30/18 04/30/18 Range/Units 06:50 05:46 04:36 WBC 10.1 (4.8-10.8) K/uL RBC 3.49 L (4.40-5.90) Mil/uL Hgb 9.3 L (12.0-18.0) g/dL Hct 27.1 L (35.0-51.0) % MCV 77.7 L (80.0-94.0) fL MCH 26.6 L (27.0-31.0) pg MCHC 34.2 (33.0-37.0) g/dL RDW 17.9 H (11.5-14.5) % Plt Count 158 (130-400) K/uL MPV 9.2 (7.2-11.7) fL Neut % (Auto) 82.1 H (50.0-75.0) % Lymph % (Auto) 10.8 L (20.0-40.0) % [place] % (Auto) 6.2 (0.0-10.0) % Eos % (Auto) 0.4 (0.0-4.0) % Baso % (Auto) 0.5 (0.0-2.0) % Neut # (Auto) 8.3 H (1.8-7.0) K/uL Lymph # (Auto) 1.1 (1.0-4.3) K/uL [place] # (Auto) 0.6 (0.0-0.8) K/uL Eos # (Auto) 0.0 (0.0-0.7) K/uL Baso # (Auto) 0.1 (0.0-0.2) K/uL Puncture Site A-line pCO2 27 L (35-45) mm/Hg pO2 59 L (80-100) mm/Hg HCO3 22.8 (21-28) mmol/L ABG pH 7.48 H (7.35-7.45) ABG Total CO2 20.9 L (22-28) mmol/L ABG O2 Saturation 94.6 L (95-98) % ABG Base Excess -2.6 L (-2.0-3.0) mmol/L ABG Hemoglobin 9.7 L (11.7-17.4) g/dL ABG Carboxyhemoglobin 1.3 (0.5-1.5) % POC ABG HHb (Measured) 5.3 H (0.0-5.0) % ABG Methemoglobin 0.7 (0.0-3.0) % Jose D Test Na A-a O2 Difference 192.0 mm/Hg Respiratory Index 3.3 Hgb O2 Saturation 92.7 L (95.0-98.0) % Vent Mode Prvc Mechanical Rate 18 FiO2 40.0 % Tidal Volume 500 PEEP 5 Sodium (132-148) mmol/L Potassium (3.6-5.2) mmol/L Chloride (98-107) mmol/L Carbon Dioxide (22-30) mmol/L Anion Gap (10-20) BUN (9-20) mg/dL Creatinine (0.8-1.5) mg/dL Est GFR ( Amer) Est GFR (Non-Af Amer) POC Glucose (mg/dL) 157 H (65-110) mg/dL Random Glucose (75-110) mg/dL Serum Osmolality (272-300) mosm/kg Calcium (8.6-10.4) mg/dl 04/30/18 04/30/18 04/30/18 Range/Units 04:36 04:36 00:03 WBC (4.8-10.8) K/uL RBC (4.40-5.90) Mil/uL Hgb (12.0-18.0) g/dL Hct (35.0-51.0) % MCV (80.0-94.0) fL MCH (27.0-31.0) pg MCHC (33.0-37.0) g/dL RDW (11.5-14.5) % Plt Count (130-400) K/uL MPV (7.2-11.7) fL Neut % (Auto) (50.0-75.0) % Lymph % (Auto) (20.0-40.0) % [place] % (Auto) (0.0-10.0) % Eos % (Auto) (0.0-4.0) % Baso % (Auto) (0.0-2.0) % Neut # (Auto) (1.8-7.0) K/uL Lymph # (Auto) (1.0-4.3) K/uL [place] # (Auto) (0.0-0.8) K/uL Eos # (Auto) (0.0-0.7) K/uL Baso # (Auto) (0.0-0.2) K/uL Puncture Site pCO2 (35-45) mm/Hg pO2 (80-100) mm/Hg HCO3 (21-28) mmol/L ABG pH (7.35-7.45) ABG Total CO2 (22-28) mmol/L ABG O2 Saturation (95-98) % ABG Base Excess (-2.0-3.0) mmol/L ABG Hemoglobin (11.7-17.4) g/dL ABG Carboxyhemoglobin (0.5-1.5) % POC ABG HHb (Measured) (0.0-5.0) % ABG Methemoglobin (0.0-3.0) % Jose D Test A-a O2 Difference mm/Hg Respiratory Index Hgb O2 Saturation (95.0-98.0) % Vent Mode Mechanical Rate FiO2 % Tidal Volume PEEP Sodium 148 (132-148) mmol/L Potassium 3.9 (3.6-5.2) mmol/L Chloride 121 H (98-107) mmol/L Carbon Dioxide 22 (22-30) mmol/L Anion Gap 8 L (10-20) BUN 25 H (9-20) mg/dL Creatinine 0.9 (0.8-1.5) mg/dL Est GFR ( Amer) > 60 Est GFR (Non-Af Amer) > 60 POC Glucose (mg/dL) 148 H (65-110) mg/dL Random Glucose 164 H (75-110) mg/dL Serum Osmolality 321 H (272-300) mosm/kg Calcium 8.4 L (8.6-10.4) mg/dl 04/29/18 04/29/18 04/29/18 Range/Units 22:05 22:05 17:48 WBC (4.8-10.8) K/uL RBC (4.40-5.90) Mil/uL Hgb (12.0-18.0) g/dL Hct (35.0-51.0) % MCV (80.0-94.0) fL MCH (27.0-31.0) pg MCHC (33.0-37.0) g/dL RDW (11.5-14.5) % Plt Count (130-400) K/uL MPV (7.2-11.7) fL Neut % (Auto) (50.0-75.0) % Lymph % (Auto) (20.0-40.0) % [place] % (Auto) (0.0-10.0) % Eos % (Auto) (0.0-4.0) % Baso % (Auto) (0.0-2.0) % Neut # (Auto) (1.8-7.0) K/uL Lymph # (Auto) (1.0-4.3) K/uL [place] # (Auto) (0.0-0.8) K/uL Eos # (Auto) (0.0-0.7) K/uL Baso # (Auto) (0.0-0.2) K/uL Puncture Site pCO2 (35-45) mm/Hg pO2 (80-100) mm/Hg HCO3 (21-28) mmol/L ABG pH (7.35-7.45) ABG Total CO2 (22-28) mmol/L ABG O2 Saturation (95-98) % ABG Base Excess (-2.0-3.0) mmol/L ABG Hemoglobin (11.7-17.4) g/dL ABG Carboxyhemoglobin (0.5-1.5) % POC ABG HHb (Measured) (0.0-5.0) % ABG Methemoglobin (0.0-3.0) % Jose D Test A-a O2 Difference mm/Hg Respiratory Index Hgb O2 Saturation (95.0-98.0) % Vent Mode Mechanical Rate FiO2 % Tidal Volume PEEP Sodium 147 (132-148) mmol/L Potassium 3.9 (3.6-5.2) mmol/L Chloride 119 H (98-107) mmol/L Carbon Dioxide 23 (22-30) mmol/L Anion Gap 8 L (10-20) BUN 22 H (9-20) mg/dL Creatinine 0.9 (0.8-1.5) mg/dL Est GFR ( Amer) > 60 Est GFR (Non-Af Amer) > 60 POC Glucose (mg/dL) 126 H (65-110) mg/dL Random Glucose 147 H (75-110) mg/dL Serum Osmolality 319 H (272-300) mosm/kg Calcium 8.3 L (8.6-10.4) mg/dl 04/29/18 04/29/18 04/29/18 Range/Units 17:46 17:46 11:20 WBC (4.8-10.8) K/uL RBC (4.40-5.90) Mil/uL Hgb (12.0-18.0) g/dL Hct (35.0-51.0) % MCV (80.0-94.0) fL MCH (27.0-31.0) pg MCHC (33.0-37.0) g/dL RDW (11.5-14.5) % Plt Count (130-400) K/uL MPV (7.2-11.7) fL Neut % (Auto) (50.0-75.0) % Lymph % (Auto) (20.0-40.0) % [place] % (Auto) (0.0-10.0) % Eos % (Auto) (0.0-4.0) % Baso % (Auto) (0.0-2.0) % Neut # (Auto) (1.8-7.0) K/uL Lymph # (Auto) (1.0-4.3) K/uL [place] # (Auto) (0.0-0.8) K/uL Eos # (Auto) (0.0-0.7) K/uL Baso # (Auto) (0.0-0.2) K/uL Puncture Site pCO2 (35-45) mm/Hg pO2 (80-100) mm/Hg HCO3 (21-28) mmol/L ABG pH (7.35-7.45) ABG Total CO2 (22-28) mmol/L ABG O2 Saturation (95-98) % ABG Base Excess (-2.0-3.0) mmol/L ABG Hemoglobin (11.7-17.4) g/dL ABG Carboxyhemoglobin (0.5-1.5) % POC ABG HHb (Measured) (0.0-5.0) % ABG Methemoglobin (0.0-3.0) % Jose D Test A-a O2 Difference mm/Hg Respiratory Index Hgb O2 Saturation (95.0-98.0) % Vent Mode Mechanical Rate FiO2 % Tidal Volume PEEP Sodium 147 (132-148) mmol/L Potassium 3.8 (3.6-5.2) mmol/L Chloride 119 H (98-107) mmol/L Carbon Dioxide 23 (22-30) mmol/L Anion Gap 9 L (10-20) BUN 21 H (9-20) mg/dL Creatinine 0.9 (0.8-1.5) mg/dL Est GFR ( Amer) > 60 Est GFR (Non-Af Amer) > 60 POC Glucose (mg/dL) 151 H (65-110) mg/dL Random Glucose 134 H (75-110) mg/dL Serum Osmolality 318 H (272-300) mosm/kg Calcium 7.9 L (8.6-10.4) mg/dl 04/29/18 04/28/18 Range/Units 05:26 11:12 WBC (4.8-10.8) K/uL RBC (4.40-5.90) Mil/uL Hgb (12.0-18.0) g/dL Hct (35.0-51.0) % MCV (80.0-94.0) fL MCH (27.0-31.0) pg MCHC (33.0-37.0) g/dL RDW (11.5-14.5) % Plt Count (130-400) K/uL MPV (7.2-11.7) fL Neut % (Auto) (50.0-75.0) % Lymph % (Auto) (20.0-40.0) % [place] % (Auto) (0.0-10.0) % Eos % (Auto) (0.0-4.0) % Baso % (Auto) (0.0-2.0) % Neut # (Auto) (1.8-7.0) K/uL Lymph # (Auto) (1.0-4.3) K/uL [place] # (Auto) (0.0-0.8) K/uL Eos # (Auto) (0.0-0.7) K/uL Baso # (Auto) (0.0-0.2) K/uL Puncture Site pCO2 (35-45) mm/Hg pO2 (80-100) mm/Hg HCO3 (21-28) mmol/L ABG pH (7.35-7.45) ABG Total CO2 (22-28) mmol/L ABG O2 Saturation (95-98) % ABG Base Excess (-2.0-3.0) mmol/L ABG Hemoglobin (11.7-17.4) g/dL ABG Carboxyhemoglobin (0.5-1.5) % POC ABG HHb (Measured) (0.0-5.0) % ABG Methemoglobin (0.0-3.0) % Jose D Test A-a O2 Difference mm/Hg Respiratory Index Hgb O2 Saturation (95.0-98.0) % Vent Mode Mechanical Rate FiO2 % Tidal Volume PEEP Sodium (132-148) mmol/L Potassium (3.6-5.2) mmol/L Chloride (98-107) mmol/L Carbon Dioxide (22-30) mmol/L Anion Gap (10-20) BUN (9-20) mg/dL Creatinine (0.8-1.5) mg/dL Est GFR ( Amer) Est GFR (Non-Af Amer) POC Glucose (mg/dL) 137 H 147 H (65-110) mg/dL Random Glucose (75-110) mg/dL Serum Osmolality (272-300) mosm/kg Calcium (8.6-10.4) mg/dl Laboratory Results - last 24 hr 04/28/18 04/29/18 04/29/18 11:12 05:26 11:20 WBC RBC Hgb Hct MCV MCH MCHC RDW Plt Count MPV Neut % (Auto) Lymph % (Auto) [place] % (Auto) Eos % (Auto) Baso % (Auto) Neut # (Auto) Lymph # (Auto) [place] # (Auto) Eos # (Auto) Baso # (Auto) Puncture Site pCO2 pO2 HCO3 ABG pH ABG Total CO2 ABG O2 Saturation ABG Base Excess ABG Hemoglobin ABG Carboxyhemoglobin POC ABG HHb (Measured) ABG Methemoglobin Jose D Test A-a O2 Difference Respiratory Index Hgb O2 Saturation Vent Mode Mechanical Rate FiO2 Tidal Volume PEEP Sodium Potassium Chloride Carbon Dioxide Anion Gap BUN Creatinine Est GFR ( Amer) Est GFR (Non-Af Amer) POC Glucose (mg/dL) 147 H 137 H 151 H Random Glucose Serum Osmolality Calcium 04/29/18 04/29/18 04/29/18 17:46 17:46 17:48 WBC RBC Hgb Hct MCV MCH MCHC RDW Plt Count MPV Neut % (Auto) Lymph % (Auto) [place] % (Auto) Eos % (Auto) Baso % (Auto) Neut # (Auto) Lymph # (Auto) [place] # (Auto) Eos # (Auto) Baso # (Auto) Puncture Site pCO2 pO2 HCO3 ABG pH ABG Total CO2 ABG O2 Saturation ABG Base Excess ABG Hemoglobin ABG Carboxyhemoglobin POC ABG HHb (Measured) ABG Methemoglobin Jose D Test A-a O2 Difference Respiratory Index Hgb O2 Saturation Vent Mode Mechanical Rate FiO2 Tidal Volume PEEP Sodium 147 Potassium 3.8 Chloride 119 H Carbon Dioxide 23 Anion Gap 9 L BUN 21 H Creatinine 0.9 Est GFR ( Amer) > 60 Est GFR (Non-Af Amer) > 60 POC Glucose (mg/dL) 126 H Random Glucose 134 H Serum Osmolality 318 H Calcium 7.9 L 04/29/18 04/29/18 04/30/18 22:05 22:05 00:03 WBC RBC Hgb Hct MCV MCH MCHC RDW Plt Count MPV Neut % (Auto) Lymph % (Auto) [place] % (Auto) Eos % (Auto) Baso % (Auto) Neut # (Auto) Lymph # (Auto) [place] # (Auto) Eos # (Auto) Baso # (Auto) Puncture Site pCO2 pO2 HCO3 ABG pH ABG Total CO2 ABG O2 Saturation ABG Base Excess ABG Hemoglobin ABG Carboxyhemoglobin POC ABG HHb (Measured) ABG Methemoglobin Jose D Test A-a O2 Difference Respiratory Index Hgb O2 Saturation Vent Mode Mechanical Rate FiO2 Tidal Volume PEEP Sodium 147 Potassium 3.9 Chloride 119 H Carbon Dioxide 23 Anion Gap 8 L BUN 22 H Creatinine 0.9 Est GFR ( Amer) > 60 Est GFR (Non-Af Amer) > 60 POC Glucose (mg/dL) 148 H Random Glucose 147 H Serum Osmolality 319 H Calcium 8.3 L 04/30/18 04/30/18 04/30/18 04:36 04:36 04:36 WBC 10.1 RBC 3.49 L Hgb 9.3 L Hct 27.1 L MCV 77.7 L MCH 26.6 L MCHC 34.2 RDW 17.9 H Plt Count 158 MPV 9.2 Neut % (Auto) 82.1 H Lymph % (Auto) 10.8 L [place] % (Auto) 6.2 Eos % (Auto) 0.4 Baso % (Auto) 0.5 Neut # (Auto) 8.3 H Lymph # (Auto) 1.1 [place] # (Auto) 0.6 Eos # (Auto) 0.0 Baso # (Auto) 0.1 Puncture Site pCO2 pO2 HCO3 ABG pH ABG Total CO2 ABG O2 Saturation ABG Base Excess ABG Hemoglobin ABG Carboxyhemoglobin POC ABG HHb (Measured) ABG Methemoglobin Jose D Test A-a O2 Difference Respiratory Index Hgb O2 Saturation Vent Mode Mechanical Rate FiO2 Tidal Volume PEEP Sodium 148 Potassium 3.9 Chloride 121 H Carbon Dioxide 22 Anion Gap 8 L BUN 25 H Creatinine 0.9 Est GFR ( Amer) > 60 Est GFR (Non-Af Amer) > 60 POC Glucose (mg/dL) Random Glucose 164 H Serum Osmolality 321 H Calcium 8.4 L 04/30/18 04/30/18 05:46 06:50 WBC RBC Hgb Hct MCV MCH MCHC RDW Plt Count MPV Neut % (Auto) Lymph % (Auto) [place] % (Auto) Eos % (Auto) Baso % (Auto) Neut # (Auto) Lymph # (Auto) [place] # (Auto) Eos # (Auto) Baso # (Auto) Puncture Site A-line pCO2 27 L pO2 59 L HCO3 22.8 ABG pH 7.48 H ABG Total CO2 20.9 L ABG O2 Saturation 94.6 L ABG Base Excess -2.6 L ABG Hemoglobin 9.7 L ABG Carboxyhemoglobin 1.3 POC ABG HHb (Measured) 5.3 H ABG Methemoglobin 0.7 Jose D Test Na A-a O2 Difference 192.0 Respiratory Index 3.3 Hgb O2 Saturation 92.7 L Vent Mode Prvc Mechanical Rate 18 FiO2 40.0 Tidal Volume 500 PEEP 5 Sodium Potassium Chloride Carbon Dioxide Anion Gap BUN Creatinine Est GFR ( Amer) Est GFR (Non-Af Amer) POC Glucose (mg/dL) 157 H Random Glucose Serum Osmolality Calcium Fingerstick Blood Sugar Results: 157 Review of Systems - Review of Systems Systems not reviewed;Unavailable: Acuity of Condition Assessment/Plan - Assessment and Plan (Free Text) Assessment: Patient is 82 yo male who underwent 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 He remains intubated and sedated. 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, occlusion of L MCA - Post-op CTA: no occlusion/thrombus/stenosis visualized, patent stent graft in L ICA - Repeat CT head pending - Neurovascular checks Q1H- if any changes, repeat CT head STAT - Propofol drip5@ 5 - Neurology consulted (Ann) - Neurointervention consulted (Arcot) CV: - Mechanical thrombectomy 04/25 - Trop negative x3 - ASA 81 mg PO daily - Plavix 75 mg PO daily - Nicardipine @ 2.5 - NS @ 100 mL/hr - Monitor vitals- maintain SBP 100-140 Pulm: - Brochoscopy performed 04/29: Diffuse pulmonary edema and right main bronchos bleed - ETT- titrate vent to maintain spO2>92%, CPAP trial - CXR: severe cardiomegaly, mod venous congestion, b/l airspace disease (atelectasis vs PNA) - ABG on PRVC, FiO2 50: pH 7.37, pCO2 36, pO2 139 - Duoneb Q4H GI: - NGT- Glucerna : - Monitor I's & O's- Bhatt - Replete electrolytes PRN Endo: - A1c 5.9 - Maintain euglycemia - Accuchecks Q6H with ISS Heme: - No acute issues - Monitor H&H ID: - Afebrile - No leukocytosis - Blood Cx Neg 48hrs PPx: VTE: heparin 5000 units SC Q8H GI: Pepcid 20 mg IV daily Patient seen and case discussed in detail with Dr. Morteza Jordan PGY1 <Keith Pro - Last Filed: 04/30/18 18:11> CCU Objective - Vital Signs / Intake & Output Vital Signs (Last 4 hours): Vital Signs Temp Pulse Resp BP BP Pulse Ox 04/30/18 17:00 142 H 47 H 138/52 L 94 L 04/30/18 16:01 97 H 34 H 147/81 04/30/18 16:00 108 H 34 H 143/53 L 04/30/18 15:00 98.0 F 103 H 32 H 145/67 166/62 H 97 Intake and Output (Last 8hrs): Intake & Output 04/30/18 04/30/18 04/30/18 06:59 14:59 22:59 Intake Total 1635 1670 480 Output Total 530 390 90 Balance 1105 1280 390 Weight 191 lb 4 oz Intake: IV 490 500 35 Intake, IV Amount 710 730 280 Right Internal Jugular 240 150 Right Medial Port 100 100 Internal Jugular Right Proximal Port 470 480 180 Internal Jugular Tube Feeding 435 440 165 Output: Urine 530 390 90 Urethral (Bhatt) 530 390 90 Other: # Bowel Movements 0 0 0 - Medications Active Medications: Active Medications Generic Name Dose Route Start Last Admin Trade Name Freq PRN Reason Stop Dose Admin Acetaminophen 650 mg 04/26/18 20:59 04/30/18 08:00 Tylenol 650mg/20.3ml Solution Ud NG 650 mg Q4 PRN Administration Temperature Albuterol/Ipratropium 3 ml 04/26/18 12:00 04/30/18 16:57 Duoneb 3 Mg/0.5 Mg (3 Ml) Ud INH Not Given RQ4 DANIEL Aspirin 81 mg 04/26/18 10:00 04/29/18 09:52 Ecotrin PO Not Given DAILY DANIEL Clopidogrel Bisulfate 75 mg 04/26/18 10:00 04/30/18 09:57 Plavix PO Not Given DAILY DANIEL Famotidine 20 mg 04/26/18 10:00 04/30/18 09:57 Pepcid IVP 20 mg DAILY DANIEL Administration Nicardipine HCl 25 mg/ Sodium 250 mls @ 25 mls/hr 04/28/18 16:00 04/30/18 15:09 Chloride IV 6 mg/hr .Q10H DANIEL 60 mls/hr Administration Protocol 2.5 MG/HR Piperacillin Sod/Tazobactam 100 mls @ 200 mls/hr 04/29/18 15:30 04/30/18 15:08 Sod 3.375 gm/ Sodium Chloride IVPB 200 mls/hr Q6H DANIEL Administration Protocol Sodium Chloride 500 mls @ 30 mls/hr 04/30/18 09:30 04/30/18 10:05 Hypertonic Saline 3% IV 05/01/18 02:09 30 mls/hr .[id number] ONE Administration Propofol 1,000 mg in 100 mls @ 10.41 mls/hr 04/30/18 17:37 04/30/18 17:43 Diprivan IV 20 mcg/kg/min .[id number] PRN 10.41 mls/hr TITRATE PER MD ORDER Administration Protocol 20 MCG/KG/MIN Insulin Aspart 0 unit 04/26/18 12:00 04/30/18 13:32 Novolog SC 2 unit Q6H DANIEL Administration Protocol Lactulose 20 gm 04/28/18 22:00 04/29/18 21:37 Enulose PO 20 gm HS DANIEL Administration Rosuvastatin Calcium 10 mg 04/26/18 22:00 04/29/18 21:37 Crestor PO 10 mg HS DANIEL Administration - Patient Studies Lab Studies: Microbiology Studies 04/25/18 08:28 Blood Culture - Preliminary Blood NO GROWTH AFTER 4 DAYS 04/26/18 08:28 Blood Culture - Preliminary Blood NO GROWTH AFTER 4 DAYS 04/29/18 18:18 Gram Stain - Final Body Fluid - Bronchial Washing 04/29/18 18:18 Gram Stain - Final Bronchial Washings Lab Studies 04/30/18 04/30/18 04/30/18 Range/Units 17:50 11:09 10:18 WBC (4.8-10.8) K/uL RBC (4.40-5.90) Mil/uL Hgb (12.0-18.0) g/dL Hct (35.0-51.0) % MCV (80.0-94.0) fL MCH (27.0-31.0) pg MCHC (33.0-37.0) g/dL RDW (11.5-14.5) % Plt Count (130-400) K/uL MPV (7.2-11.7) fL Neut % (Auto) (50.0-75.0) % Lymph % (Auto) (20.0-40.0) % [place] % (Auto) (0.0-10.0) % Eos % (Auto) (0.0-4.0) % Baso % (Auto) (0.0-2.0) % Neut # (Auto) (1.8-7.0) K/uL Lymph # (Auto) (1.0-4.3) K/uL [place] # (Auto) (0.0-0.8) K/uL Eos # (Auto) (0.0-0.7) K/uL Baso # (Auto) (0.0-0.2) K/uL Puncture Site pCO2 (35-45) mm/Hg pO2 (80-100) mm/Hg HCO3 (21-28) mmol/L ABG pH (7.35-7.45) ABG Total CO2 (22-28) mmol/L ABG O2 Saturation (95-98) % ABG Base Excess (-2.0-3.0) mmol/L ABG Hemoglobin (11.7-17.4) g/dL ABG Carboxyhemoglobin (0.5-1.5) % POC ABG HHb (Measured) (0.0-5.0) % ABG Methemoglobin (0.0-3.0) % Jose D Test A-a O2 Difference mm/Hg Respiratory Index Hgb O2 Saturation (95.0-98.0) % Vent Mode Mechanical Rate FiO2 % Tidal Volume PEEP Sodium (132-148) mmol/L Potassium (3.6-5.2) mmol/L Chloride (98-107) mmol/L Carbon Dioxide (22-30) mmol/L Anion Gap (10-20) BUN (9-20) mg/dL Creatinine (0.8-1.5) mg/dL Est GFR ( Amer) Est GFR (Non-Af Amer) POC Glucose (mg/dL) 152 H 155 H (65-110) mg/dL Random Glucose (75-110) mg/dL Serum Osmolality 328 H (272-300) mosm/kg Calcium (8.6-10.4) mg/dl Phosphorus (2.5-4.5) mg/dL Magnesium (1.6-2.3) mg/dL 04/30/18 04/30/18 04/30/18 Range/Units 10:18 06:50 05:46 WBC (4.8-10.8) K/uL RBC (4.40-5.90) Mil/uL Hgb (12.0-18.0) g/dL Hct (35.0-51.0) % MCV (80.0-94.0) fL MCH (27.0-31.0) pg MCHC (33.0-37.0) g/dL RDW (11.5-14.5) % Plt Count (130-400) K/uL MPV (7.2-11.7) fL Neut % (Auto) (50.0-75.0) % Lymph % (Auto) (20.0-40.0) % [place] % (Auto) (0.0-10.0) % Eos % (Auto) (0.0-4.0) % Baso % (Auto) (0.0-2.0) % Neut # (Auto) (1.8-7.0) K/uL Lymph # (Auto) (1.0-4.3) K/uL [place] # (Auto) (0.0-0.8) K/uL Eos # (Auto) (0.0-0.7) K/uL Baso # (Auto) (0.0-0.2) K/uL Puncture Site A-line pCO2 27 L (35-45) mm/Hg pO2 59 L (80-100) mm/Hg HCO3 22.8 (21-28) mmol/L ABG pH 7.48 H (7.35-7.45) ABG Total CO2 20.9 L (22-28) mmol/L ABG O2 Saturation 94.6 L (95-98) % ABG Base Excess -2.6 L (-2.0-3.0) mmol/L ABG Hemoglobin 9.7 L (11.7-17.4) g/dL ABG Carboxyhemoglobin 1.3 (0.5-1.5) % POC ABG HHb (Measured) 5.3 H (0.0-5.0) % ABG Methemoglobin 0.7 (0.0-3.0) % Jose D Test Na A-a O2 Difference 192.0 mm/Hg Respiratory Index 3.3 Hgb O2 Saturation 92.7 L (95.0-98.0) % Vent Mode Prvc Mechanical Rate 18 FiO2 40.0 % Tidal Volume 500 PEEP 5 Sodium 151 H (132-148) mmol/L Potassium 3.8 (3.6-5.2) mmol/L Chloride 122 H (98-107) mmol/L Carbon Dioxide 22 (22-30) mmol/L Anion Gap 11 (10-20) BUN 28 H (9-20) mg/dL Creatinine 0.9 (0.8-1.5) mg/dL Est GFR ( Amer) > 60 Est GFR (Non-Af Amer) > 60 POC Glucose (mg/dL) 157 H (65-110) mg/dL Random Glucose 153 H (75-110) mg/dL Serum Osmolality (272-300) mosm/kg Calcium 8.3 L (8.6-10.4) mg/dl Phosphorus 2.4 L (2.5-4.5) mg/dL Magnesium 2.4 H (1.6-2.3) mg/dL 04/30/18 04/30/18 04/30/18 Range/Units 04:36 04:36 04:36 WBC 10.1 (4.8-10.8) K/uL RBC 3.49 L (4.40-5.90) Mil/uL Hgb 9.3 L (12.0-18.0) g/dL Hct 27.1 L (35.0-51.0) % MCV 77.7 L (80.0-94.0) fL MCH 26.6 L (27.0-31.0) pg MCHC 34.2 (33.0-37.0) g/dL RDW 17.9 H (11.5-14.5) % Plt Count 158 (130-400) K/uL MPV 9.2 (7.2-11.7) fL Neut % (Auto) 82.1 H (50.0-75.0) % Lymph % (Auto) 10.8 L (20.0-40.0) % [place] % (Auto) 6.2 (0.0-10.0) % Eos % (Auto) 0.4 (0.0-4.0) % Baso % (Auto) 0.5 (0.0-2.0) % Neut # (Auto) 8.3 H (1.8-7.0) K/uL Lymph # (Auto) 1.1 (1.0-4.3) K/uL [place] # (Auto) 0.6 (0.0-0.8) K/uL Eos # (Auto) 0.0 (0.0-0.7) K/uL Baso # (Auto) 0.1 (0.0-0.2) K/uL Puncture Site pCO2 (35-45) mm/Hg pO2 (80-100) mm/Hg HCO3 (21-28) mmol/L ABG pH (7.35-7.45) ABG Total CO2 (22-28) mmol/L ABG O2 Saturation (95-98) % ABG Base Excess (-2.0-3.0) mmol/L ABG Hemoglobin (11.7-17.4) g/dL ABG Carboxyhemoglobin (0.5-1.5) % POC ABG HHb (Measured) (0.0-5.0) % ABG Methemoglobin (0.0-3.0) % Jose D Test A-a O2 Difference mm/Hg Respiratory Index Hgb O2 Saturation (95.0-98.0) % Vent Mode Mechanical Rate FiO2 % Tidal Volume PEEP Sodium 148 (132-148) mmol/L Potassium 3.9 (3.6-5.2) mmol/L Chloride 121 H (98-107) mmol/L Carbon Dioxide 22 (22-30) mmol/L Anion Gap 8 L (10-20) BUN 25 H (9-20) mg/dL Creatinine 0.9 (0.8-1.5) mg/dL Est GFR ( Amer) > 60 Est GFR (Non-Af Amer) > 60 POC Glucose (mg/dL) (65-110) mg/dL Random Glucose 164 H (75-110) mg/dL Serum Osmolality 321 H (272-300) mosm/kg Calcium 8.4 L (8.6-10.4) mg/dl Phosphorus (2.5-4.5) mg/dL Magnesium (1.6-2.3) mg/dL 04/30/18 04/29/18 04/29/18 Range/Units 00:03 22:05 22:05 WBC (4.8-10.8) K/uL RBC (4.40-5.90) Mil/uL Hgb (12.0-18.0) g/dL Hct (35.0-51.0) % MCV (80.0-94.0) fL MCH (27.0-31.0) pg MCHC (33.0-37.0) g/dL RDW (11.5-14.5) % Plt Count (130-400) K/uL MPV (7.2-11.7) fL Neut % (Auto) (50.0-75.0) % Lymph % (Auto) (20.0-40.0) % [place] % (Auto) (0.0-10.0) % Eos % (Auto) (0.0-4.0) % Baso % (Auto) (0.0-2.0) % Neut # (Auto) (1.8-7.0) K/uL Lymph # (Auto) (1.0-4.3) K/uL [place] # (Auto) (0.0-0.8) K/uL Eos # (Auto) (0.0-0.7) K/uL Baso # (Auto) (0.0-0.2) K/uL Puncture Site pCO2 (35-45) mm/Hg pO2 (80-100) mm/Hg HCO3 (21-28) mmol/L ABG pH (7.35-7.45) ABG Total CO2 (22-28) mmol/L ABG O2 Saturation (95-98) % ABG Base Excess (-2.0-3.0) mmol/L ABG Hemoglobin (11.7-17.4) g/dL ABG Carboxyhemoglobin (0.5-1.5) % POC ABG HHb (Measured) (0.0-5.0) % ABG Methemoglobin (0.0-3.0) % Jose D Test A-a O2 Difference mm/Hg Respiratory Index Hgb O2 Saturation (95.0-98.0) % Vent Mode Mechanical Rate FiO2 % Tidal Volume PEEP Sodium 147 (132-148) mmol/L Potassium 3.9 (3.6-5.2) mmol/L Chloride 119 H (98-107) mmol/L Carbon Dioxide 23 (22-30) mmol/L Anion Gap 8 L (10-20) BUN 22 H (9-20) mg/dL Creatinine 0.9 (0.8-1.5) mg/dL Est GFR ( Amer) > 60 Est GFR (Non-Af Amer) > 60 POC Glucose (mg/dL) 148 H (65-110) mg/dL Random Glucose 147 H (75-110) mg/dL Serum Osmolality 319 H (272-300) mosm/kg Calcium 8.3 L (8.6-10.4) mg/dl Phosphorus (2.5-4.5) mg/dL Magnesium (1.6-2.3) mg/dL 04/29/18 04/29/18 Range/Units 17:46 17:46 WBC (4.8-10.8) K/uL RBC (4.40-5.90) Mil/uL Hgb (12.0-18.0) g/dL Hct (35.0-51.0) % MCV (80.0-94.0) fL MCH (27.0-31.0) pg MCHC (33.0-37.0) g/dL RDW (11.5-14.5) % Plt Count (130-400) K/uL MPV (7.2-11.7) fL Neut % (Auto) (50.0-75.0) % Lymph % (Auto) (20.0-40.0) % [place] % (Auto) (0.0-10.0) % Eos % (Auto) (0.0-4.0) % Baso % (Auto) (0.0-2.0) % Neut # (Auto) (1.8-7.0) K/uL Lymph # (Auto) (1.0-4.3) K/uL [place] # (Auto) (0.0-0.8) K/uL Eos # (Auto) (0.0-0.7) K/uL Baso # (Auto) (0.0-0.2) K/uL Puncture Site pCO2 (35-45) mm/Hg pO2 (80-100) mm/Hg HCO3 (21-28) mmol/L ABG pH (7.35-7.45) ABG Total CO2 (22-28) mmol/L ABG O2 Saturation (95-98) % ABG Base Excess (-2.0-3.0) mmol/L ABG Hemoglobin (11.7-17.4) g/dL ABG Carboxyhemoglobin (0.5-1.5) % POC ABG HHb (Measured) (0.0-5.0) % ABG Methemoglobin (0.0-3.0) % Jose D Test A-a O2 Difference mm/Hg Respiratory Index Hgb O2 Saturation (95.0-98.0) % Vent Mode Mechanical Rate FiO2 % Tidal Volume PEEP Sodium 147 (132-148) mmol/L Potassium 3.8 (3.6-5.2) mmol/L Chloride 119 H (98-107) mmol/L Carbon Dioxide 23 (22-30) mmol/L Anion Gap 9 L (10-20) BUN 21 H (9-20) mg/dL Creatinine 0.9 (0.8-1.5) mg/dL Est GFR ( Amer) > 60 Est GFR (Non-Af Amer) > 60 POC Glucose (mg/dL) (65-110) mg/dL Random Glucose 134 H (75-110) mg/dL Serum Osmolality 318 H (272-300) mosm/kg Calcium 7.9 L (8.6-10.4) mg/dl Phosphorus (2.5-4.5) mg/dL Magnesium (1.6-2.3) mg/dL Laboratory Results - last 24 hr 04/29/18 04/29/18 04/29/18 17:46 17:46 22:05 WBC RBC Hgb Hct MCV MCH MCHC RDW Plt Count MPV Neut % (Auto) Lymph % (Auto) [place] % (Auto) Eos % (Auto) Baso % (Auto) Neut # (Auto) Lymph # (Auto) [place] # (Auto) Eos # (Auto) Baso # (Auto) Puncture Site pCO2 pO2 HCO3 ABG pH ABG Total CO2 ABG O2 Saturation ABG Base Excess ABG Hemoglobin ABG Carboxyhemoglobin POC ABG HHb (Measured) ABG Methemoglobin Jose D Test A-a O2 Difference Respiratory Index Hgb O2 Saturation Vent Mode Mechanical Rate FiO2 Tidal Volume PEEP Sodium 147 147 Potassium 3.8 3.9 Chloride 119 H 119 H Carbon Dioxide 23 23 Anion Gap 9 L 8 L BUN 21 H 22 H Creatinine 0.9 0.9 Est GFR ( Amer) > 60 > 60 Est GFR (Non-Af Amer) > 60 > 60 POC Glucose (mg/dL) Random Glucose 134 H 147 H Serum Osmolality 318 H Calcium 7.9 L 8.3 L Phosphorus Magnesium 04/29/18 04/30/18 04/30/18 22:05 00:03 04:36 WBC RBC Hgb Hct MCV MCH MCHC RDW Plt Count MPV Neut % (Auto) Lymph % (Auto) [place] % (Auto) Eos % (Auto) Baso % (Auto) Neut # (Auto) Lymph # (Auto) [place] # (Auto) Eos # (Auto) Baso # (Auto) Puncture Site pCO2 pO2 HCO3 ABG pH ABG Total CO2 ABG O2 Saturation ABG Base Excess ABG Hemoglobin ABG Carboxyhemoglobin POC ABG HHb (Measured) ABG Methemoglobin Jose D Test A-a O2 Difference Respiratory Index Hgb O2 Saturation Vent Mode Mechanical Rate FiO2 Tidal Volume PEEP Sodium 148 Potassium 3.9 Chloride 121 H Carbon Dioxide 22 Anion Gap 8 L BUN 25 H Creatinine 0.9 Est GFR ( Amer) > 60 Est GFR (Non-Af Amer) > 60 POC Glucose (mg/dL) 148 H Random Glucose 164 H Serum Osmolality 319 H Calcium 8.4 L Phosphorus Magnesium 04/30/18 04/30/18 04/30/18 04:36 04:36 05:46 WBC 10.1 RBC 3.49 L Hgb 9.3 L Hct 27.1 L MCV 77.7 L MCH 26.6 L MCHC 34.2 RDW 17.9 H Plt Count 158 MPV 9.2 Neut % (Auto) 82.1 H Lymph % (Auto) 10.8 L [place] % (Auto) 6.2 Eos % (Auto) 0.4 Baso % (Auto) 0.5 Neut # (Auto) 8.3 H Lymph # (Auto) 1.1 [place] # (Auto) 0.6 Eos # (Auto) 0.0 Baso # (Auto) 0.1 Puncture Site A-line pCO2 27 L pO2 59 L HCO3 22.8 ABG pH 7.48 H ABG Total CO2 20.9 L ABG O2 Saturation 94.6 L ABG Base Excess -2.6 L ABG Hemoglobin 9.7 L ABG Carboxyhemoglobin 1.3 POC ABG HHb (Measured) 5.3 H ABG Methemoglobin 0.7 Jose D Test Na A-a O2 Difference 192.0 Respiratory Index 3.3 Hgb O2 Saturation 92.7 L Vent Mode Prvc Mechanical Rate 18 FiO2 40.0 Tidal Volume 500 PEEP 5 Sodium Potassium Chloride Carbon Dioxide Anion Gap BUN Creatinine Est GFR ( Amer) Est GFR (Non-Af Amer) POC Glucose (mg/dL) Random Glucose Serum Osmolality 321 H Calcium Phosphorus Magnesium 04/30/18 04/30/18 04/30/18 06:50 10:18 10:18 WBC RBC Hgb Hct MCV MCH MCHC RDW Plt Count MPV Neut % (Auto) Lymph % (Auto) [place] % (Auto) Eos % (Auto) Baso % (Auto) Neut # (Auto) Lymph # (Auto) [place] # (Auto) Eos # (Auto) Baso # (Auto) Puncture Site pCO2 pO2 HCO3 ABG pH ABG Total CO2 ABG O2 Saturation ABG Base Excess ABG Hemoglobin ABG Carboxyhemoglobin POC ABG HHb (Measured) ABG Methemoglobin Jose D Test A-a O2 Difference Respiratory Index Hgb O2 Saturation Vent Mode Mechanical Rate FiO2 Tidal Volume PEEP Sodium 151 H Potassium 3.8 Chloride 122 H Carbon Dioxide 22 Anion Gap 11 BUN 28 H Creatinine 0.9 Est GFR ( Amer) > 60 Est GFR (Non-Af Amer) > 60 POC Glucose (mg/dL) 157 H Random Glucose 153 H Serum Osmolality 328 H Calcium 8.3 L Phosphorus 2.4 L Magnesium 2.4 H 04/30/18 04/30/18 11:09 17:50 WBC RBC Hgb Hct MCV MCH MCHC RDW Plt Count MPV Neut % (Auto) Lymph % (Auto) [place] % (Auto) Eos % (Auto) Baso % (Auto) Neut # (Auto) Lymph # (Auto) [place] # (Auto) Eos # (Auto) Baso # (Auto) Puncture Site pCO2 pO2 HCO3 ABG pH ABG Total CO2 ABG O2 Saturation ABG Base Excess ABG Hemoglobin ABG Carboxyhemoglobin POC ABG HHb (Measured) ABG Methemoglobin Jose D Test A-a O2 Difference Respiratory Index Hgb O2 Saturation Vent Mode Mechanical Rate FiO2 Tidal Volume PEEP Sodium Potassium Chloride Carbon Dioxide Anion Gap BUN Creatinine Est GFR ( Amer) Est GFR (Non-Af Amer) POC Glucose (mg/dL) 155 H 152 H Random Glucose Serum Osmolality Calcium Phosphorus Magnesium Attending/Attestation - Attestation I have personally seen and examined this patient.: Yes I have fully participated in the care of the patient.: Yes I have reviewed all pertinent clinical information: Yes Notes (Text): 04/30/18 18:09 I have seen and examined the patient. Medical records, lab studies, and imaging were reviewed by me and a management plan was formulated on multidisciplinary rounds with resident Dr. Jordan. I agree with their documented assessment and plan. Patient has severe left hemispheric infarct. There is little hope for recovery. Spoke to son about withdrawal of care and DNR. He said he will speak with his family and hopefully give us a decision tomorrow. Critical Care Time 35 minutes. Multi-disciplinary rounds were performed with house staff, nursing, speech therapy, respiratory therapy, pharmacy and nutrition with integrated input from the primary team/attending and other consulting services. The documented time is cumulative and includes review of patient data/exams/labs/chart review and examination of the patient on rounds and throughout the day; time is exclusive of any procedures or teaching time.
--- NOTE | 2018-04-30 11:11 | PCM.SURG1 ---
Surgeon's Initial Post Op Note - Surgeon's Notes Surgeon: Taty Assessment Consultant: none Type of Anesthesia: IV Sedation Pre-Operative Diagnosis: hemostasis Operative Findings: significant mucosal redness, more a bleeding like noted from the right lower lung. Controlled with epinephrine Post-Operative Diagnosis: severe mucositis, hemostasis stable Operation Performed: bronchoscopy, BAL Specimen/Specimens Removed: bronchoalveolar lavage Estimated Blood Loss: EBL {In ML}: 10 Date of Surgery/Procedure: 04/29/18 Time of Surgery/Procedure: 16:00
[2018-04-30 11:14] LABS: BLOOD UREA NITROGEN 28 mg/dL (9-20); CALCIUM 8.3 mg/dl (8.6-10.4); GFR NON-AFRICAN AMERICAN > 60
[2018-04-30] MEDS ORDERED: Potassium & Sodium Phosphate PO ONE ×2 (12:30→13:45)
--- NOTE | 2018-04-30 13:42 | CP.PCM.CON ---
History of Present Illness - History of Present Illness History of Present Illness: Palliative consult requested by Doctor Smiley for goals of care discussion patient is a 82 yo male brought in after found at the parking lot, unresponsive. Downtime not known. Found with right sided weakness. The CT head significant for L MCA. S/P thrombectomy with Doctor Janelle. Developed left MCA infarct post procedure. Intubated and brought to ICU. Repeated Ct head significant for worsening edema and midline shift to right. Patient is on Hypertonic Saline 3 %. BP controled with Nicardipine drip. Patient is off sedation but remains intubated. Bedside bronchoscopy significant for pulmonary edema and bleeding from right bronchus. prognosis remains very poor. Palliative care asked to assist in planing a care. PMH: CAD, A Fib, Coronary artery bypass, HTN Soc. Hx: lives with his son Raulito, has 3 more sons in different states, no Hx of drinking/smoking Fam. hx: HTN in family Review of Systems - Review of Systems All systems: reviewed and no additional remarkable complaints except Review of Systems: ROS unobtainable from patient due to intubation and AMS. ROS obtained from nursing. Per nursing , no acute overnight events. Past Patient History - Past Social History Smoking Status: unknown - CARDIAC Hx Cardiac Disorders: Yes Hx Hypercholesterolemia: Yes Hx Hypertension: Yes - PULMONARY Hx Respiratory Disorders: No - NEUROLOGICAL Hx Neurological Disorder: No - HEENT Hx HEENT Problems: No - RENAL Hx Chronic Kidney Disease: No - ENDOCRINE/METABOLIC Hx Endocrine Disorders: Yes Hx Diabetes Mellitus Type 2: Yes - HEMATOLOGICAL/ONCOLOGICAL Hx Blood Disorders: No - INTEGUMENTARY Hx Dermatological Problems: No - MUSCULOSKELETAL/RHEUMATOLOGICAL Hx Falls: No - GASTROINTESTINAL Hx Gastrointestinal Disorders: No - GENITOURINARY/GYNECOLOGICAL Hx Genitourinary Disorders: No - PSYCHIATRIC Hx Substance Use: No (unknown) - SURGICAL HISTORY Hx Surgeries: Yes Hx Coronary Artery Bypass Graft: Yes Other/Comment: knee SX- 5 years ago - ANESTHESIA Hx Anesthesia: Yes Hx Anesthesia Reactions: No Hx Malignant Hyperthermia: No Has any member of the family had a problem w/ anesthesia?: No Meds Allergies/Adverse Reactions: Allergies Allergy/AdvReac Type Severity Reaction Status Date / Time No Known Allergies Allergy Unverified 04/25/18 16:19 - Medications Medications: Current Medications Acetaminophen (Tylenol 650mg/20.3ml Solution Ud) 650 mg NG Q4 PRN PRN Reason: Temperature Last Admin: 04/30/18 08:00 Dose: 650 mg Albuterol/Ipratropium (Duoneb 3 Mg/0.5 Mg (3 Ml) Ud) 3 ml INH RQ4 DANIEL Last Admin: 04/30/18 11:13 Dose: 3 ml Aspirin (Ecotrin) 81 mg PO DAILY [facility] Last Admin: 04/29/18 09:52 Dose: Not Given Clopidogrel Bisulfate (Plavix) 75 mg PO DAILY [facility] Last Admin: 04/30/18 09:57 Dose: Not Given Famotidine (Pepcid) 20 mg IVP DAILY [facility] Last Admin: 04/30/18 09:57 Dose: 20 mg Propofol (Diprivan) 1,000 mg in 100 mls @ 2.773 mls/hr IV .Q24H PRN; Protocol PRN Reason: TITRATE PER MD ORDER Last Titration: 04/29/18 17:53 Dose: 0 mcg/kg/min, 0 mls/hr Nicardipine HCl 25 mg/ Sodium (Chloride) 250 mls @ 25 mls/hr IV .Q10H DANIEL; Protocol Last Admin: 04/30/18 10:42 Dose: 6 mg/hr, 60 mls/hr Piperacillin Sod/Tazobactam (Sod 3.375 gm/ Sodium Chloride) 100 mls @ 200 mls/hr IVPB Q6H DANIEL; Protocol Last Admin: 04/30/18 09:15 Dose: 200 mls/hr Sodium Chloride (Hypertonic Saline 3%) 500 mls @ 30 mls/hr IV .[id number] ONE Stop: 05/01/18 02:09 Last Admin: 04/30/18 10:05 Dose: 30 mls/hr Insulin Aspart (Novolog) 0 unit SC Q6H DANIEL; Protocol Last Admin: 04/30/18 13:32 Dose: 2 unit Lactulose (Enulose) 20 gm PO HS DANIEL Last Admin: 04/29/18 21:37 Dose: 20 gm Rosuvastatin Calcium (Crestor) 10 mg PO HS DANIEL Last Admin: 04/29/18 21:37 Dose: 10 mg Physical Exam - Constitutional Appears: In Acute Distress - Head Exam Head Exam: ATRAUMATIC, NORMAL INSPECTION, NORMOCEPHALIC - Eye Exam Eye Exam: Normal appearance Additional comments: Does not fallow - ENT Exam Additional comments: ETT, OGT - Neck Exam Neck exam: Positive for: Normal Inspection - Respiratory Exam Additional comments: On MV - Cardiovascular Exam Cardiovascular Exam: Tachycardia - GI/Abdominal Exam GI & Abdominal Exam: Diminished Bowel Sounds, Distended, Soft - Rectal Exam Rectal Exam: Deferred - Exam Additional comments: Bhatt cath - Extremities Exam Extremities exam: Positive for: normal inspection - Back Exam Back exam: NORMAL INSPECTION - Neurological Exam Neurological exam: Motor Sensory Deficit - Psychiatric Exam Psychiatric exam: Flat Affect - Skin Skin Exam: Normal Color Results - Vital Signs Recent Vital Signs: Last Vital Signs Temp 100.5 F H 04/30/18 11:00 Pulse 107 H 04/30/18 11:00 Resp 32 H 04/30/18 11:00 BP 143/55 L 04/30/18 11:00 Pulse Ox 100 04/30/18 11:00 - Labs Result Diagrams: 04/30/18 04:36 04/30/18 10:18 Labs: Laboratory Results - last 24 hr 04/29/18 04/29/18 04/29/18 11:20 17:46 17:46 WBC RBC Hgb Hct MCV MCH MCHC RDW Plt Count MPV Neut % (Auto) Lymph % (Auto) [place] % (Auto) Eos % (Auto) Baso % (Auto) Neut # (Auto) Lymph # (Auto) [place] # (Auto) Eos # (Auto) Baso # (Auto) Puncture Site pCO2 pO2 HCO3 ABG pH ABG Total CO2 ABG O2 Saturation ABG Base Excess ABG Hemoglobin ABG Carboxyhemoglobin POC ABG HHb (Measured) ABG Methemoglobin Jose D Test A-a O2 Difference Respiratory Index Hgb O2 Saturation Vent Mode Mechanical Rate FiO2 Tidal Volume PEEP Sodium 147 Potassium 3.8 Chloride 119 H Carbon Dioxide 23 Anion Gap 9 L BUN 21 H Creatinine 0.9 Est GFR ( Amer) > 60 Est GFR (Non-Af Amer) > 60 POC Glucose (mg/dL) 151 H Random Glucose 134 H Serum Osmolality 318 H Calcium 7.9 L Phosphorus Magnesium 04/29/18 04/29/18 04/29/18 17:48 22:05 22:05 WBC RBC Hgb Hct MCV MCH MCHC RDW Plt Count MPV Neut % (Auto) Lymph % (Auto) [place] % (Auto) Eos % (Auto) Baso % (Auto) Neut # (Auto) Lymph # (Auto) [place] # (Auto) Eos # (Auto) Baso # (Auto) Puncture Site pCO2 pO2 HCO3 ABG pH ABG Total CO2 ABG O2 Saturation ABG Base Excess ABG Hemoglobin ABG Carboxyhemoglobin POC ABG HHb (Measured) ABG Methemoglobin Jose D Test A-a O2 Difference Respiratory Index Hgb O2 Saturation Vent Mode Mechanical Rate FiO2 Tidal Volume PEEP Sodium 147 Potassium 3.9 Chloride 119 H Carbon Dioxide 23 Anion Gap 8 L BUN 22 H Creatinine 0.9 Est GFR ( Amer) > 60 Est GFR (Non-Af Amer) > 60 POC Glucose (mg/dL) 126 H Random Glucose 147 H Serum Osmolality 319 H Calcium 8.3 L Phosphorus Magnesium 04/30/18 04/30/18 04/30/18 00:03 04:36 04:36 WBC RBC Hgb Hct MCV MCH MCHC RDW Plt Count MPV Neut % (Auto) Lymph % (Auto) [place] % (Auto) Eos % (Auto) Baso % (Auto) Neut # (Auto) Lymph # (Auto) [place] # (Auto) Eos # (Auto) Baso # (Auto) Puncture Site pCO2 pO2 HCO3 ABG pH ABG Total CO2 ABG O2 Saturation ABG Base Excess ABG Hemoglobin ABG Carboxyhemoglobin POC ABG HHb (Measured) ABG Methemoglobin Jose D Test A-a O2 Difference Respiratory Index Hgb O2 Saturation Vent Mode Mechanical Rate FiO2 Tidal Volume PEEP Sodium 148 Potassium 3.9 Chloride 121 H Carbon Dioxide 22 Anion Gap 8 L BUN 25 H Creatinine 0.9 Est GFR ( Amer) > 60 Est GFR (Non-Af Amer) > 60 POC Glucose (mg/dL) 148 H Random Glucose 164 H Serum Osmolality 321 H Calcium 8.4 L Phosphorus Magnesium 04/30/18 04/30/18 04/30/18 04:36 05:46 06:50 WBC 10.1 RBC 3.49 L Hgb 9.3 L Hct 27.1 L MCV 77.7 L MCH 26.6 L MCHC 34.2 RDW 17.9 H Plt Count 158 MPV 9.2 Neut % (Auto) 82.1 H Lymph % (Auto) 10.8 L [place] % (Auto) 6.2 Eos % (Auto) 0.4 Baso % (Auto) 0.5 Neut # (Auto) 8.3 H Lymph # (Auto) 1.1 [place] # (Auto) 0.6 Eos # (Auto) 0.0 Baso # (Auto) 0.1 Puncture Site A-line pCO2 27 L pO2 59 L HCO3 22.8 ABG pH 7.48 H ABG Total CO2 20.9 L ABG O2 Saturation 94.6 L ABG Base Excess -2.6 L ABG Hemoglobin 9.7 L ABG Carboxyhemoglobin 1.3 POC ABG HHb (Measured) 5.3 H ABG Methemoglobin 0.7 Jose D Test Na A-a O2 Difference 192.0 Respiratory Index 3.3 Hgb O2 Saturation 92.7 L Vent Mode Prvc Mechanical Rate 18 FiO2 40.0 Tidal Volume 500 PEEP 5 Sodium Potassium Chloride Carbon Dioxide Anion Gap BUN Creatinine Est GFR ( Amer) Est GFR (Non-Af Amer) POC Glucose (mg/dL) 157 H Random Glucose Serum Osmolality Calcium Phosphorus Magnesium 04/30/18 04/30/18 10:18 10:18 WBC RBC Hgb Hct MCV MCH MCHC RDW Plt Count MPV Neut % (Auto) Lymph % (Auto) [place] % (Auto) Eos % (Auto) Baso % (Auto) Neut # (Auto) Lymph # (Auto) [place] # (Auto) Eos # (Auto) Baso # (Auto) Puncture Site pCO2 pO2 HCO3 ABG pH ABG Total CO2 ABG O2 Saturation ABG Base Excess ABG Hemoglobin ABG Carboxyhemoglobin POC ABG HHb (Measured) ABG Methemoglobin Jose D Test A-a O2 Difference Respiratory Index Hgb O2 Saturation Vent Mode Mechanical Rate FiO2 Tidal Volume PEEP Sodium 151 H Potassium 3.8 Chloride 122 H Carbon Dioxide 22 Anion Gap 11 BUN 28 H Creatinine 0.9 Est GFR ( Amer) > 60 Est GFR (Non-Af Amer) > 60 POC Glucose (mg/dL) Random Glucose 153 H Serum Osmolality 328 H Calcium 8.3 L Phosphorus 2.4 L Magnesium 2.4 H Assessment & Plan - Assessment and Plan (Free Text) Assessment: Palliative care Full Code, there is no Advance Directive on chart, PPS 10% I reviewed Medical records, all diagnostic studies, examined patient in the bed Patient is intubated, unresponsive to verbal/tactil stimuli, off sedation. There is gag reflex, corneal reflex very sluggish almost absent. On MV at 100 FiO2. HR 112, BP 143/65 on Nicardipine drip. Abdomed distended, soft, hypoactive bowel sounds. Bhatt at BS, urine clear. There is no purposefull movements of any extremities. Right sided weakness. There is edema to upper arms, right > left. WBC 10.1, Hb 9.3, Na 148 Goals of care discussed with patient's son Mr. Magaña in presence of Doctor Abdirizak and primary nurse Anitha. The son stated being aware of patient's condition as he had discussed it with the ICU team in the past days. He wanted to know if his fatherwas ever to return to his previous life style and live normal life. he wanted to hear it from the Doctor. Doctor Abdirizak explained that the brain has sustained significant and irreversible injies and therefore, the meaningful recovery was not expected. The son was very specific that he would not want his father to suffer any more and asked about removing life support. The process was explained. Mr. Magaña asked to speak to his brother before making final decision on terminal extubation. He did not want any CPR to be provided if it should be needed . We agreed to meet again tomorrow at 11 am for further care planing discussion. Impression * S/P CVA * Acute respiratory distress * Irreversible anorexic injuries of brain * Patient unable to advocate for himself and his wishes for end of life care are not known * Patient's son Mr. magaña advocates for patient and is concerned with his quality of life * The son is considering Terminal extubation * Son does not want CPR, more details to be discussed tomorrow Suggestions * promote comfort; oral care, suctioning, turn and reposition in bed * Aspiration precautions * DNR * Decision on Terminal extubation to be made tomorrow at fallow up visit palliative care will continue to fallow up with this patient and family. Advance care planing 46 min
--- NOTE | 2018-04-30 14:03 | RAD ---
Date of service: 04/30/2018 HISTORY: ON VENT COMPARISON: April 29, 2018. FINDINGS: LUNGS: Improving pulmonary edema. PLEURA: No significant pleural effusion identified, no pneumothorax apparent. CARDIOVASCULAR: No atherosclerotic calcification present Stable cardiomegaly OSSEOUS STRUCTURES: No significant abnormalities. VISUALIZED UPPER ABDOMEN: Normal. OTHER FINDINGS: None. IMPRESSION: Interval improvement in pulmonary edema. Stable, satisfactory position ventilatory, vascular and nasogastric apparatus.
--- NOTE | 2018-04-30 16:50 | CT ---
Date of service: 04/30/2018 PROCEDURE: CT HEAD WITHOUT CONTRAST. HISTORY: Left the MCA; progression of midline shift COMPARISON: Comparison made with prior CT scan brain 04/29/2018. The low STIR early of the inner the TECHNIQUE: Axial computed tomography images were obtained through the head/brain without intravenous contrast. No problem Radiation dose: Total exam DLP = 2525.24 mGy-cm. This CT exam was performed using one or more of the following dose reduction techniques: Automated exposure control, adjustment of the mA and/or kV according to patient size, and/or use of iterative reconstruction technique. FINDINGS: HEMORRHAGE: No definitive acute parenchymal, subarachnoid or extra-axial hemorrhage.. BRAIN: Large MCA infarct which involves nearly entire left cerebral hemisphere. Diffuse cerebral edema is again seen resulting in overlying sulcal effacement and right to left midline shift. Septum pellucidum is shifted across midline to the right nearly 18 mm. There is marked compression of the left lateral ventricle which is also shifted across midline. Dilatation of the right lateral ventricle due to compression of the right foramen of [place]. VENTRICLES: As above. CALVARIUM: Unremarkable. PARANASAL SINUSES: Unremarkable as visualized. No significant inflammatory changes. MASTOID AIR CELLS: Unremarkable as visualized. No inflammatory changes. OTHER FINDINGS: None. IMPRESSION: Large left MCA territory infarct which involves most of the left cerebral hemisphere. Diffuse cerebral edema on results since significant mass effect with overlying sulcal effacement as well as compression of the left lateral ventricle and shift of midline shift estimated at approximately 18 mm near lobe as above.
[2018-04-30] MEDS: Propofol 10 mg/ml 1,000 MG/100 ML VIAL IV PRN (17:23)
[2018-04-30] MEDS ORDERED: Propofol 10 mg/ml 1,000 MG/100 ML VIAL IV PRN (17:37)
--- NOTE | 2018-04-30 18:53 | CP.PCM.PN ---
<Lucila Stewart - Last Filed: 04/30/18 18:41> Subjective - Date & Time of Evaluation Date of Evaluation: 04/30/18 Time of Evaluation: 09:00 - Subjective Subjective: Neurology Follow Up Note Patient was seen and examined at bedside. Patient is intubated and off sedation. Patient is not arousable to sternal rub, painful stimuli. ROS unattainable due to current state. Objective - Vital Signs/Intake and Output Vital Signs (last 24 hours): Temp Pulse Resp BP Pulse Ox 98.0 F 142 H 47 H 138/52 L 94 L 04/30/18 15:00 04/30/18 17:00 04/30/18 17:00 04/30/18 17:00 04/30/18 17:00 Intake and Output: 04/30/18 04/30/18 06:59 18:59 Intake Total 2223 2150 Output Total 790 480 Balance 1433 1670 - Medications Medications: Current Medications Acetaminophen (Tylenol 650mg/20.3ml Solution Ud) 650 mg NG Q4 PRN PRN Reason: Temperature Last Admin: 04/30/18 08:00 Dose: 650 mg Albuterol/Ipratropium (Duoneb 3 Mg/0.5 Mg (3 Ml) Ud) 3 ml INH RQ4 [facility] Last Admin: 04/30/18 16:57 Dose: Not Given Aspirin (Ecotrin) 81 mg PO DAILY [facility] Last Admin: 04/29/18 09:52 Dose: Not Given Clopidogrel Bisulfate (Plavix) 75 mg PO DAILY [facility] Last Admin: 04/30/18 09:57 Dose: Not Given Famotidine (Pepcid) 20 mg IVP DAILY [facility] Last Admin: 04/30/18 09:57 Dose: 20 mg Nicardipine HCl 25 mg/ Sodium (Chloride) 250 mls @ 25 mls/hr IV .Q10H [facility]; Protocol Last Admin: 04/30/18 18:21 Dose: Not Given Piperacillin Sod/Tazobactam (Sod 3.375 gm/ Sodium Chloride) 100 mls @ 200 mls/hr IVPB Q6H [facility]; Protocol Last Admin: 04/30/18 15:08 Dose: 200 mls/hr Sodium Chloride (Hypertonic Saline 3%) 500 mls @ 30 mls/hr IV .[id number] ONE Stop: 05/01/18 02:09 Last Admin: 04/30/18 10:05 Dose: 30 mls/hr Propofol (Diprivan) 1,000 mg in 100 mls @ 10.41 mls/hr IV .Q9H37M PRN; Protocol PRN Reason: TITRATE PER MD ORDER Last Admin: 04/30/18 17:43 Dose: 20 mcg/kg/min, 10.41 mls/hr Insulin Aspart (Novolog) 0 unit SC Q6H [facility]; Protocol Last Admin: 04/30/18 18:25 Dose: 2 unit Lactulose (Enulose) 20 gm PO HS [facility] Last Admin: 04/29/18 21:37 Dose: 20 gm Rosuvastatin Calcium (Crestor) 10 mg PO HS [facility] Last Admin: 04/29/18 21:37 Dose: 10 mg - Labs Labs: 04/30/18 04:36 04/30/18 10:18 PT 14.5 SECONDS (9.7-12.2) H 04/26/18 21:58 INR 1.3 04/26/18 21:58 APTT 32 SECONDS (21-34) 04/26/18 21:58 - Additional Findings Additional findings: - Constitutional Appears: No Acute Distress - Head Exam Head Exam: NORMAL INSPECTION, NORMOCEPHALIC - Eye Exam Eye Exam: PERRL (small diameter, react to light bilaterally ) - ENT Exam ENT Exam: Mucous Membranes Dry Additional comments: right TLC NGT in place - Respiratory Exam Respiratory Exam: Clear to Ausculation Bilateral - Cardiovascular Exam Cardiovascular Exam: +S1, +S2 - GI/Abdominal Exam GI & Abdominal Exam: Soft, Normal Bowel Sounds. 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 There is opacification of the left A1 and A2 segments which appears to be predominantly fed from the left posterior communicating artery and possibly some contribution via the the anterior communicator. Calcified atherosclerotic plaque seen along the distal right common carotid artery and carotid bifurcation extending into the proximal internal carotid artery. - Head/ Neck CTA after thrombectomy: 1. No evidence of endoluminal thrombus ,occlusion or definite significant stenosis in the intracranial arteries. 2. No evidence of hemodynamically significant stenosis in the right internal carotid artery. 3. Status post neuro intervention, patent left common carotid artery and patent endovascular stent graft in the left internal carotid artery. 4. Patent bilateral vertebral arteries. - Head CT 04/26: Significant acute ischemic changes involving most of the left cerebral hemisphere with diffuse cerebral edema and secondary mass effect with [id number] midline shift estimated approximately 4.5 cm. Mild dilatation of the right lateral ventricle felt to be secondary to compressive effects at the level of the foramina Manning. - Head CT 04/28: Extensive acute ischemic changes involving most of the left cerebral hemisphere associated with diffuse cerebral edema and mass effect with overlying sulcal effacement and compression of the left lateral ventricle which is displaced across midline which has increased.. The septum pellucidum is displaced across midline by approximately 12 mm. There is dilatation of the right lateral ventricle due to compression of the right foramen of Manning. - Head CT 04/29: Interval evolution of known large left MCA territory infarction with worsening cerebral edema, mass effect and midline shift. Impending uncal herniation and interval development of obstructive hydrocephalus. No evidence o f intra cerebral hemorrhage. - Head CT 04/30: Large left MCA territory infarct which involves most of the left cerebral hemisphere. Diffuse cerebral edema on results since significant mass effect with overlying sulcal effacement as well as compression of the left lateral ventricle and shift of midline shift estimated at approximately 18 mm near lobe as above. Management: - ICU Management - Continue Aspirin, Plavix - Serial Head CTs - Will continue with NS 3% @ 30ml/hrs for a goal serum sodium of 145-150 and serum osm of less than 320. - Family meeting to take place with Palliative Care, for possible terminal extubation Case discussed with Lucila Guo DO, PGY2 <Nikolai Buchanan - Last Filed: 05/01/18 18:15> Objective - Vital Signs/Intake and Output Vital Signs (last 24 hours): Temp Pulse Resp BP Pulse Ox 99.7 F H 92 H 24 134/54 L 99 05/01/18 16:00 05/01/18 18:00 05/01/18 18:00 05/01/18 18:00 05/01/18 18:00 Intake and Output: 05/01/18 05/01/18 06:59 18:59 Intake Total 2213.2 2128.6 Output Total 480 990 Balance 1733.2 1138.6 - Medications Medications: Current Medications Acetaminophen (Tylenol 650mg/20.3ml Solution Ud) 650 mg NG Q4 PRN PRN Reason: Temperature Last Admin: 05/01/18 00:00 Dose: 650 mg Albuterol/Ipratropium (Duoneb 3 Mg/0.5 Mg (3 Ml) Ud) 3 ml INH RQ4 [facility] Last Admin: 05/01/18 15:48 Dose: 3 ml Aspirin (Ecotrin) 81 mg PO DAILY [facility] Last Admin: 05/01/18 10:00 Dose: 81 mg Clopidogrel Bisulfate (Plavix) 75 mg PO DAILY [facility] Last Admin: 05/01/18 10:30 Dose: 75 mg Famotidine (Pepcid) 20 mg IVP DAILY [facility] Last Admin: 05/01/18 10:30 Dose: 20 mg Furosemide (Lasix) 40 mg IVP BID [facility] Last Admin: 05/01/18 17:51 Dose: 40 mg Nicardipine HCl 25 mg/ Sodium (Chloride) 250 mls @ 25 mls/hr IV .Q10H [facility]; Protocol Last Admin: 05/01/18 14:40 Dose: 5 mg/hr, 50 mls/hr Piperacillin Sod/Tazobactam (Sod 3.375 gm/ Sodium Chloride) 100 mls @ 200 mls/hr IVPB Q6H [facility]; Protocol Last Admin: 05/01/18 15:30 Dose: 200 mls/hr Propofol (Diprivan) 1,000 mg in 100 mls @ 2.646 mls/hr IV .Q24H PRN; Protocol PRN Reason: TITRATE PER MD ORDER Last Admin: 05/01/18 17:53 Dose: 20 mcg/kg/min, 10.584 mls/hr Insulin Aspart (Novolog) 0 unit SC Q6H [facility]; Protocol Last Admin: 05/01/18 17:52 Dose: 2 unit Lactulose (Enulose) 20 gm PO HS [facility] Last Admin: 04/30/18 23:01 Dose: 20 gm Rosuvastatin Calcium (Crestor) 10 mg PO HS [facility] Last Admin: 04/30/18 22:00 Dose: 10 mg - Labs Labs: 05/01/18 05:59 05/01/18 05:59 PT 14.5 SECONDS (9.7-12.2) H 04/26/18 21:58 INR 1.3 04/26/18 21:58 APTT 32 SECONDS (21-34) 04/26/18 21:58 Assessment and Plan (1) Stroke Status: Acute Attending/Attestation - Attestation I have personally seen and examined this patient.: Yes I have fully participated in the care of the patient.: Yes I have reviewed all pertinent clinical information, including history, physical exam and plan: Yes Notes (Text): I agree with the assessment and plan. The patient has a large left MCA stroke with poor prognosis. Will continue treating medically and rely on family for de cision making regarding aggressive care.
[2018-04-30 20:57] LABS: BLOOD UREA NITROGEN 35 mg/dL (9-20); CALCIUM 8.6 mg/dl (8.6-10.4); GFR NON-AFRICAN AMERICAN > 60
[2018-05-01] MEDS: niCARdipine IV 25 MG in Sodium Chloride 0.9% 240 ML IV SCH ×5 (00:05→21:36)
[2018-05-01] MEDS: Albuterol-Ipratrop 3 mg / 0.5 (3 ml) UD INH SCH ×7 (00:55→23:44)
--- NOTE | 2018-05-01 01:33 | PN ---
DATE: 04/30/2018 SUBJECTIVE: The patient was seen and examined at bedside. The patient's events from last night noted. The patient's neurologic status remains the same, intubated, on sedation. PHYSICAL EXAMINATION: GENERAL: Elderly male, lying in bed, unresponsive, intubated, sedated. VITAL SIGNS: Blood pressure 132/53, pulse 108, respiration 36, O2 sat 92% on 40% FiO2, temperature 98 degrees Fahrenheit, T-max is 101 degrees Fahrenheit. HEENT: Pupils sluggishly reacting to light. No icterus. No pallor. ET tube in the oral cavity. Very minimal fresh blood noted in the ET tube. NECK: Supple. LUNGS: Bilateral fair air entry. Basal crackles heard. CARDIOVASCULAR SYSTEM: S1 and S2 present, irregularly irregular. ABDOMEN: Soft. Bowel sounds present. CENTRAL NERVOUS SYSTEM: Unresponsive, intubated, sedated. Slightly moving left side to painful stimuli. EXTREMITIES: No edema. MEDICATIONS: Include Tylenol 650 mg every 4 hours as needed, DuoNeb, aspirin 81 mg a day on hold, Plavix on hold, Pepcid 20 mg daily, lactulose 20 g p.o. at bedtime, Zosyn 3.375 g IV every 6 hours, Diprivan drip, Crestor 10 mg p.o. at bedtime, 3% saline at 30 mL an hour, and Neutra-Phos. LABORATORY DATA: Labs from this morning: WBC 10.1, hemoglobin 9.3, hematocrit 27.1, platelet 158. Sodium 148, potassium 3.9, chloride 121, bicarb 22, BUN 25, creatinine 0.9, glucose 157. Serum osmolality 321. Calcium 8.4. Repeat head CT from this morning shows large left MCA territory infarct, which involves most of the left cerebral hemisphere, diffuse cerebral edema and resultant significant mass effect with overlying sulcal effacement as well as compression of the left lateral ventricle and shift of midline, estimated approximately 18 mm . Chest x-ray from this morning shows interval improvement in pulmonary edema, stable ventilator vascular and nasogastric process. ASSESSMENT AND PLAN: Elderly male with coronary artery disease, status post coronary artery bypass grafting, hypertension, atrial fibrillation. Admitted for acute ischemic stroke, status post endovascular thrombectomy and stenting of the left internal carotid artery and left middle cerebral artery and the left middle cerebral artery infarction with worsening herniation, status post intubation on ventilator support. Nicardipine drip. Watch his neurologic status. Continue with ventilator support. Keep oxygen saturation more than 92. Blood pressure is stable on nicardipine drip. Continue with deep venous thrombosis and gastrointestinal prophylaxis. All the antiplatelet therapy on hold secondary to bleeding from the right main bronchus, status post bronchoscopy yesterday. Hypophosphatemia. Continue with supportive care. The patient's family wants to continue with care. We will discuss about Do Note Resuscitate status with palliative care nurse on . The patient's condition is critical. Prognosis is guarded. We will continue with supportive care. Harinder Brunner MD
[2018-05-01 02:35] LABS: BLOOD UREA NITROGEN 37 mg/dL (9-20); CALCIUM 8.6 mg/dl (8.6-10.4); GFR NON-AFRICAN AMERICAN > 60
[2018-05-01] MEDS: Piperacillin/Tazobact 3.375 GM in Sodium Chloride 100 ML IVPB SCH ×4 (02:56→21:38)
[2018-05-01] MEDS ORDERED: Sodium Chloride 3% 500 ML IV SCH (03:00)
[2018-05-01 05:25] LABS: ARTERIAL BLOOD GAS HCO3 25.8 mmol/L (21-28); ARTERIAL BLOOD GAS PCO2 27 mm/Hg (35-45); ARTERIAL BLOOD GAS PH 7.53 (7.35-7.45); ARTERIAL BLOOD GAS PO2 99 mm/Hg (80-100); ARTERIAL BLOOD GAS TCO2 23.4 mmol/L (22-28)
[2018-05-01] MEDS: (Novolog) Insulin Aspart, Recombinant 100 u/ml 10 ml vial SC SCH ×4 (06:00→17:52)
[2018-05-01 06:19] LABS: ARTERIAL BLOOD GAS HCO3 24.2 mmol/L (21-28); ARTERIAL BLOOD GAS HEMOGLOBIN 9.1 g/dL (11.7-17.4); ARTERIAL BLOOD GAS O2 SAT 99.4 % (95-98); ARTERIAL BLOOD GAS PCO2 27 mm/Hg (35-45); ARTERIAL BLOOD GAS PH 7.51 (7.35-7.45); ARTERIAL BLOOD GAS PO2 97 mm/Hg (80-100); ARTERIAL BLOOD GAS TCO2 22.3 mmol/L (22-28)
[2018-05-01 06:27] LABS: BASO % 0.3 % (0.0-2.0); EOS % 0.4 % (0.0-4.0); HEMOGLOBIN 8.5 g/dL (12.0-18.0); LYMPH # 1.5 K/uL (1.0-4.3); LYMPH % 15.2 % (20.0-40.0); MEAN CELL VOLUME 78.7 fL (80.0-94.0); MEAN CORPUSCULAR HEMOGLOBIN 26.1 pg (27.0-31.0); MEAN CORPUSCULAR HGB CONC 33.1 g/dL (33.0-37.0); MONO # 0.8 K/uL (0.0-0.8); MONO % 7.5 % (0.0-10.0); NEUT # 7.7 K/uL (1.8-7.0); NEUT % 76.6 % (50.0-75.0); NRBC % 0.1 % (0.0-2.0); RBC 3.26 Mil/uL (4.40-5.90); RED CELL DISTRIBUTION WIDTH 18.1 % (11.5-14.5); WHITE BLOOD COUNT 10.1 K/uL (4.8-10.8)
[2018-05-01 06:35] LABS: ALT/SGPT 30 U/L (21-72); AST/SGOT 69 U/L (17-59); BLOOD UREA NITROGEN 40 mg/dL (9-20); CALCIUM 8.7 mg/dl (8.6-10.4); GFR NON-AFRICAN AMERICAN > 60
--- NOTE | 2018-05-01 10:30 | CP.PCM.PN ---
Subjective - Date & Time of Evaluation Date of Evaluation: 05/01/18 Time of Evaluation: 10:30 - Subjective Subjective: Progress note dictated # [id number] Objective - Vital Signs/Intake and Output Vital Signs (last 24 hours): Temp Pulse Resp BP Pulse Ox 98.0 F 139 H 45 H 154/61 H 94 L 04/30/18 19:00 05/01/18 09:00 05/01/18 09:00 05/01/18 09:00 05/01/18 09:00 Intake and Output: 05/01/18 05/01/18 06:59 18:59 Intake Total 2213.2 595 Output Total 480 90 Balance 1733.2 505 - Medications Medications: Current Medications Acetaminophen (Tylenol 650mg/20.3ml Solution Ud) 650 mg NG Q4 PRN PRN Reason: Temperature Last Admin: 05/01/18 00:00 Dose: 650 mg Albuterol/Ipratropium (Duoneb 3 Mg/0.5 Mg (3 Ml) Ud) 3 ml INH RQ4 [facility] Last Admin: 05/01/18 08:39 Dose: 3 ml Aspirin (Ecotrin) 81 mg PO DAILY [facility] Last Admin: 04/29/18 09:52 Dose: Not Given Clopidogrel Bisulfate (Plavix) 75 mg PO DAILY [facility] Last Admin: 04/30/18 09:57 Dose: Not Given Famotidine (Pepcid) 20 mg IVP DAILY [facility] Last Admin: 04/30/18 09:57 Dose: 20 mg Furosemide (Lasix) 40 mg IVP BID [facility] Nicardipine HCl 25 mg/ Sodium (Chloride) 250 mls @ 25 mls/hr IV .Q10H [facility]; Protocol Last Admin: 05/01/18 10:20 Dose: 6 mg/hr, 60 mls/hr Piperacillin Sod/Tazobactam (Sod 3.375 gm/ Sodium Chloride) 100 mls @ 200 mls/h r IVPB Q6H [facility]; Protocol Last Admin: 05/01/18 02:56 Dose: 200 mls/hr Sodium Chloride (Hypertonic Saline 3%) 500 mls @ 30 mls/hr IV .[id number] [facility] Last Admin: 05/01/18 03:00 Dose: Not Given Insulin Aspart (Novolog) 0 unit SC Q6H [facility]; Protocol Last Admin: 05/01/18 06:00 Dose: Not Given Lactulose (Enulose) 20 gm PO HS [facility] Last Admin: 04/30/18 23:01 Dose: 20 gm Rosuvastatin Calcium (Crestor) 10 mg PO HS [facility] Last Admin: 04/30/18 22:00 Dose: 10 mg - Labs Labs: 05/01/18 05:59 05/01/18 05:59 PT 14.5 SECONDS (9.7-12.2) H 04/26/18 21:58 INR 1.3 04/26/18 21:58 APTT 32 SECONDS (21-34) 04/26/18 21:58
--- NOTE | 2018-05-01 10:35 | CP.PCM.PN ---
<Lucila Stewart - Last Filed: 05/01/18 14:54> Subjective - Date & Time of Evaluation Date of Evaluation: 05/01/18 Time of Evaluation: 09:00 - Subjective Subjective: Neurology Follow Up Note Patient was seen and examined at bedside. Patient is intubated and off sedation. Patient is not arousable to sternal rub, painful stimuli. ROS unattainable due to current state. Objective - Vital Signs/Intake and Output Vital Signs (last 24 hours): Temp Pulse Resp BP Pulse Ox 98.0 F 139 H 45 H 154/61 H 94 L 04/30/18 19:00 05/01/18 09:00 05/01/18 09:00 05/01/18 09:00 05/01/18 09:00 Intake and Output: 05/01/18 05/01/18 06:59 18:59 Intake Total 2213.2 595 Output Total 480 90 Balance 1733.2 505 - Medications Medications: Current Medications Acetaminophen (Tylenol 650mg/20.3ml Solution Ud) 650 mg NG Q4 PRN PRN Reason: Temperature Last Admin: 05/01/18 00:00 Dose: 650 mg Albuterol/Ipratropium (Duoneb 3 Mg/0.5 Mg (3 Ml) Ud) 3 ml INH RQ4 [facility] Last Admin: 05/01/18 08:39 Dose: 3 ml Aspirin (Ecotrin) 81 mg PO DAILY [facility] Last Admin: 04/29/18 09:52 Dose: Not Given Clopidogrel Bisulfate (Plavix) 75 mg PO DAILY [facility] Last Admin: 04/30/18 09:57 Dose: Not Given Famotidine (Pepcid) 20 mg IVP DAILY [facility] Last Admin: 04/30/18 09:57 Dose: 20 mg Furosemide (Lasix) 40 mg IVP BID [facility] Nicardipine HCl 25 mg/ Sodium (Chloride) 250 mls @ 25 mls/hr IV .Q10H [facility]; Protocol Last Admin: 05/01/18 10:20 Dose: 6 mg/hr, 60 mls/hr Piperacillin Sod/Tazobactam (Sod 3.375 gm/ Sodium Chloride) 100 mls @ 200 mls/hr IVPB Q6H [facility]; Protocol Last Admin: 05/01/18 02:56 Dose: 200 mls/hr Sodium Chloride (Hypertonic Saline 3%) 500 mls @ 30 mls/hr IV .[id number] [facility] Last Admin: 05/01/18 03:00 Dose: Not Given Insulin Aspart (Novolog) 0 unit SC Q6H [facility]; Protocol Last Admin: 05/01/18 06:00 Dose: Not Given Lactulose (Enulose) 20 gm PO [facility] Last Admin: 04/30/18 23:01 Dose: 20 gm Rosuvastatin Calcium (Crestor) 10 mg PO [facility] Last Admin: 04/30/18 22:00 Dose: 10 mg - Labs Labs: 05/01/18 05:59 05/01/18 05:59 PT 14.5 SECONDS (9.7-12.2) H 04/26/18 21:58 INR 1.3 04/26/18 21:58 APTT 32 SECONDS (21-34) 04/26/18 21:58 - Additional Findings Additional findings: - Constitutional Appears: No Acute Distress - Head Exam Head Exam: NORMAL INSPECTION, NORMOCEPHALIC - Eye Exam Eye Exam: PERRL (small diameter, react to light bilaterally ) - ENT Exam ENT Exam: Mucous Membranes Dry Additional comments: right TLC NGT in place - Respiratory Exam Respiratory Exam: Clear to Ausculation Bilateral - Cardiovascular Exam Cardiovascular Exam: +S1, +S2 - GI/Abdominal Exam GI & Abdominal Exam: Soft, Normal Bowel Sounds. 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 There is opacification of the left A1 and A2 segments which appears to be predominantly fed from the left posterior communicating artery and possibly some contribution via the the anterior communicator. Calcified atherosclerotic plaque seen along the distal right common carotid artery and carotid bifurcation extending into the proximal internal carotid artery. - Head/ Neck CTA after thrombectomy: 1. No evidence of endoluminal thrombus,occlusion or definite significant stenosis in the intracranial arteries. 2. No evidence of hemodynamically significant stenosis in the right internal carotid artery. 3. Status post neuro intervention, patent left common carotid artery and patent endovascular stent graft in the left internal carotid artery. 4. Patent bilateral vertebral arteries. - Head CT 04/26: Significant acute ischemic changes involving most of the left cerebral hemisphere with diffuse cerebral edema and secondary mass effect with [id number]-elmer midline shift estimated approximately 4.5 cm. Mild dilatation of the right lateral ventricle felt to be secondary to compressive effects at the level of the foramina Manning. - Head CT 04/28: Extensive acute ischemic changes involving most of the left cerebral hemisphere associated with diffuse cerebral edema and mass effect with overlying sulcal effacement and compression of the left lateral ventricle which is displaced across midline which has increased.. The septum pellucidum is displaced across midline by approximately 12 mm. There is dilatation of the right lateral ventricle due to compression of the right foramen of Manning. - Head CT 04/29: Interval evolution of known large left MCA territory infarction with worsening cerebral edema, mass effect and midline shift. Impending uncal herniation and interval development of obstructive hydrocephalus. No evidence of intra cerebral hemorrhage. - Head CT 04/30: Large left MCA territory infarct which involves most of the left cerebral hemisphere. Diffuse cerebral edema on results since significant mass effect with overlying sulcal effacement as well as compression of the left lateral ventricle and shift of midline shift estimated at approximately 18 mm near lobe as above. Management: - ICU Management - Continue Aspirin, Plavix - Serial Head CTs - Will continue with NS 3% @ 30ml/hrs for a goal serum sodium of 145-150 and serum osm of less than 320. Hold 3% when beyond these parameters. - Family meeting to take place with Palliative Care, for possible terminal extubation. Case discussed with Lucila Guo DO, PGY2 <Nikolai Buchanan - Last Filed: 05/01/18 17:09> Objective - Vital Signs/Intake and Output Vital Signs (last 24 hours): Temp Pulse Resp BP Pulse Ox 99.7 F H 97 H 26 H 134/54 L 98 05/01/18 16:00 05/01/18 16:00 05/01/18 16:00 05/01/18 16:00 05/01/18 16:00 Intake and Output: 05/01/18 05/01/18 06:59 18:59 Intake Total 2213.2 1807.8 Output Total 480 790 Balance 1733.2 1017.8 - Medications Medications: Current Medications Acetaminophen (Tylenol 650mg/20.3ml Solution Ud) 650 mg NG Q4 PRN PRN Reason: Temperature Last Admin: 05/01/18 00:00 Dose: 650 mg Albuterol/Ipratropium (Duoneb 3 Mg/0.5 Mg (3 Ml) Ud) 3 ml INH RQ4 [facility] Last Admin: 05/01/18 15:48 Dose: 3 ml Aspirin (Ecotrin) 81 mg PO DAILY [facility] Last Admin: 05/01/18 10:00 Dose: 81 mg Clopidogrel Bisulfate (Plavix) 75 mg PO DAILY [facility] Last Admin: 05/01/18 10:30 Dose: 75 mg Famotidine (Pepcid) 20 mg IVP DAILY [facility] Last Admin: 05/01/18 10:30 Dose: 20 mg Furosemide (Lasix) 40 mg IVP BID [facility] Last Admin: 05/01/18 10:30 Dose: 40 mg Nicardipine HCl 25 mg/ Sodium (Chloride) 250 mls @ 25 mls/hr IV .Q10H [facility]; Protocol Last Admin: 05/01/18 14:40 Dose: 5 mg/hr, 50 mls/hr Piperacillin Sod/Tazobactam (Sod 3.375 gm/ Sodium Chloride) 100 mls @ 200 mls/hr IVPB Q6H [facility]; Protocol Last Admin: 05/01/18 10:31 Dose: 200 mls/hr Propofol (Diprivan) 1,000 mg in 100 mls @ 2.646 mls/hr IV .Q24H PRN; Protocol PRN Reason: TITRATE PER MD ORDER Last Admin: 05/01/18 10:56 Dose: 20 mcg/kg/min, 10.584 mls/hr Insulin Aspart (Novolog) 0 unit SC Q6H [facility]; Protocol Last Admin: 05/01/18 12:32 Dose: 2 unit Lactulose (Enulose) 20 gm PO HS [facility] Last Admin: 04/30/18 23:01 Dose: 20 gm Rosuvastatin Calcium (Crestor) 10 mg PO HS [facility] Last Admin: 04/30/18 22:00 Dose: 10 mg - Labs Labs: 05/01/18 05:59 05/01/18 05:59 PT 14.5 SECONDS (9.7-12.2) H 04/26/18 21:58 INR 1.3 04/26/18 21:58 APTT 32 SECONDS (21-34) 04/26/18 21:58 Assessment and Plan (1) Stroke Status: Acute Attending/Attestation - Attestation I have personally seen and examined this patient.: Yes I have fully participated in the care of the patient.: Yes I have reviewed all pertinent clinical information, including history, physical exam and plan: Yes Notes (Text): 05/01/18 17:08 I agree with the assessment and plan. The patient continues to be in critical condition with poor prognosis.
[2018-05-01] MEDS: Propofol 10 mg/ml 1,000 MG/100 ML VIAL IV PRN ×2 (10:56→17:53)
--- NOTE | 2018-05-01 15:30 | CP.CCUPN ---
CCU Subjective - Physician Review Events Since Last Encounter (Free Text): 05/01/18 15:28 No acute events Subjective (Free Text): 05/01/18 15:28 PGY1 Critical Care Progress Note for Dr. White Patient seen an examined at bedside. Patient unable to provide a 12 point ROS due to clinical condition. Critical Care Time Spent (in minutes): 35 CCU Objective - Vital Signs / Intake & Output Vital Signs (Last 4 hours): Vital Signs BP 05/01/18 14:00 126/52 L 05/01/18 13:00 124/52 L 05/01/18 12:00 142/66 Intake and Output (Last 8hrs): Intake & Output 05/01/18 05/01/18 05/01/18 06:59 14:59 22:59 Intake Total 1461.6 1195.8 Output Total 330 150 Balance 1131.6 1045.8 Weight 194 lb 7.163 oz Intake: IV 500 500 Intake, IV Amount 521.6 420.8 Right Internal Jugular 41.6 20.8 Right Medial Port 100 Internal Jugular Right Proximal Port 480 300 Internal Jugular Tube Feeding 440 275 Output: Urine 330 150 Urethral (Bhatt) 330 150 Other: # Bowel Movements 0 0 - Physical Exam Head: Positive for: Atraumatic, Normocephalic Pupils: Positive for: PERRL, Sluggish, Other Mouth: Positive for: Dry Respiratory/Chest: Positive for: Rhonchi, Other (vent) Cardiovascular: Positive for: Regular Rate and Rhythm, Normal S1, S2. Negative for: Murmurs Abdomen: Negative for: Distention Upper Extremity: Positive for: Normal Inspection Lower Extremity: Positive for: Normal Inspection Neurological: Positive for: Other (intubated, sedated, responsive to pain, gag relfex intact) Skin: Positive for: Warm, Dry Psychiatric: Negative for: Alert - Medications Active Medications: Active Medications Generic Name Dose Route Start Last Admin Trade Name Freq PRN Reason Stop Dose Admin Acetaminophen 650 mg 04/26/18 20:59 05/01/18 00:00 Tylenol 650mg/20.3ml Solution Ud NG 650 mg Q4 PRN Administration Temperature Albuterol/Ipratropium 3 ml 04/26/18 12:00 05/01/18 11:15 Duoneb 3 Mg/0.5 Mg (3 Ml) Ud INH Not Given RQ4 DANIEL Aspirin 81 mg 04/26/18 10:00 05/01/18 10:00 Ecotrin PO 81 mg DAILY DANIEL Administration Clopidogrel Bisulfate 75 mg 04/26/18 10:00 05/01/18 10:30 Plavix PO 75 mg DAILY DANIEL Administration Famotidine 20 mg 04/26/18 10:00 05/01/18 10:30 Pepcid IVP 20 mg DAILY DANIEL Administration Furosemide 40 mg 05/01/18 10:00 05/01/18 10:30 Lasix IVP 40 mg BID DANIEL Administration Nicardipine HCl 25 mg/ Sodium 250 mls @ 25 mls/hr 04/28/18 16:00 05/01/18 14:40 Chloride IV 5 mg/hr .Q10H DANIEL 50 mls/hr Administration Protocol 2.5 MG/HR Piperacillin Sod/Tazobactam 100 mls @ 200 mls/hr 04/29/18 15:30 05/01/18 10:31 Sod 3.375 gm/ Sodium Chloride IVPB 200 mls/hr Q6H DANIEL Administration Protocol Propofol 1,000 mg in 100 mls @ 2.646 mls/hr 05/01/18 10:44 05/01/18 10:56 Diprivan IV 20 mcg/kg/min .Q24H PRN 10.584 mls/hr TITRATE PER MD ORDER Administration Protocol 5 MCG/KG/MIN Insulin Aspart 0 unit 04/26/18 12:00 05/01/18 12:32 Novolog SC 2 unit Q6H DANIEL Administration Protocol Lactulose 20 gm 04/28/18 22:00 04/30/18 23:01 Enulose PO 20 gm HS DANIEL Administration Rosuvastatin Calcium 10 mg 04/26/18 22:00 04/30/18 22:00 Crestor PO 10 mg HS DANIEL Administration - Patient Studies Lab Studies: Microbiology Studies 04/29/18 18:18 Gram Stain - Final Bronchial Washings Fungal Culture - Preliminary 04/29/18 18:18 Gram Stain - Final Body Fluid - Bronchial Washing Body Fluid Culture - Preliminary NO GROWTH AFTER 2 DAYS 04/25/18 08:28 Blood Culture - Final Blood NO GROWTH AFTER 5 DAYS Gram Stain - Final TEST NOT PERFORMED 04/26/18 08:28 Blood Culture - Final Blood NO GROWTH AFTER 5 DAYS Gram Stain - Final TEST NOT PERFORMED Lab Studies 05/01/18 05/01/18 05/01/18 Range/Units 11:43 06:30 06:09 WBC (4.8-10.8) K/uL RBC (4.40-5.90) Mil/uL Hgb (12.0-18.0) g/dL Hct (35.0-51.0) % MCV (80.0-94.0) fL MCH (27.0-31.0) pg MCHC (33.0-37.0) g/dL RDW (11.5-14.5) % Plt Count (130-400) K/uL MPV (7.2-11.7) fL Neut % (Auto) (50.0-75.0) % Lymph % (Auto) (20.0-40.0) % Gilchrist % (Auto) (0.0-10.0) % Eos % (Auto) (0.0-4.0) % Baso % (Auto) (0.0-2.0) % Neut # (Auto) (1.8-7.0) K/uL Lymph # (Auto) (1.0-4.3) K/uL Gilchrist # (Auto) (0.0-0.8) K/uL Eos # (Auto) (0.0-0.7) K/uL Baso # (Auto) (0.0-0.2) K/uL Puncture Site R brac pCO2 27 L (35-45) mm/Hg pO2 97 (80-100) mm/Hg HCO3 24.2 (21-28) mmol/L ABG pH 7.51 H (7.35-7.45) ABG Total CO2 22.3 (22-28) mmol/L ABG O2 Saturation 99.4 H (95-98) % ABG Base Excess -0.9 (-2.0-3.0) mmol/L ABG Hemoglobin 9.1 L (11.7-17.4) g/dL ABG Carboxyhemoglobin 1.9 H (0.5-1.5) % POC ABG HHb (Measured) 0.6 (0.0-5.0) % ABG Methemoglobin 1.3 (0.0-3.0) % Jose D Test Na A-a O2 Difference 297.0 mm/Hg Respiratory Index 3.1 Hgb O2 Saturation 96.3 (95.0-98.0) % Vent Mode Prvc Mechanical Rate 18 FiO2 60.0 % Tidal Volume 500 PEEP 5 Sodium (132-148) mmol/L Potassium (3.6-5.2) mmol/L Chloride (98-107) mmol/L Carbon Dioxide (22-30) mmol/L Anion Gap (10-20) BUN (9-20) mg/dL Creatinine (0.8-1.5) mg/dL Est GFR ( Amer) Est GFR (Non-Af Amer) POC Glucose (mg/dL) 153 H 141 H (65-110) mg/dL Random Glucose (75-110) mg/dL Serum Osmolality (272-300) mosm/kg Calcium (8.6-10.4) mg/dl Phosphorus (2.5-4.5) mg/dL Magnesium (1.6-2.3) mg/dL Total Bilirubin (0.2-1.3) mg/dL AST (17-59) U/L ALT (21-72) U/L Alkaline Phosphatase (38-126) U/L Total Protein (6.3-8.3) g/dL Albumin (3.5-5.0) g/dL Globulin (2.2-3.9) gm/dL Albumin/Globulin Ratio (1.0-2.1) 05/01/18 05/01/18 05/01/18 Range/Units 05:59 05:59 05:59 WBC 10.1 (4.8-10.8) K/uL RBC 3.26 L (4.40-5.90) Mil/uL Hgb 8.5 L (12.0-18.0) g/dL Hct 25.7 L (35.0-51.0) % MCV 78.7 L (80.0-94.0) fL MCH 26.1 L (27.0-31.0) pg MCHC 33.1 (33.0-37.0) g/dL RDW 18.1 H (11.5-14.5) % Plt Count 130 (130-400) K/uL MPV 10.0 (7.2-11.7) fL Neut % (Auto) 76.6 H (50.0-75.0) % Lymph % (Auto) 15.2 L (20.0-40.0) % Gilchrist % (Auto) 7.5 (0.0-10.0) % Eos % (Auto) 0.4 (0.0-4.0) % Baso % (Auto) 0.3 (0.0-2.0) % Neut # (Auto) 7.7 H (1.8-7.0) K/uL Lymph # (Auto) 1.5 (1.0-4.3) K/uL Gilchrist # (Auto) 0.8 (0.0-0.8) K/uL Eos # (Auto) 0.0 (0.0-0.7) K/uL Baso # (Auto) 0.0 (0.0-0.2) K/uL Puncture Site pCO2 (35-45) mm/Hg pO2 (80-100) mm/Hg HCO3 (21-28) mmol/L ABG pH (7.35-7.45) ABG Total CO2 (22-28) mmol/L ABG O2 Saturation (95-98) % ABG Base Excess (-2.0-3.0) mmol/L ABG Hemoglobin (11.7-17.4) g/dL ABG Carboxyhemoglobin (0.5-1.5) % POC ABG HHb (Measured) (0.0-5.0) % ABG Methemoglobin (0.0-3.0) % Jose D Test A-a O2 Difference mm/Hg Respiratory Index Hgb O2 Saturation (95.0-98.0) % Vent Mode Mechanical Rate FiO2 % Tidal Volume PEEP Sodium 151 H (132-148) mmol/L Potassium 3.8 (3.6-5.2) mmol/L Chloride 124 H (98-107) mmol/L Carbon Dioxide 22 (22-30) mmol/L Anion Gap 9 L (10-20) BUN 40 H (9-20) mg/dL Creatinine 1.0 (0.8-1.5) mg/dL Est GFR ( Amer) > 60 Est GFR (Non-Af Amer) > 60 POC Glucose (mg/dL) (65-110) mg/dL Random Glucose 140 H (75-110) mg/dL Serum Osmolality 333 H (272-300) mosm/kg Calcium 8.7 (8.6-10.4) mg/dl Phosphorus 2.6 (2.5-4.5) mg/dL Magnesium 2.5 H (1.6-2.3) mg/dL Total Bilirubin 0.6 (0.2-1.3) mg/dL AST 69 H D (17-59) U/L ALT 30 (21-72) U/L Alkaline Phosphatase 57 (38-126) U/L Total Protein 6.0 L (6.3-8.3) g/dL Albumin 3.0 L (3.5-5.0) g/dL Globulin 3.0 (2.2-3.9) gm/dL Albumin/Globulin Ratio 1.0 (1.0-2.1) 05/01/18 05/01/18 05/01/18 Range/Units 05:00 02:15 02:15 WBC (4.8-10.8) K/uL RBC (4.40-5.90) Mil/uL Hgb (12.0-18.0) g/dL Hct (35.0-51.0) % MCV (80.0-94.0) fL MCH (27.0-31.0) pg MCHC (33.0-37.0) g/dL RDW (11.5-14.5) % Plt Count (130-400) K/uL MPV (7.2-11.7) fL Neut % (Auto) (50.0-75.0) % Lymph % (Auto) (20.0-40.0) % Gilchrist % (Auto) (0.0-10.0) % Eos % (Auto) (0.0-4.0) % Baso % (Auto) (0.0-2.0) % Neut # (Auto) (1.8-7.0) K/uL Lymph # (Auto) (1.0-4.3) K/uL Gilchrist # (Auto) (0.0-0.8) K/uL Eos # (Auto) (0.0-0.7) K/uL Baso # (Auto) (0.0-0.2) K/uL Puncture Site L brac pCO2 27 L (35-45) mm/Hg pO2 99 (80-100) mm/Hg HCO3 25.8 (21-28) mmol/L ABG pH 7.53 H (7.35-7.45) ABG Total CO2 23.4 (22-28) mmol/L ABG O2 Saturation (95-98) % ABG Base Excess 1.1 (-2.0-3.0) mmol/L ABG Hemoglobin (11.7-17.4) g/dL ABG Carboxyhemoglobin (0.5-1.5) % POC ABG HHb (Measured) (0.0-5.0) % ABG Methemoglobin (0.0-3.0) % Jose D Test Na A-a O2 Difference 295.0 mm/Hg Respiratory Index 3.0 Hgb O2 Saturation (95.0-98.0) % Vent Mode Prvc Mechanical Rate 18 FiO2 60.0 % Tidal Volume 500 PEEP 5 Sodium 152 H (132-148) mmol/L Potassium 3.9 (3.6-5.2) mmol/L Chloride 123 H (98-107) mmol/L Carbon Dioxide 23 (22-30) mmol/L Anion Gap 10 (10-20) BUN 37 H (9-20) mg/dL Creatinine 1.1 (0.8-1.5) mg/dL Est GFR ( Amer) > 60 Est GFR (Non-Af Amer) > 60 POC Glucose (mg/dL) (65-110) mg/dL Random Glucose 153 H (75-110) mg/dL Serum Osmolality 332 H (272-300) mosm/kg Calcium 8.6 (8.6-10.4) mg/dl Phosphorus (2.5-4.5) mg/dL Magnesium (1.6-2.3) mg/dL Total Bilirubin (0.2-1.3) mg/dL AST (17-59) U/L ALT (21-72) U/L Alkaline Phosphatase (38-126) U/L Total Protein (6.3-8.3) g/dL Albumin (3.5-5.0) g/dL Globulin (2.2-3.9) gm/dL Albumin/Globulin Ratio (1.0-2.1) 05/01/18 04/30/18 04/30/18 Range/Units 00:05 20:38 20:38 WBC (4.8-10.8) K/uL RBC (4.40-5.90) Mil/uL Hgb (12.0-18.0) g/dL Hct (35.0-51.0) % MCV (80.0-94.0) fL MCH (27.0-31.0) pg MCHC (33.0-37.0) g/dL RDW (11.5-14.5) % Plt Count (130-400) K/uL MPV (7.2-11.7) fL Neut % (Auto) (50.0-75.0) % Lymph % (Auto) (20.0-40.0) % Gilchrist % (Auto) (0.0-10.0) % Eos % (Auto) (0.0-4.0) % Baso % (Auto) (0.0-2.0) % Neut # (Auto) (1.8-7.0) K/uL Lymph # (Auto) (1.0-4.3) K/uL Gilchrist # (Auto) (0.0-0.8) K/uL Eos # (Auto) (0.0-0.7) K/uL Baso # (Auto) (0.0-0.2) K/uL Puncture Site pCO2 (35-45) mm/Hg pO2 (80-100) mm/Hg HCO3 (21-28) mmol/L ABG pH (7.35-7.45) ABG Total CO2 (22-28) mmol/L ABG O2 Saturation (95-98) % ABG Base Excess (-2.0-3.0) mmol/L ABG Hemoglobin (11.7-17.4) g/dL ABG Carboxyhemoglobin (0.5-1.5) % POC ABG HHb (Measured) (0.0-5.0) % ABG Methemoglobin (0.0-3.0) % Jose D Test A-a O2 Difference mm/Hg Respiratory Index Hgb O2 Saturation (95.0-98.0) % Vent Mode Mechanical Rate FiO2 % Tidal Volume PEEP Sodium 151 H (132-148) mmol/L Potassium 3.9 (3.6-5.2) mmol/L Chloride 120 H (98-107) mmol/L Carbon Dioxide 22 (22-30) mmol/L Anion Gap 12 (10-20) BUN 35 H (9-20) mg/dL Creatinine 1.0 (0.8-1.5) mg/dL Est GFR ( Amer) > 60 Est GFR (Non-Af Amer) > 60 POC Glucose (mg/dL) 172 H (65-110) mg/dL Random Glucose 140 H (75-110) mg/dL Serum Osmolality 333 H (272-300) mosm/kg Calcium 8.6 (8.6-10.4) mg/dl Phosphorus (2.5-4.5) mg/dL Magnesium (1.6-2.3) mg/dL Total Bilirubin (0.2-1.3) mg/dL AST (17-59) U/L ALT (21-72) U/L Alkaline Phosphatase (38-126) U/L Total Protein (6.3-8.3) g/dL Albumin (3.5-5.0) g/dL Globulin (2.2-3.9) gm/dL Albumin/Globulin Ratio (1.0-2.1) 04/30/18 04/30/18 Range/Units 17:50 11:09 WBC (4.8-10.8) K/uL RBC (4.40-5.90) Mil/uL Hgb (12.0-18.0) g/dL Hct (35.0-51.0) % MCV (80.0-94.0) fL MCH (27.0-31.0) pg MCHC (33.0-37.0) g/dL RDW (11.5-14.5) % Plt Count (130-400) K/uL MPV (7.2-11.7) fL Neut % (Auto) (50.0-75.0) % Lymph % (Auto) (20.0-40.0) % Gilchrist % (Auto) (0.0-10.0) % Eos % (Auto) (0.0-4.0) % Baso % (Auto) (0.0-2.0) % Neut # (Auto) (1.8-7.0) K/uL Lymph # (Auto) (1.0-4.3) K/uL Gilchrist # (Auto) (0.0-0.8) K/uL Eos # (Auto) (0.0-0.7) K/uL Baso # (Auto) (0.0-0.2) K/uL Puncture Site pCO2 (35-45) mm/Hg pO2 (80-100) mm/Hg HCO3 (21-28) mmol/L ABG pH (7.35-7.45) ABG Total CO2 (22-28) mmol/L ABG O2 Saturation (95-98) % ABG Base Excess (-2.0-3.0) mmol/L ABG Hemoglobin (11.7-17.4) g/dL ABG Carboxyhemoglobin (0.5-1.5) % POC ABG HHb (Measured) (0.0-5.0) % ABG Methemoglobin (0.0-3.0) % Jose D Test A-a O2 Difference mm/Hg Respiratory Index Hgb O2 Saturation (95.0-98.0) % Vent Mode Mechanical Rate FiO2 % Tidal Volume PEEP Sodium (132-148) mmol/L Potassium (3.6-5.2) mmol/L Chloride (98-107) mmol/L Carbon Dioxide (22-30) mmol/L Anion Gap (10-20) BUN (9-20) mg/dL Creatinine (0.8-1.5) mg/dL Est GFR ( Amer) Est GFR (Non-Af Amer) POC Glucose (mg/dL) 152 H 155 H (65-110) mg/dL Random Glucose (75-110) mg/dL Serum Osmolality (272-300) mosm/kg Calcium (8.6-10.4) mg/dl Phosphorus (2.5-4.5) mg/dL Magnesium (1.6-2.3) mg/dL Total Bilirubin (0.2-1.3) mg/dL AST (17-59) U/L ALT (21-72) U/L Alkaline Phosphatase (38-126) U/L Total Protein (6.3-8.3) g/dL Albumin (3.5-5.0) g/dL Globulin (2.2-3.9) gm/dL Albumin/Globulin Ratio (1.0-2.1) Laboratory Results - last 24 hr 04/30/18 04/30/18 04/30/18 11:09 17:50 20:38 WBC RBC Hgb Hct MCV MCH MCHC RDW Plt Count MPV Neut % (Auto) Lymph % (Auto) Gilchrist % (Auto) Eos % (Auto) Baso % (Auto) Neut # (Auto) Lymph # (Auto) Gilchrist # (Auto) Eos # (Auto) Baso # (Auto) Puncture Site pCO2 pO2 HCO3 ABG pH ABG Total CO2 ABG O2 Saturation ABG Base Excess ABG Hemoglobin ABG Carboxyhemoglobin POC ABG HHb (Measured) ABG Methemoglobin Jose D Test A-a O2 Difference Respiratory Index Hgb O2 Saturation Vent Mode Mechanical Rate FiO2 Tidal Volume PEEP Sodium 151 H Potassium 3.9 Chloride 120 H Carbon Dioxide 22 Anion Gap 12 BUN 35 H Creatinine 1.0 Est GFR ( Amer) > 60 Est GFR (Non-Af Amer) > 60 POC Glucose (mg/dL) 155 H 152 H Random Glucose 140 H Serum Osmolality Calcium 8.6 Phosphorus Magnesium Total Bilirubin AST ALT Alkaline Phosphatase Total Protein Albumin Globulin Albumin/Globulin Ratio 04/30/18 05/01/18 05/01/18 20:38 00:05 02:15 WBC RBC Hgb Hct MCV MCH MCHC RDW Plt Count MPV Neut % (Auto) Lymph % (Auto) Gilchrist % (Auto) Eos % (Auto) Baso % (Auto) Neut # (Auto) Lymph # (Auto) Gilchrist # (Auto) Eos # (Auto) Baso # (Auto) Puncture Site pCO2 pO2 HCO3 ABG pH ABG Total CO2 ABG O2 Saturation ABG Base Excess ABG Hemoglobin ABG Carboxyhemoglobin POC ABG HHb (Measured) ABG Methemoglobin Jose D Test A-a O2 Difference Respiratory Index Hgb O2 Saturation Vent Mode Mechanical Rate FiO2 Tidal Volume PEEP Sodium Potassium Chloride Carbon Dioxide Anion Gap BUN Creatinine Est GFR ( Amer) Est GFR (Non-Af Amer) POC Glucose (mg/dL) 172 H Random Glucose Serum Osmolality 333 H 332 H Calcium Phosphorus Magnesium Total Bilirubin AST ALT Alkaline Phosphatase Total Protein Albumin Globulin Albumin/Globulin Ratio 05/01/18 05/01/18 05/01/18 02:15 05:00 05:59 WBC RBC Hgb Hct MCV MCH MCHC RDW Plt Count MPV Neut % (Auto) Lymph % (Auto) Gilchrist % (Auto) Eos % (Auto) Baso % (Auto) Neut # (Auto) Lymph # (Auto) Gilchrist # (Auto) Eos # (Auto) Baso # (Auto) Puncture Site L brac pCO2 27 L pO2 99 HCO3 25.8 ABG pH 7.53 H ABG Total CO2 23.4 ABG O2 Saturation ABG Base Excess 1.1 ABG Hemoglobin ABG Carboxyhemoglobin POC ABG HHb (Measured) ABG Methemoglobin Jose D Test Na A-a O2 Difference 295.0 Respiratory Index 3.0 Hgb O2 Saturation Vent Mode Prvc Mechanical Rate 18 FiO2 60.0 Tidal Volume 500 PEEP 5 Sodium 152 H 151 H Potassium 3.9 3.8 Chloride 123 H 124 H Carbon Dioxide 23 22 Anion Gap 10 9 L BUN 37 H 40 H Creatinine 1.1 1.0 Est GFR ( Amer) > 60 > 60 Est GFR (Non-Af Amer) > 60 > 60 POC Glucose (mg/dL) Random Glucose 153 H 140 H Serum Osmolality Calcium 8.6 8.7 Phosphorus 2.6 Magnesium 2.5 H Total Bilirubin 0.6 AST 69 H D ALT 30 Alkaline Phosphatase 57 Total Protein 6.0 L Albumin 3.0 L Globulin 3.0 Albumin/Globulin Ratio 1.0 05/01/18 05/01/18 05/01/18 05:59 05:59 06:09 WBC 10.1 RBC 3.26 L Hgb 8.5 L Hct 25.7 L MCV 78.7 L MCH 26.1 L MCHC 33.1 RDW 18.1 H Plt Count 130 MPV 10.0 Neut % (Auto) 76.6 H Lymph % (Auto) 15.2 L Gilchrist % (Auto) 7.5 Eos % (Auto) 0.4 Baso % (Auto) 0.3 Neut # (Auto) 7.7 H Lymph # (Auto) 1.5 Gilchrist # (Auto) 0.8 Eos # (Auto) 0.0 Baso # (Auto) 0.0 Puncture Site R brac pCO2 27 L pO2 97 HCO3 24.2 ABG pH 7.51 H ABG Total CO2 22.3 ABG O2 Saturation 99.4 H ABG Base Excess -0.9 ABG Hemoglobin 9.1 L ABG Carboxyhemoglobin 1.9 H POC ABG HHb (Measured) 0.6 ABG Methemoglobin 1.3 Jose D Test Na A-a O2 Difference 297.0 Respiratory Index 3.1 Hgb O2 Saturation 96.3 Vent Mode Prvc Mechanical Rate 18 FiO2 60.0 Tidal Volume 500 PEEP 5 Sodium Potassium Chloride Carbon Dioxide Anion Gap BUN Creatinine Est GFR ( Amer) Est GFR (Non-Af Amer) POC Glucose (mg/dL) Random Glucose Serum Osmolality 333 H Calcium Phosphorus Magnesium Total Bilirubin AST ALT Alkaline Phosphatase Total Protein Albumin Globulin Albumin/Globulin Ratio 05/01/18 05/01/18 06:30 11:43 WBC RBC Hgb Hct MCV MCH MCHC RDW Plt Count MPV Neut % (Auto) Lymph % (Auto) Gilchrist % (Auto) Eos % (Auto) Baso % (Auto) Neut # (Auto) Lymph # (Auto) Gilchrist # (Auto) Eos # (Auto) Baso # (Auto) Puncture Site pCO2 pO2 HCO3 ABG pH ABG Total CO2 ABG O2 Saturation ABG Base Excess ABG Hemoglobin ABG Carboxyhemoglobin POC ABG HHb (Measured) ABG Methemoglobin Jose D Test A-a O2 Difference Respiratory Index Hgb O2 Saturation Vent Mode Mechanical Rate FiO2 Tidal Volume PEEP Sodium Potassium Chloride Carbon Dioxide Anion Gap BUN Creatinine Est GFR ( Amer) Est GFR (Non-Af Amer) POC Glucose (mg/dL) 141 H 153 H Random Glucose Serum Osmolality Calcium Phosphorus Magnesium Total Bilirubin AST ALT Alkaline Phosphatase Total Protein Albumin Globulin Albumin/Globulin Ratio Fingerstick Blood Sugar Results: 153 Review of Systems - Review of Systems Systems not reviewed;Unavailable: Intubated Assessment/Plan - Assessment and Plan (Free Text) Assessment: Patient is 82 yo male who underwent 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 He remains intubated and sedated. Currently pending discussion with family members, scheduled for tomorrow with Brittney. Will follow-up. 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, occlusion of L MCA - Post-op CTA: no occlusion/thrombus/stenosis visualized, patent stent graft in L ICA - Repeat CT head obtained - Neurovascular checks Q1H- if any changes, repeat CT head STAT - Propofol drip5@ 5 - Neurology consulted (Ann) - Neurointervention consulted (Arcot) - Very poor prognosis CV: - Mechanical thrombectomy 04/25 - Trop negative x3 - ASA 81 mg PO daily - Plavix 75 mg PO daily - Nicardipine @ 2.5 - NS @ 100 mL/hr - Monitor vitals - maintain SBP 100-140 Pulm: - Brochoscopy performed 04/29: Diffuse pulmonary edema and right main bronchos bleed - ETT- titrate vent to maintain spO2>92%, CPAP trial - CXR: severe cardiomegaly, mod venous congestion, b/l airspace disease (atelectasis vs PNA) - Monitor ABG PRVC, FiO2 50 - Duoneb Q4H GI: - NGT- Glucerna : - Monitor I's & O's- Bhatt - Replete electrolytes PRN Endo: - A1c 5.9 - Maintain euglycemia - Accuchecks Q6H with ISS Heme: - No acute issues - Monitor H&H ID: - Afebrile - No leukocytosis - Blood Cx Neg 48hrs PPx: VTE: heparin 5000 units SC Q8H GI: Pepcid 20 mg IV daily Patient seen and case discussed in detail with Dr. Christopher Jordan PGY1
--- NOTE | 2018-05-01 17:34 | CP.PCM.PN ---
Subjective - Date & Time of Evaluation Date of Evaluation: 05/01/18 Time of Evaluation: 05:15 - Subjective Subjective: [facility] is an 82-year-old male who was found unresponsive in the parking lot. Right hemiplegia and right gaze preference noted. CT, CT angiogram demonstrated the left middle cerebral artery ischemic stroke and patient underwent emergency thrombectomy of left internal carotid and left middle cerebral artery with placement of the left carotid artery stent using embolic protection on 04/25/18. Progressive CT scans demonstrates left middle cerebral artery ischemic stroke with shift and swelling related to the ischemic stroke. The patient remains intubated, unresponsive and sedated on a propofol drip. Objective - Vital Signs/Intake and Output Vital Signs (last 24 hours): Temp Pulse Resp BP Pulse Ox 99.7 F H 97 H 26 H 134/54 L 98 05/01/18 16:00 05/01/18 16:00 05/01/18 16:00 05/01/18 16:00 05/01/18 16:00 Intake and Output: 05/01/18 05/01/18 06:59 18:59 Intake Total 2213.2 1807.8 Output Total 480 790 Balance 1733.2 1017.8 - Medications Medications: Current Medications Acetaminophen (Tylenol 650mg/20.3ml Solution Ud) 650 mg NG Q4 PRN PRN Reason: Temperature Last Admin: 05/01/18 00:00 Dose: 650 mg Albuterol/Ipratropium (Duoneb 3 Mg/0.5 Mg (3 Ml) Ud) 3 ml INH RQ4 [facility] Last Admin: 05/01/18 15:48 Dose: 3 ml Aspirin (Ecotrin) 81 mg PO DAILY [facility] Last Admin: 05/01/18 10:00 Dose: 81 mg Clopidogrel Bisulfate (Plavix) 75 mg PO DAILY [facility] Last Admin: 05/01/18 10:30 Dose: 75 mg Famotidine (Pepcid) 20 mg IVP DAILY [facility] Last Admin: 05/01/18 10:30 Dose: 20 mg Furosemide (Lasix) 40 mg IVP BID [facility] Last Admin: 05/01/18 10:30 Dose: 40 mg Nicardipine HCl 25 mg/ Sodium (Chloride) 250 mls @ 25 mls/hr IV .Q10H [facility]; Protocol Last Admin: 05/01/18 14:40 Dose: 5 mg/hr, 50 mls/hr Piperacillin Sod/Tazobactam (Sod 3.375 gm/ Sodium Chloride) 100 mls @ 200 mls/hr IVPB Q6H [facility]ANIEL; Protocol Last Admin: 05/01/18 10:31 Dose: 200 mls/hr Propofol (Diprivan) 1,000 mg in 100 mls @ 2.646 mls/hr IV .Q24H PRN; Protocol PRN Reason: TITRATE PER MD ORDER Last Admin: 05/01/18 10:56 Dose: 20 mcg/kg/min, 10.584 mls/hr Insulin Aspart (Novolog) 0 unit SC Q6H DANIEL; Protocol Last Admin: 05/01/18 12:32 Dose: 2 unit Lactulose (Enulose) 20 gm PO HS [facility]EL Last Admin: 04/30/18 23:01 Dose: 20 gm Rosuvastatin Calcium (Crestor) 10 mg PO HS [facility] Last Admin: 04/30/18 22:00 Dose: 10 mg - Labs Labs: 05/01/18 05:59 05/01/18 05:59 PT 14.5 SECONDS (9.7-12.2) H 04/26/18 21:58 INR 1.3 04/26/18 21:58 APTT 32 SECONDS (21-34) 04/26/18 21:58 - Constitutional Appears: No Acute Distress - Head Exam Head Exam: ATRAUMATIC - Eye Exam Eye Exam: PERRL - ENT Exam ENT Exam: Mucous Membranes Dry - Respiratory Exam Additional comments: Intubated breathing over the vent at rate of 27 - Cardiovascular Exam Cardiovascular Exam: Irregular Rhythm - Extremities Exam Additional comments: anasarcic - Neurological Exam Neuro motor strength exam: Right Upper Extremity: 0 (hemiplegia), Right Lower Extremity: 0 (hemiplegia) - Skin Skin Exam: Warm Assessment and Plan - Assessment and Plan (Free Text) Assessment: Assessment: 82-year-old male status post large left MCA and ICA stroke status post revascularization. S/p revascularization the CT shows large territory of the left middle cerebral artery infarction with no evidence of hemorrhagic convers ion. Edema and transfalcine shift noted. The patient remains intubated and sedated on a propofol drip. There is no response to noxious stimuli. PERRL sluggish, right hemiparesis, left U/L extremity with no response to noxious stimuli. Plan: 1- Continue supportive care 2- Agree with palliative consult 3- Neuro assess per ICU protocal 4- If JEAN-PIERRE could be of assisstance please contact us. [phone]
--- NOTE | 2018-05-01 19:14 | CARD ---
APPROVED REPORT Date of service: 04/29/2018 EXAM: Two-dimensional and M-mode echocardiogram with Doppler and color Doppler. Other Information Quality : AverageRhythm : NSR INDICATION STROKE 2D DIMENSIONS LVOT Diameter1.8 (1.8-2.4cm)LA Fxymcb82 (18-58mL) M-Mode DIMENSIONS Left Atrium (MM)4.06 (2.5-4.0cm)IVSd1.25 (0.7-1.1cm) Aortic Root3.05 (2.2-3.7cm)LVDd5.93 (4.0-5.6cm) Aortic Cusp Exc.0.80 (1.5-2.0cm)PWd1.18 (0.7-1.1cm) FS (%) 22 %LVDs4.62 (2.0-3.8cm) LVEF (%)44 (>50%) Aortic Valve AoV Peak Dxtomcfa500.8cm/sAoV VTI73.3cmAO Peak GR.34mmHg LVOT Peak Bvjldctw444.6cm/sLVOT VTI25.88cmAO Mean GR.25mmHg LAURA (VMAX)0.67yj8BLA (VTI)0.88cm2 Mitral Valve MV E Qtbibdsl835.1cm/sMV A Cdsycgdm42.5cm/sE/A ratio3.6 TDI Lateral E' Peak V5.00cm/sMedial E' Peak V4.54cm/sE/Lateral E'25.4 E/Medial E'28.0 Tricuspid Valve TR Peak Fyniobnk571kd/sTR Peak Gr.38skRdAMPU34cxQj LEFT VENTRICLE The left ventricle is normal size. There is normal left ventricular wall thickness. The systolic function is mildly impaired. The left ventricular diastolic function is normal. RIGHT VENTRICLE The right ventricle is normal size. ATRIA The left atrium is mildly dilated. AORTIC VALVE There is trace to mild aortic regurgitation. There is severe valvular aortic stenosis. MITRAL VALVE Mitral annular calcification is mild. Mitral regurgitation is mild. TRICUSPID VALVE There is mild tricuspid regurgitation. <Conclusion> Mild LV systolic dysfunction. Dilated LA. Severe . Mild AR. Mild MR. Mild TR.
[2018-05-01] MEDS: Acetaminophen 650mg/20.3ml solution UD NG PRN ×2 (21:38)
--- NOTE | 2018-05-01 23:28 | PN ---
DATE: 05/01/2018 SUBJECTIVE: The patient was seen and examined at bedside. The patient's neurologic status remains the same, unresponsive, intubated, sedated. PHYSICAL EXAMINATION: GENERAL: Elderly male, lying in bed, in mild distress. VITAL SIGNS: Blood pressure 134/54, pulse 91, respirations 25, temperature is 101.1 degrees Fahrenheit, O2 saturation is 97% on 60% FiO2, tidal volume 500. Intake is 4499. Output is 990. HEENT: Pupils very sluggishly reacting. No icterus. ET tube in the oral cavity. Dry mucous membranes. NECK: Supple. LUNGS: Bilateral fair air entry. Bilateral basal crackles heard. CARDIOVASCULAR SYSTEM: S1 and S2 present, irregularly irregular. ABDOMEN: Soft. Bowel sounds present. CENTRAL NERVOUS SYSTEM: Intubated, sedated. Not moving any extremities even to the painful stimuli. EXTREMITIES: Upper extremity edema present. MEDICATIONS: Include Tylenol as needed, DuoNeb, aspirin 81 mg daily, Plavix 75 mg daily, Pepcid 20 mg daily, Lasix 40 mg IV push b.i.d., lactulose, nicardipine 2.5 mg per hour, Zosyn 3.375 g every 6 hours, propofol, Crestor 10 mg p.o. at bedtime. LABORATORY DATA: Labs done from this morning: WBC 10.1, hemoglobin 8.5, hematocrit 25.7, platelets 130. Sodium 151, potassium 3.8, chloride 124, bicarbonate 22, BUN 40, creatinine 1, glucose 141, calcium 8.7, phosphorus 2.6, magnesium 2.5. AST 69, ALT 30, alkaline phosphatase 57, total protein 6, albumin 3. Repeat CT head from this morning, pending report. ASSESSMENT AND PLAN: Elderly male with history of coronary artery disease, status post coronary artery bypass grafting, hypertension, hyperlipidemia, noncompliance with medication. Admitted for acute cerebrovascular accident, status post endovascular thrombectomy and stenting, left middle cerebral artery infarction, status post intubation with worsening cerebral edema and midline shift, on nicardipine drip and worsening clinical and neurologic conditions. The patient is on ventilator support. Continue with ventilator support to keep oxygen saturation more than 92. The patient remains in atrial fibrillation. Continue with aspirin and antiplatelet therapy, which was restarted. Status post bronchoscopy and bleeding from the right main bronchus improved. No further bleeding noted. Status post hypophosphatemia, which was corrected. Continue with deep venous thrombosis and gastrointestinal prophylaxis. Awaiting for the patient's family meeting with palliative care team. The patient's condition is critical. Prognosis is guarded. Harinder Brunner MD
[2018-05-02] MEDS: niCARdipine IV 25 MG in Sodium Chloride 0.9% 240 ML IV SCH ×3 (00:49→14:11)
[2018-05-02] MEDS: Propofol 10 mg/ml 1,000 MG/100 ML VIAL IV PRN ×2 (00:50→14:09)
[2018-05-02] MEDS: (Novolog) Insulin Aspart, Recombinant 100 u/ml 10 ml vial SC SCH ×3 (00:51→12:00)
[2018-05-02] MEDS: Albuterol-Ipratrop 3 mg / 0.5 (3 ml) UD INH SCH ×3 (03:18→12:54)
[2018-05-02] MEDS: Piperacillin/Tazobact 3.375 GM in Sodium Chloride 100 ML IVPB SCH ×3 (04:11→14:58)
[2018-05-02 05:02] LABS: ARTERIAL BLOOD GAS HCO3 25.9 mmol/L (21-28); ARTERIAL BLOOD GAS HEMOGLOBIN 16.9 g/dL (11.7-17.4); ARTERIAL BLOOD GAS O2 SAT 96.9 % (95-98); ARTERIAL BLOOD GAS PCO2 30 mm/Hg (35-45); ARTERIAL BLOOD GAS PO2 81 mm/Hg (80-100); ARTERIAL BLOOD GAS TCO2 24.3 mmol/L (22-28)
[2018-05-02 05:44] LABS: BASO # 0.1 K/uL (0.0-0.2); BASO % 0.4 % (0.0-2.0); EOS # 0.1 K/uL (0.0-0.7); EOS % 0.6 % (0.0-4.0); HEMOGLOBIN 8.3 g/dL (12.0-18.0); LYMPH # 1.2 K/uL (1.0-4.3); LYMPH % 10.3 % (20.0-40.0); MEAN CELL VOLUME 79.2 fL (80.0-94.0); MEAN CORPUSCULAR HEMOGLOBIN 26.4 pg (27.0-31.0); MEAN CORPUSCULAR HGB CONC 33.4 g/dL (33.0-37.0); MONO # 0.8 K/uL (0.0-0.8); MONO % 6.2 % (0.0-10.0); NEUT % 82.5 % (50.0-75.0); NRBC % 0.2 % (0.0-2.0); RBC 3.13 Mil/uL (4.40-5.90); RED CELL DISTRIBUTION WIDTH 18.3 % (11.5-14.5); WHITE BLOOD COUNT 12.1 K/uL (4.8-10.8)
--- NOTE | 2018-05-02 09:34 | CT ---
Date of service: 05/01/2018 PROCEDURE: CT HEAD WITHOUT CONTRAST. HISTORY: Left MCA CVA COMPARISON: Comparison made with prior study 04/30/2018 TECHNIQUE: Axial computed tomography images were obtained through the head/brain without intravenous contrast. Radiation dose: Total exam DLP = 1436.3 mGy-cm. This CT exam was performed using one or more of the following dose reduction techniques: Automated exposure control, adjustment of the mA and/or kV according to patient size, and/or use of iterative reconstruction technique. FINDINGS: HEMORRHAGE: No intracranial hemorrhage. BRAIN: Large left MCA territory infarct involving most of the left cerebral hemisphere with some sparing of the left anterior cerebral artery vascular territory.. Diffuse cerebral edema results in considerable mass effect with overlying sulcal effacement as well as compression of the left lateral ventricle which is shifted across midline. Septum pellucidum lies approximately 16 mm to the right of midline. There dilatation of the right lateral ventricle due to compressive effects at the level of the right foramen of Manning. Mild chronic periventricular white matter ischemic changes seen right cerebral hemisphere. Chronic appearing bilateral cerebellar infarcts are again seen unchanged. VENTRICLES: Dilatation of the right lateral ventricle due to compression of the right foramen of Manning. CALVARIUM: Un calvarium intact. PARANASAL SINUSES: Unremarkable as visualized. No significant inflammatory changes. MASTOID AIR CELLS: Unremarkable as visualized. No inflammatory changes. OTHER FINDINGS: None. IMPRESSION: Large left MCA territory infarct with some sparing of the left anterior cerebral artery vascular territory. Significant mass-effect with overlying sulcal effacement and compression of the left lateral ventricle with [id number] midline shift estimated at approximately 16 mm as detailed above. Dilatation of the right lateral ventricle due to compressive effects at the level of the right foramen of [place]ro. Chronic periventricular white matter ischemic changes right cerebral hemisphere. Chronic bilateral cerebellar infarcts again noted the
--- NOTE | 2018-05-02 11:57 | CP.PCM.PN ---
Subjective - Date & Time of Evaluation Date of Evaluation: 05/02/18 Time of Evaluation: 11:57 - Subjective Subjective: Progress note dictated #[id number] Objective - Vital Signs/Intake and Output Vital Signs (last 24 hours): Temp Pulse Resp BP Pulse Ox 99.2 F 93 H 25 H 128/54 L 98 05/02/18 08:00 05/02/18 10:45 05/02/18 10:45 05/02/18 10:45 05/02/18 10:45 Intake and Output: 05/02/18 05/02/18 06:59 18:59 Intake Total 1829.8 351.6 Output Total 1700 600 Balance 129.8 -248.4 - Medications Medications: Current Medications Acetaminophen (Tylenol 650mg/20.3ml Solution Ud) 650 mg NG Q4 PRN PRN Reason: Temperature Last Admin: 05/01/18 21:38 Dose: 650 mg Albuterol/Ipratropium (Duoneb 3 Mg/0.5 Mg (3 Ml) Ud) 3 ml INH RQ4 [facility] Last Admin: 05/02/18 08:08 Dose: 3 ml Aspirin (Ecotrin) 81 mg PO DAILY [facility] Last Admin: 05/02/18 09:01 Dose: 81 mg Clopidogrel Bisulfate (Plavix) 75 mg PO DAILY [facility] Last Admin: 05/02/18 09:02 Dose: 75 mg Famotidine (Pepcid) 20 mg IVP DAILY [facility] Last Admin: 05/02/18 09:02 Dose: 20 mg Furosemide (Lasix) 40 mg IVP BID [facility] Last Admin: 05/02/18 09:01 Dose: 40 mg Nicardipine HCl 25 mg/ Sodium (Chloride) 250 mls @ 25 mls/hr IV .Q10H [facility]; Protocol Last Admin: 05/02/18 04:11 Dose: 3 mg/hr, 30 mls/hr Piperacillin Sod/Tazobactam (Sod 3.375 gm/ Sodium Chloride) 100 mls @ 200 mls/hr IVPB Q6H [facility]; Protocol Last Admin: 05/02/18 09:00 Dose: 200 mls/hr Propofol (Diprivan) 1,000 mg in 100 mls @ 2.646 mls/hr IV .Q24H PRN; Protocol PRN Reason: TITRATE PER MD ORDER Last Admin: 05/02/18 00:50 Dose: 15 mcg/kg/min, 7.938 mls/hr Insulin Aspart (Novolog) 0 unit SC Q6H [facility]; Protocol Last Admin: 05/02/18 06:21 Dose: Not Given Lactulose (Enulose) 20 gm PO HS [facility] Last Admin: 05/01/18 21:38 Dose: 20 gm Rosuvastatin Calcium (Crestor) 10 mg PO HS [facility] Last Admin: 05/01/18 21:38 Dose: 10 mg - Labs Labs: 05/02/18 05:38 05/01/18 05:59 PT 14.5 SECONDS (9.7-12.2) H 04/26/18 21:58 INR 1.3 04/26/18 21:58 APTT 32 SECONDS (21-34) 04/26/18 21:58
--- NOTE | 2018-05-02 12:25 | CP.PCM.PN ---
Subjective - Date & Time of Evaluation Date of Evaluation: 05/02/18 Time of Evaluation: 12:19 - Subjective Subjective: Patient remains intubated , no sedated, unresponsive to stimuli. Meaningful recovery is not expected as documented by medical care providers. Family is considering terminal extubation as they do not want patient's life to prolonged without quality of life in there. Doctor Tanmay is on her way to talk to family. Objective - Vital Signs/Intake and Output Vital Signs (last 24 hours): Temp Pulse Resp BP Pulse Ox 99.2 F 93 H 25 H 128/54 L 98 05/02/18 08:00 05/02/18 10:45 05/02/18 10:45 05/02/18 10:45 05/02/18 10:45 Intake and Output: 05/02/18 05/02/18 06:59 18:59 Intake Total 1829.8 351.6 Output Total 1700 600 Balance 129.8 -248.4 - Medications Medications: Current Medications Acetaminophen (Tylenol 650mg/20.3ml Solution Ud) 650 mg NG Q4 PRN PRN Reason: Temperature Last Admin: 05/01/18 21:38 Dose: 650 mg Albuterol/Ipratropium (Duoneb 3 Mg/0.5 Mg (3 Ml) Ud) 3 ml INH RQ4 [facility] Last Admin: 05/02/18 08:08 Dose: 3 ml Aspirin (Ecotrin) 81 mg PO DAILY [facility] Last Admin: 05/02/18 09:01 Dose: 81 mg Clopidogrel Bisulfate (Plavix) 75 mg PO DAILY [facility] Last Admin: 05/02/18 09:02 Dose: 75 mg Famotidine (Pepcid) 20 mg IVP DAILY [facility] Last Admin: 05/02/18 09:02 Dose: 20 mg Furosemide (Lasix) 40 mg IVP BID [facility] Last Admin: 05/02/18 09:01 Dose: 40 mg Nicardipine HCl 25 mg/ Sodium (Chloride) 250 mls @ 25 mls/hr IV .Q10H [facility]; Protocol Last Admin: 05/02/18 04:11 Dose: 3 mg/hr, 30 mls/hr Piperacillin Sod/Tazobactam (Sod 3.375 gm/ Sodium Chloride) 100 mls @ 200 mls/hr IVPB Q6H [facility]; Protocol Last Admin: 05/02/18 09:00 Dose: 200 mls/hr Propofol (Diprivan) 1,000 mg in 100 mls @ 2.646 mls/hr IV .Q24H PRN; Protocol PRN Reason: TITRATE PER MD ORDER Last Admin: 05/02/18 00:50 Dose: 15 mcg/kg/min, 7.938 mls/hr Insulin Aspart (Novolog) 0 unit SC Q6H [facility]; Protocol Last Admin: 05/02/18 06:21 Dose: Not Given Lactulose (Enulose) 20 gm PO HS [facility] Last Admin: 05/01/18 21:38 Dose: 20 gm Rosuvastatin Calcium (Crestor) 10 mg PO HS [facility] Last Admin: 05/01/18 21:38 Dose: 10 mg - Labs Labs: 05/02/18 05:38 05/01/18 05:59 PT 14.5 SECONDS (9.7-12.2) H 04/26/18 21:58 INR 1.3 04/26/18 21:58 APTT 32 SECONDS (21-34) 04/26/18 21:58 - Constitutional Appears: In Acute Distress - Head Exam Head Exam: ATRAUMATIC, NORMAL INSPECTION, NORMOCEPHALIC - Eye Exam Eye Exam: Normal appearance - ENT Exam ENT Exam: Mucous Membranes Dry - Neck Exam Neck Exam: Normal Inspection - Respiratory Exam Additional comments: On MV - Cardiovascular Exam Cardiovascular Exam: Tachycardia, +S1, +S2 - GI/Abdominal Exam GI & Abdominal Exam: Soft, Hypoactive Bowel Sounds - Rectal Exam Rectal Exam: Deferred - Exam Additional comments: Bhatt cath - Extremities Exam Extremities Exam: Pedal Edema - Back Exam Back Exam: NORMAL INSPECTION - Neurological Exam Neurological Exam: Motor Sensory Deficit Neuro motor strength exam: Left Upper Extremity: 0, Right Upper Extremity: 0, Left Lower Extremity: 0, Right Lower Extremity: 0 - Psychiatric Exam Psychiatric exam: Flat Affect - Skin Skin Exam: Pallor Assessment and Plan - Assessment and Plan (Free Text) Assessment: Patient examined in bed, on MV support, unresponsive to stimuli. Patient does not react to sternal rub nor to pressure over eyelids. Breathing is completely supported by MV. FiO2 60%. There is right sided weakness. Pedal edema present. WBC 12.0, Hb 8.3.Last CT head showed increasing midline shift to left, due to edema. Three of patient's sons came in today to continue goals of care discussion. I reviewed patient's clinical presentation as same as it was on Sunday when we m et. Family again expressed wish to allow patient natural , but before it they wanted to talk to a Doctor. I share this with Doctor Donato, Doctor Sandhu and Family Living Educator. Doctor Sandhu advised to contact Doctor Chanel, which I did. I asked family to remain in the room until Doctors come in. Impression * Acutelly ill male, S/P CVA and Left MCA infarct * GCS of 3 * No meaningful recovery is expected * Family is considering removal of life support but wants to speak to Doctor first Suggestion * I feel that at this point allowing natural is the most Ethical decision for this dying patient * Medical staff involved in care to give reassurance to a family and assist them to precede with their intention. Family needs to be certain they are doing the right thing. * patient should be made DNR. I will talk to them once all Doctors come in and meet with family. Advance care planing 30 min
[2018-05-02] MEDS: Morphine Sulfate 250 MG in Dextrose 5% In Water 240 ML IV PRN (16:32)
--- NOTE | 2018-05-02 17:53 | CP.PCM.PN ---
Subjective - Date & Time of Evaluation Date of Evaluation: 05/02/18 Time of Evaluation: 14:30 - Subjective Subjective: Mr. Goodwin was seen and examined today at bedside in the ICU. He continues to decline mentally and has stopped spontaneous movement on the left side. He is obtunded and has little response as compared to previous examination. I spoke with the patient's family at length and expressed my opinion that the patient is unlikely to recover from this large left MCA stroke and that the prognosis is very poor considering his current condition. The family informed me that Mr. Goodwin would not want to be ventilator dependent and would not have wanted to continue living in this manner if he were to make the decision in his pre-morbid state. Objective - Vital Signs/Intake and Output Vital Signs (last 24 hours): Temp Pulse Resp BP Pulse Ox 99.6 F 110 H 24 130/65 100 05/02/18 12:00 05/02/18 16:00 05/02/18 16:00 05/02/18 15:47 05/02/18 12:00 Intake and Output: 05/02/18 05/02/18 06:59 18:59 Intake Total 1829.8 1421.1 Output Total 1700 1400 Balance 129.8 21.1 - Medications Medications: Current Medications Acetaminophen (Tylenol 650mg/20.3ml Solution Ud) 650 mg NG Q4 PRN PRN Reason: Temperature Last Admin: 05/01/18 21:38 Dose: 650 mg Albuterol/Ipratropium (Duoneb 3 Mg/0.5 Mg (3 Ml) Ud) 3 ml INH RQ4 [facility] Last Admin: 05/02/18 12:54 Dose: Not Given Aspirin (Ecotrin) 81 mg PO DAILY [facility] Last Admin: 05/02/18 09:01 Dose: 81 mg Clopidogrel Bisulfate (Plavix) 75 mg PO DAILY [facility] Last Admin: 05/02/18 09:02 Dose: 75 mg Famotidine (Pepcid) 20 mg IVP DAILY [facility] Last Admin: 05/02/18 09:02 Dose: 20 mg Furosemide (Lasix) 40 mg IVP BID [facility] Last Admin: 05/02/18 09:01 Dose: 40 mg Nicardipine HCl 25 mg/ Sodium (Chloride) 250 mls @ 25 mls/hr IV .Q10H [facility]; Protocol Last Admin: 05/02/18 14:11 Dose: 3 mg/hr, 30 mls/hr Piperacillin Sod/Tazobactam (Sod 3.375 gm/ Sodium Chloride) 100 mls @ 200 mls/hr IVPB Q6H [facility]; Protocol Last Admin: 05/02/18 14:58 Dose: 200 mls/hr Propofol (Diprivan) 1,000 mg in 100 mls @ 2.646 mls/hr IV .Q24H PRN; Protocol PRN Reason: TITRATE PER MD ORDER Last Admin: 05/02/18 14:09 Dose: 15 mcg/kg/min, 7.938 mls/hr Morphine Sulfate 250 mg/ (Dextrose) 250 mls @ 5 mls/hr IV .Q24H PRN; Protocol PRN Reason: Agitation Last Admin: 05/02/18 16:32 Dose: 5 mg/hr, 5 mls/hr Insulin Aspart (Novolog) 0 unit SC Q6H [facility]; Protocol Last Admin: 05/02/18 12:00 Dose: Not Given Lactulose (Enulose) 20 gm PO HS [facility] Last Admin: 05/01/18 21:38 Dose: 20 gm Lorazepam (Ativan) 2 mg IVP Q2H PRN PRN Reason: Agitation Last Admin: 05/02/18 15:39 Dose: 2 mg Rosuvastatin Calcium (Crestor) 10 mg PO HS [facility] Last Admin: 05/01/18 21:38 Dose: 10 mg - Labs Labs: 05/02/18 05:38 05/01/18 05:59 PT 14.5 SECONDS (9.7-12.2) H 04/26/18 21:58 INR 1.3 04/26/18 21:58 APTT 32 SECONDS (21-34) 04/26/18 21:58 - Neurological Exam Additional comments: Minimal response to pain. Does not open eyes to pain, does not withdraw. GCS 3T. Assessment and Plan (1) Stroke Assessment & Plan: Based on my discussion with family, they have decided to withdraw ventilator support. No further recommendations from a neurological standpoint. Status: Acute
--- NOTE | 2018-05-02 17:55 | CP.CCUPN ---
<Katelyn Oviedo - Last Filed: 05/02/18 18:03> CCU Subjective - Physician Review Events Since Last Encounter (Free Text): 05/02/18 17:55 no over night events Subjective (Free Text): 05/02/18 17:55 Patient was seen and examined this morning. he remains intubated on vent and sedated. Critical Care Time Spent (in minutes): 35 CCU Objective - Vital Signs / Intake & Output Vital Signs (Last 4 hours): Vital Signs Pulse Resp BP 05/02/18 16:00 110 H 24 05/02/18 15:47 106 H 18 130/65 05/02/18 15:00 99 H 22 05/02/18 14:46 101 H 19 140/76 05/02/18 14:00 83 22 Intake and Output (Last 8hrs): Intake & Output 05/02/18 05/02/18 05/02/18 06:59 14:59 22:59 Intake Total 1138.2 1153.2 267.9 Output Total 1350 1160 240 Balance -211.8 -6.8 27.9 Weight 196 lb Intake: IV 350 350 Intake, IV Amount 328.2 403.2 167.9 Right Internal Jugular 68.2 63.2 7.9 Right Medial Port 100 100 Internal Jugular Right Proximal Port 260 240 60 Internal Jugular Tube Feeding 400 400 100 Albumin 60 Output: Urine 1350 1160 240 Urethral (Bhatt) 1350 1160 240 Other: # Bowel Movements 0 - Physical Exam Head: Positive for: Atraumatic, Normocephalic Pupils: Positive for: PERRL, Sluggish, Other Mouth: Positive for: Dry Respiratory/Chest: Positive for: Rhonchi, Other (vent) Cardiovascular: Positive for: Regular Rate and Rhythm, Normal S1, S2. Negative for: Murmurs Abdomen: Negative for: Distention Upper Extremity: Positive for: Normal Inspection Lower Extremity: Positive for: Normal Inspection Neurological: Positive for: Other (intubated, sedated, responsive to pain, gag relfex intact) Skin: Positive for: Warm, Dry Psychiatric: Negative for: Alert - Medications Active Medications: Active Medications Generic Name Dose Route Start Last Admin Trade Name Freq PRN Reason Stop Dose Admin Acetaminophen 650 mg 04/26/18 20:59 05/01/18 21:38 Tylenol 650mg/20.3ml Solution Ud NG 650 mg Q4 PRN Administration Temperature Albuterol/Ipratropium 3 ml 04/26/18 12:00 05/02/18 12:54 Duoneb 3 Mg/0.5 Mg (3 Ml) Ud INH Not Given RQ4 DANIEL Aspirin 81 mg 04/26/18 10:00 05/02/18 09:01 Ecotrin PO 81 mg DAILY DANIEL Administration Clopidogrel Bisulfate 75 mg 04/26/18 10:00 05/02/18 09:02 Plavix PO 75 mg DAILY DANIEL Administration Famotidine 20 mg 04/26/18 10:00 05/02/18 09:02 Pepcid IVP 20 mg DAILY DANIEL Administration Furosemide 40 mg 05/01/18 10:00 05/02/18 09:01 Lasix IVP 40 mg BID DANIEL Administration Nicardipine HCl 25 mg/ Sodium 250 mls @ 25 mls/hr 04/28/18 16:00 05/02/18 14:11 Chloride IV 3 mg/hr .Q10H DANIEL 30 mls/hr Administration Protocol 2.5 MG/HR Piperacillin Sod/Tazobactam 100 mls @ 200 mls/hr 04/29/18 15:30 05/02/18 14:58 Sod 3.375 gm/ Sodium Chloride IVPB 200 mls/hr Q6H DANIEL Administration Protocol Propofol 1,000 mg in 100 mls @ 2.646 mls/hr 05/01/18 10:44 05/02/18 14:09 Diprivan IV 15 mcg/kg/min .Q24H PRN 7.938 mls/hr TITRATE PER MD ORDER Administration Protocol 5 MCG/KG/MIN Morphine Sulfate 250 mg/ 250 mls @ 5 mls/hr 05/02/18 15:28 05/02/18 16:32 Dextrose IV 5 mg/hr .Q24H PRN 5 mls/hr Agitation Administration Protocol Insulin Aspart 0 unit 04/26/18 12:00 05/02/18 12:00 Novolog SC Not Given Q6H DANIEL Protocol Lactulose 20 gm 04/28/18 22:00 05/01/18 21:38 Enulose PO 20 gm HS DANIEL Administration Lorazepam 2 mg 05/02/18 15:15 05/02/18 15:39 Ativan IVP 2 mg Q2H PRN Administration Agitation Rosuvastatin Calcium 10 mg 04/26/18 22:00 05/01/18 21:38 Crestor PO 10 mg HS DANIEL Administration - Patient Studies Lab Studies: Microbiology Studies 04/29/18 18:18 Mycobacterial Culture - Preliminary Other: Please Indicate 04/29/18 18:18 Gram Stain - Final Body Fluid - Bronchial Washing Body Fluid Culture - Preliminary NO GROWTH AFTER 3 DAYS 04/29/18 18:18 Gram Stain - Final Bronchial Washings Fungal Culture - Preliminary Lab Studies 05/02/18 05/02/18 05/02/18 Range/Units 11:34 06:15 05:38 WBC (4.8-10.8) K/uL RBC (4.40-5.90) Mil/uL Hgb (12.0-18.0) g/dL Hct (35.0-51.0) % MCV (80.0-94.0) fL MCH (27.0-31.0) pg MCHC (33.0-37.0) g/dL RDW (11.5-14.5) % Plt Count (130-400) K/uL MPV (7.2-11.7) fL Neut % (Auto) (50.0-75.0) % Lymph % (Auto) (20.0-40.0) % Sierra % (Auto) (0.0-10.0) % Eos % (Auto) (0.0-4.0) % Baso % (Auto) (0.0-2.0) % Neut # (Auto) (1.8-7.0) K/uL Lymph # (Auto) (1.0-4.3) K/uL Sierra # (Auto) (0.0-0.8) K/uL Eos # (Auto) (0.0-0.7) K/uL Baso # (Auto) (0.0-0.2) K/uL Differential Comment Puncture Site pCO2 (35-45) mm/Hg pO2 (80-100) mm/Hg HCO3 (21-28) mmol/L ABG pH (7.35-7.45) ABG Total CO2 (22-28) mmol/L ABG O2 Saturation (95-98) % ABG Base Excess (-2.0-3.0) mmol/L ABG Hemoglobin (11.7-17.4) g/dL ABG Carboxyhemoglobin (0.5-1.5) % POC ABG HHb (Measured) (0.0-5.0) % ABG Methemoglobin (0.0-3.0) % Jose D Test A-a O2 Difference mm/Hg Respiratory Index Hgb O2 Saturation (95.0-98.0) % Vent Mode Mechanical Rate FiO2 % Tidal Volume PEEP POC Glucose (mg/dL) 157 H 144 H (65-110) mg/dL Phosphorus 2.8 (2.5-4.5) mg/dL Magnesium 2.5 H (1.6-2.3) mg/dL 05/02/18 05/02/18 05/01/18 Range/Units 05:38 04:40 23:47 WBC 12.1 H (4.8-10.8) K/uL RBC 3.13 L (4.40-5.90) Mil/uL Hgb 8.3 L (12.0-18.0) g/dL Hct 24.8 L (35.0-51.0) % MCV 79.2 L (80.0-94.0) fL MCH 26.4 L (27.0-31.0) pg MCHC 33.4 (33.0-37.0) g/dL RDW 18.3 H (11.5-14.5) % Plt Count 129 L (130-400) K/uL MPV 10.0 (7.2-11.7) fL Neut % (Auto) 82.5 H (50.0-75.0) % Lymph % (Auto) 10.3 L (20.0-40.0) % Sierra % (Auto) 6.2 (0.0-10.0) % Eos % (Auto) 0.6 (0.0-4.0) % Baso % (Auto) 0.4 (0.0-2.0) % Neut # (Auto) 10.0 H (1.8-7.0) K/uL Lymph # (Auto) 1.2 (1.0-4.3) K/uL Sierra # (Auto) 0.8 (0.0-0.8) K/uL Eos # (Auto) 0.1 (0.0-0.7) K/uL Baso # (Auto) 0.1 (0.0-0.2) K/uL Differential Comment Puncture Site Foster pCO2 30 L (35-45) mm/Hg pO2 81 (80-100) mm/Hg HCO3 25.9 (21-28) mmol/L ABG pH 7.50 H (7.35-7.45) ABG Total CO2 24.3 (22-28) mmol/L ABG O2 Saturation 96.9 (95-98) % ABG Base Excess 1.4 (-2.0-3.0) mmol/L ABG Hemoglobin 16.9 (11.7-17.4) g/dL ABG Carboxyhemoglobin 1.3 (0.5-1.5) % POC ABG HHb (Measured) 3.0 (0.0-5.0) % ABG Methemoglobin 1.0 (0.0-3.0) % Jose D Test Na A-a O2 Difference 309.0 mm/Hg Respiratory Index 3.8 Hgb O2 Saturation 94.7 L (95.0-98.0) % Vent Mode Prvc Mechanical Rate 18 FiO2 60.0 % Tidal Volume 600 PEEP 5 POC Glucose (mg/dL) 168 H (65-110) mg/dL Phosphorus (2.5-4.5) mg/dL Magnesium (1.6-2.3) mg/dL 05/01/18 Range/Units 17:24 WBC (4.8-10.8) K/uL RBC (4.40-5.90) Mil/uL Hgb (12.0-18.0) g/dL Hct (35.0-51.0) % MCV (80.0-94.0) fL MCH (27.0-31.0) pg MCHC (33.0-37.0) g/dL RDW (11.5-14.5) % Plt Count (130-400) K/uL MPV (7.2-11.7) fL Neut % (Auto) (50.0-75.0) % Lymph % (Auto) (20.0-40.0) % Sierra % (Auto) (0.0-10.0) % Eos % (Auto) (0.0-4.0) % Baso % (Auto) (0.0-2.0) % Neut # (Auto) (1.8-7.0) K/uL Lymph # (Auto) (1.0-4.3) K/uL Sierra # (Auto) (0.0-0.8) K/uL Eos # (Auto) (0.0-0.7) K/uL Baso # (Auto) (0.0-0.2) K/uL Differential Comment Puncture Site pCO2 (35-45) mm/Hg pO2 (80-100) mm/Hg HCO3 (21-28) mmol/L ABG pH (7.35-7.45) ABG Total CO2 (22-28) mmol/L ABG O2 Saturation (95-98) % ABG Base Excess (-2.0-3.0) mmol/L ABG Hemoglobin (11.7-17.4) g/dL ABG Carboxyhemoglobin (0.5-1.5) % POC ABG HHb (Measured) (0.0-5.0) % ABG Methemoglobin (0.0-3.0) % Jose D Test A-a O2 Difference mm/Hg Respiratory Index Hgb O2 Saturation (95.0-98.0) % Vent Mode Mechanical Rate FiO2 % Tidal Volume PEEP POC Glucose (mg/dL) 159 H (65-110) mg/dL Phosphorus (2.5-4.5) mg/dL Magnesium (1.6-2.3) mg/dL Laboratory Results - last 24 hr 05/01/18 05/01/18 05/02/18 17:24 23:47 04:40 WBC RBC Hgb Hct MCV MCH MCHC RDW Plt Count MPV Neut % (Auto) Lymph % (Auto) Sierra % (Auto) Eos % (Auto) Baso % (Auto) Neut # (Auto) Lymph # (Auto) Sierra # (Auto) Eos # (Auto) Baso # (Auto) Differential Comment Puncture Site Malaika pCO2 30 L pO2 81 HCO3 25.9 ABG pH 7.50 H ABG Total CO2 24.3 ABG O2 Saturation 96.9 ABG Base Excess 1.4 ABG Hemoglobin 16.9 ABG Carboxyhemoglobin 1.3 POC ABG HHb (Measured) 3.0 ABG Methemoglobin 1.0 Jose D Test Na A-a O2 Difference 309.0 Respiratory Index 3.8 Hgb O2 Saturation 94.7 L Vent Mode Prvc Mechanical Rate 18 FiO2 60.0 Tidal Volume 600 PEEP 5 POC Glucose (mg/dL) 159 H 168 H Phosphorus Magnesium 05/02/18 05/02/18 05/02/18 05:38 05:38 06:15 WBC 12.1 H RBC 3.13 L Hgb 8.3 L Hct 24.8 L MCV 79.2 L MCH 26.4 L MCHC 33.4 RDW 18.3 H Plt Count 129 L MPV 10.0 Neut % (Auto) 82.5 H Lymph % (Auto) 10.3 L Sierra % (Auto) 6.2 Eos % (Auto) 0.6 Baso % (Auto) 0.4 Neut # (Auto) 10.0 H Lymph # (Auto) 1.2 Sierra # (Auto) 0.8 Eos # (Auto) 0.1 Baso # (Auto) 0.1 Differential Comment Puncture Site pCO2 pO2 HCO3 ABG pH ABG Total CO2 ABG O2 Saturation ABG Base Excess ABG Hemoglobin ABG Carboxyhemoglobin POC ABG HHb (Measured) ABG Methemoglobin Jose D Test A-a O2 Difference Respiratory Index Hgb O2 Saturation Vent Mode Mechanical Rate FiO2 Tidal Volume PEEP POC Glucose (mg/dL) 144 H Phosphorus 2.8 Magnesium 2.5 H 05/02/18 11:34 WBC RBC Hgb Hct MCV MCH MCHC RDW Plt Count MPV Neut % (Auto) Lymph % (Auto) Sierra % (Auto) Eos % (Auto) Baso % (Auto) Neut # (Auto) Lymph # (Auto) Sierra # (Auto) Eos # (Auto) Baso # (Auto) Differential Comment Puncture Site pCO2 pO2 HCO3 ABG pH ABG Total CO2 ABG O2 Saturation ABG Base Excess ABG Hemoglobin ABG Carboxyhemoglobin POC ABG HHb (Measured) ABG Methemoglobin Jose D Test A-a O2 Difference Respiratory Index Hgb O2 Saturation Vent Mode Mechanical Rate FiO2 Tidal Volume PEEP POC Glucose (mg/dL) 157 H Phosphorus Magnesium Fingerstick Blood Sugar Results: 159 Review of Systems - Review of Systems Systems not reviewed;Unavailable: Intubated Critical Care Progress Note - Ventilator Checklist Head of Bed 30 Degrees: Yes Daily Sedation Vacation: Yes Daily Assessment of Readiness to Wean: Yes PUD Prophalyxis: Yes DVT Prophylaxis: Yes Oral Care with Chlorhexidine Gluconate {CHG}: Yes - Vent Settings MODE:: PRVC - Extremities/Vascular Does the Patient have a Central Venous Catheter?: Yes Insertion Site: Internal Jugular Vein Does the Patient need a Central Venous Catheter?: Yes Does the Patient have a Bhatt Catheter?: Yes Does the Patient need a Bhatt Catheter?: Yes Catheter Insertion Criteria: Patient requires prolonged immobilization - Prophylaxis GI Prophylaxis GI: Pepsid - Prophylaxis DVT Prophylaxis DVT: Heparin SQ, SCDs Assessment/Plan - Assessment and Plan (Free Text) Assessment: Patient is 82 yo male who underwent 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 He remains intubated and sedated. Currently pending discussion with family members and neurology. 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, occlusion of L MCA - Post-op CTA: no occlusion/thrombus/stenosis visualized, patent stent graft in L ICA - Repeat CT head obtained - Neurovascular checks Q1H- if any changes, repeat CT head STAT - Propofol drip- not arousable to painful stimuli - Neurology consulted (Seth/Chanel) - Neurointervention consulted (hCago) CV: - Mechanical thrombectomy 04/25 - Trop negative x3 - ASA 81 mg PO daily - Plavix 75 mg PO daily - Nicardipine drip - Monitor vitals- Afib - Maintain SBP 100-140 - Cardiology consulted (Kong) Pulm: - Bronchoscopy 04/29: Diffuse pulmonary edema and right main bronchus bleed - ETT- titrate vent to maintain spO2>92%, CPAP trial - CXR: severe cardiomegaly, mod venous congestion, b/l airspace disease (atelectasis vs PNA) - ABG: pH 7.5, pC02 30, pO2 81 - Duoneb Q4H GI: - NGT- Glucerna - Lactulose 20 mg PO QHS : - Monitor I's & O's- Bhatt - Last 24 hrs +1078 mL - Lasix 40 mg IV BID - Replete electrolytes PRN Endo: - A1c 5.9 - Maintain euglycemia - Accuchecks Q6H with ISS Heme: - Hgb decreasing (8.3) - Monitor H&H ID: - Febrile overnight 100.4 - Tylenol 650 mg NGT Q4H PRN - Mild leukocytosis (12.1) - Blood Cx neg PPx: VTE: heparin 5000 units SC Q8H GI: Pepcid 20 mg IV daily <JoséfPhoenix - Last Filed: 05/02/18 21:18> CCU Objective - Vital Signs / Intake & Output Vital Signs (Last 4 hours): Vital Signs Pulse Resp BP 05/02/18 18:00 116 H 31 H 130/60 Intake and Output (Last 8hrs): Intake & Output 05/02/18 05/02/18 05/02/18 06:59 14:59 22:59 Intake Total 1138.2 1153.2 487.9 Output Total 1350 1160 480 Balance -211.8 -6.8 7.9 Weight 196 lb Intake: IV 350 350 0 Intake, IV Amount 328.2 403.2 287.9 Right Internal Jugular 68.2 63.2 7.9 Right Medial Port 100 100 Internal Jugular Right Proximal Port 260 240 180 Internal Jugular Tube Feeding 400 400 200 Albumin 60 Output: Urine 1350 1160 480 Urethral (Bhatt) 1350 1160 480 Other: # Bowel Movements 0 - Medications Active Medications: Active Medications Generic Name Dose Route Start Last Admin Trade Name Freq PRN Reason Stop Dose Admin Morphine Sulfate 250 mg/ 250 mls @ 5 mls/hr 05/02/18 15:28 05/02/18 18:00 Dextrose IV 50 mg/hr .Q24H PRN 50 mls/hr Agitation Titration Protocol - Patient Studies Lab Studies: Microbiology Studies 04/29/18 18:18 Mycobacterial Culture - Preliminary Other: Please Indicate 04/29/18 18:18 Gram Stain - Final Body Fluid - Bronchial Washing Body Fluid Culture - Preliminary NO GROWTH AFTER 3 DAYS Lab Studies 05/02/18 05/02/18 05/02/18 Range/Units 11:34 06:15 05:38 WBC (4.8-10.8) K/uL RBC (4.40-5.90) Mil/uL Hgb (12.0-18.0) g/dL Hct (35.0-51.0) % MCV (80.0-94.0) fL MCH (27.0-31.0) pg MCHC (33.0-37.0) g/dL RDW (11.5-14.5) % Plt Count (130-400) K/uL MPV (7.2-11.7) fL Neut % (Auto) (50.0-75.0) % Lymph % (Auto) (20.0-40.0) % Sierra % (Auto) (0.0-10.0) % Eos % (Auto) (0.0-4.0) % Baso % (Auto) (0.0-2.0) % Neut # (Auto) (1.8-7.0) K/uL Lymph # (Auto) (1.0-4.3) K/uL Sierra # (Auto) (0.0-0.8) K/uL Eos # (Auto) (0.0-0.7) K/uL Baso # (Auto) (0.0-0.2) K/uL Differential Comment Puncture Site pCO2 (35-45) mm/Hg pO2 (80-100) mm/Hg HCO3 (21-28) mmol/L ABG pH (7.35-7.45) ABG Total CO2 (22-28) mmol/L ABG O2 Saturation (95-98) % ABG Base Excess (-2.0-3.0) mmol/L ABG Hemoglobin (11.7-17.4) g/dL ABG Carboxyhemoglobin (0.5-1.5) % POC ABG HHb (Measured) (0.0-5.0) % ABG Methemoglobin (0.0-3.0) % Jose D Test A-a O2 Difference mm/Hg Respiratory Index Hgb O2 Saturation (95.0-98.0) % Vent Mode Mechanical Rate FiO2 % Tidal Volume PEEP POC Glucose (mg/dL) 157 H 144 H (65-110) mg/dL Phosphorus 2.8 (2.5-4.5) mg/dL Magnesium 2.5 H (1.6-2.3) mg/dL 05/02/18 05/02/18 05/01/18 Range/Units 05:38 04:40 23:47 WBC 12.1 H (4.8-10.8) K/uL RBC 3.13 L (4.40-5.90) Mil/uL Hgb 8.3 L (12.0-18.0) g/dL Hct 24.8 L (35.0-51.0) % MCV 79.2 L (80.0-94.0) fL MCH 26.4 L (27.0-31.0) pg MCHC 33.4 (33.0-37.0) g/dL RDW 18.3 H (11.5-14.5) % Plt Count 129 L (130-400) K/uL MPV 10.0 (7.2-11.7) fL Neut % (Auto) 82.5 H (50.0-75.0) % Lymph % (Auto) 10.3 L (20.0-40.0) % Sierra % (Auto) 6.2 (0.0-10.0) % Eos % (Auto) 0.6 (0.0-4.0) % Baso % (Auto) 0.4 (0.0-2.0) % Neut # (Auto) 10.0 H (1.8-7.0) K/uL Lymph # (Auto) 1.2 (1.0-4.3) K/uL Sierra # (Auto) 0.8 (0.0-0.8) K/uL Eos # (Auto) 0.1 (0.0-0.7) K/uL Baso # (Auto) 0.1 (0.0-0.2) K/uL Differential Comment Puncture Site Malaika pCO2 30 L (35-45) mm/Hg pO2 81 (80-100) mm/Hg HCO3 25.9 (21-28) mmol/L ABG pH 7.50 H (7.35-7.45) ABG Total CO2 24.3 (22-28) mmol/L ABG O2 Saturation 96.9 (95-98) % ABG Base Excess 1.4 (-2.0-3.0) mmol/L ABG Hemoglobin 16.9 (11.7-17.4) g/dL ABG Carboxyhemoglobin 1.3 (0.5-1.5) % POC ABG HHb (Measured) 3.0 (0.0-5.0) % ABG Methemoglobin 1.0 (0.0-3.0) % Jose D Test Na A-a O2 Difference 309.0 mm/Hg Respiratory Index 3.8 Hgb O2 Saturation 94.7 L (95.0-98.0) % Vent Mode Prvc Mechanical Rate 18 FiO2 60.0 % Tidal Volume 600 PEEP 5 POC Glucose (mg/dL) 168 H (65-110) mg/dL Phosphorus (2.5-4.5) mg/dL Magnesium (1.6-2.3) mg/dL 05/01/18 Range/Units 17:24 WBC (4.8-10.8) K/uL RBC (4.40-5.90) Mil/uL Hgb (12.0-18.0) g/dL Hct (35.0-51.0) % MCV (80.0-94.0) fL MCH (27.0-31.0) pg MCHC (33.0-37.0) g/dL RDW (11.5-14.5) % Plt Count (130-400) K/uL MPV (7.2-11.7) fL Neut % (Auto) (50.0-75.0) % Lymph % (Auto) (20.0-40.0) % Sierra % (Auto) (0.0-10.0) % Eos % (Auto) (0.0-4.0) % Baso % (Auto) (0.0-2.0) % Neut # (Auto) (1.8-7.0) K/uL Lymph # (Auto) (1.0-4.3) K/uL Sierra # (Auto) (0.0-0.8) K/uL Eos # (Auto) (0.0-0.7) K/uL Baso # (Auto) (0.0-0.2) K/uL Differential Comment Puncture Site pCO2 (35-45) mm/Hg pO2 (80-100) mm/Hg HCO3 (21-28) mmol/L ABG pH (7.35-7.45) ABG Total CO2 (22-28) mmol/L ABG O2 Saturation (95-98) % ABG Base Excess (-2.0-3.0) mmol/L ABG Hemoglobin (11.7-17.4) g/dL ABG Carboxyhemoglobin (0.5-1.5) % POC ABG HHb (Measured) (0.0-5.0) % ABG Methemoglobin (0.0-3.0) % Jose D Test A-a O2 Difference mm/Hg Respiratory Index Hgb O2 Saturation (95.0-98.0) % Vent Mode Mechanical Rate FiO2 % Tidal Volume PEEP POC Glucose (mg/dL) 159 H (65-110) mg/dL Phosphorus (2.5-4.5) mg/dL Magnesium (1.6-2.3) mg/dL Laboratory Results - last 24 hr 05/01/18 05/01/18 05/02/18 17:24 23:47 04:40 WBC RBC Hgb Hct MCV MCH MCHC RDW Plt Count MPV Neut % (Auto) Lymph % (Auto) Sierra % (Auto) Eos % (Auto) Baso % (Auto) Neut # (Auto) Lymph # (Auto) Sierra # (Auto) Eos # (Auto) Baso # (Auto) Differential Comment Puncture Site Foster pCO2 30 L pO2 81 HCO3 25.9 ABG pH 7.50 H ABG Total CO2 24.3 ABG O2 Saturation 96.9 ABG Base Excess 1.4 ABG Hemoglobin 16.9 ABG Carboxyhemoglobin 1.3 POC ABG HHb (Measured) 3.0 ABG Methemoglobin 1.0 Jose D Test Na A-a O2 Difference 309.0 Respiratory Index 3.8 Hgb O2 Saturation 94.7 L Vent Mode Prvc Mechanical Rate 18 FiO2 60.0 Tidal Volume 600 PEEP 5 POC Glucose (mg/dL) 159 H 168 H Phosphorus Magnesium 05/02/18 05/02/18 05/02/18 05:38 05:38 06:15 WBC 12.1 H RBC 3.13 L Hgb 8.3 L Hct 24.8 L MCV 79.2 L MCH 26.4 L MCHC 33.4 RDW 18.3 H Plt Count 129 L MPV 10.0 Neut % (Auto) 82.5 H Lymph % (Auto) 10.3 L Sierra % (Auto) 6.2 Eos % (Auto) 0.6 Baso % (Auto) 0.4 Neut # (Auto) 10.0 H Lymph # (Auto) 1.2 Sierra # (Auto) 0.8 Eos # (Auto) 0.1 Baso # (Auto) 0.1 Differential Comment Puncture Site pCO2 pO2 HCO3 ABG pH ABG Total CO2 ABG O2 Saturation ABG Base Excess ABG Hemoglobin ABG Carboxyhemoglobin POC ABG HHb (Measured) ABG Methemoglobin Jose D Test A-a O2 Difference Respiratory Index Hgb O2 Saturation Vent Mode Mechanical Rate FiO2 Tidal Volume PEEP POC Glucose (mg/dL) 144 H Phosphorus 2.8 Magnesium 2.5 H 05/02/18 11:34 WBC RBC Hgb Hct MCV MCH MCHC RDW Plt Count MPV Neut % (Auto) Lymph % (Auto) Sierra % (Auto) Eos % (Auto) Baso % (Auto) Neut # (Auto) Lymph # (Auto) Sierra # (Auto) Eos # (Auto) Baso # (Auto) Differential Comment Puncture Site pCO2 pO2 HCO3 ABG pH ABG Total CO2 ABG O2 Saturation ABG Base Excess ABG Hemoglobin ABG Carboxyhemoglobin POC ABG HHb (Measured) ABG Methemoglobin Jose D Test A-a O2 Difference Respiratory Index Hgb O2 Saturation Vent Mode Mechanical Rate FiO2 Tidal Volume PEEP POC Glucose (mg/dL) 157 H Phosphorus Magnesium Attending/Attestation - Attestation I have personally seen and examined this patient.: Yes I have fully participated in the care of the patient.: Yes I have reviewed all pertinent clinical information: Yes Notes (Text): 05/02/18 21:15 Today: April The Patient was seen and examined at the bedside, Medical records reviewed, and management issues were discussed and formulated with the house staff. I have reviewed all the relevant clinical, laboratory, hemodynamic, radiographic data and medications Events reviewed Pain issues, skin care, head of the bed elevation, glycemic control were addressed. Agree with above resident's assessment and treatment plans of care as transcribed in Dr. Oviedo's note. 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
--- NOTE | 2018-05-03 01:57 | PN ---
DATE: 05/02/2018 SUBJECTIVE: The patient was seen and examined at bedside. The patient's mental status remained the same. PHYSICAL EXAMINATION: GENERAL: Elderly male, lying in bed, intubated, on sedation, unresponsive. VITAL SIGNS: Blood pressure 131/57, pulse 119, respirations 20, O2 saturation is 98% on 60% FiO2, and T-max 100.1. Intake was 3958, output 2880. HEENT: Pupils very sluggishly reacting to light and accommodation. No oral thrush. ET tube in the oral cavity. No icterus. No pallor. NECK: Supple. LUNGS: Bilateral fair entry. CENTRAL NERVOUS SYSTEM: S1 and S2 present, irregularly irregular. ABDOMEN: Soft. Bowel sounds present. CENTRAL NERVOUS SYSTEM: Unresponsive, intubated. Not moving extremities with dry toes to deep painful stimuli, more left side than the right. EXTREMITIES: Upper extremities, edema present. MEDICATIONS: Include D5 normal saline, hypertonic saline, Tylenol, DuoNeb, aspirin 81 mg daily, Plavix 75 mg daily, Pepcid 20 mg daily, nicardipine drip, Zosyn 3.375 g IV every 6 hours, Diprivan drip, lactulose, Crestor 10 mg p.o. at bedtime. LABORATORY DATA: Labs from this morning: WBC 12.1, hemoglobin 8.3, hematocrit 24.8, platelets 129. Glucose 153, 159, 144, 157. Phosphorus 2.8, magnesium 2.5. ABG on 60% FiO2, pH 7.5, of pCO2 of 30, pO2 of 81, on 600 tidal volume, PEEP of 5, FiO2 60%. Sed rate 18. ASSESSMENT AND PLAN: Elderly male with coronary artery disease, status post coronary artery bypass grafting, hypertension, hyperlipidemia, atrial fibrillation, noncompliant with medication and appointments. Admitted for acute ischemic stroke, status post successful endovascular thrombectomy and stent placement, developed left middle cerebral artery infarction with worsening cerebral edema and midline shift. Remains intubated since admission. Anemia. On nicardipine drip. His neurological status is progressively getting worse with worsening midline shift, more withdrawn and unresponsive today. Remains intubated and ventilator dependent. Remains in atrial fibrillation. Continue with deep venous thrombosis and gastrointestinal prophylaxis. Discussed with the patient's sons at bedside. Explained the patient's critical condition and the poor prognosis. They all understand his poor prognosis but are awaiting for Neurology to discuss with them at length prior to deciding on making him Do Not Resuscitate and terminal extubation. As per the family's wishes, continue with supportive care, awaiting with Neurology. Condition is critical. Prognosis is guarded. Donnavapablo Brunner MD
--- NOTE | 2018-05-03 08:08 | CP.CCUPN ---
CCU Subjective - Physician Review Events Since Last Encounter (Free Text): 05/03/18 08:07 Patient terminally extubated. Remains on morphine drip and O2 via nasal cannula. Subjective (Free Text): 05/03/18 08:07 Patient was seen and examined this morning. Critical Care Time Spent (in minutes): 35 CCU Objective - Vital Signs / Intake & Output Vital Signs (Last 4 hours): Vital Signs Pulse Resp BP Pulse Ox 05/03/18 06:00 108 H 12 97 05/03/18 05:00 121 H 9 L 149/61 97 Intake and Output (Last 8hrs): Intake & Output 05/02/18 05/03/18 05/03/18 22:59 06:59 14:59 Intake Total 627.4 91.5 8 Output Total 570 300 40 Balance 57.4 -208.5 -32 Weight 196 lb 3.382 oz Intake: IV 130.5 31.5 Intake, IV Amount 296.9 60 8 Right Internal Jugular 7.9 Right Medial Port 100 Internal Jugular Right Proximal Port 189.0 60 8 Internal Jugular Tube Feeding 200 Output: Urine 570 300 40 Urethral (Bhatt) 570 300 40 - Physical Exam Head: Positive for: Atraumatic, Normocephalic Pupils: Positive for: PERRL, Sluggish, Other Mouth: Positive for: Dry Respiratory/Chest: Positive for: Rhonchi, Other (vent) Cardiovascular: Positive for: Regular Rate and Rhythm, Normal S1, S2. Negative for: Murmurs Abdomen: Negative for: Distention Upper Extremity: Positive for: Normal Inspection Lower Extremity: Positive for: Normal Inspection Neurological: Positive for: Other (intubated, sedated, responsive to pain, gag relfex intact) Skin: Positive for: Warm, Dry Psychiatric: Negative for: Alert - Medications Active Medications: Active Medications Generic Name Dose Route Start Last Admin Trade Name Freq PRN Reason Stop Dose Admin Morphine Sulfate 250 mg/ 250 mls @ 5 mls/hr 05/02/18 15:28 05/03/18 02:00 Dextrose IV 8 mg/hr .Q24H PRN 8 mls/hr Agitation Titration Protocol - Patient Studies Lab Studies: Microbiology Studies 04/29/18 18:18 Mycobacterial Culture - Preliminary Other: Please Indicate 04/29/18 18:18 Gram Stain - Final Body Fluid - Bronchial Washing Body Fluid Culture - Preliminary NO GROWTH AFTER 3 DAYS Lab Studies 05/02/18 05/02/18 Range/Units 11:34 05:38 WBC 12.1 H (4.8-10.8) K/uL RBC 3.13 L (4.40-5.90) Mil/uL Hgb 8.3 L (12.0-18.0) g/dL Hct 24.8 L (35.0-51.0) % MCV 79.2 L (80.0-94.0) fL MCH 26.4 L (27.0-31.0) pg MCHC 33.4 (33.0-37.0) g/dL RDW 18.3 H (11.5-14.5) % Plt Count 129 L (130-400) K/uL MPV 10.0 (7.2-11.7) fL Neut % (Auto) 82.5 H (50.0-75.0) % Lymph % (Auto) 10.3 L (20.0-40.0) % [place] % (Auto) 6.2 (0.0-10.0) % Eos % (Auto) 0.6 (0.0-4.0) % Baso % (Auto) 0.4 (0.0-2.0) % Neut # (Auto) 10.0 H (1.8-7.0) K/uL Lymph # (Auto) 1.2 (1.0-4.3) K/uL [place] # (Auto) 0.8 (0.0-0.8) K/uL Eos # (Auto) 0.1 (0.0-0.7) K/uL Baso # (Auto) 0.1 (0.0-0.2) K/uL Differential Comment POC Glucose (mg/dL) 157 H (65-110) mg/dL Laboratory Results - last 24 hr 05/02/18 05/02/18 05:38 11:34 WBC 12.1 H RBC 3.13 L Hgb 8.3 L Hct 24.8 L MCV 79.2 L MCH 26.4 L MCHC 33.4 RDW 18.3 H Plt Count 129 L MPV 10.0 Neut % (Auto) 82.5 H Lymph % (Auto) 10.3 L [place] % (Auto) 6.2 Eos % (Auto) 0.6 Baso % (Auto) 0.4 Neut # (Auto) 10.0 H Lymph # (Auto) 1.2 [place] # (Auto) 0.8 Eos # (Auto) 0.1 Baso # (Auto) 0.1 Differential Comment POC Glucose (mg/dL) 157 H Fingerstick Blood Sugar Results: 159 Assessment/Plan - Assessment and Plan (Free Text) Assessment: Patient is 82 yo male who underwent 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 He remains intubated and sedated. Currently pending discussion with family members and neurology. 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, occlusion of L MCA - Post-op CTA: no occlusion/thrombus/stenosis visualized, patent stent graft in L ICA - Repeat CT head obtained - Neurovascular checks Q1H- if any changes, repeat CT head STAT - Propofol drip- not arousable to painful stimuli - Neurology consulted (Seth/Chanel) - Neurointervention consulted (Chago) CV: - Mechanical thrombectomy 04/25 - Trop negative x3 - ASA 81 mg PO daily - Plavix 75 mg PO daily - Nicardipine drip - Monitor vitals- Afib - Maintain SBP 100-140 - Cardiology consulted (Kong) Pulm: - Bronchoscopy 04/29: Diffuse pulmonary edema and right main bronchus bleed - ETT- titrate vent to maintain spO2>92%, CPAP trial - CXR: severe cardiomegaly, mod venous congestion, b/l airspace disease (atelectasis vs PNA) - ABG: pH 7.5, pC02 30, pO2 81 - Duoneb Q4H GI: - NGT- Glucerna - Lactulose 20 mg PO QHS : - Monitor I's & O's- Bhatt - Last 24 hrs +1078 mL - Lasix 40 mg IV BID - Replete electrolytes PRN Endo: - A1c 5.9 - Maintain euglycemia - Accuchecks Q6H with ISS Heme: - Hgb decreasing (8.3) - Monitor H&H ID: - Febrile overnight 100.4 - Tylenol 650 mg NGT Q4H PRN - Mild leukocytosis (12.1) - Blood Cx neg PPx: VTE: heparin 5000 units SC Q8H GI: Pepcid 20 mg IV daily Case discussed with attending, Dr. Pro. PGY-1 Katelyn Oviedo D.O.
--- NOTE | 2018-05-03 11:26 | CP.PCM.PN ---
Subjective - Date & Time of Evaluation Date of Evaluation: 05/03/18 Time of Evaluation: 11:26 - Subjective Subjective: Progress note dictated #[id number] Objective - Vital Signs/Intake and Output Vital Signs (last 24 hours): Temp Pulse Resp BP Pulse Ox 98.0 F 108 H 12 149/61 97 05/03/18 04:00 05/03/18 06:00 05/03/18 06:00 05/03/18 05:00 05/03/18 06:00 Intake and Output: 05/03/18 05/03/18 06:59 18:59 Intake Total 231.0 8 Output Total 390 40 Balance -159.0 -32 - Medications Medications: Current Medications Morphine Sulfate 250 mg/ (Dextrose) 250 mls @ 5 mls/hr IV .Q24H PRN; Protocol PRN Reason: Agitation Last Titration: 05/03/18 02:00 Dose: 8 mg/hr, 8 mls/hr - Labs Labs: 05/02/18 05:38 05/01/18 05:59 PT 14.5 SECONDS (9.7-12.2) H 04/26/18 21:58 INR 1.3 04/26/18 21:58 APTT 32 SECONDS (21-34) 04/26/18 21:58
[2018-05-03] MEDS: Morphine Sulfate 250 MG in Dextrose 5% In Water 240 ML IV PRN (13:27)
[2018-05-04] MEDS ORDERED: Albuterol-Ipratrop 3 mg / 0.5 (3 ml) UD INH PRN (00:41)
--- NOTE | 2018-05-04 02:58 | PN ---
DATE: 05/03/2018 SUBJECTIVE: The patient was seen and examined at bedside. Events from last night noted. The patient was terminally extubated on nasal cannula, on morphine drip. PHYSICAL EXAMINATION: GENERAL: Elderly male, lying in bed, in no acute distress, unresponsive. VITAL SIGNS: Blood pressure 99/64, pulse 110, respirations 18, O2 sat is 87% on 2 L nasal cannula. HEENT: Pupils very sluggishly reacting to light. No icterus. No pallor. Dry mucous membranes. NECK: Supple. No JVD. LUNGS: Bilateral fair air entry. CARDIOVASCULAR SYSTEM: S1, S2 present. Irregularly irregular. ABDOMEN: Soft. Bowel sounds present. CENTRAL NERVOUS SYSTEM: Unconscious, unresponsive. Not moving any extremities. EXTREMITIES: Edema present. LABORATORY DATA: No labs done today. MEDICATIONS: Include morphine drip at 5 mg/h. ASSESSMENT AND PLAN: Elderly male with history of hypertension, hyperlipidemia, atrial fibrillation, coronary artery disease, status post coronary artery bypass grafting, acute ischemic stroke, status post endovascular thrombectomy and stent placement, left middle cerebral artery infarction, cerebral edema with midline shift with poor prognosis. The patient's family after speaking to all the consultants and Neurology, decided for terminal extubation which was done yesterday. Continue with comfort care with morphine drip, continue with nasal cannula. Harinder Brunner MD
--- NOTE | 2018-05-04 13:36 | CP.PCM.PN ---
Subjective - Date & Time of Evaluation Date of Evaluation: 04/30/18 Time of Evaluation: 16:20 - Subjective Subjective: Patient seen and evaluated Intubated Non responsive Review of Systems - Review of Systems Systems not reviewed;Unavailable: Intubated Past Patient History - Past Social History Smoking Status: unknown - PSYCHIATRIC Hx Substance Use: No (unknown) Physical Exam - Constitutional Additional comments: sedated, intubated - Head Exam Head Exam: ATRAUMATIC - Eye Exam Eye Exam: PERRL - ENT Exam ENT Exam: Mucous Membranes Moist - Respiratory Exam Additional comments: vent - Cardiovascular Exam Cardiovascular Exam: REGULAR RHYTHM - GI/Abdominal Exam GI & Abdominal Exam: Soft - Rectal Exam Rectal Exam: Deferred - Extremities Exam Extremities exam: Positive for: spontaneous left sided movements - Psychiatric Exam Additional comments: sedated - Skin Skin Exam: Dry, Normal Color, Warm Assessment & Plan - Assessment and Plan (Free Text) Assessment: Patient is 82 yo male who underwent 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 He remains intubated and sedated. 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, occlusion of L MCA - Neurovascular checks Q1H- if any changes, repeat CT head STAT - Propofol drip- maintain RASS -2 - Neurology consulted (Ann) - Neurointervention consulted (Arcjoe) CV: - Mechanical thrombectomy today 04/25 - Lipid panel wnl - Stop Integrilin - ASA 325 mg PO loading dose then ASA 81 mg PO daily - Plavix 300 mg PO loading dose then Plavix 75 mg PO daily - NS @ 100 mL/hr - Monitor vitals- maintain SBP Pulm: - ETT- titrate vent to maintain spO2>92% - CXR pending - ABG pending GI: - NGT - NPO : - I's & O's- Bhtat - Replete electrolytes PRN - UA pending Endo: - A1c 5.9 - Maintain euglycemia - Hypoglycemia protocol - Accuchecks Q6H with ISS Heme: - Monitor H&H - Monitor coags ID: - Afebrile - No leukocytosis - Lactate pending PPx: VTE: heparin 5000 units SC Q8H GI: Pepcid 20 mg IV daily Code status: full code Objective - Vital Signs/Intake and Output Vital Signs (last 24 hours): Temp Pulse Resp BP Pulse Ox 97.7 F 117 H 20 124/60 97 05/04/18 08:57 05/04/18 08:57 05/04/18 08:57 05/04/18 08:57 05/04/18 08:57 Intake and Output: 05/04/18 05/04/18 06:59 18:59 Intake Total 81 Output Total 500 Balance -419 - Medications Medications: Current Medications Acetaminophen (Tylenol 650 Mg Supp) 650 mg [place] Q6 PRN PRN Reason: Fever >100.4 F Albuterol/Ipratropium (Duoneb 3 Mg/0.5 Mg (3 Ml) Ud) 3 ml INH RQ4 PRN PRN Reason: Cough and congestion Last Admin: 05/04/18 01:06 Dose: 3 ml Albuterol/Ipratropium (Duoneb 3 Mg/0.5 Mg (3 Ml) Ud) 3 ml INH RQ6 DANIEL Morphine Sulfate 250 mg/ (Dextrose) 250 mls @ 5 mls/hr IV .Q24H PRN; Protocol PRN Reason: Agitation Last Titration: 05/03/18 18:00 Dose: 9 mg/hr, 9 mls/hr - Labs Labs: 05/02/18 05:38 05/01/18 05:59 PT 14.5 SECONDS (9.7-12.2) H 04/26/18 21:58 INR 1.3 04/26/18 21:58 APTT 32 SECONDS (21-34) 04/26/18 21:58
--- NOTE | 2018-05-04 13:38 | CP.PCM.PN ---
Subjective - Date & Time of Evaluation Date of Evaluation: 05/03/18 Time of Evaluation: 14:10 - Subjective Subjective: Patient seen and evaluated Intubated No spontaneous movement s or response Review of Systems - Review of Systems Systems not reviewed;Unavailable: Intubated Past Patient History - Past Social History Smoking Status: unknown - PSYCHIATRIC Hx Substance Use: No (unknown) Physical Exam - Constitutional Additional comments: sedated, intubated - Head Exam Head Exam: ATRAUMATIC - Eye Exam Eye Exam: PERRL - ENT Exam ENT Exam: Mucous Membranes Moist - Respiratory Exam Additional comments: vent - Cardiovascular Exam Cardiovascular Exam: REGULAR RHYTHM - GI/Abdominal Exam GI & Abdominal Exam: Soft - Rectal Exam Rectal Exam: Deferred - Extremities Exam Extremities exam: Positive for: spontaneous left sided movements - Psychiatric Exam Additional comments: sedated - Skin Skin Exam: Dry, Normal Color, Warm Assessment & Plan - Assessment and Plan (Free Text) Assessment: Patient is 82 yo male who underwent 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 He remains intubated and sedated. 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, occlusion of L MCA - Neurovascular checks Q1H- if any changes, repeat CT head STAT - Propofol drip- maintain RASS -2 - Neurology consulted (Ann) - Neurointervention consulted (Chago) CV: - Mechanical thrombectomy today 04/25 - Lipid panel wnl - Stop Integrilin - ASA 325 mg PO loading dose then ASA 81 mg PO daily - Plavix 300 mg PO loading dose then Plavix 75 mg PO daily - NS @ 100 mL/hr - Monitor vitals- maintain SBP Pulm: - ETT- titrate vent to maintain spO2>92% - CXR pending - ABG pending GI: - NGT - NPO : - I's & O's- Bhatt - Replete electrolytes PRN - UA pending Endo: - A1c 5.9 - Maintain euglycemia - Hypoglycemia protocol - Accuchecks Q6H with ISS Heme: - Monitor H&H - Monitor coags ID: - Afebrile - No leukocytosis - Lactate pending PPx: VTE: heparin 5000 units SC Q8H GI: Pepcid 20 mg IV daily Code status: DNR/DNI Objective - Vital Signs/Intake and Output Vital Signs (last 24 hours): Temp Pulse Resp BP Pulse Ox 97.7 F 117 H 20 124/60 97 05/04/18 08:57 05/04/18 08:57 05/04/18 08:57 05/04/18 08:57 05/04/18 08:57 Intake and Output: 05/04/18 05/04/18 06:59 18:59 Intake Total 81 Output Total 500 Balance -419 - Medications Medications: Current Medications Acetaminophen (Tylenol 650 Mg Supp) 650 mg [place] Q6 PRN PRN Reason: Fever >100.4 F Albuterol/Ipratropium (Duoneb 3 Mg/0.5 Mg (3 Ml) Ud) 3 ml INH RQ4 PRN PRN Reason: Cough and congestion Last Admin: 05/04/18 01:06 Dose: 3 ml Albuterol/Ipratropium (Duoneb 3 Mg/0.5 Mg (3 Ml) Ud) 3 ml INH RQ6 DANIEL Morphine Sulfate 250 mg/ (Dextrose) 250 mls @ 5 mls/hr IV .Q24H PRN; Protocol PRN Reason: Agitation Last Titration: 05/03/18 18:00 Dose: 9 mg/hr, 9 mls/hr - Labs Labs: 05/02/18 05:38 05/01/18 05:59 PT 14.5 SECONDS (9.7-12.2) H 04/26/18 21:58 INR 1.3 04/26/18 21:58 APTT 32 SECONDS (21-34) 04/26/18 21:58
--- NOTE | 2018-05-04 15:54 | CP.PCM.PN ---
Subjective - Date & Time of Evaluation Date of Evaluation: 05/04/18 Time of Evaluation: 15:54 - Subjective Subjective: Progress note dictated #[id number] Objective - Vital Signs/Intake and Output Vital Signs (last 24 hours): Temp Pulse Resp BP Pulse Ox 97.7 F 117 H 20 124/60 97 05/04/18 08:57 05/04/18 08:57 05/04/18 08:57 05/04/18 08:57 05/04/18 08:57 Intake and Output: 05/04/18 05/04/18 06:59 18:59 Intake Total 81 0 Output Total 500 600 Balance -419 -600 - Medications Medications: Current Medications Acetaminophen (Tylenol 650 Mg Supp) 650 mg [place] Q6 PRN PRN Reason: Fever >100.4 F Albuterol/Ipratropium (Duoneb 3 Mg/0.5 Mg (3 Ml) Ud) 3 ml INH RQ4 PRN PRN Reason: Cough and congestion Last Admin: 05/04/18 01:06 Dose: 3 ml Albuterol/Ipratropium (Duoneb 3 Mg/0.5 Mg (3 Ml) Ud) 3 ml INH RQ6 DANIEL Morphine Sulfate 250 mg/ (Dextrose) 250 mls @ 5 mls/hr IV .Q24H PRN; Protocol PRN Reason: Agitation Last Titration: 05/03/18 18:00 Dose: 9 mg/hr, 9 mls/hr - Labs Labs: 05/02/18 05:38 05/01/18 05:59 PT 14.5 SECONDS (9.7-12.2) H 04/26/18 21:58 INR 1.3 04/26/18 21:58 APTT 32 SECONDS (21-34) 04/26/18 21:58
[2018-05-04] MEDS: Morphine Sulfate 250 MG in Dextrose 5% In Water 240 ML IV PRN (18:59)
[2018-05-04] MEDS: Albuterol-Ipratrop 3 mg / 0.5 (3 ml) UD INH SCH (20:53)
--- NOTE | 2018-05-04 22:45 | PN ---
DATE: <05/04/2018> SUBJECTIVE: The patient was seen and examined at bedside. The patient remains on morphine drip, unresponsive. PHYSICAL EXAMINATION: VITAL SIGNS: Blood pressure is 135/76, pulse 44, respirations 20, O2 sat 92% on nasal canula, temperature is 98.2 degrees Fahrenheit. HEENT: Pupils very sluggishly reacting to light. No icterus. No pallor. NECK: Supple. LUNGS: Bilateral fair air entry. CARDIOVASCULAR SYSTEM: S1 and S2 present, irregularly irregular. ABDOMEN: Soft. Bowel sounds present. CENTRAL NERVOUS SYSTEM: Unresponsive. Not moving any extremities. LABORATORY DATA: No labs done. ASSESSMENT AND PLAN: Elderly male with history of coronary artery disease, status post coronary artery bypass grafting, hypertension, hyperlipidemia, atrial fibrillation, noncompliant with medication. Admitted for acute ischemic stroke, underwent emergent endovascular thrombectomy and stent placement, developed left middle cerebral artery infarction with cerebral edema with massive midline shift with poor prognosis. After prolonged discussion with the family and with all the consultants, the patient was terminally extubated as per family's wishes. The patient is started on morphine drip and supportive care. Prognosis is guarded. Continue with supportive care. Hospice consult requested. Harinder Brunner MD
[2018-05-05] MEDS: Albuterol-Ipratrop 3 mg / 0.5 (3 ml) UD INH SCH ×4 (01:22→20:04)
--- NOTE | 2018-05-05 10:56 | CP.PCM.PN ---
Subjective - Date & Time of Evaluation Date of Evaluation: 05/05/18 Time of Evaluation: 10:56 - Subjective Subjective: Progress note dictated #[id number] Objective - Vital Signs/Intake and Output Vital Signs (last 24 hours): Temp Pulse Resp BP Pulse Ox 100 F H 100 H 20 148/71 98 05/05/18 07:52 05/05/18 07:52 05/05/18 07:52 05/05/18 07:52 05/05/18 07:52 Intake and Output: 05/05/18 05/05/18 06:59 18:59 Intake Total 72 Output Total 500 Balance -428 - Medications Medications: Current Medications Acetaminophen (Tylenol 650 Mg Supp) 650 mg [place] Q6 PRN PRN Reason: Fever >100.4 F Last Admin: 05/04/18 23:52 Dose: 650 mg Albuterol/Ipratropium (Duoneb 3 Mg/0.5 Mg (3 Ml) Ud) 3 ml INH RQ4 PRN PRN Reason: Cough and congestion Last Admin: 05/04/18 01:06 Dose: 3 ml Albuterol/Ipratropium (Duoneb 3 Mg/0.5 Mg (3 Ml) Ud) 3 ml INH RQ6 DANIEL Last Admin: 05/05/18 07:23 Dose: 3 ml Morphine Sulfate 250 mg/ (Dextrose) 250 mls @ 9 mls/hr IV .Q24H PRN; Protocol PRN Reason: Agitation Last Admin: 05/04/18 18:59 Dose: 9 mg/hr, 9 mls/hr - Labs Labs: 05/02/18 05:38 05/01/18 05:59 PT 14.5 SECONDS (9.7-12.2) H 04/26/18 21:58 INR 1.3 04/26/18 21:58 APTT 32 SECONDS (21-34) 04/26/18 21:58
--- NOTE | 2018-05-05 19:23 | PN ---
DATE: 05/05/2018 SUBJECTIVE: The patient was seen and examined at bedside. The patient remains unresponsive, on morphine drip and O2 via nasal cannula. PHYSICAL EXAMINATION GENERAL: Elderly male, lying in bed, in no acute distress. VITAL SIGNS: Blood pressure 148/71, pulse 100, respirations 20, temperature 100, T-max 102.4 degrees Fahrenheit, O2 sat 98% on 2 L nasal canula. HEENT: Pupils very sluggishly reacting to light. No icterus. No pallor. Dry mucous membranes. NECK: Supple. LUNGS: Bilateral fair air entry. CARDIOVASCULAR SYSTEM: S1 and S2 present, irregularly irregular. ABDOMEN: Soft. Bowel sounds present. CENTRAL NERVOUS SYSTEM: Unconscious, unresponsive. Not moving any of the extremities. MEDICATIONS: Include Tylenol as needed, DuoNeb, morphine 9 mg/hour. LABORATORY DATA: No new labs. Accu-Cheks were 108, 102, 96, 92 and 99. ASSESSMENT AND PLAN: Elderly male with a history of coronary artery disease, status post coronary artery bypass grafting; hypertension; hyperlipidemia; atrial fibrillation; admitted for acute ischemic stroke, status post endovascular thrombectomy and stent placement, left middle cerebral artery infarction with worsening cerebral edema with massive midline shift. After a prolonged discussion, the patient's family wanted terminal extubation which was done, and the patient was started on morphine drip and transferred to regular floor. We will continue with supportive care. We will request hospice evaluation, palliative care nurse followup. Discussed with the patient's son at length over the phone and clarified all his questions and concerns. Prognosis is poor. Harinder Brunner MD
[2018-05-05] MEDS: Morphine Sulfate 250 MG in Dextrose 5% In Water 240 ML IV PRN (22:31)
[2018-05-06] MEDS: Albuterol-Ipratrop 3 mg / 0.5 (3 ml) UD INH SCH ×4 (01:30→20:20)
--- NOTE | 2018-05-06 15:04 | CP.PCM.PN ---
Subjective - Date & Time of Evaluation Date of Evaluation: 05/06/18 Time of Evaluation: 15:04 - Subjective Subjective: Progress note dictated #[id number] Objective - Vital Signs/Intake and Output Vital Signs (last 24 hours): Temp Pulse Resp BP Pulse Ox 102.2 F H 120 H 20 138/81 95 05/06/18 10:53 05/06/18 07:57 05/06/18 07:57 05/06/18 07:57 05/06/18 07:57 Intake and Output: 05/06/18 05/06/18 06:59 18:59 Intake Total 216 Output Total 1000 400 Balance -784 -400 - Medications Medications: Current Medications Acetaminophen (Tylenol 650 Mg Supp) 650 mg [place] Q6 PRN PRN Reason: Fever >100.4 F Last Admin: 05/06/18 10:53 Dose: 650 mg Albuterol/Ipratropium (Duoneb 3 Mg/0.5 Mg (3 Ml) Ud) 3 ml INH RQ4 PRN PRN Reason: Cough and congestion Last Admin: 05/04/18 01:06 Dose: 3 ml Albuterol/Ipratropium (Duoneb 3 Mg/0.5 Mg (3 Ml) Ud) 3 ml INH RQ6 DANIEL Last Admin: 05/06/18 13:49 Dose: 3 ml Morphine Sulfate 250 mg/ (Dextrose) 250 mls @ 9 mls/hr IV .Q24H PRN; Protocol PRN Reason: Agitation Last Admin: 05/05/18 22:31 Dose: 9 mg/hr, 9 mls/hr - Labs Labs: 05/02/18 05:38 05/01/18 05:59 PT 14.5 SECONDS (9.7-12.2) H 04/26/18 21:58 INR 1.3 04/26/18 21:58 APTT 32 SECONDS (21-34) 04/26/18 21:58
--- NOTE | 2018-05-07 02:08 | PN ---
DATE: 05/06/2018 SUBJECTIVE: The patient was seen and examined at bedside. The patient remained unresponsive, unconscious, not moving any extremities. PHYSICAL EXAMINATION: GENERAL: Elderly male, in no acute distress. VITAL SIGNS: Blood pressure 133/68, pulse 93, T-max 102.2, O2 sat is 98% via nasal cannula, respiratory rate 20. HEENT: Pupils are very, very sluggishly reacting to light and accommodation. No icterus. No pallor. Dry mucous membranes. NECK: Supple. LUNGS: Bilateral vesicular breath sounds. No wheezing. No rhonchi. CARDIOVASCULAR SYSTEM: S1 and S2 present, irregularly irregular. ABDOMEN: Soft. Bowel sounds present. CENTRAL NERVOUS SYSTEM: Unresponsive, unconscious, not moving any extremities. EXTREMITIES: Upper extremity edema present. MEDICATIONS: Include Tylenol as needed, DuoNeb, morphine at 9 mg per hour. LABORATORY DATA: Accu-Chek are 92, 99, 19, 102 and 95. ASSESSMENT AND PLAN: Elderly male with history of hypertension, hyperlipidemia, atrial fibrillation. Admitted for acute ischemic stroke, left middle cerebral artery infarction, status post endovascular thrombectomy and stent placement of left internal carotid artery and left middle cerebral artery, cerebral edema with midline shift, status post terminal extubation and comfort care. Continue with Tylenol as needed for fever, DuoNebs, oxygen saturations and on morphine drip. Hospice evaluation pending. We will continue with supportive care. Harinder Brunner MD
[2018-05-07] MEDS: Morphine Sulfate 250 MG in Dextrose 5% In Water 240 ML IV PRN (03:27)
[2018-05-07] MEDS: Albuterol-Ipratrop 3 mg / 0.5 (3 ml) UD INH SCH ×3 (08:14→20:30)
--- NOTE | 2018-05-07 16:35 | CP.PCM.PN ---
Subjective - Date & Time of Evaluation Date of Evaluation: 05/07/18 Time of Evaluation: 16:35 - Subjective Subjective: Progress note dictated #[id number] Objective - Vital Signs/Intake and Output Vital Signs (last 24 hours): Temp Pulse Resp BP Pulse Ox 101.6 F H 108 H 16 126/64 95 05/07/18 16:06 05/07/18 15:54 05/07/18 15:54 05/07/18 15:54 05/07/18 15:54 Intake and Output: 05/07/18 05/07/18 06:59 18:59 Intake Total 322 144 Output Total 300 700 Balance 22 -556 - Medications Medications: Current Medications Acetaminophen (Tylenol 650 Mg Supp) 650 mg [place] Q6 PRN PRN Reason: Fever >100.4 F Last Admin: 05/07/18 16:06 Dose: 650 mg Albuterol/Ipratropium (Duoneb 3 Mg/0.5 Mg (3 Ml) Ud) 3 ml INH RQ4 PRN PRN Reason: Cough and congestion Last Admin: 05/04/18 01:06 Dose: 3 ml Albuterol/Ipratropium (Duoneb 3 Mg/0.5 Mg (3 Ml) Ud) 3 ml INH RQ6 DANIEL Last Admin: 05/07/18 13:35 Dose: Not Given Morphine Sulfate 250 mg/ (Dextrose) 250 mls @ 9 mls/hr IV .Q24H PRN; Protocol PRN Reason: Agitation Last Admin: 05/07/18 03:27 Dose: 9 mg/hr, 9 mls/hr - Labs Labs: 05/02/18 05:38 05/01/18 05:59 PT 14.5 SECONDS (9.7-12.2) H 04/26/18 21:58 INR 1.3 04/26/18 21:58 APTT 32 SECONDS (21-34) 04/26/18 21:58
[2018-05-08 00:15] VITALS: RESP 20
[2018-05-08] MEDS: Albuterol-Ipratrop 3 mg / 0.5 (3 ml) UD INH SCH ×4 (01:09→21:01)
--- NOTE | 2018-05-08 01:39 | PN ---
DATE: 05/07/2018 SUBJECTIVE: The patient was seen and examined at bedside. The patient remains comatose, unresponsive, not moving any extremities. PHYSICAL EXAMINATION: VITAL SIGNS: Blood pressure 126/64, pulse 108, respirations 16, T-max 103.3, O2 sat is 95% on nasal cannula. HEENT: Pupils not reacting to light. No icterus. No pallor. Dry mucous membrane. NECK: Supple. LUNGS: Bilateral fair air entry. CARDIOVASCULAR: S1, S2 present. Irregularly irregular. ABDOMEN: Soft. Bowel sounds present. CENTRAL NERVOUS SYSTEM: Comatose, unresponsive. Not moving any extremities. Not responding to deep painful stimuli. MEDICATIONS: Tylenol as needed, DuoNeb every 6 hours, morphine 9 mg per hour. Accu-Chek 90, 108, 95, 107, 110. ASSESSMENT AND PLAN: Elderly male with history of hypertension, hyperlipidemia, atrial fibrillation, acute ischemic stroke, status post endovascular thrombectomy and stent placement of left internal carotid artery and left middle cerebral artery, and middle cerebral artery infarction. Cerebral edema with midline shift, status post terminal extubation, on comfort care as per the patient's family's wishes. Continue with comfort care measures. Awaiting for hospice evaluation. Harinder Brunner MD
[2018-05-08] MEDS: Morphine Sulfate 250 MG in Dextrose 5% In Water 240 ML IV PRN (07:39)
--- NOTE | 2018-05-08 10:18 | CP.PCM.PN ---
Subjective - Date & Time of Evaluation Date of Evaluation: 05/08/18 Time of Evaluation: 10:18 - Subjective Subjective: Progress note dictated # [id number] Discharge summary dictated #[id number] Objective - Vital Signs/Intake and Output Vital Signs (last 24 hours): Temp Pulse Resp BP Pulse Ox 102.4 F H 143 H 20 106/65 98 05/08/18 10:01 05/08/18 07:36 05/08/18 07:36 05/08/18 07:36 05/08/18 07:36 Intake and Output: 05/08/18 05/08/18 06:59 18:59 Intake Total 144 250 Output Total 550 Balance -406 250 - Medications Medications: Current Medications Acetaminophen (Tylenol 650 Mg Supp) 650 mg [place] Q6 PRN PRN Reason: Fever >100.4 F Last Admin: 05/08/18 10:01 Dose: 650 mg Albuterol/Ipratropium (Duoneb 3 Mg/0.5 Mg (3 Ml) Ud) 3 ml INH RQ4 PRN PRN Reason: Cough and congestion Last Admin: 05/04/18 01:06 Dose: 3 ml Albuterol/Ipratropium (Duoneb 3 Mg/0.5 Mg (3 Ml) Ud) 3 ml INH RQ6 DANIEL Last Admin: 05/08/18 07:49 Dose: 3 ml Morphine Sulfate 250 mg/ (Dextrose) 250 mls @ 9 mls/hr IV .Q24H PRN; Protocol PRN Reason: Agitation Last Admin: 05/08/18 07:39 Dose: 9 mg/hr, 9 mls/hr - Labs Labs: 05/02/18 05:38 05/01/18 05:59 PT 14.5 SECONDS (9.7-12.2) H 04/26/18 21:58 INR 1.3 04/26/18 21:58 APTT 32 SECONDS (21-34) 04/26/18 21:58
--- NOTE | 2018-05-08 21:01 | PN ---
DATE: 05/08/2018 SUBJECTIVE: The patient was seen and examined at bedside. The patient is comatose, unresponsive, not moving any extremities. PHYSICAL EXAMINATION: GENERAL: An elderly male. VITAL SIGNS: Blood pressure 110/66, pulse 83, respirations 20, temperature 102.4 degrees Fahrenheit, O2 sat is 94% on nasal cannula. HEENT: Pupils are very, very sluggishly reacting to light. No icterus. No pallor. Dry mucous membranes. NECK: Supple. LUNGS: Bilateral fair air entry. CARDIOVASCULAR SYSTEM: S1 and S2 present, irregularly irregular. ABDOMEN: Soft. Bowel sounds present. CENTRAL NERVOUS SYSTEM: Comatose, unresponsive. Not moving any extremities. Not responding to deep painful stimuli. EXTREMITIES: Upper extremity edema noted. MEDICATIONS: Tylenol as needed, DuoNeb, morphine 9 mg per hour. LABORATORY DATA: Accu-Cheks 108, 95, 107, 110, 84. ASSESSMENT AND PLAN: Elderly male with history of hypertension, hyperlipidemia, atrial fibrillation, acute ischemic stroke, left middle cerebral artery infarction, status post endovascular thrombectomy and stent placements in the internal carotid and middle cerebral artery, status post terminal extubation. The patient agrees for comfort measures. Awaiting for the patient's family decision on hospice status. Hospice consult requested. Awaiting for further evaluation by hospice care and family decision. Prognosis is poor. Harinder Brunner MD
[2018-05-08] MEDS ORDERED: Dextrose 50% SYRINGE Inj (50 ml) IV STA (21:19)
[2018-05-09 00:17] VITALS: BP 73/47; PULSE 110; TEMP 97.9; O2SAT 88
--- NOTE | 2018-05-09 01:08 | CP.PCM.PRO ---
Pronouncement of Note - Clinical Findings Physical Exam: No Response Verbal/Painful Stimuli, Absent Peripheral Puls es{Carotid & Femoral}, Absent Heart & Breath Sounds, No Pupillary Light Reflex, No Corneal Reflex, Pupils Fixed & Dilated, Absence of Vital Signs - Pronouncement Time Time of Pronouncement of : 00:55 - Notifications Pronouncement Notifications: Atending Notified Assistant [employer] Manager Notified: No - Autopsy Autopsy Requested: No - [place] [id number]
--- NOTE | 2018-05-17 04:20 | DS ---
CAUSE OF EXPIRATION: Hypertension, hyperlipidemia, atrial fibrillation, acute ischemic stroke, left middle cerebral artery infarction, status post endovascular thrombectomy and stent placement, internal carotid and middle cerebral artery, status post intubation and terminal extubation as requested by the patient's family, underwent comfort measures. HISTORY OF PRESENT ILLNESS: Mr. Goodwin was an 82-year-old male with past medical history of hypertension, hyperlipidemia, coronary artery disease, status post CABG, admitted for unresponsive state as the patient was found lying in a parking lot and the patient in ED was found to be having acute ischemic stroke, and the patient was admitted to the hospital for immediate intervention and for further care. On the day of expiration, the patient was not able to breathe on his own, pupils were nonreactive, no corneal reflexes, no recordable blood pressure and no heart sounds were heard and the patient was pronounced on 05/09/2018 at 12:55 a.m. HOSPITAL COURSE: The patient was admitted to the hospital for immediate intervention. The patient underwent endovascular thrombectomy and stent placement by Interventional Radiology. The patient was admitted to ICU. The patient developed cerebral edema with midline shift and unresponsive state, developed anoxic encephalopathy. The patient was evaluated by Neurology and Interventional Radiology as his cerebral edema was worsening and the patient was evaluated by Palliative Care. Discussed with the patient's family regarding the patient's prognosis and possible vegetative state. The patient's son after a prolonged discussion with all the consultants decided to proceed with terminal extubation, and the patient underwent terminal extubation and was put on comfort measures only. The patient was receiving continuous morphine drip to keep him comfortable and the patient was in the process of undergoing hospice care placement and the patient was pronounced on 05/09/2018 at 12:55 a.m. The patient's family was notified. The patient's family was aware of the patient's condition. Harinder Brunner MD
== END 2018-05-09 04:58 | DRG 23 ==
LOC: C.ER 16:15 → C.9E 16:49 → C.9I 17:35 → C.3T 05-03 20:23
PROVIDERS: ADMIT Internal Medicine; ATTEND Internal Medicine
PROC: 03CL3ZZ Extirpation of Matter from Left Internal Carotid Artery, Percutaneous Approach (ICD-10-PCS; 2018-04-25)
PROC: 03CG3ZZ Extirpation of Matter from Intracranial Artery, Percutaneous Approach (ICD-10-PCS; 2018-04-25)
PROC: 037L3DZ Dilation of Left Internal Carotid Artery with Intraluminal Device, Percutaneous Approach (ICD-10-PCS; 2018-04-25)
PROC: 037Y3DZ Dilation of Upper Artery with Intraluminal Device, Percutaneous Approach (ICD-10-PCS; 2018-04-25)
PROC: 0BH17EZ Insertion of Endotracheal Airway into Trachea, Via Natural or Artificial Opening (ICD-10-PCS; 2018-04-25)
PROC: 5A1955Z Respiratory Ventilation, Greater than 96 Consecutive Hours (ICD-10-PCS; 2018-04-25)
PROC: 05HM33Z Insertion of Infusion Device into Right Internal Jugular Vein, Percutaneous Approach (ICD-10-PCS; 2018-04-28)
PROC: 0B9F8ZX Drainage of Right Lower Lung Lobe, Via Natural or Artificial Opening Endoscopic, Diagnostic (ICD-10-PCS; principal; 2018-04-29 11:00)
DX: I63.512 Cerebral infarction due to unspecified occlusion or stenosis of left middle cerebral artery (principal); G93.6 Cerebral edema; J96.90 Respiratory failure, unspecified, unspecified whether with hypoxia or hypercapnia; R41.4 Neurologic neglect syndrome; G81.94 Hemiplegia, unspecified affecting left nondominant side; G81.91 Hemiplegia, unspecified affecting right dominant side; G93.2 Benign intracranial hypertension; R47.01 Aphasia; I10 Essential (primary) hypertension; E78.5 Hyperlipidemia, unspecified; E11.9 Type 2 diabetes mellitus without complications; Z87.891 Personal history of nicotine dependence; Z91.14 Patient's other noncompliance with medication regimen; I25.10 Atherosclerotic heart disease of native coronary artery without angina pectoris; I48.91 Unspecified atrial fibrillation; I65.22 Occlusion and stenosis of left carotid artery; K12.30 Oral mucositis (ulcerative), unspecified; R29.810 Facial weakness; Z51.5 Encounter for palliative care; Z66 Do not resuscitate; Z95.5 Presence of coronary angioplasty implant and graft